=== PATIENT | female | born 1940 | race Caucasian/White ===

== ENCOUNTER 2016-09-29 12:10 | Inpatient (IN) | payer BC ==
[2016-09-29] MEDS ORDERED: SODIUM CHLORIDE 1,000 ML IV STA (12:38)
--- NOTE | 2016-09-29 13:11 | PDOC ---
History of Present Illness - General Chief Complaint: Weakness Stated Complaint: SENT BY PCP Time Seen by Provider: 09/29/16 12:20 History Source: Patient Exam Limitations: No Limitations - History of Present Illness Initial Comments: 09/29/16 13:02 76 y/o female sent in from Dr. Patel for evaluation of lightheadness, weakness, and paplitations since last night. Pt with hx of PAF and on aspirin only. Pt denies chest pain, shortness of breath, or lower extremity edema. Pt denies fever, chills, loss of appetite, weight change, recent change in medications, or recent illness. Timing/Duration: 24 hours Associated Symptoms: reports: malaise, weakness Past History - Past Medical History Allergies/Adverse Reactions: Allergies Allergy/AdvReac Type Severity Reaction Status Date / Time codeine Allergy Verified 09/29/16 12:22 Home Medications: Ambulatory Orders Ca/D3/Mag Ox/Zinc/Tractor Operator/Dio/Bor [Caltrate 600+D Plus Tab Chew] 1 each PO DAILY Metoprolol Succinate [Toprol XL -] 50 mg PO HS 02/08/14 Pravastatin Sodium 20 mg PO MOFR 02/08/14 Ubidecarenone [Co Q-10] 200 mg PO DAILY 02/08/14 Aspirin [Aspir 81] 81 mg PO DAILY 09/01/14 B12/Levomefolate Calcium/B-6 [Foltx Tablet] 1 each PO DAILY tablet 09/01/14 Meclizine HCl 12.5 mg PO ASDIR PRN tablet 09/01/14 Magnesium 400 mg PO DAILY 09/29/16 Cancer: Yes (BREAST) Cardiac Disorders: Yes HTN: Yes Hypercholesterolemia: Yes Other medical history: VERTIGO - Surgical History Cardiac Surgery: Yes (MITRAL VALVE) - Psycho/Social/Smoking Cessation Hx Anxiety: No Suicidal Ideation: No Smoking History: Never smoked Number of Cigarettes Smoked Daily: 0 Information on smoking cessation initiated: No Hx Alcohol Use: No Patient Lives Alone: Yes Lives with/in: lives alone Review of Systems - Review of Systems Able to Perform ROS?: Yes Constitutional: Yes: Weakness HEENTM: No: Symptoms Reported Respiratory: No: Symptoms reported Cardiac (ROS): Yes: Lightheadedness, Palpitations ABD/GI: No: Symptoms Reported Musculoskeletal: No: Symptoms Reported Integumentary: No: Symptoms Reported Neurological: Yes: Weakness, Dizziness Endocrine: No: Symptoms Reported Hematologic/Lymphatic: No: Symptoms Reported *Physical Exam - Vital Signs Last Vital Signs Temp Pulse Resp BP Pulse Ox 98.2 F 102 H 18 138/90 98 09/29/16 12:17 09/29/16 12:17 09/29/16 12:17 09/29/16 12:17 09/29/16 12:17 - Physical Exam General Appearance: Yes: Nourished, Appropriately Dressed. No: Apparent Distress HEENT: negative: Pale Conjunctivae Neck: positive: Supple Respiratory/Chest: positive: Lungs Clear, Normal Breath Sounds. negative: Respiratory Distress, Accessory Muscle Use Cardiovascular: positive: Regular Rhythm, Regular Rate. negative: Murmur Gastrointestinal/Abdominal: positive: Soft. negative: Tenderness Extremity: positive: Normal Capillary Refill. negative: Pedal Edema Integumentary: positive: Normal Color, Warm, Moist Neurologic: positive: Motor Strength 5/5 (ambulatory) Heart Score/ECG Review - ECG Impressions Tachycardia: Atrial Flutter (110) ED Treatment Course - LABORATORY CBC & Chemistry Diagram: 09/29/16 12:48 09/29/16 13:53 - RADIOLOGY Radiology Studies Ordered: Category Date Time Status CHEST X-RAY PORTABLE* [RAD] Stat Radiology 09/29/16 12:38 Ordered Medical Decision Making - Medical Decision Making 09/29/16 13:[address] Patel for evaluation of lightheadness and palpitations since yesterday. Pt on ekg with afib with variable rate. Pt's surgical specialist is Dr. Ribeiro and will begin cardiac workup. 09/29/16 15:03 Laboratory Tests 09/29/16 09/29/16 09/29/16 12:48 12:48 12:48 WBC 9.8 Hgb 13.1 D Hct 39.4 D Plt Count 135 Neutrophils % 81.9 INR 1.09 Sodium Potassium Chloride Carbon Dioxide Anion Gap BUN Creatinine Random Glucose Calcium Total Bilirubin AST ALT Alkaline Phosphatase Creatine Kinase CK-MB (CK-2) Troponin I Total Protein Albumin Urine Protein 1+ H Ur Leukocyte Esterase Negative Urine RBC 1 Urine WBC 1 Blood Type 09/29/16 09/29/16 12:48 13:53 WBC Hgb Hct Plt Count Neutrophils % INR Sodium 136 Potassium 4.7 Chloride 101 Carbon Dioxide 26 Anion Gap 9 BUN 24 H Creatinine 0.8 Random Glucose 88 Calcium 9.1 Total Bilirubin 0.5 D AST 41 H D ALT 30 Alkaline Phosphatase 66 D Creatine Kinase 206 H CK-MB (CK-2) Pending Troponin I < 0.02 Total Protein 8.4 H D Albumin 4.0 D Urine Protein Ur Leukocyte Esterase Urine RBC Urine WBC Blood Type A POSITIVE Chest x-ray negative. Consult placed for Dr. Ribeiro patient's surgical specialist and will admit the hospitalist since Dr. monge ([place] hospitalist) is currently away. 09/29/16 15:25 Case discussed with surgical specialist Dr. Ball and is aware patient will be admitted to telemetry. 09/29/16 15:44 Discussed with hospitalist Sadiq GIBBONS and accepted to service. Patient will be admitted to telemetry observation status. *DC/Admit/Observation/Transfer Diagnosis at time of Disposition: PAF (paroxysmal atrial fibrillation), Weak, Dizziness - Discharge Dispostion Admit: Yes - Referrals Referrals: Doug Patel MD [Primary Care Provider] -
[2016-09-29 13:17] LABS: BASOPHIL 0.3 % (0-2.0); EOSINOPHIL 0.3 % (0-4.5); MCH 31.3 pg (25.7-33.7); MCHC 33.3 g/dl (32.0-36.0); MEAN CELL VOLUME 94.2 fl (80-96); MEAN PLT VOLUME 8.4 fl (7.5-11.1); NEUTROPHILS 81.9 % (42.8-82.8); PLATELET COUNT 135 K/MM3 (134-434); RDW 13.2 % (11.6-15.6); WHITE BLOOD COUNT 9.8 K/mm3 (4.0-10.0)
[2016-09-29 13:41] LABS: INR 1.09 (0.82-1.09)
[2016-09-29 13:53] LABS: URINE APPEARANCE CLEAR; URINE BILIRUBIN NEGATIVE (NEGATIVE); URINE BLOOD NEGATIVE (NEGATIVE); URINE COLOR STRAW; URINE GLUCOSE (UA) NEGATIVE (NEGATIVE); URINE KETONE NEGATIVE (NEGATIVE); URINE LEUK ESTERASE NEGATIVE (NEGATIVE); URINE NITRITE NEGATIVE (NEGATIVE); URINE UROBILINOGEN NEGATIVE E.U./dl (0.2-1.0)
[2016-09-29 13:55] LABS: URINE PROTEIN 1+ (NEGATIVE)
[2016-09-29 13:57] LABS: URINE MUCUS RARE; URINE RBC 1 /hpf (0-3); URINE WBC 1 /hpf (3-5)
[2016-09-29 14:41] LABS: ANION GAP 9 (8-16); CALCIUM 9.1 mg/dL (8.5-10.1); CO2 26 mmol/L (21-32); GLUCOSE,RANDOM 88 mg/dL (74-106)
[2016-09-29 14:45] LABS: ALK PHOS 66 U/L (45-117); BILIRUBIN,TOTAL 0.5 mg/dL (0.2-1.0); CREATININE 0.8 mg/dL (0.55-1.02); SGPT/ALT 30 U/L (12-78); TOT PROT 8.4 g/dl (6.4-8.2)
[2016-09-29 14:46] LABS: TROPONIN I < 0.02 ng/ml (0.00-0.05)
[2016-09-29 14:48] LABS: SGOT/AST 41 U/L (15-37)
--- NOTE | 2016-09-29 15:31 | CON.CARD ---
Consult Consult Specialty:: Cardiology Referred by:: Burak Patel MD Reason for Consultation:: Afib - History of Present Illness Chief Complaint: Weakness History of Present Illness: Patient is a 76 year old female with a past significant medical history of coronary artery disease, angina pectoris, s/p MVR (bioprosthesis), PAF now in sinus on ASA only post traumatic hemorrhagic cortical contusion 2013 and left breast cancer, who presented to the ED with lightheadness, weakness, and palpitations since last night without associated chest pain, dyspnea, true syncope, orthopnea, PND or LE edema. Found to be in recurrent rate-controlled afib. 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 (H/O previous SAH and SDH 2007) Cardio/Vascular: Yes: AFIB (Noted post-op 12/20 procedure Resolved), HTN, Hyperlipdemia, Mitral Stenosis, Murmur, Other (MVP with MR post initial MVR 1999 Reoperative porcine MVR and TV Ring anuloplasty) Pulmonary: Yes: COPD (mild) Gastrointestinal: Yes: Gastritis Hepatobiliary: Yes: Other (Fatty liver) Renal/: Yes: UTI (Resolved) Infectious Disease: Yes: Herpes Zoster Rheumatology: Yes: Rheumatoid Arthritis (Mildly positive 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) Dermatology: Yes: Basal Cell (Post MOHS Right druze) - Past Surgical History Past Surgical History: Yes: Mastectomy (Radical lumpectomy) - Alcohol/Substance Use Hx Alcohol Use: No History of Substance Use: reports: None - Smoking History Smoking history: Never smoked Aproximately how many cigarettes per day: 0 - Social History ADL: Independent History of Recent Travel: No Home Medications - Allergies Allergies/Adverse Reactions: Allergies Allergy/AdvReac Type Severity Reaction Status Date / Time codeine Allergy Verified 09/29/16 12:22 - Home Medications Home Medications: Ambulatory Orders Ca/D3/Mag Ox/Zinc/Command And Control Officer/Dio/Bor [Caltrate 600+D Plus Tab Chew] 1 each PO DAILY Metoprolol Succinate [Toprol XL -] 50 mg PO HS 02/08/14 Pravastatin Sodium 20 mg PO MOFR 02/08/14 Ubidecarenone [Co Q-10] 200 mg PO DAILY 02/08/14 Aspirin [Aspir 81] 81 mg PO DAILY 09/01/14 B12/Levomefolate Calcium/B-6 [Foltx Tablet] 1 each PO DAILY tablet 09/01/14 Meclizine HCl 12.5 mg PO ASDIR PRN tablet 09/01/14 Magnesium 400 mg PO DAILY 09/29/16 Review of Systems - Review of Systems Cardiovascular: reports: Palpitations Neurological: reports: Dizziness, Weakness Vital Signs: Vital Signs Temperature 98.2 F 09/29/16 12:17 Pulse Rate 102 H 09/29/16 12:17 Respiratory Rate 18 09/29/16 12:17 Blood Pressure 138/90 09/29/16 12:17 O2 Sat by Pulse Oximetry (%) 98 09/29/16 12:17 Constitutional: Yes: No Distress, Calm Neck: Yes: Supple Respiratory: Yes: Regular, CTA Bilaterally Gastrointestinal: Yes: Normal Bowel Sounds, Soft Cardiovascular: Yes: Pulse Irregular JVD: No Carotid Bruit: No Heart Sounds: Yes: S1, S2 Murmur: Yes: Systolic Murmur, Grade 1 Edema: No - Other Data Labs, Other Data: CBC, BMP 09/29/16 12:48 09/29/16 13:53 INR, PTT INR 1.09 (0.82-1.09) 09/29/16 12:48 Troponin, BNP 09/29/16 09/29/16 12:48 13:53 Troponin I Cancelled < 0.02 Troponin, BNP 09/29/16 09/29/16 12:48 13:53 Troponin I Cancelled < 0.02 Afib @ [address]-T changes Prior Cardiac Procedures: Valve Surgery Ejection Fraction %: LVEF > or = 40 % Imaging - Results Chest X-ray: Report Reviewed (NAD) Problem List - Problems (1) Dizziness Code(s): R42 - DIZZINESS AND GIDDINESS (2) PAF (paroxysmal atrial fibrillation) Code(s): I48.0 - PAROXYSMAL ATRIAL FIBRILLATION (3) H/O mitral valve replacement Code(s): Z95.2 - PRESENCE OF PROSTHETIC HEART VALVE (4) Hyperlipidemia Code(s): E78.5 - HYPERLIPIDEMIA, UNSPECIFIED Qualifiers: Qualified Code(s): E78.00 - Pure hypercholesterolemia, unspecified; E78.0 - Pure hypercholesterolemia (5) Hypertension Code(s): I10 - ESSENTIAL (PRIMARY) HYPERTENSION Qualifiers: Qualified Code(s): I10 - Essential (primary) hypertension (6) ASHD (arteriosclerotic heart disease) Code(s): I25.10 - ATHSCL HEART DISEASE OF [place] CORONARY ARTERY W/O ANG PCTRS Assessment/Plan 1. Symptomatic paroxysmal atrial fibrillation with RVR 2. H/o mechanical fall resulting in hemorrhagic cortical contusion 2013 3. S/P re-op MVR with bioprosthesis 4. ASHD 5. HTN 6. Hypercholesterolemia 7. History of breast CA PLAN: 1. Increase metoprolol to 50 bid, continue pravachol 20 qd, add losartan 25 qd 2. Change ASA to coumadin per INR given elevated risk score, patient prefers coumadin over NOAC 3. Consider cardioversion after 6-8 weeks of anticoagulation with therapeutic INR 4. F/u echo to assess LV and valve fxn, LA size, check TSH 5. Thank you for consultative opportunity
[2016-09-29] MEDS ORDERED: MECLIZINE HCL 12.5 MG TABLET PO PRN (16:42)
--- NOTE | 2016-09-29 16:42 | HP ---
PCP: Doug Patel CHIEF COMPLAINT: Dizziness HISTORY OF PRESENT ILLNESS: This is a 76-year-old woman who was sent in to the ER today by Dr. Patel complaining of dizziness since last night. She went to his office today and was found to be in atrial flutter. She denies chest pain, shortness of breath. She does have occasional palpitations but none currently. She has a history of PAF. She had been on Coumadin in the past after valve surgery and has not been on it for several years since she had an intracranial hemorrhage after a fall. PAST MEDICAL HISTORY Hypertension Hyperlipidemia Non-obstructive CAD Paroxysmal atrial fibrillation Breast cancer - treated with lumpectomy, chemotherapy, radiation therapy Intracranial hemorrhage secondary to fall while on Coumadin PAST SURGICAL HISTORY Bioprosthetic mitral valve replacement x 2 Left breast lumpectomy Tricuspid valvuloplasty Allergies codeine Allergy (Verified 09/29/16 12:22) HOME MEDICATIONS 3 Medication Instructions Recorded Ca/D3/Mag Ox/Zinc/Faculty Head/Dio/Bor 1 each PO DAILY 02/08/14 [Caltrate 600+D Plus Tab Chew] Metoprolol Succinate [Toprol XL -] 50 mg PO HS 02/08/14 Pravastatin Sodium 20 mg PO MOFR 02/08/14 Ubidecarenone [Co Q-10] 200 mg PO DAILY 02/08/14 Aspirin [Aspir 81] 81 mg PO DAILY 09/01/14 B12/Levomefolate Calcium/B-6 1 each PO DAILY tablet 09/01/14 [Foltx Tablet] Meclizine HCl 12.5 mg PO ASDIR PRN tablet 09/01/14 Magnesium 400 mg PO DAILY 09/29/16 Social History: Smoking: Quit more than 40 years ago Alcohol: Denies Drugs: Denies Recent Travel: No Family History: Non-contributory REVIEW OF SYSTEMS CONSTITUTIONAL: Absent: fever, chills, diaphoresis, generalized weakness, malaise, loss of appetite, weight change HEENT: Absent: rhinorrhea, nasal congestion, throat pain, throat swelling, difficulty swallowing, mouth swelling, ear pain, eye pain, visual changes CARDIOVASCULAR: Present: palpitations, lightheadedness. Absent: chest pain, syncope, peripheral edema RESPIRATORY: Absent: cough, shortness of breath, dyspnea with exertion, orthopnea, wheezing, stridor, hemoptysis GASTROINTESTINAL: Absent: abdominal pain, abdominal distension, nausea, vomiting , diarrhea, constipation, melena, hematochezia GENITOURINARY: Absent: dysuria, frequency, urgency, hesitancy, hematuria, flank pain MUSCULOSKELETAL: Absent: myalgia, arthralgia, joint swelling, back pain, neck pain SKIN: Absent: rash, itching, pallor HEMATOLOGIC/IMMUNOLOGIC: Absent: easy bleeding, easy bruising, lymphadenopathy, frequent infections ENDOCRINE: Absent: unexplained weight gain, unexplained weight loss, heat intolerance, cold intolerance NEUROLOGIC: Present: dizziness. Absent: headache, focal weakness, paresthesias , unsteady gait, seizure, mental status changes, bladder or bowel incontinence PSYCHIATRIC: Absent: anxiety, depression, suicidal or homicidal ideation, hallucinations. PHYSICAL EXAMINATION Vital Signs - 24 hr 09/29/16 09/29/16 12:17 16:34 Temperature 98.2 F 98.6 F Pulse Rate 102 H Pulse Rate [ 122 H Right] Respiratory 18 20 Rate Blood Pressure 138/90 Blood Pressure 155/77 [Left Arm] O2 Sat by Pulse 98 99 Oximetry (%) GENERAL: Awake, alert, and fully oriented, in no acute distress. HEAD: Normal with no signs of trauma. EYES: Pupils equal, round and reactive to light, extraocular movements intact, sclerae anicteric, conjunctivae clear. EARS, NOSE, THROAT: Ears normal, nares patent, oropharynx clear without exudates. Moist mucous membranes. NECK: Normal range of motion, supple without lymphadenopathy, JVD, or masses. LUNGS: Breath sounds equal, clear to auscultation bilaterally. No wheezes, and no crackles. No accessory muscle use. HEART: Irregularly irregular, tachycardic, (+) 2/6 systolic murmur ABDOMEN: Soft, nontender, not distended, normoactive bowel sounds, no guarding, no rebound, no masses. No hepatomegaly or splenomegaly. MUSCULOSKELETAL: Normal range of motion at all joints. No bony deformities or tenderness. No CVA tenderness. UPPER EXTREMITIES: 2+ pulses, warm, well-perfused. No cyanosis. No clubbing. No peripheral edema. LOWER EXTREMITIES: 2+ pulses, warm, well-perfused. No calf tenderness. No peripheral edema. NEUROLOGICAL: Cranial nerves II-XII intact. Normal speech. Normal gait. PSYCHIATRIC: Cooperative. Good eye contact. Appropriate mood and affect. SKIN: Warm, dry, normal turgor, no rashes or lesions noted, normal capillary refill. Laboratory Results - last 24 hr 09/29/16 09/29/16 09/29/16 12:48 12:48 12:48 WBC 9.8 RBC 4.18 D Hgb 13.1 D Hct 39.4 D MCV 94.2 MCHC 33.3 RDW 13.2 Plt Count 135 MPV 8.4 Neutrophils % 81.9 Lymphocytes % 11.9 D Monocytes % 5.6 Eosinophils % 0.3 Basophils % 0.3 INR 1.09 Sodium Potassium Chloride Carbon Dioxide Anion Gap BUN Creatinine Creat Clearance w eGFR Random Glucose Calcium Total Bilirubin AST ALT Alkaline Phosphatase Creatine Kinase CK-MB (CK-2) Troponin I Total Protein Albumin Urine Color Straw Urine Appearance Clear Urine pH 6.0 Ur Specific [place] 1.005 Urine Protein 1+ H Urine Glucose (UA) Negative Urine Ketones Negative Urine Blood Negative Urine Nitrite Negative Urine Bilirubin Negative Urine Urobilinogen Negative Ur Leukocyte Esterase Negative Urine RBC 1 Urine WBC 1 Ur Epithelial Cells Rare Urine Mucus Rare Blood Type Antibody Screen 09/29/16 09/29/16 09/29/16 12:48 12:48 13:53 WBC RBC Hgb Hct MCV MCHC RDW Plt Count MPV Neutrophils % Lymphocytes % Monocytes % Eosinophils % Basophils % INR Sodium Cancelled 136 Potassium Cancelled 4.7 Chloride Cancelled 101 Carbon Dioxide Cancelled 26 Anion Gap Cancelled 9 BUN Cancelled 24 H Creatinine Cancelled 0.8 Creat Clearance w eGFR Cancelled > 60 Random Glucose Cancelled 88 Calcium Cancelled 9.1 Total Bilirubin Cancelled 0.5 D AST Cancelled 41 H D ALT Cancelled 30 Alkaline Phosphatase Cancelled 66 D Creatine Kinase Cancelled 206 H CK-MB (CK-2) 4.967 H Troponin I Cancelled < 0.02 Total Protein Cancelled 8.4 H D Albumin Cancelled 4.0 D Urine Color Urine Appearance Urine pH Ur Specific [place] Urine Protein Urine Glucose (UA) Urine Ketones Urine Blood Urine Nitrite Urine Bilirubin Urine Urobilinogen Ur Leukocyte Esterase Urine RBC Urine WBC Ur Epithelial Cells Urine Mucus Blood Type A POSITIVE Antibody Screen Negative ASSESSMENT/PLAN: This is a 76-year-old woman with a history of PAF, CAD, HTN, hyperlipidemia, MVR , breast cancer, traumatic intracranial hemorrhage who was sent in to the ER because of dizziness. She was found to be in atrial fibrillation. She is being admitted now for treatment of an emergent condition 1. Paroxysmal atrial fibrillation with RVR, symptomatic - Monitor on telemetry - Increase Toprol XL - Serial cardiac enzymes - Check TSH - Cardiology consult appreciated - Anticoagulation options discussed and patient prefers Coumadin 2. CAD, non-obstructive - Continue Toprol XL, Pravachol - Cozaar added 3. Hypertension - Continue Toprol XL - Cozaar added 4. Hyperlipidemia - Continue Pravachol 5. Bioprosthetic mitral valve replacement 6. Breast cancer, history of left breast lumpectomy, chemotherapy, radiation therapy 7. History of intracranial hemorrhage secondary to fall while on Coumadin Problem List - Problem (1) PAF (paroxysmal atrial fibrillation) Code(s): I48.0 - PAROXYSMAL ATRIAL FIBRILLATION (2) Weak Code(s): R53.1 - WEAKNESS (3) ASHD (arteriosclerotic heart disease) Code(s): I25.10 - ATHSCL HEART DISEASE OF [place] CORONARY ARTERY W/O ANG PCTRS (4) Breast cancer Code(s): C50.919 - MALIGNANT NEOPLASM OF UNSP SITE OF UNSPECIFIED FEMALE BREAST (5) H/O mitral valve replacement Code(s): Z95.2 - PRESENCE OF PROSTHETIC HEART VALVE (6) Hyperlipidemia Code(s): E78.5 - HYPERLIPIDEMIA, UNSPECIFIED Qualifiers: Hyperlipidemia type: pure hypercholesterolemia Qualified Code(s): E78.00 - Pure hypercholesterolemia, unspecified; E78.0 - Pure hypercholesterolemia (7) Hypertension Code(s): I10 - ESSENTIAL (PRIMARY) HYPERTENSION Qualifiers: Hypertension type: essential hypertension Qualified Code(s): I10 - Essential (primary) hypertension (8) History of intracranial hemorrhage Code(s): Z86.79 - PERSONAL HISTORY OF OTHER DISEASES OF THE CIRCULATORY SYSTEM (9) Dizziness Code(s): R42 - DIZZINESS AND GIDDINESS Visit type - Emergency Visit Emergency Visit: Yes ED Registration Date: 09/29/16 Care time: The patient presented to the Emergency Department on the above date and was hospitalized for further evaluation of their emergent condition. - New Patient This patient is new to me today: Yes Date on this admission: 09/29/16 - Critical Care Critical Care patient: No
[2016-09-29] MEDS ORDERED: ONDANSETRON 4 MG/2 ML VIAL IVPB PRN (16:44)
[2016-09-29] MEDS ORDERED: ACETAMINOPHEN 325 MG TABLET (FP) PO PRN (16:44)
--- NOTE | 2016-09-29 17:03 | EKG ---
Test Reason : Blood Pressure : / mmHG Vent. Rate : 110 BPM Atrial Rate : 300 BPM P-R Int : 000 ms QRS Dur : 094 ms QT Int : 344 ms P-R-T Axes : 000 010 066 degrees QTc Int : 465 ms ATRIAL FIBRILLATION WITH RAPID VENTRICULAR RESPONSE NONSPECIFIC ST AND T WAVE ABNORMALITY ABNORMAL ECG WHEN COMPARED WITH ECG OF 08-FEB-2014 13:03, ATRIAL FIBRILLATION HAS REPLACED SINUS RHYTHM Confirmed by GILDARDO BARKER MD ([id number]) on 09/29/2016 5:03:23 PM Referred By: Confirmed By:GILDARDO BARKER MD
[2016-09-29 17:54] VITALS: BMI 24.3
[2016-09-29] MEDS ORDERED: METOPROLOL SUCCINATE 50 MG TAB.SR.24H (FP) ONE (17:58)
[2016-09-29] MEDS ORDERED: WARFARIN NA 3 MG TABLET PO SCH (18:00)
[2016-09-29] MEDS: LOSARTAN POTASSIUM 25 MG TABLET PO SCH (18:18)
[2016-09-29] MEDS: METOPROLOL SUCCINATE 50 MG TAB.SR.24H (FP) PO SCH (18:18)
[2016-09-29 22:47] LABS: THYROID STIMULATING HORMONE 1.93 uIU/ml (0.358-3.74); TROPONIN I < 0.02 ng/ml (0.00-0.05)
[2016-09-30] MEDS: METOPROLOL SUCCINATE 50 MG TAB.SR.24H (FP) PO SCH ×2 (00:05→09:56)
--- NOTE | 2016-09-30 07:34 | PN ---
[id number] [id number] OBJECTIVE: HR well-controlled on new regimen. INR 1.12. Vital Signs Period Temp Pulse Resp BP Sys/Miranda Pulse Ox Last 24 Hr 97.3 F-97.8 F 70-115 18-20 112-145/43-72 95-95 GENERAL: The patient is awake, alert, and fully oriented, in no acute distress. HEAD: Normal with no signs of trauma. EYES: PERRL, extraocular movements intact, sclera anicteric, conjunctiva clear. No ptosis. ENT: Ears normal, nares patent, oropharynx clear without exudates, moist mucous membranes. NECK: Trachea midline, full range of motion, supple. LUNGS: Breath sounds equal, clear to auscultation bilaterally, no wheezes, no crackles, no accessory muscle use. HEART: Irregular rhythm, soft systolic murmur. ABDOMEN: Soft, nontender, nondistended, normoactive bowel sounds, no guarding, no rebound, no hepatosplenomegaly, no masses. EXTREMITIES: 2+ pulses, warm, well-perfused, trace LE edema. NEUROLOGICAL: Cranial nerves II through XII grossly intact. Normal speech, gait not observed. PSYCH: Normal mood, normal affect. SKIN: Warm, dry, normal turgor, no rashes or lesions noted Laboratory Results - last 24 hr 09/29/16 21:20 Creatine Kinase 104 Troponin I < 0.02 TSH 1.93 Active Medications Generic Name Dose Route Start Last Admin Trade Name Freq PRN Reason Stop Dose Admin Acetaminophen 650 mg 09/29/16 16:44 09/29/16 18:18 Tylenol - PO 650 mg Q4H PRN Administration FEVER OR PAIN Losartan Potassium 25 mg 09/29/16 17:00 09/29/16 18:18 Cozaar - PO 25 mg DAILY DEIDRE Administration Magnesium Oxide 400 mg 09/30/16 10:00 Mag-Ox - PO DAILY DEIDRE Meclizine HCl 12.5 mg 09/29/16 16:42 Antivert - PO Q6H PRN dizziness Metoprolol Succinate 50 mg 09/29/16 22:00 09/30/16 00:05 Toprol Xl - PO 50 mg BID DEIDRE Administration Non-Formulary Medication 1 each 09/30/16 10:00 B12/Levomefolate Calcium/B-6 [Foltx Tablet] PO DAILY DEIDRE Non-Formulary Medication 1 each 09/30/16 10:00 Ca/D3/Mag Ox/Zinc/Tenant Relations Coordinator/Dio/Bor [Caltrate 600+D Plus Tab Chew] PO DAILY [facility] Non-Formulary Medication 20 mg 09/30/16 16:42 Pravastatin Sodium [Pravastatin Sodium] PO MOFR [facility] Non-Formulary Medication 200 mg 09/30/16 10:00 Ubidecarenone [Co Q-10] PO DAILY [facility] Ondansetron HCl 4 mg 09/29/16 16:44 Zofran Injection IVPB Q4H PRN NAUSEA Warfarin Sodium 3 mg 09/29/16 18:00 09/29/16 18:18 Coumadin - PO 3 mg DAILY@1800 [facility] Administration ASSESSMENT/PLAN: 76-year-old woman with a history of PAF, CAD, HTN, hyperlipidemia, MVR, breast cancer, traumatic intracranial hemorrhage who was sent in to the ER because of dizziness. She was found to be in atrial fibrillation. 1. Paroxysmal atrial fibrillation with RVR, symptomatic - Continue Toprol XL; now with good rate control - Ruled out for DE - TSH WNL at 1.93 - Started on warfarin per patient preference; follow INR -Baseline Head CT obtained and unremarkable 2. CAD, non-obstructive - Continue Toprol XL, Pravachol - Cozaar added 3. Hypertension - Continue Toprol XL - Cozaar added; BP now at goal 4. Hyperlipidemia - Continue Pravachol 5. Bioprosthetic mitral valve replacement 6. Breast cancer, history of left breast lumpectomy, chemotherapy, radiation therapy 7. History of intracranial hemorrhage secondary to fall while on Coumadin DISPO: Dc home with prompt followup for INR check. Discussed with patient and she is amenable to the plan. Visit type - Emergency Visit Emergency Visit: Yes ED Registration Date: 09/29/16 Care time: The patient presented to the Emergency Department on the above date and was hospitalized for further evaluation of their emergent condition. - New Patient This patient is new to me today: Yes Date on this admission: 10/09/16 - Critical Care Critical Care patient: No - Discharge Referral Referred to [facility] Med P.C.: No
[2016-09-30 08:54] LABS: INR 1.12 (0.82-1.09); PROTHROMBIN TIME (PATIENT) 12.3 SEC (9.98-11.88)
[2016-09-30] MEDS ORDERED: PT OWN MED DRAWER 7, Y5N ONE (09:09)
[2016-09-30] MEDS ORDERED: UBIDECARENONE 200 MG PO SCH (10:00)
[2016-09-30] MEDS ORDERED: PATIENT'S OWN MEDICATION (NON-FORMULARY) (B12/Levomefolate Calcium/B-6 [Foltx Tablet] 1 EA PO SCH (10:00)
[2016-09-30] MEDS ORDERED: [UNRECOGNIZED DRUG - OTHER] PO SCH (10:00)
[2016-09-30] MEDS ORDERED: MAGNESIUM OXIDE 400 MG TABLET (FP) PO SCH (10:00)
[2016-09-30] MEDS: LOSARTAN POTASSIUM 25 MG TABLET PO SCH ×2 (10:00→14:34)
--- NOTE | 2016-09-30 10:16 | PN ---
Progress Note (short form) - Note Progress Note: S: 76 year old white female with history of mitral valvular disease s/p bioprosthetic mitral valve replacement (reop 2012), tricuspid valve physio ring. History of paroxysmal atrial fibrillation, coronary artery disease, angina pectoris. History of traumatic intracerebellar hemorrhage. S/P left breast lumpectomy / chemotherapy / radiation. Hypertension and history of hypercholesterolemia. Patient was admitted with history of lightheadedness and was found to be in slow atrial flutter / atrial fibrillation with varying AV response. No history of chest pain or discomfort either at rest or exertion, no exertional dyspnea, PND or orthopnea. Occasional history of palpitations. Patient currently is being coumadinized. Active Medications Generic Name Dose Route Start Last Admin Trade Name Freq PRN Reason Stop Dose Admin Acetaminophen 650 mg 09/29/16 16:44 09/29/16 18:18 Tylenol - PO 650 mg Q4H PRN Administration FEVER OR PAIN Losartan Potassium 25 mg 09/29/16 17:00 09/29/16 18:18 Cozaar - PO 25 mg DAILY DEIDRE Administration Magnesium Oxide 400 mg 09/30/16 10:00 09/30/16 09:56 Mag-Ox - PO 400 mg DAILY DEIDRE Administration Meclizine HCl 12.5 mg 09/29/16 16:42 Antivert - PO Q6H PRN dizziness Metoprolol Succinate 50 mg 09/29/16 22:00 09/30/16 09:56 Toprol Xl - PO 50 mg BID DEIDRE Administration Non-Formulary Medication 1 each 09/30/16 10:00 B12/Levomefolate Calcium/B-6 [Foltx Tablet] PO DAILY [facility] Non-Formulary Medication 1 each 09/30/16 10:00 Ca/D3/Mag Ox/Zinc/Drum Handler/Dio/Bor [Caltrate 600+D Plus Tab Chew] PO DAILY [facility] Non-Formulary Medication 20 mg 09/30/16 16:42 Pravastatin Sodium [Pravastatin Sodium] PO MOFR [facility] Non-Formulary Medication 200 mg 09/30/16 10:00 Ubidecarenone [Co Q-10] PO DAILY [facility] Ondansetron HCl 4 mg 09/29/16 16:44 Zofran Injection IVPB Q4H PRN NAUSEA Warfarin Sodium 3 mg 09/30/16 09:42 Coumadin - PO DAILY@1800 DEIDRE O: 76 year old female was in no acute distress, no pallor, cyanosis, clubbing, or jaundice. Last Vital Signs Temp Pulse Resp BP Pulse Ox 98.2 F 78 Irregularly irregular 18 108/58 95 09/30/16 09:57 09/30/16 09:57 09/30/16 09:57 09/30/16 09:57 09/29/16 20:45 Neck: Supple, no JVD, negative HJR, carotids were equal and upstrokes were normal, no thyromegaly appreciated. Heart: PMI was in the 5th intercostal space, no heaves or thrills, S1 is variable and S2 is normal. Grade I/ apical systolic murmur. No gallops were appreciated. Lungs: Clear on auscultation bilaterally. Abdomen: Soft, nontender, no hepatosplenomegaly appreciated, and no palpable masses were felt. Extremities: No calf tenderness or dependent edema. Pulses are normal. CBC, BMP 09/29/16 12:48 09/29/16 13:53 Laboratory Results - last 24 hr 09/29/16 09/29/16 09/29/16 12:48 12:48 12:48 WBC 9.8 RBC 4.18 D Hgb 13.1 D Hct 39.4 D MCV 94.2 MCHC 33.3 RDW 13.2 Plt Count 135 MPV 8.4 Neutrophils % 81.9 Lymphocytes % 11.9 D Monocytes % 5.6 Eosinophils % 0.3 Basophils % 0.3 INR 1.09 Sodium Potassium Chloride Carbon Dioxide Anion Gap BUN Creatinine Creat Clearance w eGFR Random Glucose Calcium Total Bilirubin AST ALT Alkaline Phosphatase Creatine Kinase CK-MB (CK-2) Troponin I Total Protein Albumin TSH Urine Color Straw Urine Appearance Clear Urine pH 6.0 Ur Specific [place] 1.005 Urine Protein 1+ H Urine Glucose (UA) Negative Urine Ketones Negative Urine Blood Negative Urine Nitrite Negative Urine Bilirubin Negative Urine Urobilinogen Negative Ur Leukocyte Esterase Negative Urine RBC 1 Urine WBC 1 Ur Epithelial Cells Rare Urine Mucus Rare Blood Type Antibody Screen 09/29/16 09/29/16 09/29/16 12:48 12:48 13:53 WBC RBC Hgb Hct MCV MCHC RDW Plt Count MPV Neutrophils % Lymphocytes % Monocytes % Eosinophils % Basophils % INR Sodium Cancelled 136 Potassium Cancelled 4.7 Chloride Cancelled 101 Carbon Dioxide Cancelled 26 Anion Gap Cancelled 9 BUN Cancelled 24 H Creatinine Cancelled 0.8 Creat Clearance w eGFR Cancelled > 60 Random Glucose Cancelled 88 Calcium Cancelled 9.1 Total Bilirubin Cancelled 0.5 D AST Cancelled 41 H D ALT Cancelled 30 Alkaline Phosphatase Cancelled 66 D Creatine Kinase Cancelled 206 H CK-MB (CK-2) 4.967 H Troponin I Cancelled < 0.02 Total Protein Cancelled 8.4 H D Albumin Cancelled 4.0 D TSH Urine Color Urine Appearance Urine pH Ur Specific [place] Urine Protein Urine Glucose (UA) Urine Ketones Urine Blood Urine Nitrite Urine Bilirubin Urine Urobilinogen Ur Leukocyte Esterase Urine RBC Urine WBC Ur Epithelial Cells Urine Mucus Blood Type A POSITIVE Antibody Screen Negative 09/29/16 09/30/16 21:20 08:20 WBC RBC Hgb Hct MCV MCHC RDW Plt Count MPV Neutrophils % Lymphocytes % Monocytes % Eosinophils % Basophils % INR 1.12 Sodium Potassium Chloride Carbon Dioxide Anion Gap BUN Creatinine Creat Clearance w eGFR Random Glucose Calcium Total Bilirubin AST ALT Alkaline Phosphatase Creatine Kinase 104 CK-MB (CK-2) Troponin I < 0.02 Total Protein Albumin TSH 1.93 Urine Color Urine Appearance Urine pH Ur Specific Call[place] Urine Protein Urine Glucose (UA) Urine Ketones Urine Blood Urine Nitrite Urine Bilirubin Urine Urobilinogen Ur Leukocyte Esterase Urine RBC Urine WBC Ur Epithelial Cells Urine Mucus Blood Type Antibody Screen Impression: (1) Dizziness Code(s): R42 - DIZZINESS AND GIDDINESS (2) Paroxysmal atrial fibrillation / Flutter with controlled ventricular response Code(s): I48.0 - PAROXYSMAL ATRIAL FIBRILLATION (3) Mitral valvular disease s/p bioprosthetic valve replacement (x2) Code(s): Z95.2 - PRESENCE OF PROSTHETIC HEART VALVE (4) Tricuspid valve annuloplasty (physio ring) Code(s): Z98.890 - OTHER SPECIFIED POSTPROCEDURAL STATES (5) Hyperlipidemia Code(s): E78.5 - HYPERLIPIDEMIA, UNSPECIFIED Qualifiers: Qualified Code(s): E78.00 - Pure hypercholesterolemia, unspecified; E78.0 - Pure hypercholesterolemia (6) Hypertension Code(s): I10 - ESSENTIAL (PRIMARY) HYPERTENSION Qualifiers: Qualified Code(s): I10 - Essential (primary) hypertension (7) Arteriosclerotic heart disease, angina pectoris currently stable Code(s): I25.10 - ATHSCL HEART DISEASE OF [place] CORONARY ARTERY W/O ANG PCTRS (8) S/P traumatic intracerebral hemorrhage. Code(s): S06.369A - TRAUM HEMOR CEREB, W LOC OF UNSP DURATION, INIT Recommendations: 1. Concur with current line of therapy. 2. Baseline CT scan of the head. 3. Last operative report to be checked if patient had left atrial appendage closure. 4. Close follow up of INR. 5. Patient will need anticougulation for atleast 4-6 weeks prior to considering cardioversion. Attestation: Documentation prepared by Mio Vega, acting as medical library assistant for Ross Ribeiro MD.
[2016-09-30] MEDS ORDERED: PATIENT'S OWN MEDICATION (NON-FORMULARY) (Pravastatin Sodium [Pravastatin Sodium] 20 MG) PO SCH (16:42)
[2016-09-30 17:28] VITALS: BP 126/79; PULSE 82; TEMP 97.9
[2016-09-30] MEDS ORDERED: WARFARIN NA 3 MG TABLET PO SCH (18:00)
--- NOTE | 2016-09-30 18:10 | DS ---
Physical Exam: SUBJECTIVE: Patient seen and examined OBJECTIVE: Vital Signs Period Temp Pulse Resp BP Sys/Miranda Pulse Ox Last 24 Hr 97.6 F-98.2 F 70-96 18-20 108-126/43-79 95-95 PHYSICAL EXAM GENERAL: The patient is awake, alert, and fully oriented, in no acute distress. HEAD: Normal with no signs of trauma. EYES: PERRL, extraocular movements intact, sclera anicteric, conjunctiva clear. ENT: Ears normal, nares patent, oropharynx clear without exudates, moist mucous membranes. NECK: Trachea midline, full range of motion, supple. LUNGS: Breath sounds equal, clear to auscultation bilaterally, no wheezes, no crackles, no accessory muscle use. HEART: Irregular rhythm, soft systolic murmur, no rub or gallop. ABDOMEN: Soft, nontender, nondistended, normoactive bowel sounds, no guarding, no rebound, no hepatosplenomegaly, no masses. EXTREMITIES: 2+ pulses, warm, well-perfused, trace LE edema bilaterally. NEUROLOGICAL: Cranial nerves II through XII grossly intact. Normal speech, gait not observed. PSYCH: Normal mood, normal affect. SKIN: Warm, dry, normal turgor, no rashes or lesions noted. LABS Laboratory Results - last 24 hr 09/29/16 09/30/16 21:20 08:20 INR 1.12 Creatine Kinase 104 Troponin I < 0.02 TSH 1.93 HOSPITAL COURSE: This is a 76-year-old woman with a history of PAF, CAD, HTN, hyperlipidemia, MVR , breast cancer, traumatic intracranial hemorrhage who was sent in to the ER on 09/29 with dizziness and palpitations. She was found to be in atrial fibrillation with rapid ventricular rate (up to 122). TSH was normal. Serial troponins were <0.02. She was started on warfarin after a baseline head CT was obtained. Her Toprol was increased to 50mg bid with good rate control. Losartan was added for BP control. -EKG: Afib with ventricular rate 110 -CXR: Slightly increased interstitial markings; no infiltrate or consolidation, no vascular congestion -Echocardiogram: LV systolic function grossly normal. Prosthetic mitral valve noted. Medication changes were reviewed with the patient. She will follow up with her PCP on Monday for INR check. Date of Admission:09/29/16 Date of Discharge: 09/30/16 Minutes to complete discharge: 35 Discharge Summary Reason For Visit: PAROXYSMAL ATRIAL FIBRILLATION; WEAKNESS;DIZZINESS Current Active Problems Dizziness (Acute) H/O tricuspid valve annuloplasty (Acute) PAF (paroxysmal atrial fibrillation) (Acute) Traumatic intracerebral hemorrhage (Acute) Weak (Acute) ASHD (arteriosclerotic heart disease) (Chronic) Breast cancer (Chronic) H/O mitral valve replacement (Chronic) History of intracranial hemorrhage (Chronic) Hyperlipidemia (Chronic) Hypertension (Chronic) Condition: Improved - Instructions Diet, Activity, Other Instructions: You were admitted for dizziness, weakness, and lightheadedness caused by atrial fibrillation (abnormal heart rhythm) with a rapid rate. Please continue all of your prescribed medications, with the following changes: -Take Coumadin 3mg (one 2mg tablet + one 1mg tablet) every evening at 6pm - see attached dietary restrictions -Start taking Toprol twice daily instead of once daily - additional supply sent to your pharmacy -Start taking Cozaar -Stop taking Aspirin Follow up with Dr. Patel on Monday for repeat INR (Coumadin level) check Follow up with Dr. Ribeiro within one week Return to the ER for palpitations, chest pain, shortness of breath, fainting/ near fainting, or any other concerning symptoms Referrals: Doug Patel MD [Primary Care Provider] - 10/03/16 Ross Ribeiro MD [Staff Physician] - 1 Week Disposition: HOME - Home Medications Comprehensive Discharge Medication List: Ambulatory Orders Ca/D3/Mag Ox/Zinc/Hop Picker/Dio/Bor [Caltrate 600+D Plus Tab Chew] 1 each PO DAILY Metoprolol Succinate [Toprol XL -] 50 mg PO HS 02/08/14 Pravastatin Sodium 20 mg PO MOFR 02/08/14 Ubidecarenone [Co Q-10] 200 mg PO DAILY 02/08/14 Aspirin [Aspir 81] 81 mg PO DAILY 09/01/14 B12/Levomefolate Calcium/B-6 [Foltx Tablet] 1 each PO DAILY tablet 09/01/14 Meclizine HCl 12.5 mg PO ASDIR PRN tablet 09/01/14 Magnesium 400 mg PO DAILY 09/29/16 This patient is new to me today: Yes Date on this admission: 09/30/16 Emergency Visit: Yes ED Registration Date: 09/29/16 Care time: The patient presented to the Emergency Department on the above date and was hospitalized for further evaluation of their emergent condition. Critical Care patient: No - Discharge Referral Referred to [facility] No
== END 2016-09-30 21:23 | disposition home or self-care (01) | DRG 310 ==
LOC: JER 12:10 → JERBED 15:52 → OBSVTOIN 16:44 → J4W 17:36
PROVIDERS: ADMIT Internal Medicine; ATTEND Registered Nurse Emergency
DX: I48.0 Paroxysmal atrial fibrillation (principal); E78.00 Pure hypercholesterolemia, unspecified; R42 Dizziness and giddiness; I25.119 Atherosclerotic heart disease of native coronary artery with unspecified angina pectoris; Z95.2 Presence of prosthetic heart valve; J44.9 Chronic obstructive pulmonary disease, unspecified; K76.0 Fatty (change of) liver, not elsewhere classified; Z85.3 Personal history of malignant neoplasm of breast; Z86.79 Personal history of other diseases of the circulatory system
CPT/HCPCS: 36415; 70450-TC; 71010-TC; 80053; 81003; 81015; 82550; 82553; 84443; 84484; 85025; 85610; 86850; 86900; 86901; 87086; 93005; 93010; 93306-TC; 99285-25; G0378

== ENCOUNTER 2017-10-11 23:12 | Inpatient (IN) | payer BC, OTHER ==
[2017-10-11] MEDS ORDERED: FAMOTIDINE 20 MG/50 ML IVPB 20 MG/50 ML MG IVPB ONE ×2 (23:28→23:47)
[2017-10-11] MEDS ORDERED: ONDANSETRON 4 MG/2 ML VIAL IVPUSH ONE (23:28)
--- NOTE | 2017-10-11 23:30 | PDOC ---
Attending Attestation - HPI HPI: 10/11/17 23:37 The patient is a 77 year old female with a significant PMH of AFib (on Coumadin) , breast CA (s/p lumpectomy), CHF, HTN, and hyperlipidemia who presents to the emergency department with abdominal pain beginning approximately this morning. She describes her abdominal pain as a dull pressure localized in the epigastric region with intermittent radiation to her chest and upper abdomen. She denies any aggravating or remitting factors. The patient notes taking an extra diuretic after eating today. She denies any history of blood clots. She denies any swelling. Allergies: Codeine PCP: Dr. Patel <Marcin Ovalle - Last Filed: 10/11/17 23:37> - Resident Resident Name: Manjit Chavez - ED Attending Attestation I have performed the following: I have examined & evaluated the patient, The case was reviewed & discussed with the resident, I agree w/resident's findings & plan, Exceptions are as noted - Physicial Exam PE: 10/12/17 02:31 Physical Exam General Appearance: Yes: Appropriately Dressed. Mild distress No: Intoxicated HEENT: positive: EOMI, WOO, Normal ENT Inspection, Normal Voice, TMs Normal, Pharynx Normal. negative: Pale Conjunctivae, Photophobia, Scleral Icterus (R), Scleral Icterus (L) Neck: positive: Trachea midline, Normal Thyroid, Supple. negative: Tender, Rigid, Carotid bruit, Stridor, Lymphadenopathy (R), Lymphadenopathy (L), Thyromegaly Respiratory/Chest: positive: Lungs Clear, Normal Breath Sounds. negative: Chest Tender, Respiratory Distress, Accessory Muscle Use, Labored Respiration, RES, Crackles, Rales, Rhonchi, Stridor, Wheezing, Dullness Cardiovascular: positive: Regular Rhythm, Regular Rate, S1, S2. negative: Edema , JVD, Murmur, Bradycardia, Tachycardia Vascular Pulses: Dorsalis-Pedis (R): 2+, Doralis-Pedis (L): 2+ Gastrointestinal/Abdominal: positive: Normal Bowel Sounds, Flat, Soft. Mild diffuse tenderness greatest in the epigastriumnegative: Organomegaly, Pulsatile Mass, Increased Bowel Sounds, Decreased BS, Distended, Guarding, Rebound, Hernia, Hepatomegaly, Spleenomegaly Lymphatic: negative: Adenopathy, Tenderness Musculoskeletal: positive: Normal Inspection. negative: CVA Tenderness, Decreased Range of Motion Extremity: positive: Normal Capillary Refill, Normal Inspection, Normal Range of Motion, Pelvis Stable. negative: Tender, Pedal Edema, Swelling, Erythema Integumentary: positive: Normal Color, Dry, Warm. negative: Cyanotic, Erythema , Jaundice, Rash Neurologic: positive: hardware designer II-XII NML intact, Fully Oriented, Alert, Normal Mood/ Affect, Motor Strength 5/5. negative: EOM Palsy, Facial Droop, Sensory Deficit - Medical Decision Making 10/12/17 19:31 Pt admitted to hospital for further evaluation and care <Mio Bennett - Last Filed: 10/12/17 19:31>
[2017-10-11] MEDS ORDERED: ONDANSETRON 4 MG/2 ML VIAL ONE (23:47)
--- NOTE | 2017-10-12 00:22 | PDOC ---
History of Present Illness - General Chief Complaint: Pain Stated Complaint: ABDOMINAL PAIN Time Seen by Provider: 10/11/17 23:15 History Source: Patient Exam Limitations: No Limitations - History of Present Illness Initial Comments: 10/12/17 00:16 Patient is a 77F with history of afib on coumadin, breast cancer, CHF, mitral valve repair x2 here today complaining of epigastric abdominal pain that started at 9am this morning. She describes it as a pressure that radiates from her epigastrium to her chest and inferiorly towards her umbilicus. Patient denies shortness of breath, nausea, vomiting, fevers, chills. Last bowel movement today. Denies pain with urination. Denies leg swelling, history of blood clots. Patient states that she was given aspirin 325 by EMS. Patient also tried club soda without relief. Past History - Past Medical History Allergies/Adverse Reactions: Allergies Allergy/AdvReac Type Severity Reaction Status Date / Time codeine Allergy Verified 10/11/17 23:25 Home Medications: Ambulatory Orders Ca/D3/Mag Ox/Zinc/Hop Separator/Dio/Bor [Caltrate 600+D Plus Tab Chew] 1 each PO DAILY Pravastatin Sodium 20 mg PO MOFR 02/08/14 B12/Levomefolate Calcium/B-6 [Foltx Tablet] 1 each PO DAILY tablet 09/01/14 Meclizine HCl 12.5 mg PO ASDIR PRN tablet 09/01/14 Magnesium 400 mg PO DAILY 09/29/16 Losartan Potassium [Cozaar -] 25 mg PO DAILY tablet 09/30/16 Metoprolol Succinate [Toprol XL -] 50 mg PO BID #60 tablet 09/30/16 Warfarin Na [Coumadin -] 2 mg PO DAILY 10/12/17 Warfarin Na [Coumadin -] 4 mg PO DAILY@1800 10/12/17 Cancer: Yes (BREAST) Cardiac Disorders: Yes HTN: Yes Hypercholesterolemia: Yes - Surgical History Cardiac Surgery: Yes (MITRAL VALVE) - Suicide/Smoking/Psychosocial Hx Smoking History: Never smoked Have you smoked in the past 12 months: No Number of Cigarettes Smoked Daily: 0 Information on smoking cessation initiated: No Hx Alcohol Use: No Drug/Substance Use Hx: No Substance Use Type: None Review of Systems - Review of Systems Comments:: 10/12/17 00:19 GENERAL/CONSTITUTIONAL: No fever or chills. No weakness. HEAD, EYES, EARS, NOSE AND THROAT: No change in vision. No sore throat. CARDIOVASCULAR: No chest pain or shortness of breath RESPIRATORY: No cough, wheezing, or hemoptysis. GASTROINTESTINAL: No nausea, vomiting, diarrhea or constipation. GENITOURINARY: No dysuria, frequency, or change in urination. MUSCULOSKELETAL: No joint or muscle swelling or pain. No neck or back pain. SKIN: No rash NEUROLOGIC: No headache, vertigo, loss of consciousness, or change in strength/ sensation. HEMATOLOGIC/LYMPHATIC: No anemia, easy bleeding, or history of blood clots. ALLERGIC/IMMUNOLOGIC: No hives or skin allergy. *Physical Exam - Vital Signs Last Vital Signs Temp Pulse Resp BP Pulse Ox 98.7 F 79 14 136/45 100 10/11/17 23:26 10/11/17 23:26 10/11/17 23:26 10/11/17 23:26 10/11/17 23:26 - Physical Exam Comments: 10/12/17 00:19 GENERAL: Awake, alert, and fully oriented, in no acute distress HEAD: No signs of trauma, normocephalic, atraumatic EYES: PERRLA, EOMI, sclera anicteric, conjunctiva clear ENT: Auricles normal inspection, hearing grossly normal, nares patent, oropharynx clear without exudates. Moist mucosa NECK: Normal ROM, supple, no lymphadenopathy, JVD, or masses LUNGS: No distress, speaks full sentences, clear to auscultation bilaterally HEART: Regular rate and rhythm, normal S1 and S2, no murmurs, rubs or gallops, peripheral pulses normal and equal bilaterally. ABDOMEN: Soft, tender in epigastrium. No guarding, no rebound. No masses EXTREMITIES: Normal inspection, Normal range of motion, no edema. No clubbing or cyanosis. NEUROLOGICAL: Cranial nerves II through XII grossly intact. Normal speech, no focal sensorimotor deficits SKIN: Warm, Dry, normal turgor, no rashes or lesions noted. ED Treatment Course - LABORATORY CBC & Chemistry Diagram: 10/12/17 00:44 10/12/17 00:44 - RADIOLOGY Radiology Studies Ordered: Category Date Time Status CXRPORT [CHEST X-RAY PORTABLE*] [RAD] Stat Radiology 10/11/17 23:29 Taken Medical Decision Making - Medical Decision Making 10/12/17 00:20 77F with history of afib, chf, breast cancer here today complaining of epigastric abdominal pain. Vital signs stable and normal. Believe patient most likely has gastritis, but also considering: ACS, pancreatitis, arrhythmia. Will treat with pepcid and zofran. Will evaluate with cbc, cmp, lipase, ua, trop, ekg , cxr. If labs normal and pain improved after medication will discharge home. 10/12/17 01:38 Patient reassessed. Patient vomiting over 300cc of non-bilious non-bloody vomit. No CVA tenderness. CXR shows no acute cardiopulmonary process. 10/12/17 01:40 Laboratory Tests 10/12/17 10/12/17 10/12/17 00:01 00:44 00:44 WBC 10.6 H Hgb 10.9 D Hct 31.1 L D Plt Count 137 BUN 38 H Creatinine 1.0 AST 155 H ALT 103 H Troponin I Ur Leukocyte Esterase 2+ H Urine WBC (Auto) 17 10/12/17 00:44 WBC Hgb Hct Plt Count BUN Creatinine AST ALT Troponin I 0.03 Ur Leukocyte Esterase Urine WBC (Auto) CBC shows small leukocytosis. CMP shows evidence of dehydration, liver enzymes mildly elevated. UA shows UTI. Will now do CT abd/pelvis given patient's refractory vomiting, pain and age. 10/12/17 02:33 Laboratory Tests 10/12/17 00:44 Lipase [id number] H Lipase markedly elevated. Started on lactated ringers 100cc/hr, given 2mg morphine. Will admit to hospitalist. 10/12/17 03:08 EKG shows normal sinus rhythm with rate of 78. No st elevations/depressions. No significant t wave abnormalities. Normal axis. Normal QRS/QTc/CA intervals. 10/12/17 04:05 Patient given levaquin instead of rocephin due to interaction with LR and rocephin. *DC/Admit/Observation/Transfer Diagnosis at time of Disposition: Pancreatitis - Discharge Dispostion Condition at time of disposition: Stable Admit: Yes - Referrals - Patient Instructions - Post Discharge Activity
[2017-10-12 00:24] LABS: URINE APPEARANCE CLEAR; URINE BILIRUBIN NEGATIVE (<2.0 mg/dL); URINE BLOOD NEGATIVE (NEGATIVE); URINE COLOR STRAW; URINE GLUCOSE (UA) NEGATIVE (NEGATIVE); URINE KETONE NEGATIVE (NEGATIVE); URINE NITRITE NEGATIVE (NEGATIVE); URINE PROTEIN NEGATIVE (NEGATIVE); URINE UROBILINOGEN NEGATIVE mg/dL (0.2-1.0)
[2017-10-12 00:29] LABS: URINE LEUK ESTERASE 2+ (NEGATIVE)
[2017-10-12 00:31] LABS: EPI CELLS FEW /HPF (FEW); URINE BACTERIA RARE /hpf (NONE SEEN); URINE HYALINE CAST 1 /lpf; URINE MUCUS RARE
[2017-10-12 00:50] LABS: BASO % 0.2 % (0-2.0); EOS % 0.2 % (0-4.5); HEMATOCRIT 31.1 % (32.4-45.2); HEMOGLOBIN 10.9 GM/dL (10.7-15.3); LYMPH % 8.3 % (8-40); MCH 32.6 pg (25.7-33.7); MEAN PLT VOLUME 8.6 fl (7.5-11.1); MONO % 6.3 % (3.8-10.2); PLATELET COUNT 137 K/MM3 (134-434); RBC 3.35 M/mm3 (3.60-5.2); RDW 13.2 % (11.6-15.6); WHITE BLOOD COUNT 10.6 K/mm3 (4.0-10.0)
[2017-10-12 01:14] LABS: ALBUMIN 3.4 g/dl (3.4-5.0); ALK PHOS 75 U/L (45-117); ANION GAP 7 (8-16); BILIRUBIN,TOTAL 0.4 mg/dL (0.2-1.0); BLOOD UREA NITROGEN 38 mg/dL (7-18); CALCIUM 8.3 mg/dL (8.5-10.1); CHLORIDE 104 mmol/L (98-107); CO2 28 mmol/L (21-32); GLUCOSE,RANDOM 124 mg/dL (74-106); POTASSIUM 3.8 mmol/L (3.5-5.1); SGOT/AST 155 U/L (15-37); SGPT/ALT 103 U/L (12-78); SODIUM 139 mmol/L (136-145); TOT PROT 7.2 g/dl (6.4-8.2)
[2017-10-12] MEDS ORDERED: METOCLOPRAMIDE HCL INJECTION 10 MG/2 ML VIAL IVPUSH ONE (01:24)
[2017-10-12] MEDS ORDERED: SODIUM CHLORIDE 500 ML IV STA (01:24)
[2017-10-12] MEDS ORDERED: METOCLOPRAMIDE HCL INJECTION 10 MG/2 ML VIAL ONE (01:36)
[2017-10-12 01:38] LABS: LIPASE 116695 U/L (73-393)
[2017-10-12] MEDS ORDERED: morphine CARPU-JECT 2 MG/1 ML DISP.SYRIN IVPUSH ONE (02:29)
[2017-10-12] MEDS ORDERED: morphine SULFATE 4 MG/ML VIAL ONE (02:48)
[2017-10-12] MEDS: LACTATED RINGERS SOLUTION 1,000 ML/1,000 ML INFUS.BAG IV SCH ×2 (03:00→20:08)
--- NOTE | 2017-10-12 04:00 | HP ---
CHIEF COMPLAINT: Epigastric Pain, Chest Pain PCP: Dr. Patel HISTORY OF PRESENT ILLNESS: 77 y/o woman PMH of L- Breast Ca, Afib (on coumadin), CAD, MVR x2 (bioprosthesis ), Angina, Fatty Liver, Herpes Zoster, Basal Cell Ca. Who presents to the ED with epigastric pain radiating to the chest x last 9pm. Patient reports eating a Ham sandwich for lunch and Eggplant Parmesan for dinner at 07:30. She reports having nausea at home and had 2 episodes of non-bilious emesis- undigested food. Patient denies fever, chills, cough, [place], dizziness, diarrhea, constipation , dysuria. ER course was notable for: (1) Lipase 452705 (2) CTAP- Gallstones (3) WBC 10.6 Recent Travel: None PAST MEDICAL HISTORY: See HPI PAST SURGICAL HISTORY: MVRx2 Mastectomy POST MOHS Social History: Smoking: Never Alcohol: None Drugs: None Family History: Allergies codeine Allergy (Verified 10/11/17 23:25) HOME MEDICATIONS: Home Medications Medication Instructions Recorded Ca/D3/Mag Ox/Zinc/Radiologic Technologist/Dio/Bor 1 each PO DAILY 02/08/14 [Caltrate 600+D Plus Tab Chew] Pravastatin Sodium 20 mg PO MOFR 02/08/14 B12/Levomefolate Calcium/B-6 1 each PO DAILY tablet 09/01/14 [Foltx Tablet] Meclizine HCl 12.5 mg PO ASDIR PRN tablet 09/01/14 Magnesium 400 mg PO DAILY 09/29/16 Losartan Potassium [Cozaar -] 25 mg PO DAILY tablet 09/30/16 Metoprolol Succinate [Toprol XL -] 50 mg PO BID #60 tablet 09/30/16 Warfarin Na [Coumadin -] 2 mg PO DAILY 10/12/17 Warfarin Na [Coumadin -] 4 mg PO DAILY@1800 10/12/17 REVIEW OF SYSTEMS CONSTITUTIONAL: Absent: fever, chills, diaphoresis, generalized weakness, malaise, loss of appetite, weight change HEENT: Absent: rhinorrhea, nasal congestion, throat pain, throat swelling, difficulty swallowing, mouth swelling, ear pain, eye pain, visual changes CARDIOVASCULAR: chest pain Absent: syncope, palpitations, irregular heart rate, lightheadedness, peripheral edema RESPIRATORY: Absent: cough, shortness of breath, dyspnea with exertion, orthopnea, wheezing, stridor, hemoptysis GASTROINTESTINAL: abdominal pain, nausea, vomiting Absent: abdominal distension, diarrhea, constipation, melena, hematochezia GENITOURINARY: Absent: dysuria, frequency, urgency, hesitancy, hematuria, flank pain, genital pain MUSCULOSKELETAL: Absent: myalgia, arthralgia, joint swelling, back pain, neck pain SKIN: Absent: rash, itching, pallor HEMATOLOGIC/IMMUNOLOGIC: Absent: easy bleeding, easy bruising, lymphadenopathy, frequent infections ENDOCRINE: Absent: unexplained weight gain, unexplained weight loss, heat intolerance, cold intolerance NEUROLOGIC: Absent: headache, focal weakness or paresthesias, dizziness, unsteady gait, seizure, mental status changes, bladder or bowel incontinence PSYCHIATRIC: Absent: anxiety, depression, suicidal or homicidal ideation, hallucinations. PHYSICAL EXAMINATION Vital Signs - 24 hr 10/11/17 23:26 Temperature 98.7 F Pulse Rate 79 Respiratory 14 Rate Blood Pressure 136/45 O2 Sat by Pulse 100 Oximetry (%) GENERAL: Awake, alert, and fully oriented, in no acute distress. HEAD: Normal with no signs of trauma. EYES: Pupils equal, round and reactive to light, extraocular movements intact, sclera anicteric, conjunctiva clear. No lid lag. EARS, NOSE, THROAT: Ears normal, nares patent, oropharynx clear without exudates. Moist mucous membranes. NECK: Normal range of motion, supple without lymphadenopathy, JVD, or masses. LUNGS: Breath sounds equal, clear to auscultation bilaterally. No wheezes, and no crackles. No accessory muscle use. HEART: Irregular rate and rhythm, normal S1 and S2 systolic murmur. No rub or gallop. CP not reproducible ABDOMEN: Generalized tenderness, hyperactive bowel sounds, Soft, not distended, no guarding, no rebound, no masses. No hepatomegaly or splenomegaly. MUSCULOSKELETAL: Normal range of motion at all joints. No bony deformities or tenderness. No CVA tenderness. UPPER EXTREMITIES: 2+ pulses, warm, well-perfused. No cyanosis. No clubbing. No peripheral edema. LOWER EXTREMITIES: 2+ pulses, warm, well-perfused. No calf tenderness. No peripheral edema. NEUROLOGICAL: Cranial nerves II-XII intact. Normal speech. Gait not observed. PSYCHIATRIC: Cooperative. Good eye contact. Appropriate mood and affect. SKIN: Warm, dry, normal turgor, no rashes or lesions noted, normal capillary refill. Laboratory Results - last 24 hr 10/12/17 10/12/17 10/12/17 00:01 00:44 00:44 WBC 10.6 H RBC 3.35 L Hgb 10.9 D Hct 31.1 L D MCV 93.0 MCH 32.6 MCHC 35.0 RDW 13.2 Plt Count 137 MPV 8.6 Neutrophils % 85.0 H Lymphocytes % 8.3 D Monocytes % 6.3 Eosinophils % 0.2 Basophils % 0.2 Sodium 139 Potassium 3.8 Chloride 104 Carbon Dioxide 28 Anion Gap 7 L BUN 38 H Creatinine 1.0 Creat Clearance w eGFR 53.76 Random Glucose 124 H Calcium 8.3 L Total Bilirubin 0.4 AST 155 H ALT 103 H Alkaline Phosphatase 75 Creatine Kinase Troponin I Total Protein 7.2 Albumin 3.4 Lipase [id number] H Urine Color Straw Urine Appearance Clear Urine pH 7.0 Ur Specific [place] 1.011 Urine Protein Negative Urine Glucose (UA) Negative Urine Ketones Negative Urine Blood Negative Urine Nitrite Negative Urine Bilirubin Negative Urine Urobilinogen Negative Ur Leukocyte Esterase 2+ H Urine WBC (Auto) 17 Urine RBC (Auto) 1 Ur Epithelial Cells Few Urine Bacteria Rare Hyaline Casts 1 Urine Mucus Rare 10/12/17 00:44 WBC RBC Hgb Hct MCV MCH MCHC RDW Plt Count MPV Neutrophils % Lymphocytes % Monocytes % Eosinophils % Basophils % Sodium Potassium Chloride Carbon Dioxide Anion Gap BUN Creatinine Creat Clearance w eGFR Random Glucose Calcium Total Bilirubin AST ALT Alkaline Phosphatase Creatine Kinase 131 Troponin I 0.03 Total Protein Albumin Lipase Urine Color Urine Appearance Urine pH Ur Specific [place] Urine Protein Urine Glucose (UA) Urine Ketones Urine Blood Urine Nitrite Urine Bilirubin Urine Urobilinogen Ur Leukocyte Esterase Urine WBC (Auto) Urine RBC (Auto) Ur Epithelial Cells Urine Bacteria Hyaline Casts Urine Mucus ASSESSMENT/PLAN: This is a 77 y/o woman PMH of: L Breast Ca, Afib (on Coumadin), CAD, CHF, MVR x2 , Angina, Fatty Liver, RA. Admitted for Pancreatitis, Chest Pain. Plan: 1. Problem List - Problem (1) Pancreatitis Code(s): K85.90 - ACUTE PANCREATITIS WITHOUT NECROSIS OR INFECTION, UNSP (2) Chest pain Code(s): R07.9 - CHEST PAIN, UNSPECIFIED (3) Hyperlipidemia Code(s): E78.5 - HYPERLIPIDEMIA, UNSPECIFIED Qualifiers: Hyperlipidemia type: pure hypercholesterolemia Qualified Code(s): E78.00 - Pure hypercholesterolemia, unspecified (4) Hypertension Code(s): I10 - ESSENTIAL (PRIMARY) HYPERTENSION Qualifiers: Hypertension type: essential hypertension Qualified Code(s): I10 - Essential (primary) hypertension (5) PAF (paroxysmal atrial fibrillation) Code(s): I48.0 - PAROXYSMAL ATRIAL FIBRILLATION (6) ASHD (arteriosclerotic heart disease) Code(s): I25.10 - ATHSCL HEART DISEASE OF [place] CORONARY ARTERY W/O ANG PCTRS (7) Breast cancer Code(s): C50.919 - MALIGNANT NEOPLASM OF UNSP SITE OF UNSPECIFIED FEMALE BREAST (8) H/O mitral valve replacement Code(s): Z95.2 - PRESENCE OF PROSTHETIC HEART VALVE (9) H/O tricuspid valve annuloplasty Code(s): Z98.890 - OTHER SPECIFIED POSTPROCEDURAL STATES (10) History of intracranial hemorrhage Code(s): Z86.79 - PERSONAL HISTORY OF OTHER DISEASES OF THE CIRCULATORY SYSTEM (11) DVT prophylaxis Code(s): DMO8908 - Visit type - Emergency Visit Emergency Visit: Yes ED Registration Date: 10/12/17 Care time: The patient presented to the Emergency Department on the above date and was hospitalized for further evaluation of their emergent condition. - New Patient This patient is new to me today: Yes Date on this admission: 10/12/17 - Critical Care Critical Care patient: No Hospitalist Screening - Colonoscopy Questionnaire Colonoscopy Questionnaire: Colonoscopy Questionnaire - Patient: 50 - 75 years old and never had a screening colonoscopy: Unknown History of colon or rectal polyps, or CA: Unknown History of IBD, Crohn's disease or UC: Unknown History of abdominal radiation therapy as a child: Unknown - Relative: 1 with colon or rectal CA, or polyps at age 60 or younger: Unknown Colon or rectal CA diagnosed at age 45 or younger: Unknown Multiple relatives with colon or rectal CA: Unknown - Outcome: Screening Result: Negative Screen
[2017-10-12] MEDS ORDERED: ONDANSETRON 4 MG/2 ML VIAL IVPUSH PRN (04:14)
[2017-10-12 06:20] VITALS: BMI 25.9
[2017-10-12 08:11] LABS: INR 2.36 (0.82-1.09); PROTHROMBIN TIME (PATIENT) 26.7 SEC (9.98-11.88)
[2017-10-12] MEDS ORDERED: morphine SULFATE 4 MG/ML VIAL IVPUSH PRN (08:28)
--- NOTE | 2017-10-12 08:36 | CON.GI ---
Consult Consult Specialty:: GI: Dr. Stanley for Dr. Spears Referred by:: Dr. Buster Garibay Reason for Consultation:: Pancreatitis - History of Present Illness Chief Complaint: I had pain in my upper abdomen History of Present Illness: 77F admitted through [facility] ER last night for evaluation of abdominal pain. She states that she was in her USOH up until 9pm last night when she developed upper abdominal chest pressure and pain. the pain radiated to her chest prompting her ER evaluation. In the ER she states vomiting x 3 and the pain localized more to the upper abdomen. She had eaten eggplant parmiagana at 7pm last night and denied similar episodes in the past. In the ER triage vitals revealed T: 98.7 P: 79 BP: 136/45. She has blood work revealing a WBC 10.6 AST :155 ALT: 103, normal ALP/Bili and lipase of 116,695. She underwent IV contrast CT scan of the abdomen and pelvis that was not read as of yet. She states that the upper abdominal pain persists and however better than upon admission. She is being treated for pancereatitis and started on lactated ringers at 100cc/hr in the ER. 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 She had an upper endoscopy with Dr. Mahnaz Gardner in 2010 that revealed a modest hiatal hernia. She does not recall ever having had a colonoscopy. There is no family history of colorectal cancer or other GI malignancy. She tells me that Lasix is a new medication started 1-2 months ago for LE edema, otherwise she denies any new medications. 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 (H/O previous SAH and SDH 2007) Cardio/Vascular: Yes: AFIB (Noted post-op 12/20 procedure Resolved), HTN, Hyperlipdemia, Mitral Stenosis, Murmur, Other (MVP with MR post initial MVR 1999 Reoperative porcine MVR and TV Ring anuloplasty) Pulmonary: Yes: COPD (mild) Gastrointestinal: Yes: Gastritis Hepatobiliary: Yes: Other (Fatty liver) Renal/: Yes: UTI (Resolved), Other (Bladder prolapse) ...: No Infectious Disease: Yes: Herpes Zoster Rheumatology: Yes: Rheumatoid Arthritis (Mildly positive 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) Dermatology: Yes: Basal Cell (Post MOHS Right latter-day) - Past Surgical History Past Surgical History: Yes: Valve Replacement (mitral valve: porcine) Additional Surgical History: Left radical lumpectomy - Alcohol/Substance Use Hx Alcohol Use: No History of Substance Use: reports: None - Smoking History Smoking history: Former smoker Have you smoked in the past 12 months: No Aproximately how many cigarettes per day: 0 If you are a former smoker, when did you quit?: 40 YEARS AGO - Social History ADL: Independent Occupation: Worked for [employer] Place of : [facility] History of Recent Travel: No Home Medications - Allergies Allergies/Adverse Reactions: Allergies Allergy/AdvReac Type Severity Reaction Status Date / Time codeine Allergy Verified 10/11/17 23:25 - Home Medications Home Medications: Ambulatory Orders Ca/D3/Mag Ox/Zinc/Babbitt Spinner/Dio/Bor [Caltrate 600+D Plus Tab Chew] 1 each PO DAILY Pravastatin Sodium 20 mg PO MOFR 02/08/14 B12/Levomefolate Calcium/B-6 [Foltx Tablet] 1 each PO DAILY tablet 09/01/14 Meclizine HCl 12.5 mg PO ASDIR PRN tablet 09/01/14 Magnesium 400 mg PO DAILY 09/29/16 Losartan Potassium [Cozaar -] 25 mg PO DAILY tablet 09/30/16 Metoprolol Succinate [Toprol XL -] 50 mg PO BID #60 tablet 09/30/16 Furosemide [Lasix] 20 mg PO 10/12/17 Warfarin Na [Coumadin -] 2 mg PO DAILY 10/12/17 Warfarin Na [Coumadin -] 4 mg PO DAILY@1800 10/12/17 Family Disease History - Family Disease History Family Disease History: Other: Father (: 49: NH), Mother (: 75: Leukemia ), Brother (: Interstitial lung disease), Sister (None), Son (None), Daughter (None) Other Family History: No family history of colorectal cancer or other GI malignancy Review of Systems - Review of Systems Constitutional: denies: Fever, Unintentional Wgt. Loss Cardiovascular: reports: Chest Pain (as described in HPI, now resolved), Edema. denies: Shortness of Breath Gastrointestinal: reports: Abdominal Pain, Vomiting. denies: Constipation, Diarrhea, Vomiting Blood Physical Exam-GI Vital Signs: Vital Signs Temperature 97.8 F 10/12/17 06:00 Pulse Rate 88 10/12/17 06:00 Respiratory Rate 18 10/12/17 06:00 Blood Pressure 138/55 10/12/17 06:00 O2 Sat by Pulse Oximetry (%) 98 10/12/17 06:00 Constitutional: Yes: Calm Eyes: No: Sclera Icterus Cardiovascular: Yes: Regular Rate and Rhythm Respiratory: Yes: CTA Bilaterally Gastrointestinal Inspection: No: Distention ...Auscultate: Yes: Normoactive Bowel Sounds ...Palpate: Yes: Soft, Tenderness, Epigastium. No: Guarding, Hepatomegaly, Splenomegaly, Tenderness, Rebound ...Percussion: No: Tympanitic Edema: Yes Edema: LLE: 1+, RLE: 1+ Neurological: Yes: Alert, Oriented Labs: CBC, BMP 10/12/17 00:44 10/12/17 00:44 INR, PTT INR 2.36 (0.82-1.09) H D 10/12/17 06:30 Hepatic Panel Total Bilirubin 0.4 mg/dL (0.2-1.0) 10/12/17 00:44 AST 155 U/L (15-37) H 10/12/17 00:44 ALT 103 U/L (12-78) H 10/12/17 00:44 Alkaline Phosphatase 75 U/L (45-117) 10/12/17 00:44 Albumin 3.4 g/dl (3.4-5.0) 10/12/17 00:44 10/12/17 00:44 Lipase 331460 H Imaging - Results Cat Scan: Image Reviewed (I reviewed images: Peripancreatic fluid at tail. ? pancreatic cysts. No official read as of yet. prelim describes peripancreatic fluid and cholelithiasis) Problem List - Problems (1) Pancreatitis Assessment/Plan: Work-up in progress as to etiology. Given gallstones noted on CT scan, gallstone pancreatitis would be highrer in differential Clinically stable however volume repletion on balance given ? degree of cardiac dysfunction. Plan: Discussed w/ / . Will Increase IV fluids to LR at 200cc/hr for 2 liters followed by 150cc/hr with close monitoring of cardiopulmonary status Ordered AM labs for today including triglycerides MRCP ordered if porcine mitral valve replacement allows Abdominal US ordered Coumadin will need to be held for possible interventions such as ERCP Code(s): K85.90 - ACUTE PANCREATITIS WITHOUT NECROSIS OR INFECTION, UNSP Qualifiers: Chronicity: acute Pancreatitis type: unspecified pancreatitis type Acute pancreatitis complication: no infection or necrosis Qualified Code(s): K85.90 - Acute pancreatitis without necrosis or infection, unspecified
[2017-10-12 08:55] LABS: BASO % 0.2 % (0-2.0); HEMOGLOBIN 10.4 GM/dL (10.7-15.3); LYMPH % 8.9 % (8-40); MCH 32.4 pg (25.7-33.7); MCHC 34.6 g/dl (32.0-36.0); MEAN CELL VOLUME 93.6 fl (80-96); MONO % 5.4 % (3.8-10.2); NEUT % 85.5 % (42.8-82.8); PLATELET COUNT 120 K/MM3 (134-434); RDW 13.3 % (11.6-15.6); WHITE BLOOD COUNT 9.3 K/mm3 (4.0-10.0)
[2017-10-12 09:21] LABS: ANION GAP 12 (8-16); BILIRUBIN,DIRECT < 0.2 mg/dL (0.0-0.2); BILIRUBIN,TOTAL 0.3 mg/dL (0.2-1.0); BLOOD UREA NITROGEN 30 mg/dL (7-18); CALCIUM 7.7 mg/dL (8.5-10.1); CHLORIDE 104 mmol/L (98-107); CO2 24 mmol/L (21-32); CREATININE 0.9 mg/dL (0.55-1.02); GLUCOSE,RANDOM 103 mg/dL (74-106); SGOT/AST 125 U/L (15-37); SGPT/ALT 120 U/L (12-78); SODIUM 140 mmol/L (136-145); TOT PROT 6.4 g/dl (6.4-8.2); TRIGLYCERIDES 51 mg/dL (35-160)
[2017-10-12 09:23] LABS: ALK PHOS 67 U/L (45-117)
--- NOTE | 2017-10-12 11:02 | CONS ---
CARDIOLOGY CONSULTATION DATE OF CONSULTATION: 10/12/2017 REQUESTING PHYSICIAN: Doug Patel MD LOCATION: [address] CHIEF COMPLAINTS: 1. Abdominal pain. 2. Nausea and vomiting. HISTORY OF PRESENT ILLNESS: The patient is a 77-year-old white female with longstanding history of mitral valvular disease, mitral valve prolapse, severe mitral regurgitation, status post bioprosthetic mitral valve replacement (x2), status post tricuspid valvuloplasty, history of paroxysmal atrial fibrillation, history of congestive heart failure, aortic valvular disease, aortic regurgitation, history of hypercholesterolemia. Patient states that around 9 p.m. she started to experience epigastric discomfort which progressed to pain and then spread to the rest of the abdomen. The pain progressively got worse, and she decided to come to the emergency room. While she was there, she developed nausea and recurring vomiting. On questioning, patient states that she had food that was rich in cheese, and earlier in the day, had food which contained ham. Patient was diagnosed to have acute pancreatitis. She has history of asymptomatic cholelithiasis that was found on a routine CT scan of the chest. Patient continues to have abdominal discomfort, although the intensity has lessened. There is no history of chest pain or discomfort either at rest or with exertion. No history of exertional dyspnea, paroxysmal nocturnal dyspnea, or orthopnea. No history of palpitations, lightheadedness, dizziness, presyncope, or syncope. No history of pedal edema. PAST HISTORY: As mentioned in the history of present illness. History of carcinoma of the left breast. History of benign postural vertigo. History of ocular migraines, currently in remission. History of vitamin B12 deficiency. History of low back syndrome, history of intermittent right lower extremity sciatica. History of traumatic intraparenchymal cerebral hemorrhage. History of uterine prolapse. SURGICAL HISTORY: Status post bioprosthetic mitral valve replacement (x2). Status post tricuspid valvuloplasty. Status post tonsillectomy. Status post radical left breast lumpectomy, followed by radiation and chemotherapy. SOCIAL HISTORY: She is single, is retired. Smoked from the age of 16 to 30 and used to smoke up to 3 packs of cigarettes per day. She hardly has had alcoholic drink and drinks decaffeinated coffee. FAMILY HISTORY: Father at the age of 49 related to congestive heart failure and also had peptic ulcer disease. Mother at age 75 related to leukemia. She had peptic ulcer disease and had undergone a partial gastrectomy. Had one younger brother who at age 73 of interstitial lung disease. ALLERGIES: patient experiences nausea with CODEINE. MEDICATIONS PRIOR TO ADMISSION: Were as follows: 1. Metoprolol succinate 50 mg p.o. b.i.d. 2. Losartan 25 mg p.o. daily. 3. Warfarin 4 mg p.o. daily at 6 p.m. 4. Pravastatin 20 mg on Mondays and Fridays. 5. Meclizine 12.5 mg p.o. p.r.n. for vertigo. 6. Vitamin B12, dose is uncertain, 1 p.o. daily. 7. CoQ10 at 200 mg p.o. daily. 8. Magnesium 250 mg p.o. daily. 9. Collagen tablet 1 p.o. daily. 10. Multivitamin 1 p.o. daily. 11. Caltrate with vitamin D, dose is uncertain, 1 p.o. daily. REVIEW OF SYSTEMS: Constitutional: No history of chills, fever, or night sweats. No history of unintentional weight loss. HEENT: No history of recent headaches, diplopia, or blurred vision. No history of epistaxis, hoarseness, tinnitus, or deafness. History of vertigo. Cardiovascular: See history of present illness. Respiratory: No history of cough, expectoration, or hemoptysis. No history of tuberculosis. Gastrointestinal: See history of present illness. There is no history of change in bowel habits, melena, or hematemesis. Central Nervous System: No history of lightheadedness, dizziness, seizures, or syncope. No history of focal weakness. Genitourinary: History of uterine prolapse and patient states that she was told that she has a urinary tract infection. Denies any dysuria, frequency, hematuria, or urgency. Musculoskeletal: History of arthralgias involving the fingers. No history of myalgias. Hematological: Was told to be mildly anemic. No history of ecchymosis or overt bleeding. CURRENT MEDICATIONS IN THE HOSPITAL: 1. Zofran 4 mg IV push q.6 hours p.r.n. 2. Lactated Ringer's. 3. Morphine 2 mg IV push q.6 hours p.r.n. PHYSICAL EXAMINATION: General: A 77-year-old alert female complaining of mild abdominal discomfort. No pallor, cyanosis, clubbing, or jaundice. Vital Signs: Weight on admission 146 pounds. Blood pressure 138/55 mmHg, pulse 88 beats per minute and regular. Temperature 97.8 degrees Fahrenheit. Oxygen saturation on room air was 98%. Neck: Supple. No jugular venous distention. Carotids were 2+. Upstrokes were normal. There was a left supraclavicular and carotid bruit. No thyromegaly was appreciated. Heart: PMI was in the fifth intercostal space. No heaves or thrills. S1 and S2 were normal. Grade 1/6 decrescendo systolic murmur was heard at the lower left sternal border. No diastolic murmur or gallops were appreciated. Lungs: Clear on auscultation. Chest: Normal AP diameter. Expansion was symmetrical. There were well-healed sternotomy scars. Abdomen: Protuberant. Generalized duaz-wh-hfpyefvd tenderness, more pronounced in the epigastric area. No hepatosplenomegaly or palpable masses were felt. Bowel sounds were decreased. No bruits were heard. Extremities: No calf tenderness or dependent edema. Varicosities were noted bilaterally. Pulses were equal. LABORATORY DATA: CBC October 12, 2017: WBC count 9300. Hemoglobin was 10.4 g/dL. Platelet count was 120,000. There was a left shift. Chemistry October 12, 2017: Sodium 139, potassium 3.8, chloride 104, CO2 of 28 mmol/L. BUN was 38, creatinine was 1.0 mg/dL. Random glucose was 124. AST was elevated at 155. ALT was 103. Alkaline phosphatase was 75. CK was 131. Troponin-I was 0.03. Lipase on admission was 116,695. Amylase is pending. X-ray chest dated October 11, 2017: Bilateral apical pleural thickening. Final impression: No evidence of acute pulmonary disease. ECG is not available. IMPRESSION: 1. Acute pancreatitis. 2. Cholelithiasis. 3. Mitral valvular disease, mitral valve prolapse, severe mitral regurgitation, status post bioprosthetic mitral valve replacement (x2). 4. Tricuspid valvuloplasty. 5. History of congestive heart failure, currently compensated. 6. Paroxysmal atrial fibrillation, currently in sinus rhythm. 7. Hypertension, hypertensive cardiovascular disease. 8. Hypercholesterolemia. 9. History of benign postural vertigo. 10. History of ocular migraines. 11. History of vitamin B12 deficiency. 12. Hypercholesterolemia. 13. History of nonobstructive coronary artery disease. 14. History of ventricular premature beats, currently in remission. 15. Left supraclavicular and carotid bruit. 16. Status post traumatic intraparenchymal cerebral hemorrhage. 17. History of uterine prolapse. 18. Urinary tract infection needs to be excluded. RECOMMENDATIONS: 1. Resume cardiac therapy as soon as possible. 2. ECG. 3. Carotid ultrasound. 4. Close monitoring of intake and output. 5. If endoscopic intervention is necessary, patient could be taken off Coumadin provided she is in sinus rhythm or could be bridged with Lovenox and/or heparin prior to considering the procedure. 6. Followup CBC. 7. T3, T4, TSH. PROGNOSIS: Critical. Thank you for your referral. Yours sincerely, CHRISTOPHER CHERY M.D. [id number]
--- NOTE | 2017-10-12 11:06 | EKG ---
Test Reason : Blood Pressure : / mmHG Vent. Rate : 078 BPM Atrial Rate : 078 BPM P-R Int : 194 ms QRS Dur : 100 ms QT Int : 404 ms P-R-T Axes : 047 017 060 degrees QTc Int : 460 ms NORMAL SINUS RHYTHM NONSPECIFIC ST AND T WAVE ABNORMALITY ABNORMAL ECG WHEN COMPARED WITH ECG OF 29-SEP-2016 12:39, SINUS RHYTHM HAS REPLACED ATRIAL FIBRILLATION NON-SPECIFIC CHANGE IN ST SEGMENT IN INFERIOR LEADS NONSPECIFIC T WAVE ABNORMALITY NOW EVIDENT IN ANTERIOR LEADS Confirmed by GILDARDO BARKER MD ([id number]) on 10/12/2017 11:05:58 AM Referred By: Confirmed By:GILDARDO BARKER MD
--- NOTE | 2017-10-12 12:04 | PN ---
Progress Note, Physician Chief Complaint: Pt sitting in bed in no acute distress. Reports pain/nausea has improved and well controlled. Denies any current nausea/vomiting, chest discomfort, or weakness. - Current Medication List Current Medications: Active Medications Lactated Ringer's (Lactated Ringers Solution) 1,000 ml in 1,000 mls @ 100 mls/ hr IV ASDIR DEIDRE Last Admin: 10/12/17 03:00 Dose: 100 mls/hr Lactated Ringer's (Lactated Ringers Solution) 1,000 ml in 1,000 mls @ 200 mls/ hr IV ASDIR DEIDRE Stop: 10/13/17 13:59 Lactated Ringer's (Lactated Ringers Solution) 1,000 ml in 1,000 mls @ 150 mls/ hr IV ASDIR DEIDRE Morphine Sulfate (Morphine Sulfate) 2 mg IVPUSH Q6H PRN PRN Reason: PAIN LEVEL 6-10 Ondansetron HCl (Zofran Injection) 4 mg IVPUSH Q6H PRN PRN Reason: NAUSEA AND/OR VOMITING - Objective Vital Signs: Vital Signs Temperature 97.9 F 10/12/17 10:00 Pulse Rate 90 10/12/17 10:00 Respiratory Rate 20 10/12/17 10:00 Blood Pressure 145/56 10/12/17 10:00 O2 Sat by Pulse Oximetry (%) 98 10/12/17 09:00 Constitutional: Yes: Well Nourished, No Distress Cardiovascular: Yes: Regular Rate and Rhythm, Murmur Respiratory: Yes: WNL, Regular, CTA Bilaterally. No: Rhonchi, SOB, Tachypnea, Wheezes Gastrointestinal: Yes: Normal Bowel Sounds, Soft, Tenderness, Epigastrium. No: Distention Genitourinary: Yes: WNL Edema: No Neurological: Yes: WNL, Alert, Oriented Psychiatric: Yes: WNL, Alert, Oriented Labs: CBC, BMP 10/12/17 07:31 10/12/17 06:30 INR, PTT INR 2.36 (0.82-1.09) H D 10/12/17 06:30 - ....Imaging Chest X-ray: Report Reviewed Cat Scan: Report Reviewed (preipancreatic fluid accumulation of body/tail, parenchymal swelling consistent w/ acute pancreatitis. Cholelithiasis) Ultrasound: Report Reviewed MRI: Pending Problem List - Problems (1) Pancreatitis Assessment/Plan: Acute, secondary to gallstones pt reports improvement of nausea/vomiting, pain adequately controlled, mild epigastric tenderness abd CT/US findings suggestive of acute pancreatitis, cholelithiasis elevated lipase/amylase, transaminitis wbs/triglycerides, calcium wnl vital signs stable MRCP pending NPO morphine/zofran prn IVF BGM tele strict I&O's Surgery consulted GI following Code(s): K85.90 - ACUTE PANCREATITIS WITHOUT NECROSIS OR INFECTION, UNSP Qualifiers: Chronicity: acute Pancreatitis type: unspecified pancreatitis type Acute pancreatitis complication: no infection or necrosis Qualified Code(s): K85.90 - Acute pancreatitis without necrosis or infection, unspecified (2) Hyperlipidemia Assessment/Plan: chronic, stable hold statin in the setting of transaminitis Code(s): E78.5 - HYPERLIPIDEMIA, UNSPECIFIED Qualifiers: Hyperlipidemia type: pure hypercholesterolemia Qualified Code(s): E78.00 - Pure hypercholesterolemia, unspecified (3) ASHD (arteriosclerotic heart disease) Assessment/Plan: chronic Code(s): I25.10 - ATHSCL HEART DISEASE OF [place] CORONARY ARTERY W/O ANG PCTRS (4) Hypertension Assessment/Plan: controlled continue metoprolol and losartan Code(s): I10 - ESSENTIAL (PRIMARY) HYPERTENSION Qualifiers: Hypertension type: essential hypertension Qualified Code(s): I10 - Essential (primary) hypertension (5) PAF (paroxysmal atrial fibrillation) Assessment/Plan: Controlled, in SR now continue metoprolol hold coumadin incase of procedure Code(s): I48.0 - PAROXYSMAL ATRIAL FIBRILLATION (6) CHF (congestive heart failure) Assessment/Plan: chronic, stable hold lasix currently Code(s): I50.9 - HEART FAILURE, UNSPECIFIED Qualifiers: Heart failure type: diastolic Heart failure chronicity: chronic Qualified Code(s): I50.32 - Chronic diastolic (congestive) heart failure (7) H/O mitral valve replacement Assessment/Plan: MVP with MR post initial MVR 1999 Reoperative porcine MVR Code(s): Z95.2 - PRESENCE OF PROSTHETIC HEART VALVE (8) H/O tricuspid valve annuloplasty Assessment/Plan: s/p TV Ring anuloplasty Code(s): Z98.890 - OTHER SPECIFIED POSTPROCEDURAL STATES (9) History of breast cancer Assessment/Plan: [id number] Left axillary node dissection lumpectomy, chemo cytoxan, MTX 5-FU XRT Code(s): Z85.3 - PERSONAL HISTORY OF MALIGNANT NEOPLASM OF BREAST
[2017-10-12 16:54] LABS: AMYLASE 3854 U/L (25-115); LIPASE 51830 U/L (73-393)
--- NOTE | 2017-10-12 17:19 | CONSULT ---
Consult Consult Specialty:: general surgery Referred by:: Sarah Chavez Reason for Consultation:: gallstone pancreatitis - History of Present Illness Chief Complaint: abdominal pain History of Present Illness: 77 yo female PMH of Left Breast Ca, Afib (on coumadin), CAD, MVR x2 (porcine bioprosthesis), Angina, Fatty Liver, Herpes Zoster, Basal Cell Ca. Who presents to the ED with epigastric pain radiating to the chest since that evening. Patient reports eating a Ham sandwich for lunch and Eggplant Parmesan for dinner at 07:30. She reports having nausea at home and had 2 episodes of non- bilious emesis- undigested food. Patient denies fever, chills, cough, [place], dizziness, diarrhea, constipation, dysuria. She was not aware of having gallstones. Had not had a similar episode in the past. CTscan and ultrasond show cholelitiasis without clear stigmata of choledocholithiasis. MRCP no CBD obstruction? We were asked to assess and treat. 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 (H/O previous SAH and SDH 2007) Cardio/Vascular: Yes: AFIB (Noted post-op 12/20 procedure Resolved), HTN, Hyperlipdemia, Mitral Stenosis, Murmur, Other (MVP with MR post initial MVR 1999 Reoperative porcine MVR and TV Ring anuloplasty) Pulmonary: Yes: COPD (mild) Gastrointestinal: Yes: Gastritis Hepatobiliary: Yes: Other (Fatty liver) Renal/: Yes: UTI (Resolved), Other (Bladder prolapse) ...: No Infectious Disease: Yes: Herpes Zoster Rheumatology: Yes: Rheumatoid Arthritis (Mildly positive 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) Dermatology: Yes: Basal Cell (Post MOHS Right jain) - Past Surgical History Past Surgical History: Yes: Valve Replacement (mitral valve: porcine) Additional Surgical History: Left radical lumpectomy (+ax dissection) - Alcohol/Substance Use Hx Alcohol Use: No History of Substance Use: reports: None - Smoking History Smoking history: Former smoker Have you smoked in the past 12 months: No Aproximately how many cigarettes per day: 0 If you are a former smoker, when did you quit?: 40 YEARS AGO - Social History ADL: Independent Occupation: Worked for [employer] of : [facility] [facility] History of Recent Travel: No Home Medications - Allergies Allergies/Adverse Reactions: Allergies Allergy/AdvReac Type Severity Reaction Status Date / Time codeine Allergy Verified 10/11/17 23:25 - Home Medications Home Medications: Ambulatory Orders Ca/D3/Mag Ox/Zinc/Digester Operator/Dio/Bor [Caltrate 600+D Plus Tab Chew] 1 each PO DAILY Pravastatin Sodium 20 mg PO MOFR 02/08/14 B12/Levomefolate Calcium/B-6 [Foltx Tablet] 1 each PO DAILY tablet 09/01/14 Meclizine HCl 12.5 mg PO ASDIR PRN tablet 09/01/14 Magnesium 400 mg PO DAILY 09/29/16 Losartan Potassium [Cozaar -] 25 mg PO DAILY tablet 09/30/16 Metoprolol Succinate [Toprol XL -] 50 mg PO BID #60 tablet 09/30/16 Furosemide [Lasix] 20 mg PO 10/12/17 Warfarin Na [Coumadin -] 2 mg PO DAILY 10/12/17 Warfarin Na [Coumadin -] 4 mg PO DAILY@1800 10/12/17 Family Disease History - Family Disease History Family Disease History: Other: Father (: 49: [place]), Mother (: 75: Leukemia ), Brother (: Interstitial lung disease), Sister (None), Son (None), Daughter (None) Other Family History: No family history of colorectal cancer or other GI malignancy Review of Systems - Review of Systems Constitutional: denies: Chills, Fever, Unintentional Wgt. Loss Eyes: denies: Blind Spots, Recent Change in Vision HENT: denies: Difficult Swallowing, Throat Pain Neck: denies: Lumps, Tenderness Cardiovascular: denies: Chest Pain, Palpitations Respiratory: denies: Cough, SOB Gastrointestinal: reports: Abdominal Pain, Indigestion, Vomiting Genitourinary: denies: Burning, Discharge, Dysuria Breasts: reports: No Symptoms Reported, See HPI. denies: Pain Musculoskeletal: denies: Muscle Pain, Muscle Weakness Integumentary: denies: Lesions, Rash Neurological: denies: Confusion, Dizziness Endocrine: denies: Unexplained Weight Gain, Unexplained Weight Loss Hematology/Lymphatic: reports: Easily Bruised, Excessive Bleeding Psychiatric: denies: Anxiety, Depression Physical Exam Vital Signs: Vital Signs Temperature 98.6 F 10/12/17 17:04 Pulse Rate 90 10/12/17 17:04 Respiratory Rate 20 10/12/17 17:04 Blood Pressure 154/49 10/12/17 17:04 O2 Sat by Pulse Oximetry (%) 98 10/12/17 09:00 Vital Signs Period Temp Pulse Resp BP Sys/Miranda Pulse Ox Last 24 Hr 97.8 F-98.7 F 79-94 14-22 136-154/45-60 98-100 Constitutional: Yes: Well Nourished, No Distress, Calm Eyes: Yes: Conjunctiva Clear, EOM Intact HENT: Yes: Atraumatic, Normocephalic Neck: Yes: Supple, Trachea Midline Cardiovascular: Yes: Regular Rate and Rhythm, Murmur, S1, S2 Respiratory: Yes: Regular, CTA Bilaterally Gastrointestinal: Yes: Normal Bowel Sounds, Soft, Tenderness (murphys), Tenderness, Epigastrium, Tenderness, Rebound. No: Distention ...Rectal Exam: Yes: Deferred Renal/: No: CVA Tenderness - Left, CVA Tenderness - Right Breast(s): Yes: Left (healed scars breast and axilla) Extremities: No: Cool, Cyanosis Edema: No Peripheral Pulses WNL: Yes Integumentary: No: Jaundice, Rash Neurological: Yes: Alert, Oriented Psychiatric: Yes: Alert, Oriented Labs: CBC, BMP 10/12/17 07:31 10/12/17 06:30 Imaging - Results Chest X-ray: Report Reviewed (no acute findings), Image Reviewed Cat Scan: Report Reviewed (cholelithiasis small stones), Image Reviewed Ultrasound: Report Reviewed, Image Reviewed MRI: Report Reviewed (no CBD dilation or obstruction 65mm), Image Reviewed Problem List - Problems (1) Pancreatitis Assessment/Plan: 77 yo female MMP including a valve replacement on warfarin, likely gallstone pancreatitis versus gangrenous cholecystitis she was offered cholecystetomy NPO and IVF hydration Trend labs Lipase and CMP (also INR and then PTT) Heparin drip bridging in anticipation of surgery Cardiology risk stratification for GA abdominal procedure Discussed with patient risks, benefits and alternatives of laparoscopic possible open cholecystectomy, including but not limited to bleeding, infection , injury to adjacent structures, leak or injury, intraabdominal abscess, need for further procedures, ; alternatives include antibiotics, delayed or no surgery - risks of this include failure of nonoperative therapy, perforation, sepsis, recurrence, . Patient desires to proceed with operation - will take to OR for above. Informed consent signed for same. we will follow Thank you for the opportunity to participate in the care of this patient. Code(s): K85.90 - ACUTE PANCREATITIS WITHOUT NECROSIS OR INFECTION, UNSP Qualifiers: Chronicity: acute Pancreatitis type: unspecified pancreatitis type Acute pancreatitis complication: no infection or necrosis Qualified Code(s): K85.90 - Acute pancreatitis without necrosis or infection, unspecified (2) CHF (congestive heart failure) Code(s): I50.9 - HEART FAILURE, UNSPECIFIED Qualifiers: Heart failure type: diastolic Heart failure chronicity: chronic Qualified Code(s): I50.32 - Chronic diastolic (congestive) heart failure (3) History of breast cancer Code(s): Z85.3 - PERSONAL HISTORY OF MALIGNANT NEOPLASM OF BREAST (4) PAF (paroxysmal atrial fibrillation) Code(s): I48.0 - PAROXYSMAL ATRIAL FIBRILLATION (5) ASHD (arteriosclerotic heart disease) Code(s): I25.10 - ATHSCL HEART DISEASE OF [place] CORONARY ARTERY W/O ANG PCTRS (6) H/O mitral valve replacement Code(s): Z95.2 - PRESENCE OF PROSTHETIC HEART VALVE (7) History of intracranial hemorrhage Code(s): Z86.79 - PERSONAL HISTORY OF OTHER DISEASES OF THE CIRCULATORY SYSTEM (8) Hyperlipidemia Code(s): E78.5 - HYPERLIPIDEMIA, UNSPECIFIED Qualifiers: Hyperlipidemia type: pure hypercholesterolemia Qualified Code(s): E78.00 - Pure hypercholesterolemia, unspecified (9) Hypertension Code(s): I10 - ESSENTIAL (PRIMARY) HYPERTENSION Qualifiers: Hypertension type: essential hypertension Qualified Code(s): I10 - Essential (primary) hypertension
[2017-10-13] MEDS: LACTATED RINGERS SOLUTION 1,000 ML/1,000 ML INFUS.BAG IV SCH ×7 (01:09→21:17)
[2017-10-13 08:40] LABS: BASO % 0.3 % (0-2.0); EOS % 0.8 % (0-4.5); HEMATOCRIT 31.8 % (32.4-45.2); HEMOGLOBIN 10.9 GM/dL (10.7-15.3); LYMPH % 15.1 % (8-40); MCH 32.2 pg (25.7-33.7); MCHC 34.4 g/dl (32.0-36.0); MEAN CELL VOLUME 93.7 fl (80-96); MEAN PLT VOLUME 8.6 fl (7.5-11.1); NEUT % 76.8 % (42.8-82.8); PLATELET COUNT 131 K/MM3 (134-434); RBC 3.39 M/mm3 (3.60-5.2); RDW 13.5 % (11.6-15.6); WHITE BLOOD COUNT 8.7 K/mm3 (4.0-10.0)
[2017-10-13 08:47] LABS: INR 2.29 (0.82-1.09); PROTHROMBIN TIME (PATIENT) 25.9 SEC (9.98-11.88)
[2017-10-13 08:53] LABS: ALBUMIN 3.3 g/dl (3.4-5.0); BILIRUBIN,DIRECT 0.2 mg/dL (0.0-0.2); BILIRUBIN,TOTAL 0.8 mg/dL (0.2-1.0); TOT PROT 6.9 g/dl (6.4-8.2)
[2017-10-13 08:54] LABS: CHLORIDE 107 mmol/L (98-107); POTASSIUM 3.6 mmol/L (3.5-5.1); SODIUM 139 mmol/L (136-145)
[2017-10-13 09:04] LABS: ANION GAP 9 (8-16); BLOOD UREA NITROGEN 15 mg/dL (7-18); CALCIUM 7.9 mg/dL (8.5-10.1); CO2 23 mmol/L (21-32); CREATININE 0.7 mg/dL (0.55-1.02); GLUCOSE,RANDOM 82 mg/dL (74-106)
[2017-10-13] MEDS: LOSARTAN POTASSIUM 25 MG TABLET PO SCH (10:04)
--- NOTE | 2017-10-13 11:31 | PN ---
Progress Note (short form) - Note Progress Note: 77 ear old female, aditted with acuteabdominal pain, nausea and vomiting, diagnosed with acute pancreatitis related to cholelithiasis. Known case of paroxysmal atrial fib. s/p bioprosthetic mitral valve replacement. (x2). S/p tricuspid valvuloplasty ,s/p CHF, hypertension. Minimal abdominal discomfort. No SOB, chest pain or discomfort. Active Medications Generic Name Dose Route Start Last Admin Trade Name Freq PRN Reason Stop Dose Admin Lactated Ringer's 1,000 ml in 1,000 mls @ 100 mls/hr 10/12/17 02:30 10/13/17 05:58 Lactated Ringers Solution IV Not Given ASDIR DEIDRE Lactated Ringer's 1,000 ml in 1,000 mls @ 200 mls/hr 10/12/17 09:00 10/13/17 01:09 Lactated Ringers Solution IV 10/13/17 13:59 200 mls/hr ASDIR DEIDRE Administration Lactated Ringer's 1,000 ml in 1,000 mls @ 150 mls/hr 10/12/17 19:00 10/13/17 05:58 Lactated Ringers Solution IV 150 mls/hr ASDIR DEIDRE Administration Losartan Potassium 25 mg 10/13/17 10:00 10/13/17 10:04 Cozaar - PO 25 mg DAILY DEIDRE Administration Metoprolol Succinate 50 mg 10/12/17 12:15 10/13/17 10:04 Toprol Xl - PO 50 mg BID DEIDRE Administration Morphine Sulfate 2 mg 10/12/17 08:28 Morphine Sulfate IVPUSH Q6H PRN PAIN LEVEL 6-10 Ondansetron HCl 4 mg 10/12/17 04:14 Zofran Injection IVPUSH Q6H PRN NAUSEA AND/OR VOMITING 77 year old feamle in no acute distress, no pallor, cyanosis, clubbing or jaundice. Last Vital Signs Temp Pulse Resp BP Pulse Ox 98.2 F 81 18 138/56 97 10/13/17 09:00 10/13/17 09:00 10/13/17 09:00 10/13/17 09:00 10/12/17 21:00 NECK; Supple, no Jvd, carotids are 2+, left supraclavicular and carotid bruit. HEART: Regular, no heaves or thrills, grade II? systolic murmur LSB and apex, no diastolic murmur or gallops heard. LUNGS: Clear on auscultation. ABDOMEN: Soft and mild diffuse tenderness, No hepatosplenomegaly or palpable masses felt.Bowel sounds were not heard. EXTREMITIES: No calf tenderness or dependent edema. CBCD WBC 8.7 K/mm3 (4.0-10.0) 10/13/17 07:00 RBC 3.39 M/mm3 (3.60-5.2) L 10/13/17 07:00 Hgb 10.9 GM/dL (10.7-15.3) 10/13/17 07:00 Hct 31.8 % (32.4-45.2) L 10/13/17 07:00 MCV 93.7 fl (80-96) 10/13/17 07:00 MCHC 34.4 g/dl (32.0-36.0) 10/13/17 07:00 RDW 13.5 % (11.6-15.6) 10/13/17 07:00 Plt Count 131 K/MM3 (134-434) L 10/13/17 07:00 MPV 8.6 fl (7.5-11.1) 10/13/17 07:00 CMP Sodium 139 mmol/L (136-145) 10/13/17 07:00 Potassium 3.6 mmol/L (3.5-5.1) 10/13/17 07:00 Chloride 107 mmol/L (98-107) 10/13/17 07:00 Carbon Dioxide 23 mmol/L (21-32) 10/13/17 07:00 Anion Gap 9 (8-16) 10/13/17 07:00 BUN 15 mg/dL (7-18) 10/13/17 07:00 Creatinine 0.7 mg/dL (0.55-1.02) 10/13/17 07:00 Creat Clearance w eGFR 53.76 (>60) 10/12/17 00:44 Calcium 7.9 mg/dL (8.5-10.1) L 10/13/17 07:00 Total Bilirubin 0.8 mg/dL (0.2-1.0) D 10/13/17 07:00 AST 65 U/L (15-37) H 10/13/17 07:00 ALT 82 U/L (12-78) H 10/13/17 07:00 Alkaline Phosphatase 75 U/L (45-117) 10/13/17 07:00 Total Protein 6.9 g/dl (6.4-8.2) 10/13/17 07:00 Albumin 3.3 g/dl (3.4-5.0) L 10/13/17 07:00 IMPRESSION: 1. Acute pancreatitis. 2. S/p Mitral valve prolapse with severe MR, s/p bioprosthetic MVR. 3. Cholelithiasis and cholelicysitis. 4. S/p tricuspid valvuloplasty. 5. Hypertension. 6. Paroxysymal atruil fib. 7.S/p traumatic cerebral hemorrhage RECCOMENDATIONS: 1. Resume therapy tej. 2. Surgery is being contemplated.
--- NOTE | 2017-10-13 12:00 | PN ---
Progress Note, Physician Chief Complaint: Pt sitting in bed in no acute distress. Reports resolution of pain/nausea. Denies any current nausea/vomiting, chest discomfort, or weakness. - Current Medication List Current Medications: Active Medications Lactated Ringer's (Lactated Ringers Solution) 1,000 ml in 1,000 mls @ 100 mls/ hr IV ASDIR [facility] Last Admin: 10/13/17 05:58 Dose: Not Given Lactated Ringer's (Lactated Ringers Solution) 1,000 ml in 1,000 mls @ 200 mls/ hr IV ASDIR [facility] Stop: 10/13/17 13:59 Last Admin: 10/13/17 01:09 Dose: 200 mls/hr Lactated Ringer's (Lactated Ringers Solution) 1,000 ml in 1,000 mls @ 150 mls/ hr IV ASDIR [facility] Last Admin: 10/13/17 05:58 Dose: 150 mls/hr Losartan Potassium (Cozaar -) 25 mg PO DAILY [facility] Last Admin: 10/13/17 10:04 Dose: 25 mg Metoprolol Succinate (Toprol Xl -) 50 mg PO BID [facility] Last Admin: 10/13/17 10:04 Dose: 50 mg Morphine Sulfate (Morphine Sulfate) 2 mg IVPUSH Q6H PRN PRN Reason: PAIN LEVEL 6-10 Ondansetron HCl (Zofran Injection) 4 mg IVPUSH Q6H PRN PRN Reason: NAUSEA AND/OR VOMITING - Objective Vital Signs: Vital Signs Temperature 98.2 F 10/13/17 09:00 Pulse Rate 81 10/13/17 09:00 Respiratory Rate 18 10/13/17 09:00 Blood Pressure 138/56 10/13/17 09:00 O2 Sat by Pulse Oximetry (%) 97 10/13/17 08:30 Constitutional: Yes: Well Nourished, No Distress Cardiovascular: Yes: WNL, Regular Rate and Rhythm, Murmur. No: Bruit, JVD, Gallop Respiratory: Yes: WNL, Regular, CTA Bilaterally. No: Accessory Muscle Use, SOB , Tachypnea, Wheezes Gastrointestinal: Yes: Normal Bowel Sounds, Soft, Tenderness, Epigastrium (mild) . No: Distention Genitourinary: Yes: WNL Edema: Yes Edema: LLE: Trace, RLE: Trace Neurological: Yes: WNL, Alert, Oriented Psychiatric: Yes: WNL, Alert, Oriented Labs: CBC, BMP 10/13/17 07:00 10/13/17 07:00 INR, PTT INR 2.29 (0.82-1.09) H 10/13/17 07:00 Problem List - Problems (1) Pancreatitis Code(s): K85.90 - ACUTE PANCREATITIS WITHOUT NECROSIS OR INFECTION, UNSP Qualifiers: Chronicity: acute Pancreatitis type: unspecified pancreatitis type Acute pancreatitis complication: no infection or necrosis Qualified Code(s): K85.90 - Acute pancreatitis without necrosis or infection, unspecified (2) Hyperlipidemia Code(s): E78.5 - HYPERLIPIDEMIA, UNSPECIFIED Qualifiers: Hyperlipidemia type: pure hypercholesterolemia Qualified Code(s): E78.00 - Pure hypercholesterolemia, unspecified (3) ASHD (arteriosclerotic heart disease) Code(s): I25.10 - ATHSCL HEART DISEASE OF [place] CORONARY ARTERY W/O ANG PCTRS (4) Hypertension Code(s): I10 - ESSENTIAL (PRIMARY) HYPERTENSION Qualifiers: Hypertension type: essential hypertension Qualified Code(s): I10 - Essential (primary) hypertension (5) PAF (paroxysmal atrial fibrillation) Code(s): I48.0 - PAROXYSMAL ATRIAL FIBRILLATION (6) CHF (congestive heart failure) Code(s): I50.9 - HEART FAILURE, UNSPECIFIED Qualifiers: Heart failure type: diastolic Heart failure chronicity: chronic Qualified Code(s): I50.32 - Chronic diastolic (congestive) heart failure (7) H/O mitral valve replacement Code(s): Z95.2 - PRESENCE OF PROSTHETIC HEART VALVE (8) H/O tricuspid valve annuloplasty Code(s): Z98.890 - OTHER SPECIFIED POSTPROCEDURAL STATES (9) History of breast cancer Code(s): Z85.3 - PERSONAL HISTORY OF MALIGNANT NEOPLASM OF BREAST Assessment/Plan (1) Pancreatitis Assessment/Plan: Acute, secondary to gallstones improvement of n/v, abd pain abd CT/US findings suggestive of acute pancreatitis, cholelithiasis MRCP- gallstones/sludge in gallbladder neck lipase/amylase, transaminitis improved wbs/triglycerides, calcium wnl vital signs stable NPO morphine/zofran prn IVF BGM strict I&O's Surgery consulted GI following Code(s): K85.90 - ACUTE PANCREATITIS WITHOUT NECROSIS OR INFECTION, UNSP Qualifiers: Chronicity: acute Pancreatitis type: unspecified pancreatitis type Acute pancreatitis complication: no infection or necrosis Qualified Code(s): K85.90 - Acute pancreatitis without necrosis or infection, unspecified (2) Hyperlipidemia Assessment/Plan: chronic, stable hold statin in the setting of transaminitis Code(s): E78.5 - HYPERLIPIDEMIA, UNSPECIFIED Qualifiers: Hyperlipidemia type: pure hypercholesterolemia Qualified Code(s): E78.00 - Pure hypercholesterolemia, unspecified (3) ASHD (arteriosclerotic heart disease) Assessment/Plan: chronic Code(s): I25.10 - ATHSCL HEART DISEASE OF [place] CORONARY ARTERY W/O ANG PCTRS (4) Hypertension Assessment/Plan: controlled continue metoprolol and losartan Code(s): I10 - ESSENTIAL (PRIMARY) HYPERTENSION Qualifiers: Hypertension type: essential hypertension Qualified Code(s): I10 - Essential (primary) hypertension (5) PAF (paroxysmal atrial fibrillation) Assessment/Plan: Controlled, in SR now continue metoprolol hold coumadin, pending surgery Code(s): I48.0 - PAROXYSMAL ATRIAL FIBRILLATION (6) CHF (congestive heart failure) Assessment/Plan: chronic, stable hold lasix currently Code(s): I50.9 - HEART FAILURE, UNSPECIFIED Qualifiers: Heart failure type: diastolic Heart failure chronicity: chronic Qualified Code(s): I50.32 - Chronic diastolic (congestive) heart failure (7) H/O mitral valve replacement Assessment/Plan: MVP with MR post initial MVR 1999 Reoperative porcine MVR Code(s): Z95.2 - PRESENCE OF PROSTHETIC HEART VALVE (8) H/O tricuspid valve annuloplasty Assessment/Plan: s/p TV Ring anuloplasty Code(s): Z98.890 - OTHER SPECIFIED POSTPROCEDURAL STATES (9) History of breast cancer Assessment/Plan: [id number] Left axillary node dissection lumpectomy, chemo cytoxan, MTX 5-FU XRT Code(s): Z85.3 - PERSONAL HISTORY OF MALIGNANT NEOPLASM OF BREAST
[2017-10-13] MEDS ORDERED: POTASSIUM CHLORIDE 10 MEQ in SODIUM CHLORIDE 100 ML IVPB SCH (12:15)
--- NOTE | 2017-10-13 13:30 | PN ---
Progress Note, Physician Chief Complaint: gallstone pancreatitis History of Present Illness: 77 yo female PMH of Left Breast Ca, Afib (on coumadin), CAD, MVR x2 (porcine bioprosthesis), Angina, Fatty Liver, Herpes Zoster, Basal Cell Ca. Who presents to the ED with epigastric pain radiating to the chest since that evening. Patient reports eating a Ham sandwich for lunch and Eggplant Parmesan for dinner at 07:30. She reports having nausea at home and had 2 episodes of non- bilious emesis- undigested food. Patient denies fever, chills, cough, THEODORE, dizziness, diarrhea, constipation, dysuria. She was not aware of having gallstones. Had not had a similar episode in the past. CTscan and ultrasond show cholelitiasis without clear stigmata of choledocholithiasis. - Current Medication List Current Medications: Active Medications Lactated Ringer's (Lactated Ringers Solution) 1,000 ml in 1,000 mls @ 100 mls/ hr IV ASDIR [facility] Last Admin: 10/13/17 05:58 Dose: Not Given Lactated Ringer's (Lactated Ringers Solution) 1,000 ml in 1,000 mls @ 200 mls/ hr IV ASDIR DEIDRE Stop: 10/13/17 13:59 Last Admin: 10/13/17 01:09 Dose: 200 mls/hr Lactated Ringer's (Lactated Ringers Solution) 1,000 ml in 1,000 mls @ 150 mls/ hr IV ASDIR [facility] Last Admin: 10/13/17 05:58 Dose: 150 mls/hr Losartan Potassium (Cozaar -) 25 mg PO DAILY [facility] Last Admin: 10/13/17 10:04 Dose: 25 mg Metoprolol Succinate (Toprol Xl -) 50 mg PO BID [facility] Last Admin: 10/13/17 10:04 Dose: 50 mg Morphine Sulfate (Morphine Sulfate) 2 mg IVPUSH Q6H PRN PRN Reason: PAIN LEVEL 6-10 Ondansetron HCl (Zofran Injection) 4 mg IVPUSH Q6H PRN PRN Reason: NAUSEA AND/OR VOMITING - Objective Vital Signs: Vital Signs Temperature 98.2 F 10/13/17 09:00 Pulse Rate 81 10/13/17 09:00 Respiratory Rate 18 10/13/17 09:00 Blood Pressure 138/56 10/13/17 09:00 O2 Sat by Pulse Oximetry (%) 97 10/13/17 08:30 Constitutional: Yes: Well Nourished, No Distress, Calm Eyes: Yes: Conjunctiva Clear, EOM Intact HENT: Yes: Atraumatic, Normocephalic Neck: Yes: Supple, Trachea Midline Cardiovascular: Yes: Regular Rate and Rhythm, S1, S2 Respiratory: Yes: Regular, CTA Bilaterally Gastrointestinal: Yes: Normal Bowel Sounds, Soft, Distention, Tenderness, Tenderness, Epigastrium ...Rectal Exam: Yes: Deferred Genitourinary: No: CVA Tenderness - Left, CVA Tenderness - Right Extremities: No: Cool, Cyanosis Neurological: Yes: Alert, Oriented Psychiatric: Yes: Alert, Oriented Labs: CBC,CMP WBC 8.7 K/mm3 (4.0-10.0) 10/13/17 07:00 RBC 3.39 M/mm3 (3.60-5.2) L 10/13/17 07:00 Hgb 10.9 GM/dL (10.7-15.3) 10/13/17 07:00 Hct 31.8 % (32.4-45.2) L 10/13/17 07:00 MCV 93.7 fl (80-96) 10/13/17 07:00 MCH 32.2 pg (25.7-33.7) 10/13/17 07:00 MCHC 34.4 g/dl (32.0-36.0) 10/13/17 07:00 RDW 13.5 % (11.6-15.6) 10/13/17 07:00 Plt Count 131 K/MM3 (134-434) L 10/13/17 07:00 MPV 8.6 fl (7.5-11.1) 10/13/17 07:00 Neutrophils % 76.8 % (42.8-82.8) 10/13/17 07:00 Lymphocytes % 15.1 % (8-40) D 10/13/17 07:00 Monocytes % 7.0 % (3.8-10.2) 10/13/17 07:00 Eosinophils % 0.8 % (0-4.5) D 10/13/17 07:00 Basophils % 0.3 % (0-2.0) 10/13/17 07:00 Sodium 139 mmol/L (136-145) 10/13/17 07:00 Potassium 3.6 mmol/L (3.5-5.1) 10/13/17 07:00 Chloride 107 mmol/L (98-107) 10/13/17 07:00 Carbon Dioxide 23 mmol/L (21-32) 10/13/17 07:00 Anion Gap 9 (8-16) 10/13/17 07:00 BUN 15 mg/dL (7-18) 10/13/17 07:00 Creatinine 0.7 mg/dL (0.55-1.02) 10/13/17 07:00 Creat Clearance w eGFR 53.76 (>60) 10/12/17 00:44 POC Glucometer 69 UNITS (80-120) 10/13/17 11:53 Random Glucose 82 mg/dL (74-106) 10/13/17 07:00 Calcium 7.9 mg/dL (8.5-10.1) L 10/13/17 07:00 Total Bilirubin 0.8 mg/dL (0.2-1.0) D 10/13/17 07:00 Direct Bilirubin 0.2 mg/dL (0.0-0.2) 10/13/17 07:00 AST 65 U/L (15-37) H 10/13/17 07:00 ALT 82 U/L (12-78) H 10/13/17 07:00 Alkaline Phosphatase 75 U/L (45-117) 10/13/17 07:00 Creatine Kinase 131 IU/L (26-192) 10/12/17 00:44 Troponin I 0.03 ng/ml (0.00-0.05) 10/12/17 12:37 C-Reactive Protein 0.6 MG/DL (0.00-0.3) H 10/12/17 06:30 Total Protein 6.9 g/dl (6.4-8.2) 10/13/17 07:00 Albumin 3.3 g/dl (3.4-5.0) L 10/13/17 07:00 Triglycerides 51 mg/dL (35-160) 10/12/17 06:30 Total Amylase 1068 U/L (25-115) H 10/13/17 07:00 Lipase 4910 U/L (73-393) H 10/13/17 07:00 Problem List - Problems (1) Pancreatitis Assessment/Plan: 77 yo famale with MMP on coumadin for valve, presented with epigastric abdominal pain NPO and IVF hydration Trend labs CMP and Lipase (including PT/INR) Heparin bridging once subtheraputic in anticipation of surgery Discussed with patient risks, benefits and alternatives of laparoscopic possible open cholecystectomy, including but not limited to bleeding, infection , injury to adjacent structures, leak or injury, intraabdominal abscess, need for further procedures, ; alternatives include antibiotics, delayed or no surgery - risks of this include failure of nonoperative therapy, perforation, sepsis, recurrence, . Patient desires to proceed with operation - will take to OR for above. Informed consent signed for same. Code(s): K85.90 - ACUTE PANCREATITIS WITHOUT NECROSIS OR INFECTION, UNSP Qualifiers: Chronicity: acute Pancreatitis type: unspecified pancreatitis type Acute pancreatitis complication: no infection or necrosis Qualified Code(s): K85.90 - Acute pancreatitis without necrosis or infection, unspecified (2) CHF (congestive heart failure) Code(s): I50.9 - HEART FAILURE, UNSPECIFIED Qualifiers: Heart failure type: diastolic Heart failure chronicity: chronic Qualified Code(s): I50.32 - Chronic diastolic (congestive) heart failure (3) History of breast cancer Code(s): Z85.3 - PERSONAL HISTORY OF MALIGNANT NEOPLASM OF BREAST (4) PAF (paroxysmal atrial fibrillation) Code(s): I48.0 - PAROXYSMAL ATRIAL FIBRILLATION (5) ASHD (arteriosclerotic heart disease) Code(s): I25.10 - ATHSCL HEART DISEASE OF [place] CORONARY ARTERY W/O ANG PCTRS (6) H/O mitral valve replacement Code(s): Z95.2 - PRESENCE OF PROSTHETIC HEART VALVE (7) History of intracranial hemorrhage Code(s): Z86.79 - PERSONAL HISTORY OF OTHER DISEASES OF THE CIRCULATORY SYSTEM (8) Hyperlipidemia Code(s): E78.5 - HYPERLIPIDEMIA, UNSPECIFIED Qualifiers: Hyperlipidemia type: pure hypercholesterolemia Qualified Code(s): E78.00 - Pure hypercholesterolemia, unspecified (9) Hypertension Code(s): I10 - ESSENTIAL (PRIMARY) HYPERTENSION Qualifiers: Hypertension type: essential hypertension Qualified Code(s): I10 - Essential (primary) hypertension
--- NOTE | 2017-10-13 16:00 | PN ---
GI Progress Note Subjective: For Dr. Spears No acute events Abdominal pain much improved. Describes it as "an ache" now - Objective Vital Signs: Vital Signs Temperature 100.3 F H 10/13/17 13:30 Pulse Rate 79 10/13/17 13:30 Respiratory Rate 18 10/13/17 13:30 Blood Pressure 132/51 10/13/17 13:30 O2 Sat by Pulse Oximetry (%) 97 10/13/17 08:30 Constitutional: Calm Cardiovascular: Yes: Regular Rate and Rhythm. No: Murmur Respiratory: Yes: CTA Bilaterally Gastrointestinal Inspection: No: Distention ...Auscultate: Yes: Normoactive Bowel Sounds ...Palpate: Yes: Tenderness (minimal if any TTP epigastrium / mid abdomen. Negative centeno's) Edema: Yes Edema: LLE: Trace, RLE: Trace Neurological: Yes: Alert, Oriented Labs: CBC, BMP 10/13/17 07:00 10/13/17 07:00 INR, PTT INR 2.29 (0.82-1.09) H 10/13/17 07:00 Hepatic Panel Total Bilirubin 0.8 mg/dL (0.2-1.0) D 10/13/17 07:00 Direct Bilirubin 0.2 mg/dL (0.0-0.2) 10/13/17 07:00 AST 65 U/L (15-37) H 10/13/17 07:00 ALT 82 U/L (12-78) H 10/13/17 07:00 Alkaline Phosphatase 75 U/L (45-117) 10/13/17 07:00 Albumin 3.3 g/dl (3.4-5.0) L 10/13/17 07:00 Laboratory Tests 10/12/17 06:30 Triglycerides 51 - ....Imaging Ultrasound: Report Reviewed MRI: Report Reviewed (? cholecystitis, no stones in CBD. CBD not dilated) Problem List - Problems (1) Pancreatitis Assessment/Plan: Suspected passed gallstones. Clincially much improved. ? if the inflammatory changes noted around the gallbladder are secondary to the pancreatitis. She has no RUQ pain and WBC has improved with treatment of the pancreatitis For now: Trial of clears Continue IV hydration Surgery is following Cardiology following AM labs Code(s): K85.90 - ACUTE PANCREATITIS WITHOUT NECROSIS OR INFECTION, UNSP Qualifiers: Chronicity: acute Pancreatitis type: unspecified pancreatitis type Acute pancreatitis complication: no infection or necrosis Qualified Code(s): K85.90 - Acute pancreatitis without necrosis or infection, unspecified
[2017-10-14] MEDS: LACTATED RINGERS SOLUTION 1,000 ML/1,000 ML INFUS.BAG IV SCH ×2 (02:14→08:00)
[2017-10-14 07:47] LABS: BASO % 0.5 % (0-2.0); EOS % 1.7 % (0-4.5); HEMATOCRIT 26.5 % (32.4-45.2); HEMOGLOBIN 9.1 GM/dL (10.7-15.3); LYMPH % 16.4 % (8-40); MCH 32.2 pg (25.7-33.7); MCHC 34.3 g/dl (32.0-36.0); MEAN CELL VOLUME 93.9 fl (80-96); MEAN PLT VOLUME 8.8 fl (7.5-11.1); MONO % 9.2 % (3.8-10.2); NEUT % 72.2 % (42.8-82.8); PLATELET COUNT 101 K/MM3 (134-434); RBC 2.82 M/mm3 (3.60-5.2); RDW 13.3 % (11.6-15.6); WHITE BLOOD COUNT 7.1 K/mm3 (4.0-10.0)
[2017-10-14 08:11] LABS: CHLORIDE 109 mmol/L (98-107); POTASSIUM 3.7 mmol/L (3.5-5.1); SODIUM 140 mmol/L (136-145)
[2017-10-14 08:23] LABS: INR 2.16 (0.82-1.09); PROTHROMBIN TIME (PATIENT) 24.4 SEC (9.98-11.88)
[2017-10-14 08:25] LABS: ALBUMIN 2.9 g/dl (3.4-5.0); ALK PHOS 61 U/L (45-117); ANION GAP 6 (8-16); BILIRUBIN,TOTAL 0.8 mg/dL (0.2-1.0); BLOOD UREA NITROGEN 15 mg/dL (7-18); CALCIUM 7.6 mg/dL (8.5-10.1); CO2 25 mmol/L (21-32); CREATININE 0.7 mg/dL (0.55-1.02); GLUCOSE,RANDOM 76 mg/dL (74-106); SGOT/AST 46 U/L (15-37); SGPT/ALT 59 U/L (12-78); TOT PROT 5.9 g/dl (6.4-8.2)
--- NOTE | 2017-10-14 09:03 | PN ---
Physical Exam: SUBJECTIVE: Patient seen and examined. She has been tolerating CLD, but with more bloating. abdominal pain no longer present. no N/V. Did feel SOB overnight with palpitations OBJECTIVE: Vital Signs Period Temp Pulse Resp BP Sys/Miranda Pulse Ox Last 24 Hr 98.0 F-100.3 F 73-92 16-18 132-160/51-64 97-97 GENERAL: The patient is awake, alert, and fully oriented, in no acute distress. HEAD: Normal with no signs of trauma. ENT: Ears normal, nares patent, oropharynx clear without exudates, moist mucous membranes. NECK: Trachea midline, full range of motion, supple. LUNGS: Breath sounds equal, clear to auscultation bilaterally, no wheezes, no crackles, no accessory muscle use. HEART: Regular rate and rhythm, S1, S2 without murmur, rub or gallop. ABDOMEN: Soft, nontender, nondistended, normoactive bowel sounds, no guarding, no rebound, no hepatosplenomegaly, no masses. EXTREMITIES: 2+ pulses, warm, well-perfused, no edema. NEUROLOGICAL: Cranial nerves II through XII grossly intact. Normal speech, gait not observed. PSYCH: Normal mood, normal affect. SKIN: Warm, dry, normal turgor, no rashes or lesions noted Laboratory Results - last 24 hr 10/13/17 10/13/17 10/13/17 07:00 07:00 11:53 WBC RBC Hgb Hct MCV MCH MCHC RDW Plt Count MPV Neutrophils % Lymphocytes % Monocytes % Eosinophils % Basophils % PT with INR INR Sodium 139 Potassium 3.6 Chloride 107 Carbon Dioxide 23 Anion Gap 9 BUN 15 Creatinine 0.7 Creat Clearance w eGFR POC Glucometer 69 Random Glucose 82 Calcium 7.9 L Total Bilirubin 0.8 D Direct Bilirubin 0.2 AST 65 H ALT 82 H Alkaline Phosphatase 75 Total Protein 6.9 Albumin 3.3 L Total Amylase 1068 H Lipase 4910 H 10/13/17 10/14/17 10/14/17 16:41 06:00 06:00 WBC 7.1 RBC 2.82 L Hgb 9.1 L D Hct 26.5 L D MCV 93.9 MCH 32.2 MCHC 34.3 RDW 13.3 Plt Count 101 L D MPV 8.8 Neutrophils % 72.2 Lymphocytes % 16.4 Monocytes % 9.2 Eosinophils % 1.7 D Basophils % 0.5 PT with INR 24.40 H INR 2.16 H Sodium Potassium Chloride Carbon Dioxide Anion Gap BUN Creatinine Creat Clearance w eGFR POC Glucometer 79 Random Glucose Calcium Total Bilirubin Direct Bilirubin AST ALT Alkaline Phosphatase Total Protein Albumin Total Amylase Lipase 10/14/17 10/14/17 06:00 06:14 WBC RBC Hgb Hct MCV MCH MCHC RDW Plt Count MPV Neutrophils % Lymphocytes % Monocytes % Eosinophils % Basophils % PT with INR INR Sodium 140 Potassium 3.7 Chloride 109 H Carbon Dioxide 25 Anion Gap 6 L BUN 15 Creatinine 0.7 Creat Clearance w eGFR > 60 POC Glucometer 88 Random Glucose 76 Calcium 7.6 L Total Bilirubin 0.8 Direct Bilirubin AST 46 H ALT 59 Alkaline Phosphatase 61 Total Protein 5.9 L Albumin 2.9 L Total Amylase Lipase Active Medications Generic Name Dose Route Start Last Admin Trade Name Freq PRN Reason Stop Dose Admin Lactated Ringer's 1,000 ml in 1,000 mls @ 75 mls/hr 10/14/17 08:52 Lactated Ringers Solution IV ASDIR DEIDRE Losartan Potassium 25 mg 10/13/17 10:00 10/13/17 10:04 Cozaar - PO 25 mg DAILY DEIDRE Administration Metoprolol Succinate 50 mg 10/12/17 12:15 10/13/17 21:17 Toprol Xl - PO 50 mg BID DEIDRE Administration Morphine Sulfate 2 mg 10/12/17 08:28 Morphine Sulfate IVPUSH Q6H PRN PAIN LEVEL 6-10 Ondansetron HCl 4 mg 10/12/17 04:14 Zofran Injection IVPUSH Q6H PRN NAUSEA AND/OR VOMITING Tele reviewed: 1 episode Afib for about 2 minutes around 2:30AM ASSESSMENT/PLAN: GS Pancreatitis improving tolerating CLD reduce IVF to 75/hr plan for surgery Monday morphine, zofran prn paroxysmal Afib once INR <2 start heparin gtt to bridge, Toprol XL chronic Anemia - drop in hgb today likely dilutional, she denies any bleeding , recheck in afternoon Visit type - Emergency Visit Emergency Visit: Yes ED Registration Date: 10/12/17 Care time: The patient presented to the Emergency Department on the above date and was hospitalized for further evaluation of their emergent condition. - New Patient This patient is new to me today: Yes Date on this admission: 10/14/17 - Critical Care Critical Care patient: No
[2017-10-14] MEDS: LOSARTAN POTASSIUM 25 MG TABLET PO SCH (09:07)
--- NOTE | 2017-10-14 11:29 | PN ---
GI Progress Note Subjective: Sitting up in chair, no distress No acute events No abdominal pain Tolerating clears - Objective Vital Signs: Vital Signs Temperature 98.7 F 10/14/17 08:50 Pulse Rate 83 10/14/17 08:50 Respiratory Rate 18 10/14/17 08:50 Blood Pressure 145/60 10/14/17 08:50 O2 Sat by Pulse Oximetry (%) 97 10/14/17 08:34 Constitutional: Calm Eyes: No: Sclera Icterus Cardiovascular: Yes: Regular Rate and Rhythm Respiratory: Yes: CTA Bilaterally Gastrointestinal Inspection: No: Distention ...Auscultate: Yes: Normoactive Bowel Sounds ...Palpate: No: Hepatomegaly, Splenomegaly, Tenderness ...Percussion: No: Tympanitic Neurological: Yes: Alert Labs: CBC, BMP 10/14/17 06:00 10/14/17 06:00 INR, PTT INR 2.16 (0.82-1.09) H 10/14/17 06:00 Hepatic Panel Total Bilirubin 0.8 mg/dL (0.2-1.0) 10/14/17 06:00 Direct Bilirubin 0.2 mg/dL (0.0-0.2) 10/13/17 07:00 AST 46 U/L (15-37) H 10/14/17 06:00 ALT 59 U/L (12-78) 10/14/17 06:00 Alkaline Phosphatase 61 U/L (45-117) 10/14/17 06:00 Albumin 2.9 g/dl (3.4-5.0) L 10/14/17 06:00 Problem List - Problems (1) Pancreatitis Assessment/Plan: Clinically much improved and tolerating clears No ERCP at this time Timing of cholecystectomy per surgery Code(s): K85.90 - ACUTE PANCREATITIS WITHOUT NECROSIS OR INFECTION, UNSP Qualifiers: Chronicity: acute Pancreatitis type: unspecified pancreatitis type Acute pancreatitis complication: no infection or necrosis Qualified Code(s): K85.90 - Acute pancreatitis without necrosis or infection, unspecified
[2017-10-14 13:58] LABS: HEMATOCRIT 30.9 % (32.4-45.2); HEMOGLOBIN 10.3 GM/dL (10.7-15.3); MCH 31.8 pg (25.7-33.7); MCHC 33.4 g/dl (32.0-36.0); MEAN CELL VOLUME 95.2 fl (80-96); MEAN PLT VOLUME 8.4 fl (7.5-11.1); RBC 3.25 M/mm3 (3.60-5.2); RDW 13.5 % (11.6-15.6); WHITE BLOOD COUNT 7.3 K/mm3 (4.0-10.0)
--- NOTE | 2017-10-14 14:35 | PN ---
Progress Note, Physician Chief Complaint: gallstone pancreatitis History of Present Illness: 77 yo female PMH of Left Breast Ca, Afib (on coumadin), CAD, MVR x2 (porcine bioprosthesis), Angina, Fatty Liver, Herpes Zoster, Basal Cell Ca. Who presents to the ED with epigastric pain radiating to the chest since that evening. stable and recovering - Current Medication List Current Medications: Active Medications Lactated Ringer's (Lactated Ringers Solution) 1,000 ml in 1,000 mls @ 75 mls/ hr IV ASDIR [facility] Last Admin: 10/14/17 08:00 Dose: 75 mls/hr Losartan Potassium (Cozaar -) 25 mg PO DAILY [facility] Last Admin: 10/14/17 09:07 Dose: 25 mg Metoprolol Succinate (Toprol Xl -) 50 mg PO BID [facility] Last Admin: 10/14/17 09:07 Dose: 50 mg Morphine Sulfate (Morphine Sulfate) 2 mg IVPUSH Q6H PRN PRN Reason: PAIN LEVEL 6-10 Ondansetron HCl (Zofran Injection) 4 mg IVPUSH Q6H PRN PRN Reason: NAUSEA AND/OR VOMITING - Objective Vital Signs: Vital Signs Temperature 98.7 F 10/14/17 08:50 Pulse Rate 83 10/14/17 08:50 Respiratory Rate 18 10/14/17 08:50 Blood Pressure 145/60 10/14/17 08:50 O2 Sat by Pulse Oximetry (%) 97 10/14/17 08:34 Constitutional: Yes: Well Nourished, No Distress, Calm Eyes: Yes: Conjunctiva Clear, EOM Intact HENT: Yes: Atraumatic, Normocephalic Neck: Yes: Supple, Trachea Midline Cardiovascular: Yes: Regular Rate and Rhythm, S1, S2 Respiratory: Yes: Regular, CTA Bilaterally Gastrointestinal: Yes: Normal Bowel Sounds, Soft, Tenderness, Epigastrium. No: Tenderness, Tenderness, Rebound Genitourinary: No: CVA Tenderness - Left, CVA Tenderness - Right Extremities: No: Cool, Cyanosis Integumentary: No: Jaundice, Rash Neurological: No: Alert, Oriented Psychiatric: No: Alert, Oriented Labs: CBC, BMP 10/14/17 13:40 10/14/17 06:00 INR, PTT INR 2.16 (0.82-1.09) H 10/14/17 06:00 Problem List - Problems (1) Pancreatitis Assessment/Plan: 77 yo radha with MMP on coumadin for valve, presented with epigastric abdominal pain NPO and IVF hydration Trend labs CMP and Lipase (including PT/INR) Heparin bridging once subtheraputic in anticipation of surgery Discussed with patient risks, benefits and alternatives of laparoscopic possible open cholecystectomy, including but not limited to bleeding, infection , injury to adjacent structures, leak or injury, intraabdominal abscess, need for further procedures, ; alternatives include antibiotics, delayed or no surgery - risks of this include failure of nonoperative therapy, perforation, sepsis, recurrence, . Patient desires to proceed with operation - will take to OR for above. Informed consent signed for same. Code(s): K85.90 - ACUTE PANCREATITIS WITHOUT NECROSIS OR INFECTION, UNSP Qualifiers: Chronicity: acute Pancreatitis type: unspecified pancreatitis type Acute pancreatitis complication: no infection or necrosis Qualified Code(s): K85.90 - Acute pancreatitis without necrosis or infection, unspecified (2) CHF (congestive heart failure) Code(s): I50.9 - HEART FAILURE, UNSPECIFIED Qualifiers: Heart failure type: diastolic Heart failure chronicity: chronic Qualified Code(s): I50.32 - Chronic diastolic (congestive) heart failure (3) History of breast cancer Code(s): Z85.3 - PERSONAL HISTORY OF MALIGNANT NEOPLASM OF BREAST (4) PAF (paroxysmal atrial fibrillation) Code(s): I48.0 - PAROXYSMAL ATRIAL FIBRILLATION (5) ASHD (arteriosclerotic heart disease) Code(s): I25.10 - ATHSCL HEART DISEASE OF [place] CORONARY ARTERY W/O ANG PCTRS (6) H/O mitral valve replacement Code(s): Z95.2 - PRESENCE OF PROSTHETIC HEART VALVE (7) History of intracranial hemorrhage Code(s): Z86.79 - PERSONAL HISTORY OF OTHER DISEASES OF THE CIRCULATORY SYSTEM (8) Hyperlipidemia Code(s): E78.5 - HYPERLIPIDEMIA, UNSPECIFIED Qualifiers: Hyperlipidemia type: pure hypercholesterolemia Qualified Code(s): E78.00 - Pure hypercholesterolemia, unspecified (9) Hypertension Code(s): I10 - ESSENTIAL (PRIMARY) HYPERTENSION Qualifiers: Hypertension type: essential hypertension Qualified Code(s): I10 - Essential (primary) hypertension
[2017-10-14 14:46] LABS: PLATELET COUNT 105 K/MM3 (134-434); PLATELET ESTIMATE DECREASED
[2017-10-15 07:55] LABS: ANION GAP 8 (8-16); BLOOD UREA NITROGEN 11 mg/dL (7-18); CALCIUM 7.9 mg/dL (8.5-10.1); CHLORIDE 109 mmol/L (98-107); CO2 24 mmol/L (21-32); CREATININE 0.7 mg/dL (0.55-1.02); GLUCOSE,RANDOM 78 mg/dL (74-106); SODIUM 141 mmol/L (136-145)
[2017-10-15 07:59] LABS: LIPASE 471 U/L (73-393)
[2017-10-15 08:37] LABS: INR 1.62 (0.82-1.09); PROTHROMBIN TIME (PATIENT) 18.3 SEC (9.98-11.88)
[2017-10-15 08:47] LABS: BASO % 0.2 % (0-2.0); EOS % 2.3 % (0-4.5); HEMATOCRIT 25.3 % (32.4-45.2); HEMOGLOBIN 8.7 GM/dL (10.7-15.3); LYMPH % 17.6 % (8-40); MCH 32.2 pg (25.7-33.7); MCHC 34.2 g/dl (32.0-36.0); MEAN CELL VOLUME 93.9 fl (80-96); MEAN PLT VOLUME 8.7 fl (7.5-11.1); MONO % 11.5 % (3.8-10.2); NEUT % 68.4 % (42.8-82.8); PLATELET COUNT 90 K/MM3 (134-434); RBC 2.69 M/mm3 (3.60-5.2); RDW 13.2 % (11.6-15.6); WHITE BLOOD COUNT 5.6 K/mm3 (4.0-10.0)
[2017-10-15] MEDS ORDERED: HEPARIN NA (PORCINE) 5,000 UNITS/ML 1ML VIAL IVPUSH PRN ×2 (10:09)
[2017-10-15] MEDS: LACTATED RINGERS SOLUTION 1,000 ML/1,000 ML INFUS.BAG IV SCH (10:54)
[2017-10-15] MEDS: LOSARTAN POTASSIUM 25 MG TABLET PO SCH (10:54)
[2017-10-15] MEDS: HEPARIN INFUSION - 25,000 UNITS/500 ML INFUS.BAG IVPB SCH (11:54)
--- NOTE | 2017-10-15 12:40 | PN ---
Physical Exam: SUBJECTIVE: Patient seen and examined OBJECTIVE: INR 1.62, started heparin drip NSR on wind development director stop heparin drip on 10/16/2017, 90 minutes prior to scheduled surgery which is for 1pm with Dr. Saldivar. RN informed. Vital Signs Period Temp Pulse Resp BP Sys/Miranda Pulse Ox Last 24 Hr 98.0 F-98.9 F 73-93 18-20 130-152/53-72 98 GENERAL: The patient is awake, alert, and fully oriented, in no acute distress. HEAD: Normal with no signs of trauma. EYES: PERRL, extraocular movements intact, sclera anicteric, conjunctiva clear. No ptosis. ENT: Ears normal, nares patent, oropharynx clear without exudates, moist mucousn membranes. NECK: Trachea midline, full range of motion, supple. LUNGS: Breath sounds equal, clear to auscultation bilaterally, no wheezes, no crackles, no accessory muscle use. EXTREMITIES: 2+ pulses, warm, well-perfused, no edema. NEUROLOGICAL: Cranial nerves II through XII grossly intact. Normal speech, gait not observed. PSYCH: Normal mood, normal affect. SKIN: Warm, dry, normal turgor, no rashes or lesions noted Laboratory Results - last 24 hr 10/14/17 10/14/17 10/15/17 13:40 16:53 05:28 WBC 7.3 RBC 3.25 L Hgb 10.3 L D Hct 30.9 L D MCV 95.2 MCH 31.8 MCHC 33.4 RDW 13.5 Plt Count 105 L MPV 8.4 Total Counted 100 Neutrophils % No Result Required. Neutrophils % (Manual) 81.0 Lymphocytes % No Result Required. Lymphocytes % (Manual) 12.0 Monocytes % Monocytes % (Manual) 5 Eosinophils % Eosinophils % (Manual) 1.0 Basophils % Basophils % (Manual) 1.0 Platelet Estimate Decreased Platelet Comment No clumping noted PT with INR INR Sodium Potassium Chloride Carbon Dioxide Anion Gap BUN Creatinine POC Glucometer 90 98 Random Glucose Calcium Lipase 10/15/17 10/15/17 10/15/17 07:00 07:00 07:00 WBC 5.6 RBC 2.69 L Hgb 8.7 L D Hct 25.3 L D MCV 93.9 MCH 32.2 MCHC 34.2 RDW 13.2 Plt Count 90 L MPV 8.7 Total Counted Neutrophils % 68.4 Neutrophils % (Manual) Lymphocytes % 17.6 Lymphocytes % (Manual) Monocytes % 11.5 H Monocytes % (Manual) Eosinophils % 2.3 Eosinophils % (Manual) Basophils % 0.2 Basophils % (Manual) Platelet Estimate Platelet Comment PT with INR 18.30 H INR 1.62 H Sodium 141 Potassium 4.0 Chloride 109 H Carbon Dioxide 24 Anion Gap 8 BUN 11 Creatinine 0.7 POC Glucometer Random Glucose 78 Calcium 7.9 L Lipase 471 H Active Medications Generic Name Dose Route Start Last Admin Trade Name Freq PRN Reason Stop Dose Admin Heparin Sodium (Porcine) 1,000 unit 10/15/17 10:09 Heparin - IVPUSH PRN PRN Heparin Heparin Sodium (Porcine) 5,000 unit 10/15/17 10:09 Heparin - IVPUSH PRN PRN Heparin Lactated Ringer's 1,000 ml in 1,000 mls @ 75 mls/hr 10/14/17 08:52 10/15/17 10:54 Lactated Ringers Solution IV 75 mls/hr ASDIR DEIDRE Administration Heparin Sodium/Dextrose 25,000 units in 500 mls @ 20 mls/hr 10/15/17 10:15 11:54 Heparin Infusion - IVPB 1,000 units/hr TITR DEIDRE 20 mls/hr Protocol Administration 1,000 UNITS/HR Losartan Potassium 25 mg 10/13/17 10:00 10/15/17 10:54 Cozaar - PO 25 mg DAILY DEIDRE Administration Metoprolol Succinate 50 mg 10/12/17 12:15 10/15/17 10:54 Toprol Xl - PO 50 mg BID DEIDRE Administration Morphine Sulfate 2 mg 10/12/17 08:28 Morphine Sulfate IVPUSH Q6H PRN PAIN LEVEL 6-10 Ondansetron HCl 4 mg 10/12/17 04:14 10/14/17 21:13 Zofran Injection IVPUSH 4 mg Q6H PRN Administration NAUSEA AND/OR VOMITING ASSESSMENT/PLAN: Patient is a 77 year old female with a significant past medical history of left breast cancer, Afib (on coumadin), CAD, MVR x 2 (bioprosthesis), Angina, fatty Liver, and basal Cell cancer. Who presents to the ED with epigastric abdominal pain GI: Epigastric abdominal pain Gall stone pancreatitis NPO and IVF hydration Trend labs CMP and Lipase (including PT/INR) Started on heparin since INR subtherapeutic for surgery on Monday 10/16 On LR @ 75cc/hr On morphine, zofran Card: Paroxysmal Afib INR <2 today, started on heparin drip for anticipated surgery Hold Heparin drip 90 minutes prior to sugery as per Dr. Saldivar Prophylactic antibiotics per surgery Coumadin on hold Heme: Chronic Anemia Monitor a.m. CBC hmg/hct low, stable Disposition: full code NPO at midnight Visit type - Emergency Visit Emergency Visit: Yes ED Registration Date: 10/12/17 Care time: The patient presented to the Emergency Department on the above date and was hospitalized for further evaluation of their emergent condition. - New Patient This patient is new to me today: Yes Date on this admission: 10/15/17 - Critical Care Critical Care patient: No - Discharge Referral Referred to [facility] No
[2017-10-15] MEDS: PANTOPRAZOLE SODIUM 40 MG VIAL IVPUSH SCH (15:33)
[2017-10-15] MEDS: D5-1/2NS+20 MEQ KCL - 20 MEQ/1,000 ML INFUS.BAG IV SCH (15:33)
[2017-10-16] MEDS: D5-1/2NS+20 MEQ KCL - 20 MEQ/1,000 ML INFUS.BAG IV SCH ×2 (05:23→20:00)
[2017-10-16] MEDS: PANTOPRAZOLE SODIUM 40 MG VIAL IVPUSH SCH (09:11)
[2017-10-16] MEDS: LOSARTAN POTASSIUM 25 MG TABLET PO SCH (09:11)
[2017-10-16] MEDS: HEPARIN INFUSION - 25,000 UNITS/500 ML INFUS.BAG IVPB SCH ×2 (10:53→19:00)
--- NOTE | 2017-10-16 11:37 | PN ---
Progress Note, Physician Chief Complaint: Pt sitting in chair in no acute distress. Denies any chest discomfort, sob, n/v/ d, or weakness. awaiting cholecystectomy today - Current Medication List Current Medications: Active Medications Heparin Sodium (Porcine) (Heparin -) 1,000 unit IVPUSH PRN PRN PRN Reason: Heparin Heparin Sodium (Porcine) (Heparin -) 5,000 unit IVPUSH PRN PRN PRN Reason: Heparin Heparin Sodium/Dextrose (Heparin Infusion -) 25,000 units in 500 mls @ 20 mls/ hr IVPB TITR DEIDRE; 1,000 UNITS/HR PRN Reason: Protocol Last Titration: 10/16/17 10:53 Dose: 950 units/hr, 19 mls/hr Potassium Chloride/Dextrose/Sod Cl (D5-1/2ns+20 Meq Kcl -) 20 meq in 1,000 mls @ 83 mls/hr IV ASDIR [facility] Last Admin: 10/16/17 05:23 Dose: 83 mls/hr Losartan Potassium (Cozaar -) 25 mg PO DAILY [facility] Last Admin: 10/16/17 09:11 Dose: 25 mg Metoprolol Succinate (Toprol Xl -) 50 mg PO BID [facility] Last Admin: 10/16/17 09:11 Dose: 50 mg Morphine Sulfate (Morphine Sulfate) 2 mg IVPUSH Q6H PRN PRN Reason: PAIN LEVEL 6-10 Ondansetron HCl (Zofran Injection) 4 mg IVPUSH Q6H PRN PRN Reason: NAUSEA AND/OR VOMITING Last Admin: 10/14/17 21:13 Dose: 4 mg Pantoprazole Sodium (Protonix Iv) 40 mg IVPUSH DAILY [facility] Last Admin: 10/16/17 09:11 Dose: 40 mg - Objective Vital Signs: Vital Signs Temperature 98.5 F 10/16/17 06:00 Pulse Rate 86 10/16/17 06:00 Respiratory Rate 18 10/16/17 06:00 Blood Pressure 114/66 10/16/17 06:00 O2 Sat by Pulse Oximetry (%) 99 10/16/17 07:47 Constitutional: Yes: Well Nourished, No Distress Cardiovascular: Yes: WNL, Regular Rate and Rhythm, Murmur. No: Bruit, JVD, Gallop Respiratory: Yes: WNL, Regular, CTA Bilaterally. No: SOB, Tachypnea, Wheezes Gastrointestinal: Yes: WNL, Normal Bowel Sounds, Soft, Abdomen, Obese. No: Distention, Tenderness Genitourinary: Yes: WNL Edema: Yes Edema: LLE: Trace, RLE: Trace Neurological: Yes: WNL, Alert, Oriented Psychiatric: Yes: WNL, Alert, Oriented Labs: CBC, BMP 10/15/17 07:00 10/15/17 07:00 INR, PTT INR 1.62 (0.82-1.09) H 10/15/17 07:00 Problem List - Problems (1) Pancreatitis Code(s): K85.90 - ACUTE PANCREATITIS WITHOUT NECROSIS OR INFECTION, UNSP Qualifiers: Chronicity: acute Pancreatitis type: unspecified pancreatitis type Acute pancreatitis complication: no infection or necrosis Qualified Code(s): K85.90 - Acute pancreatitis without necrosis or infection, unspecified (2) Hyperlipidemia Code(s): E78.5 - HYPERLIPIDEMIA, UNSPECIFIED Qualifiers: Hyperlipidemia type: pure hypercholesterolemia Qualified Code(s): E78.00 - Pure hypercholesterolemia, unspecified (3) ASHD (arteriosclerotic heart disease) Code(s): I25.10 - ATHSCL HEART DISEASE OF [place] CORONARY ARTERY W/O ANG PCTRS (4) Hypertension Code(s): I10 - ESSENTIAL (PRIMARY) HYPERTENSION Qualifiers: Hypertension type: essential hypertension Qualified Code(s): I10 - Essential (primary) hypertension (5) PAF (paroxysmal atrial fibrillation) Code(s): I48.0 - PAROXYSMAL ATRIAL FIBRILLATION (6) CHF (congestive heart failure) Code(s): I50.9 - HEART FAILURE, UNSPECIFIED Qualifiers: Heart failure type: diastolic Heart failure chronicity: chronic Qualified Code(s): I50.32 - Chronic diastolic (congestive) heart failure (7) H/O mitral valve replacement Code(s): Z95.2 - PRESENCE OF PROSTHETIC HEART VALVE (8) H/O tricuspid valve annuloplasty Code(s): Z98.890 - OTHER SPECIFIED POSTPROCEDURAL STATES (9) History of breast cancer Code(s): Z85.3 - PERSONAL HISTORY OF MALIGNANT NEOPLASM OF BREAST (10) Cholecystectomy planned Code(s): SDS0189 - Assessment/Plan (1) Pancreatitis Assessment/Plan: Acute, gallstones induced abd CT/US findings suggestive of acute pancreatitis, cholelithiasis MRCP- gallstones/sludge in gallbladder neck lipase/amylase, transaminitis improved wbs/triglycerides, calcium wnl vital signs stable NPO for cholecystectomy today morphine/zofran prn IVF BGM strict I&O's Surgery following GI following Code(s): K85.90 - ACUTE PANCREATITIS WITHOUT NECROSIS OR INFECTION, UNSP Qualifiers: Chronicity: acute Pancreatitis type: unspecified pancreatitis type Acute pancreatitis complication: no infection or necrosis Qualified Code(s): K85.90 - Acute pancreatitis without necrosis or infection, unspecified (2) Hyperlipidemia Assessment/Plan: chronic, stable hold statin in the setting of transaminitis Code(s): E78.5 - HYPERLIPIDEMIA, UNSPECIFIED Qualifiers: Hyperlipidemia type: pure hypercholesterolemia Qualified Code(s): E78.00 - Pure hypercholesterolemia, unspecified (3) ASHD (arteriosclerotic heart disease) Assessment/Plan: chronic Code(s): I25.10 - ATHSCL HEART DISEASE OF [place] CORONARY ARTERY W/O ANG PCTRS (4) Hypertension Assessment/Plan: controlled continue metoprolol and losartan Code(s): I10 - ESSENTIAL (PRIMARY) HYPERTENSION Qualifiers: Hypertension type: essential hypertension Qualified Code(s): I10 - Essential (primary) hypertension (5) PAF (paroxysmal atrial fibrillation) Assessment/Plan: Controlled, currently SR continue metoprolol hold heparin drip, pending surgery restart coumadin post surgery per surgery Code(s): I48.0 - PAROXYSMAL ATRIAL FIBRILLATION (6) CHF (congestive heart failure) Assessment/Plan: chronic, stable hold lasix currently Code(s): I50.9 - HEART FAILURE, UNSPECIFIED Qualifiers: Heart failure type: diastolic Heart failure chronicity: chronic Qualified Code(s): I50.32 - Chronic diastolic (congestive) heart failure (7) H/O mitral valve replacement Assessment/Plan: MVP with MR post initial MVR 1999 Reoperative porcine MVR Code(s): Z95.2 - PRESENCE OF PROSTHETIC HEART VALVE (8) H/O tricuspid valve annuloplasty Assessment/Plan: s/p TV Ring anuloplasty Code(s): Z98.890 - OTHER SPECIFIED POSTPROCEDURAL STATES (9) History of breast cancer Assessment/Plan: [id number] Left axillary node dissection lumpectomy, chemo cytoxan, MTX 5-FU XRT Code(s): Z85.3 - PERSONAL HISTORY OF MALIGNANT NEOPLASM OF BREAST Dispo: Home once cleared by surgery
[2017-10-16] MEDS ORDERED: PROPOFOL 20 ML ONE (16:58)
[2017-10-16] MEDS ORDERED: ROCURONIUM BROMIDE 50 MG/5 ML VIAL ONE (16:58)
[2017-10-16] MEDS ORDERED: fentaNYL CITRATE 250 MCG/5 ML VIAL ONE (16:58)
[2017-10-16] MEDS ORDERED: ePHEDrine SULFATE 50 MG/1 ML AMPULE ONE (17:14)
[2017-10-16] MEDS ORDERED: ceFAZolin SODIUM 1 GM VIAL ONE (17:14)
[2017-10-16] MEDS ORDERED: ceFAZolin SODIUM 1 GM VIAL IVPB ONE (17:16)
[2017-10-16] MEDS ORDERED: DEXAMETHASONE SOD PHOSPHATE 4 MG/1 ML VIAL ONE (17:33)
[2017-10-16] MEDS ORDERED: BUPIVACAINE HCL/PF 0.5% (5MG/ML) 10 ML VIAL ONE (17:42)
[2017-10-16] MEDS ORDERED: NEOSTIGMINE METHYLSULFATE 0.5 MG/ML - 10 ML MDV ONE (18:03)
[2017-10-16] MEDS ORDERED: BENZOIN/ALOE VERA/STORAX/TOLU 58 ML BOTTLE ONE (18:04)
[2017-10-16] MEDS ORDERED: BUPIVACAINE HCL/PF 0.5% (5MG/ML) 10 ML VIAL IJ ONE (18:06)
--- NOTE | 2017-10-16 18:30 | OP ---
Operative Note - Note: Operative Date: 10/16/17 Pre-Operative Diagnosis: gallstone pancreatitis Operation: laparoscopic cholecystectomy Findings: distended and edematous gallbladder with small stone, critical view identified Post-Operative Diagnosis: Same as Pre-op Surgeon: Gurvinder Saldivar Bobbin Winder Tender: Jocelyn Gonzalez Anesthesiologist/ONCOLOGY RESEARCH RN: Kareem Tariq Anesthesia: General, Local (0.5% marcaine) Specimens Removed: gallbladder and stones Estimated Blood Loss (mls): 15 Fluid Volume Replaced (mls): 1,000 Operative Report Dictated: Yes
[2017-10-16] MEDS ORDERED: morphine SULFATE 4 MG/ML VIAL IVPUSH PRN (18:43)
[2017-10-16] MEDS ORDERED: HEPARIN NA (PORCINE) 5,000 UNITS/ML 1ML VIAL IVPUSH PRN ×4 (18:43)
[2017-10-16] MEDS ORDERED: ONDANSETRON 4 MG/2 ML VIAL IVPUSH PRN (18:43)
[2017-10-16] MEDS ORDERED: HEPARIN INFUSION - 25,000 UNITS/500 ML INFUS.BAG IVPB ONE (18:56)
[2017-10-16] MEDS ORDERED: ONDANSETRON 4 MG/2 ML VIAL ONE (19:23)
[2017-10-16] MEDS ORDERED: ONDANSETRON 4 MG/2 ML VIAL IVPUSH ONE (19:26)
--- NOTE | 2017-10-16 21:52 | OP ---
DATE OF OPERATION: 10/16/2017 PREOPERATIVE DIAGNOSIS: Gallstone pancreatitis. POSTOPERATIVE DIAGNOSIS: Gallstone pancreatitis. PROCEDURE: Laparoscopic cholecystectomy. ATTENDING SURGEON: Gurvinder Saldivar MD LAB ANALYST: Jocelyn Gonzalez. ANESTHESIOLOGIST: Kareem Tariq DO ANESTHESIA TYPE: General with local. Local consisted of 0.5% Marcaine. A total of 10 mL was given in an area block fashion at the port sites. ESTIMATED BLOOD LOSS: 15 mL INTRAVENOUS FLUID: 1000 mL SPECIMEN: Gallbladder with stones. BRIEF FINDINGS: A distended, edematous gallbladder with small stones. Critical view was identified. All counts correct at the conclusion of surgery. INDICATION: Patient is a 77-year-old female with a history of gallstone pancreatitis. She presented and was worked up to have small stones and a distended gallbladder. She resolved her pancreatitis over the days. She also has a history of open heart surgery with valve replacement, porcine valve. She is on a heparin drip, bridging from Coumadin therapy. She was counseled regarding risks, benefits, and alternatives to laparoscopic cholecystectomy, signed informed consent, and was taken for the procedure. DESCRIPTION OF PROCEDURE: Patient was brought to the operating room, placed in supine position on the operating table with the right arm tucked and the left arm extended at 90 degrees perpendicular to the body's axis. The patient had lower extremity SCDs placed. She also had intravenous antibiotics, was induced with general anesthesia, endotracheally intubated without incident. At which point, we proceeded with prep and drape of the anterior abdominal wall. A formal timeout was completed, identifying the operative site and the procedure. At which point, with all parties in agreement, we proceeded with a Veress needle entry at the supraumbilical area. A small teresa incision was made with a 15-blade scalpel just above the umbilicus. With the abdominal wall elevated with towel clamps, a Veress needle was inserted into the abdomen. After a drop test, we proceeded then with establishing a pneumoperitoneum. Pneumoperitoneum, once established to 15 mmHg , we then exchanged the Veress needle for a Visiport 5-mm trocar at the umbilicus. Upon entry into the abdomen, it was clear that there was no unintended damage to intraabdominal viscera. We then identified the gallbladder. A 12-mm operative port was installed into the subxiphoid area, two 5-mm into the right abdomen. We proceeded first with retracting the gallbladder cranially and towards the left shoulder. The infundibulum was grasped, and we began with taking down the fatty attachments overlying the cystic structures. Developed a plane, identified the cystic duct and cystic artery as well as what appeared to be a dense lymphatic radicle in the critical view. All structures were controlled with 5-mm Endoclips. There were two applied to the patient and one towards the specimen side. They were then transected with EndoShears. The gallbladder itself at the hepatic plate was then elevated with an L hook. It was clear that there was significant amount of edema in the wall of the gallbladder, aiding us in the development of the plane between the hepatic plate and the gallbladder itself. It was completely transected from the gallbladder. At which point, we proceeded then with retrieval from the subxiphoid port after re-siting the camera. An Endo Catch bag was used to retrieve the gallbladder. The hepatic plate was inspected. Hemostasis was obtained with Bovie cautery. Small bloody effluent was suctioned from the abdomen. Specimen was passed off for pathologic diagnosis. The remaining ports were removed under direct visualization. At which point, we proceeded then with closure of the subxiphoid port with the remainder of the pneumoperitoneum using an Endo Catch suture device. The port was tied. The skin was cleaned, port sites irrigated and anesthetized and then closed with 4-0 Monocryl in running subcuticular fashion. The skin was cleaned. Sterile dressings were placed. The patient was awoken from general anesthesia, having tolerated the procedure well. Counts were correct. She returned to recovery room in stable condition, having been extubated in the operating room. MD ROMAN Thomas/[id number] MTDD
[2017-10-17] MEDS ORDERED: ACETAMINOPHEN 325 MG TABLET (FP) PO PRN ×2 (08:15→12:06)
[2017-10-17 08:24] LABS: HEMATOCRIT 23.6 % (32.4-45.2); HEMOGLOBIN 8.3 GM/dL (10.7-15.3); MCH 32.6 pg (25.7-33.7); MCHC 35.2 g/dl (32.0-36.0); MEAN CELL VOLUME 92.4 fl (80-96); MEAN PLT VOLUME 8.6 fl (7.5-11.1); PLATELET COUNT 96 K/MM3 (134-434); RBC 2.55 M/mm3 (3.60-5.2); RDW 12.9 % (11.6-15.6); WHITE BLOOD COUNT 6.5 K/mm3 (4.0-10.0)
[2017-10-17 08:54] LABS: INR 1.31 (0.82-1.09); PROTHROMBIN TIME (PATIENT) 14.8 SEC (9.98-11.88)
[2017-10-17 09:12] LABS: AMYLASE 43 U/L (25-115); LIPASE 158 U/L (73-393)
[2017-10-17] MEDS: LOSARTAN POTASSIUM 25 MG TABLET PO SCH (09:12)
[2017-10-17] MEDS ORDERED: PANTOPRAZOLE SODIUM 40 MG VIAL IVPUSH SCH (10:00)
[2017-10-17 10:08] LABS: ANION GAP 10 (8-16); BLOOD UREA NITROGEN 9 mg/dL (7-18); CALCIUM 7.8 mg/dL (8.5-10.1); CHLORIDE 107 mmol/L (98-107); CO2 24 mmol/L (21-32); CREATININE 0.7 mg/dL (0.55-1.02); GLUCOSE,RANDOM 146 mg/dL (74-106); POTASSIUM 4.5 mmol/L (3.5-5.1); SODIUM 141 mmol/L (136-145)
[2017-10-17 10:09] LABS: ALBUMIN 2.5 g/dl (3.4-5.0); BILIRUBIN,TOTAL 0.4 mg/dL (0.2-1.0); TOT PROT 5.8 g/dl (6.4-8.2)
[2017-10-17 10:10] LABS: ALK PHOS 56 U/L (45-117); SGOT/AST 39 U/L (15-37); SGPT/ALT 48 U/L (12-78)
[2017-10-17] MEDS: D5-1/2NS+20 MEQ KCL - 20 MEQ/1,000 ML INFUS.BAG IV SCH (10:39)
--- NOTE | 2017-10-17 10:51 | PN ---
Progress Note (short form) - Note Progress Note: 77 ear old female, aditted with acuteabdominal pain, nausea and vomiting, diagnosed with acute pancreatitis related to cholelithiasis. Known case of paroxysmal atrial fib. s/p bioprosthetic mitral valve replacement. (x2). S/p tricuspid valvuloplasty ,s/p CHF, hypertension. Minimal abdominal discomfort. Had Lap. cholecystectomy. Active Medications Generic Name Dose Route Start Last Admin Trade Name Freq PRN Reason Stop Dose Admin Acetaminophen 650 mg 10/17/17 08:15 10/17/17 08:38 Tylenol - PO 650 mg Q6H PRN Administration PAIN LEVEL 1 - 3 Fentanyl 50 mcg 10/16/17 20:40 Sublimaze Injection - IVPUSH [id number] PRN PAIN-PACU ORDER X 4 DOSES ONLY Heparin Sodium (Porcine) 1,000 unit 10/16/17 18:43 Heparin - IVPUSH PRN PRN Heparin Heparin Sodium (Porcine) 5,000 unit 10/16/17 18:43 Heparin - IVPUSH PRN PRN Heparin Potassium Chloride/Dextrose/Sod Cl 20 meq in 1,000 mls @ 83 mls/hr 10/16/17 18 :43 10/17/17 10:39 D5-1/2ns+20 Meq Kcl - IV 83 mls/hr ASDIR DEIDRE Administration Heparin Sodium/Dextrose 25,000 units in 500 mls @ 20 mls/hr 10/16/17 18:43 10:05 Heparin Infusion - IVPB 950 units/hr TITR DEIDRE 19 mls/hr Protocol Titration 1,000 UNITS/HR Losartan Potassium 25 mg 10/17/17 10:00 10/17/17 09:12 Cozaar - PO 25 mg DAILY DEIDRE Administration Metoprolol Succinate 50 mg 10/16/17 22:00 10/17/17 09:12 Toprol Xl - PO 50 mg BID DEIDRE Administration Morphine Sulfate 2 mg 10/16/17 18:43 10/17/17 00:55 Morphine Sulfate IVPUSH 2 mg Q6H PRN Administration PAIN LEVEL 6-10 Ondansetron HCl 4 mg 10/16/17 18:43 Zofran Injection IVPUSH Q6H PRN NAUSEA AND/OR VOMITING Pantoprazole Sodium 40 mg 10/17/17 10:00 10/17/17 09:12 Protonix Iv IVPUSH 40 mg DAILY DEIDRE Administration 77 year old feamle in no acute distress, no pallor, cyanosis, clubbing or jaundice. Last Vital Signs Temp Pulse Resp BP Pulse Ox 97.6 F 83 16 128/64 100 10/17/17 01:39 10/17/17 01:39 10/17/17 01:39 10/17/17 01:39 10/16/17 21:00 NECK; Supple, no Jvd, carotids are 2+, left supraclavicular and carotid bruit. HEART: Regular, no heaves or thrills, grade II/ systolic murmur LSB and apex, no diastolic murmur or gallops heard. LUNGS: Clear on auscultation. ABDOMEN: Soft and mild diffuse tenderness, No hepatosplenomegaly or palpable masses felt.Bowel sounds were not heard. EXTREMITIES: No calf tenderness or dependent edema. IMPRESSION: 1. Acute pancreatitis, recent cholecystectomy. 2. S/p Mitral valve prolapse with severe MR, s/p bioprosthetic MVR. 3. Cholelithiasis and cholelicysitis. 4. S/p tricuspid valvuloplasty. 5. Hypertension. 6. Paroxysymal atruil fib. 7.S/p traumatic cerebral hemorrhage RECCOMENDATIONS: 1. Continue current therapy. 2. Increase ambulation.
[2017-10-17] MEDS ORDERED: ONDANSETRON *ODT* 4 MG TABLET SL PRN (11:53)
[2017-10-17] MEDS ORDERED: ACETAMINOPHEN 500 MG TABLET (FP) PO PRN (11:55)
[2017-10-17] MEDS ORDERED: oxyCODONE HCL 5 MG TABLET PO PRN ×2 (12:06→17:21)
[2017-10-17] MEDS ORDERED: traMADol HCL 50 MG TABLET PO PRN (12:06)
[2017-10-17] MEDS ORDERED: DEXTROSE 5%-0.45% SALINE 1,000 ML IV SCH (12:15)
--- NOTE | 2017-10-17 13:24 | PN ---
Progress Note, Physician Chief Complaint: Pt sitting in chair in no acute distress. Reports pain is adequately controlled. Denies any chest discomfort, sob, n/v/d, or weakness. - Current Medication List Current Medications: Active Medications Acetaminophen (Tylenol -) 500 mg PO Q6H PRN PRN Reason: PAIN LEVEL 1-5 Acetaminophen (Tylenol -) 325 mg PO Q6H PRN PRN Reason: PAIN LEVEL 4-6 WITH OXYCODONE Heparin Sodium (Porcine) (Heparin -) 1,000 unit IVPUSH PRN PRN PRN Reason: Heparin Heparin Sodium (Porcine) (Heparin -) 5,000 unit IVPUSH PRN PRN PRN Reason: Heparin Heparin Sodium/Dextrose (Heparin Infusion -) 25,000 units in 500 mls @ 20 mls/ hr IVPB TITR DEIDRE; 1,000 UNITS/HR PRN Reason: Protocol Last Titration: 10/17/17 10:05 Dose: 950 units/hr, 19 mls/hr Losartan Potassium (Cozaar -) 25 mg PO DAILY [facility] Last Admin: 10/17/17 09:12 Dose: 25 mg Metoprolol Succinate (Toprol Xl -) 50 mg PO BID [facility] Last Admin: 10/17/17 09:12 Dose: 50 mg Ondansetron HCl (Zofran Odt -) 4 mg SL Q6H PRN PRN Reason: NAUSEA AND/OR VOMITING Oxycodone HCl (Roxicodone -) 5 mg PO Q6H PRN PRN Reason: PAIN LEVEL 4-6 Pantoprazole Sodium (Protonix -) 40 mg PO DAILY [facility] Tramadol HCl (Ultram -) 50 mg PO Q8H PRN PRN Reason: PAIN LEVEL 7 - 10 - Objective Vital Signs: Vital Signs Temperature 97.7 F 10/17/17 10:00 Pulse Rate 85 10/17/17 10:00 Respiratory Rate 18 10/17/17 10:00 Blood Pressure 150/70 10/17/17 10:00 O2 Sat by Pulse Oximetry (%) 100 10/17/17 09:00 Constitutional: Yes: Well Nourished, No Distress Cardiovascular: Yes: Regular Rate and Rhythm, Murmur. No: Bruit, JVD, Varicosities Respiratory: Yes: WNL, Regular, CTA Bilaterally. No: Rhonchi, SOB, Tachypnea, Wheezes Gastrointestinal: Yes: WNL, Normal Bowel Sounds, Soft. No: Distention, Tenderness Genitourinary: Yes: WNL Edema: Yes Edema: LLE: Trace, RLE: Trace Wound/Incision: Yes: Clean/Dry Neurological: Yes: WNL, Alert, Oriented Psychiatric: Yes: WNL, Alert, Oriented Labs: CBC, BMP 10/17/17 07:37 10/17/17 07:37 INR, PTT INR 1.31 (0.82-1.09) H 10/17/17 07:37 Problem List - Problems (1) Pancreatitis Code(s): K85.90 - ACUTE PANCREATITIS WITHOUT NECROSIS OR INFECTION, UNSP Qualifiers: Chronicity: acute Pancreatitis type: unspecified pancreatitis type Acute pancreatitis complication: no infection or necrosis Qualified Code(s): K85.90 - Acute pancreatitis without necrosis or infection, unspecified (2) Hyperlipidemia Code(s): E78.5 - HYPERLIPIDEMIA, UNSPECIFIED Qualifiers: Hyperlipidemia type: pure hypercholesterolemia Qualified Code(s): E78.00 - Pure hypercholesterolemia, unspecified (3) ASHD (arteriosclerotic heart disease) Code(s): I25.10 - ATHSCL HEART DISEASE OF [place] CORONARY ARTERY W/O ANG PCTRS (4) Hypertension Code(s): I10 - ESSENTIAL (PRIMARY) HYPERTENSION Qualifiers: Hypertension type: essential hypertension Qualified Code(s): I10 - Essential (primary) hypertension (5) PAF (paroxysmal atrial fibrillation) Code(s): I48.0 - PAROXYSMAL ATRIAL FIBRILLATION (6) CHF (congestive heart failure) Code(s): I50.9 - HEART FAILURE, UNSPECIFIED Qualifiers: Heart failure type: diastolic Heart failure chronicity: chronic Qualified Code(s): I50.32 - Chronic diastolic (congestive) heart failure (7) H/O mitral valve replacement Code(s): Z95.2 - PRESENCE OF PROSTHETIC HEART VALVE (8) H/O tricuspid valve annuloplasty Code(s): Z98.890 - OTHER SPECIFIED POSTPROCEDURAL STATES (9) History of breast cancer Code(s): Z85.3 - PERSONAL HISTORY OF MALIGNANT NEOPLASM OF BREAST (10) Cholecystectomy planned Code(s): [id number] - (11) S/P cholecystectomy Code(s): Z90.49 - ACQUIRED ABSENCE OF OTHER SPECIFIED PARTS OF DIGESTIVE TRACT Assessment/Plan (1) Pancreatitis Assessment/Plan: Acute, gallstones induced, s/p cholecystectomy abd CT/US findings suggestive of acute pancreatitis, cholelithiasis MRCP- gallstones/sludge in gallbladder neck lipase/amylase, lfts wnl tylenol prn strict I&O's Surgery following GI following Code(s): K85.90 - ACUTE PANCREATITIS WITHOUT NECROSIS OR INFECTION, UNSP Qualifiers: Chronicity: acute Pancreatitis type: unspecified pancreatitis type Acute pancreatitis complication: no infection or necrosis Qualified Code(s): K85.90 - Acute pancreatitis without necrosis or infection, unspecified (2) S/P cholecystectomy Assessment/Plan: POD1 pt doing well pain adequately controlled +flatus full liquids IS PT surgery following Code(s): Z90.49 - ACQUIRED ABSENCE OF OTHER SPECIFIED PARTS OF DIGESTIVE TRACT (3) Hyperlipidemia Assessment/Plan: chronic, stable continue statin Code(s): E78.5 - HYPERLIPIDEMIA, UNSPECIFIED Qualifiers: Hyperlipidemia type: pure hypercholesterolemia Qualified Code(s): E78.00 - Pure hypercholesterolemia, unspecified (4) ASHD (arteriosclerotic heart disease) Assessment/Plan: chronic continue statin Code(s): I25.10 - ATHSCL HEART DISEASE OF [place] CORONARY ARTERY W/O ANG PCTRS (5) Hypertension Assessment/Plan: controlled continue metoprolol and losartan Code(s): I10 - ESSENTIAL (PRIMARY) HYPERTENSION Qualifiers: Hypertension type: essential hypertension Qualified Code(s): I10 - Essential (primary) hypertension (6) PAF (paroxysmal atrial fibrillation) Assessment/Plan: Controlled, currently SR continue metoprolol heparin drip restart coumadin when ok with surgery Code(s): I48.0 - PAROXYSMAL ATRIAL FIBRILLATION (7) CHF (congestive heart failure) Assessment/Plan: chronic, stable hold lasix currently Code(s): I50.9 - HEART FAILURE, UNSPECIFIED Qualifiers: Heart failure type: diastolic Heart failure chronicity: chronic Qualified Code(s): I50.32 - Chronic diastolic (congestive) heart failure (8) H/O mitral valve replacement Assessment/Plan: MVP with MR post initial MVR 1999 Reoperative porcine MVR Code(s): Z95.2 - PRESENCE OF PROSTHETIC HEART VALVE (9) H/O tricuspid valve annuloplasty Assessment/Plan: s/p TV Ring anuloplasty Code(s): Z98.890 - OTHER SPECIFIED POSTPROCEDURAL STATES (10) History of breast cancer Assessment/Plan: t2n1m0 Left axillary node dissection lumpectomy, chemo cytoxan, MTX 5-FU XRT Code(s): Z85.3 - PERSONAL HISTORY OF MALIGNANT NEOPLASM OF BREAST Dispo: Home once cleared by surgery
--- NOTE | 2017-10-17 15:53 | PN ---
Progress Note (short form) - Note Progress Note: Post op day#1.S/p Laproscopic cholecystectomy under [place] uneventful.Patient stable.No any anesthesia related problem.Patient DC from the anesthesia care.
[2017-10-17] MEDS: HEPARIN INFUSION - 25,000 UNITS/500 ML INFUS.BAG IVPB SCH ×2 (16:54→19:24)
--- NOTE | 2017-10-17 18:06 | PN ---
Progress Note, Physician Chief Complaint: gallstone pancreatitis History of Present Illness: 77 yo female PMH of Left Breast Ca, Afib (on coumadin), CAD, MVR x2 (porcine bioprosthesis), Angina, Fatty Liver, Herpes Zoster, Basal Cell Ca. Who presents to the ED with epigastric pain radiating to the chest since that evening. stable and recovering - Current Medication List Current Medications: Active Medications Acetaminophen (Tylenol -) 500 mg PO Q6H PRN PRN Reason: PAIN LEVEL 1-5 Acetaminophen (Tylenol -) 325 mg PO Q6H PRN PRN Reason: PAIN LEVEL 4-6 WITH OXYCODONE Heparin Sodium (Porcine) (Heparin -) 1,000 unit IVPUSH PRN PRN PRN Reason: Heparin Heparin Sodium (Porcine) (Heparin -) 5,000 unit IVPUSH PRN PRN PRN Reason: Heparin Heparin Sodium/Dextrose (Heparin Infusion -) 25,000 units in 500 mls @ 20 mls/ hr IVPB TITR DEIDRE; 1,000 UNITS/HR PRN Reason: Protocol Last Admin: 10/17/17 16:54 Dose: 950 units/hr, 19 mls/hr Losartan Potassium (Cozaar -) 25 mg PO DAILY [facility] Last Admin: 10/17/17 09:12 Dose: 25 mg Metoprolol Succinate (Toprol Xl -) 50 mg PO BID [facility] Last Admin: 10/17/17 09:12 Dose: 50 mg Ondansetron HCl (Zofran Odt -) 4 mg SL Q6H PRN PRN Reason: NAUSEA AND/OR VOMITING Oxycodone HCl (Roxicodone -) 2.5 mg PO Q6H PRN PRN Reason: PAIN LEVEL 4-6 Pantoprazole Sodium (Protonix -) 40 mg PO DAILY [facility] Tramadol HCl (Ultram -) 50 mg PO Q8H PRN PRN Reason: PAIN LEVEL 7 - 10 - Objective Vital Signs: Vital Signs Temperature 98.2 F 10/17/17 15:07 Pulse Rate 88 10/17/17 15:07 Respiratory Rate 22 10/17/17 15:07 Blood Pressure 130/54 10/17/17 15:07 O2 Sat by Pulse Oximetry (%) 100 10/17/17 09:00 Vital Signs Period Temp Pulse Resp BP Sys/Miranda Pulse Ox Last 24 Hr 98 F-98.2 F 64-88 18-22 123-160/47-60 100 Constitutional: Yes: Well Nourished, No Distress, Calm Eyes: Yes: Conjunctiva Clear, EOM Intact HENT: Yes: Atraumatic, Normocephalic Neck: Yes: Supple, Trachea Midline Cardiovascular: Yes: Regular Rate and Rhythm, S1, S2. No: Murmur Respiratory: Yes: Regular, CTA Bilaterally Gastrointestinal: Yes: Normal Bowel Sounds, Soft, Abdomen, Obese, Tenderness ...Rectal Exam: Yes: Deferred Genitourinary: No: CVA Tenderness - Left, CVA Tenderness - Right Musculoskeletal: No: Muscle Pain, Muscle Weakness Extremities: No: Cool, Cyanosis Edema: No Peripheral Pulses WNL: Yes Peripheral Pulses: Left Doralis Pedis: 1+, Right Dorsalis Pedis: 1+ Wound/Incision: Yes: Clean/Dry, Well Approximated, Steri Strips, Dressing Dry and Intact Neurological: Yes: Alert, Oriented Psychiatric: Yes: Alert, Oriented Labs: CBC, BMP 10/17/17 07:37 10/17/17 07:37 INR, PTT INR 1.31 (0.82-1.09) H 10/17/17 07:37 Problem List - Problems (1) Pancreatitis Assessment/Plan: 77 yo famale with MMP on coumadin for valve, presented with epigastric abdominal pain POD#1 s/p Laparoscopic Cholecystectomy, tolerating diet, OOB and ambulating and heparin started. advance diet as tolerated OOB IS hepain to Coumadin --> ordered 5mg discharge at the discretion of primary team Code(s): K85.90 - ACUTE PANCREATITIS WITHOUT NECROSIS OR INFECTION, UNSP Qualifiers: Chronicity: acute Pancreatitis type: unspecified pancreatitis type Acute pancreatitis complication: no infection or necrosis Qualified Code(s): K85.90 - Acute pancreatitis without necrosis or infection, unspecified (2) CHF (congestive heart failure) Code(s): I50.9 - HEART FAILURE, UNSPECIFIED Qualifiers: Heart failure type: diastolic Heart failure chronicity: chronic Qualified Code(s): I50.32 - Chronic diastolic (congestive) heart failure (3) History of breast cancer Code(s): Z85.3 - PERSONAL HISTORY OF MALIGNANT NEOPLASM OF BREAST (4) PAF (paroxysmal atrial fibrillation) Code(s): I48.0 - PAROXYSMAL ATRIAL FIBRILLATION (5) ASHD (arteriosclerotic heart disease) Code(s): I25.10 - ATHSCL HEART DISEASE OF [place] CORONARY ARTERY W/O ANG PCTRS (6) H/O mitral valve replacement Code(s): Z95.2 - PRESENCE OF PROSTHETIC HEART VALVE (7) History of intracranial hemorrhage Code(s): Z86.79 - PERSONAL HISTORY OF OTHER DISEASES OF THE CIRCULATORY SYSTEM (8) Hyperlipidemia Code(s): E78.5 - HYPERLIPIDEMIA, UNSPECIFIED Qualifiers: Hyperlipidemia type: pure hypercholesterolemia Qualified Code(s): E78.00 - Pure hypercholesterolemia, unspecified (9) Hypertension Code(s): I10 - ESSENTIAL (PRIMARY) HYPERTENSION Qualifiers: Hypertension type: essential hypertension Qualified Code(s): I10 - Essential (primary) hypertension
[2017-10-18 07:50] LABS: BASO % 0.5 % (0-2.0); EOS % 2.2 % (0-4.5); HEMATOCRIT 25.6 % (32.4-45.2); MCH 32.7 pg (25.7-33.7); MCHC 35.1 g/dl (32.0-36.0); MEAN CELL VOLUME 93.1 fl (80-96); MEAN PLT VOLUME 8.3 fl (7.5-11.1); MONO % 8.6 % (3.8-10.2); NEUT % 70.7 % (42.8-82.8); PLATELET COUNT 127 K/MM3 (134-434); RBC 2.75 M/mm3 (3.60-5.2); RDW 13.4 % (11.6-15.6); WHITE BLOOD COUNT 7.2 K/mm3 (4.0-10.0)
[2017-10-18 08:09] LABS: INR 1.2 (0.82-1.09); PROTHROMBIN TIME (PATIENT) 13.6 SEC (9.98-11.88)
[2017-10-18] MEDS: LOSARTAN POTASSIUM 25 MG TABLET PO SCH (09:36)
[2017-10-18] MEDS ORDERED: FUROSEMIDE 20 MG TABLET (FP) PO SCH (10:00)
[2017-10-18] MEDS ORDERED: WARFARIN NA 5 MG TABLET (UD) PO ONE (10:00)
[2017-10-18] MEDS ORDERED: PANTOPRAZOLE 40 MG TABLET (FP) PO SCH (10:00)
--- NOTE | 2017-10-18 10:09 | PN ---
Progress Note, Physician - Current Medication List Current Medications: Active Medications Acetaminophen (Tylenol -) 500 mg PO Q6H PRN PRN Reason: PAIN LEVEL 1 - 3 Acetaminophen (Tylenol -) 325 mg PO Q6H PRN PRN Reason: PAIN LEVEL 4-6 WITH OXYCODONE Last Admin: 10/18/17 00:02 Dose: 325 mg Furosemide (Lasix -) 20 mg PO DAILY ON LICENSE OF [facility] Last Admin: 10/18/17 09:36 Dose: 20 mg Heparin Sodium (Porcine) (Heparin -) 1,000 unit IVPUSH PRN PRN PRN Reason: Heparin Heparin Sodium (Porcine) (Heparin -) 5,000 unit IVPUSH PRN PRN PRN Reason: Heparin Heparin Sodium/Dextrose (Heparin Infusion -) 25,000 units in 500 mls @ 20 mls/ hr IVPB TITR DEIDRE; 1,000 UNITS/HR PRN Reason: Protocol Last Titration: 10/18/17 09:49 Dose: 900 units/hr, 18 mls/hr Losartan Potassium (Cozaar -) 25 mg PO DAILY ON LICENSE OF [facility] Last Admin: 10/18/17 09:36 Dose: 25 mg Metoprolol Succinate (Toprol Xl -) 50 mg PO BID ON LICENSE OF [facility] Last Admin: 10/18/17 09:36 Dose: 50 mg Ondansetron HCl (Zofran Odt -) 4 mg SL Q6H PRN PRN Reason: NAUSEA AND/OR VOMITING Oxycodone HCl (Roxicodone -) 2.5 mg PO Q6H PRN PRN Reason: PAIN LEVEL 4-6 Pantoprazole Sodium (Protonix -) 40 mg PO DAILY ON LICENSE OF [facility] Last Admin: 10/18/17 09:36 Dose: 40 mg Tramadol HCl (Ultram -) 50 mg PO Q8H PRN PRN Reason: PAIN LEVEL 7 - 10 Warfarin Sodium (Coumadin -) 5 mg PO DAILY@1800 ON LICENSE OF [facility] - Objective Vital Signs: Vital Signs Temperature 98 F 10/18/17 06:08 Pulse Rate 68 10/18/17 06:08 Respiratory Rate 18 10/18/17 06:08 Blood Pressure 160/60 10/18/17 06:08 O2 Sat by Pulse Oximetry (%) 100 10/17/17 21:00 Edema: Yes Edema: LLE: 1+, RLE: 1+ Labs: CBC, BMP 10/18/17 07:20 INR, PTT INR 1.20 (0.82-1.09) H 10/18/17 07:20 Problem List - Problems (1) Pancreatitis Code(s): K85.90 - ACUTE PANCREATITIS WITHOUT NECROSIS OR INFECTION, UNSP Qualifiers: Chronicity: acute Pancreatitis type: unspecified pancreatitis type Acute pancreatitis complication: no infection or necrosis Qualified Code(s): K85.90 - Acute pancreatitis without necrosis or infection, unspecified (2) Hyperlipidemia Code(s): E78.5 - HYPERLIPIDEMIA, UNSPECIFIED Qualifiers: Hyperlipidemia type: pure hypercholesterolemia Qualified Code(s): E78.00 - Pure hypercholesterolemia, unspecified (3) ASHD (arteriosclerotic heart disease) Code(s): I25.10 - ATHSCL HEART DISEASE OF [place] CORONARY ARTERY W/O ANG PCTRS (4) Hypertension Code(s): I10 - ESSENTIAL (PRIMARY) HYPERTENSION Qualifiers: Hypertension type: essential hypertension Qualified Code(s): I10 - Essential (primary) hypertension (5) PAF (paroxysmal atrial fibrillation) Code(s): I48.0 - PAROXYSMAL ATRIAL FIBRILLATION (6) CHF (congestive heart failure) Code(s): I50.9 - HEART FAILURE, UNSPECIFIED Qualifiers: Heart failure type: diastolic Heart failure chronicity: chronic Qualified Code(s): I50.32 - Chronic diastolic (congestive) heart failure (7) H/O mitral valve replacement Code(s): Z95.2 - PRESENCE OF PROSTHETIC HEART VALVE (8) H/O tricuspid valve annuloplasty Code(s): Z98.890 - OTHER SPECIFIED POSTPROCEDURAL STATES (9) History of breast cancer Code(s): Z85.3 - PERSONAL HISTORY OF MALIGNANT NEOPLASM OF BREAST (10) Cholecystectomy planned Code(s): [id number] - (11) S/P cholecystectomy Code(s): Z90.49 - ACQUIRED ABSENCE OF OTHER SPECIFIED PARTS OF DIGESTIVE TRACT
[2017-10-18 11:41] VITALS: BP 156/72; PULSE 96; TEMP 97.7
[2017-10-18] MEDS ORDERED: ENOXAPARIN NA (PORCINE) 60 MG/0.6 ML DISP.SYRIN SQ ONE (12:15)
[2017-10-18 12:19] LABS: URINE APPEARANCE CLEAR; URINE BILIRUBIN NEGATIVE (<2.0 mg/dL); URINE BLOOD NEGATIVE (NEGATIVE); URINE COLOR COLORLESS; URINE GLUCOSE (UA) NEGATIVE (NEGATIVE); URINE KETONE NEGATIVE (NEGATIVE); URINE LEUK ESTERASE NEGATIVE (NEGATIVE); URINE NITRITE NEGATIVE (NEGATIVE); URINE PROTEIN NEGATIVE (NEGATIVE); URINE UROBILINOGEN NEGATIVE mg/dL (0.2-1.0)
--- NOTE | 2017-10-18 12:35 | DS ---
Physical Examination Vital Signs: Vital Signs Temperature 97.7 F 10/18/17 10:00 Pulse Rate 96 H 10/18/17 10:00 Respiratory Rate 18 10/18/17 10:00 Blood Pressure 156/72 10/18/17 10:00 O2 Sat by Pulse Oximetry (%) 100 10/18/17 09:00 Constitutional: Yes: Well Nourished, No Distress Cardiovascular: Yes: WNL, Regular Rate and Rhythm. No: Bruit, JVD, Gallop Respiratory: Yes: WNL, Regular, CTA Bilaterally. No: SOB, Tachypnea, Wheezes Gastrointestinal: Yes: WNL, Normal Bowel Sounds, Soft. No: Distention, Tenderness Renal/: Yes: WNL Edema: Yes Edema: LLE: 1+, RLE: 1+ Neurological: Yes: WNL, Alert, Oriented Psychiatric: Yes: WNL, Alert, Oriented Labs: CBC, BMP 10/18/17 07:20 Discharge Summary Reason For Visit: PANCREATITIS Current Active Problems CHF (congestive heart failure) (Acute) Chest pain (Acute) Cholecystectomy planned (Acute) DVT prophylaxis (Acute) History of breast cancer (Acute) Pancreatitis (Acute) S/P cholecystectomy (Acute) Hospital Course: is a pleasant 77 year old female who was admitted with acute pancreatitis- biliary induced. She is POD2 s/p lap cholecystectomy. She has been doing well, tolerating diet, pain adequately controlled. Pt reported urinary frequency this am, UA repeated and normal. Pt has been on heparin drip for PAF. Heparin drip stopped today and plan for lovenox- coumadin bridge. Pt received coumadin 5mg this am and lovenox. She can continue coumadin at home with lovenox bridge. Pt advised to follow up with PCP on monday to check INR and also f/u as directed. Pt is medically cleared for discharge. Plan discussed with PCP as well. 31 minutes spent reviewing chart, formulating care, and discharge plan Condition: Good - Instructions Diet, Activity, Other Instructions: Postoperative instructions: You had a laparoscopic ectomy on DATE by Dr. Gurvinder Saldivar of [facility]. Activity: Resume your usual activities gradually, but no heavy exertion or lifting more than 10-15 pounds for 1 month. Remove dressings 48 hours after surgery; sticky tapes underneath will fall off by themselves. You may shower daily starting then, just pat the incision areas dry. Eat lightly at first, but advance to your usual diet as tolerated. Pain: For pain, you may use and alternate Tylenol (acetaminophen) and/or ibuprofen every 6 hours each as needed; this means that you can take one OR the other at 3-hour intervals. If you are prescribed a Tylenol/narcotic combination for severe pain, use it instead of plain Tylenol as needed and switch back when your pain starts decreasing. Do not take more than 4000mg of acetaminophen in a day. Take medications as prescribed or indicated on the labeling. Follow-up: Call Dr. Saldivar' office at [phone] to make your postop appointment (Monday ~2 weeks after surgery). Clinic is held in the [facility] on the first floor of [facility]. Call the office if you have: * increasing pain not responsive to pain medication * fever of 101F or higher * vomiting * unusual or increasing bleeding or drainage from wounds * increasing redness or swelling at wound sites * inability to urinate Also, see your primary medical doctor within 1-2 weeks. TAKE 4MG COUMADIN TOMORROW MORNING AND MONDAY, F/U MONDAY AT OFFICE TO CHECK INR LOVENOX TWICE A DAY, START TOMORROW F/U DIRECTED Referrals: Gurvinder Saldivar MD [Staff Physician] - 2 Weeks Doug Patel MD [Primary Care Provider] - 10/20/17 (F/U MONDAY TO CHECK INR ) Disposition: HOME - Home Medications Comprehensive Discharge Medication List: Ambulatory Orders Ca/D3/Mag Ox/Zinc/See Supervisor/Dio/Bor [Caltrate 600+D Plus Tab Chew] 1 each PO DAILY Pravastatin Sodium 20 mg PO MOFR 02/08/14 B12/Levomefolate Calcium/B-6 [Foltx Tablet] 1 each PO DAILY tablet 09/01/14 Meclizine HCl 12.5 mg PO ASDIR PRN tablet 09/01/14 Magnesium 400 mg PO DAILY 09/29/16 Losartan Potassium [Cozaar -] 25 mg PO DAILY tablet 09/30/16 Metoprolol Succinate [Toprol XL -] 50 mg PO BID #60 tablet 09/30/16 Furosemide [Lasix] 20 mg PO 10/12/17 Acetaminophen [Tylenol .Extra-Strength -] 500 mg PO Q6H PRN tablet 10/18/17 Enoxaparin Sodium [Lovenox] 60 mg SQ BID 5 Days #10 syringe 10/18/17 Warfarin Sodium [Coumadin] 4 mg PO DAILY #14 tablet 10/18/17 oxyCODONE HCL [Roxicodone -] 2.5 mg PO Q6H PRN #5 tablet MDD 15 10/18/17
[2017-10-18] MEDS ORDERED: ENOXAPARIN NA (PORCINE) 100 MG/1 ML DISP.SYRIN SQ ONE (13:15)
[2017-10-18 14:10] LABS: ANION GAP 8 (8-16); BLOOD UREA NITROGEN 11 mg/dL (7-18); CHLORIDE 117 mmol/L (98-107); CO2 24 mmol/L (21-32); GLUCOSE,RANDOM 91 mg/dL (74-106); POTASSIUM 4.4 mmol/L (3.5-5.1); SODIUM 149 mmol/L (136-145)
[2017-10-18 14:11] LABS: ALBUMIN 2.9 g/dl (3.4-5.0); ALK PHOS 66 U/L (45-117); BILIRUBIN,TOTAL 0.3 mg/dL (0.2-1.0); CALCIUM 8.5 mg/dL (8.5-10.1); SGOT/AST 34 U/L (15-37); SGPT/ALT 52 U/L (12-78); TOT PROT 6.3 g/dl (6.4-8.2)
--- NOTE | 2017-10-18 15:31 | PN ---
Progress Note (short form) - Note Progress Note: 77 ear old female, aditted with acuteabdominal pain, nausea and vomiting, diagnosed with acute pancreatitis related to cholelithiasis. Known case of paroxysmal atrial fib. s/p bioprosthetic mitral valve replacement. (x2). S/p tricuspid valvuloplasty ,s/p CHF, hypertension. OOB in a chair. S/p Lap. cholecystectomy. No complaints except for minimal surgical discomfort. Active Medications Generic Name Dose Route Start Last Admin Trade Name Freq PRN Reason Stop Dose Admin Acetaminophen 500 mg 10/17/17 11:55 Tylenol - PO Q6H PRN PAIN LEVEL 1 - 3 Acetaminophen 325 mg 10/17/17 12:06 10/18/17 00:02 Tylenol - PO 325 mg Q6H PRN Administration PAIN LEVEL 4-6 WITH OXYCODONE Furosemide 20 mg 10/18/17 10:00 10/18/17 09:36 Lasix - PO 20 mg DAILY DEIDRE Administration Losartan Potassium 25 mg 10/17/17 10:00 10/18/17 09:36 Cozaar - PO 25 mg DAILY DEIDRE Administration Metoprolol Succinate 50 mg 10/16/17 22:00 10/18/17 09:36 Toprol Xl - PO 50 mg BID [facility] Administration Ondansetron HCl 4 mg 10/17/17 11:53 Zofran Odt - SL Q6H PRN NAUSEA AND/OR VOMITING Oxycodone HCl 2.5 mg 10/17/17 17:21 Roxicodone - PO Q6H PRN PAIN LEVEL 4-6 Pantoprazole Sodium 40 mg 10/18/17 10:00 10/18/17 09:36 Protonix - PO 40 mg DAILY [facility] Administration Warfarin Sodium 5 mg 10/18/17 18:00 Coumadin - PO DAILY@1800 [facility] 77 year old feamle in no acute distress, no pallor, cyanosis, clubbing or jaundice. Last Vital Signs Temp Pulse Resp BP Pulse Ox 97.7 F 96 H 18 156/72 100 10/18/17 10:00 10/18/17 10:00 10/18/17 10:00 10/18/17 10:00 10/18/17 09:00 NECK; Supple, no Jvd, carotids are 2+, left supraclavicular and carotid bruit. HEART: Regular, no heaves or thrills, grade II/ systolic murmur LSB and apex, no diastolic murmur or gallops heard. LUNGS: Clear on auscultation. ABDOMEN: Soft and mild diffuse tenderness, No hepatosplenomegaly or palpable masses felt.Bowel sounds were not heard. EXTREMITIES: No calf tenderness or dependent edema. IMPRESSION: 1. Acute pancreatitis, recent cholecystectomy. 2. S/p Mitral valve prolapse with severe MR, s/p bioprosthetic MVR. 3. Cholelithiasis and cholelicysitis. 4. S/p tricuspid valvuloplasty. 5. Hypertension. 6. Paroxysymal atruil fib. 7.S/p traumatic cerebral hemorrhage RECCOMENDATIONS: 1. Continue current therapy. 2. Increase ambulation. 3. Discharge when surgically stable.
[2017-10-18] MEDS ORDERED: WARFARIN NA 5 MG TABLET (UD) PO SCH (18:00)
--- NOTE | 2017-10-19 14:44 | PATH ---
Surgical Pathology Report Patient Name: KATE DURÁN [facility]. Rec. #: [id number] /Age/Gender: 1940 (Age: 77) / F Account: [id number] Location: [facility]ED[facility]/ADOL Taken: 10/16/2017 Received: 10/17/2017 Reported: 10/19/2017 Physicians: Gurvinder Saldivar M.D. Specimen(s) Received GALLBLADDER AND STONES Clinical History Gallstones, pancreatitis Final Diagnosis GALLBLADDER, CHOLECYSTECTOMY: CHRONIC CHOLECYSTITIS AND CHOLELITHIASIS. Electronically Signed Nathaniel Llanos M.D. Gross Description Received in formalin, labeled "gallbladder," is a 7.3 x 3.0 x 3.0 cm. gallbladder with a 0.2 cm. in length portion of cystic duct attached. The outer surface is huitron green and varies from smooth to shaggy. The lumen contains green, tenacious bile. There is a 0.2 cm greatest dimension black, irregular cholelith identified. The mucosa is dark green and velvety. The wall of the gallbladder averages 0.1 cm. in thickness. Manager Program Management sections are submitted in one cassette. /10/17/2017 saudi10/17/2017
== END 2017-10-18 15:38 | disposition home or self-care (01) | DRG 417 ==
LOC: JER 23:12 → JERBED 10-12 03:05 → UNDOADMIN 10-12 03:14 → JERBED 10-12 03:14 → J8W 10-12 05:15 → J4S 10-13 13:20
PROVIDERS: ADMIT Internal Medicine; ATTEND Internal Medicine
PROC: 0FT44ZZ Resection of Gallbladder, Percutaneous Endoscopic Approach (ICD-10-PCS; principal; 2017-10-16 18:00)
DX: K80.20 Calculus of gallbladder without cholecystitis without obstruction (principal); K85.10 Biliary acute pancreatitis without necrosis or infection; I25.110 Atherosclerotic heart disease of native coronary artery with unstable angina pectoris; I50.32 Chronic diastolic (congestive) heart failure; E78.5 Hyperlipidemia, unspecified; I48.0 Paroxysmal atrial fibrillation; J44.9 Chronic obstructive pulmonary disease, unspecified; K76.0 Fatty (change of) liver, not elsewhere classified; D64.9 Anemia, unspecified; K29.70 Gastritis, unspecified, without bleeding; M06.9 Rheumatoid arthritis, unspecified; I10 Essential (primary) hypertension; I11.0 Hypertensive heart disease with heart failure; Z79.01 Long term (current) use of anticoagulants; Z87.891 Personal history of nicotine dependence; Z95.2 Presence of prosthetic heart valve; Z85.3 Personal history of malignant neoplasm of breast; Z86.79 Personal history of other diseases of the circulatory system
CPT/HCPCS: 36415; 71045-TC-FY; 74177-TC; 74181-TC; 76705-TC; 80048; 80053; 80076; 81003; 81015; 82150; 82550; 82962; 83690; 84478; 84484; 85025; 85027; 85610; 85730; 86140; 86850; 86900; 86901; 87086; 88304-TC; 93005; 93010; 94010; 94760; 97116-GP; 97161-GP; 99283-25; J1644

== ENCOUNTER 2018-02-05 11:11 | Emergency (ER) | payer BC ==
--- NOTE | 2018-02-05 11:12 | PDOC ---
History of Present Illness - General Chief Complaint: Injury Stated Complaint: LEFT FOOT INJURY Time Seen by Provider: 02/05/18 11:12 History Source: Patient Exam Limitations: No Limitations - History of Present Illness Initial Comments: 02/05/18 11:19 77 year old female with PMH Afib on Warfarin, HTN, CAD,traumatic cerebral hemorrhage, mitral valve prolapse, pancreatitis, left breast cancer, fatty liver presents to ED today complaining of left foot pain and swelling. She states x3 days ago she was trying to force her left foot into a shoe and developed pain and swelling after that. She states she is able to bear weight and walk, but that it aggravates her pain. She denies any other complaints. PCP- Dr. Patel Allergies - Codeine Past History - Past Medical History Allergies/Adverse Reactions: Allergies Allergy/AdvReac Type Severity Reaction Status Date / Time codeine Allergy Verified 02/05/18 11:31 Home Medications: Ambulatory Orders Ca/D3/Mag Ox/Zinc/Water Pump Installer/Dio/Bor [Caltrate 600+D Plus Tab Chew] 1 each PO DAILY Pravastatin Sodium 20 mg PO MOFR 02/08/14 Meclizine HCl 12.5 mg PO ASDIR PRN tablet 09/01/14 Metoprolol Succinate [Toprol XL -] 50 mg PO BID #60 tablet 09/30/16 Furosemide [Lasix] 20 mg PO DAILY 10/12/17 Acetaminophen [Tylenol .Extra-Strength -] 500 mg PO Q6H PRN tablet 10/18/17 Amiodarone HCl [Cordarone -] 200 mg PO HS 02/05/18 Cephalexin [Keflex] 500 mg PO QID 5 Days #20 capsule 02/05/18 Cyanocobalamin (Vitamin B-12) [Vitamin B-12] 1,000 mcg PO DAILY 02/05/18 Losartan Potassium [Cozaar -] 25 mg PO HS 02/05/18 Ubidecarenone [Co Q10] 200 mg PO HS 02/05/18 Warfarin Na [Coumadin] 2 mg PO MOWEFR 02/05/18 Warfarin Sodium [Coumadin] 4 mg PO SUTUTHSA 02/05/18 Cancer: Yes (BREAST) Cardiac Disorders: Yes (MITRAL VALVE, A FIB, ANGINA) COPD: Yes CHF: Yes HTN: Yes Hypercholesterolemia: Yes Liver Disease: Yes (FATTY LIVER) - Surgical History Cardiac Surgery: Yes (MITRAL VALVE) - Suicide/Smoking/Psychosocial Hx Smoking History: Former smoker Have you smoked in the past 12 months: No Number of Cigarettes Smoked Daily: 0 If you are a former smoker, when did you quit?: 40 YEARS AGO Hx Alcohol Use: No Drug/Substance Use Hx: No Substance Use Type: None Review of Systems - Review of Systems Able to Perform ROS?: Yes Comments:: 02/05/18 11:21 General: denies fever, chills, night sweats, generalized weakness. HEENT: denies sore throat, rhinorrhea, ear pain. Heart: denies chest pain, palpitations, syncope, lower extremity swelling. Respiratory: denies shortness of breath, cough, sputum production, hematemesis. Abdomen: denies abdominal pain, nausea, vomiting, diarrhea, constipation, blood in stool. : denies dysuria, urinary frequency, hematuria, urinary incontinence. Back: denies back pain, flank pain. Musculoskeletal: admits to left foot pain and swelling. Neurological: denies headache, dizziness, numbness, tingling, weakness. Skin: denies rash, laceration, abrasion. *Physical Exam - Physical Exam Comments: 02/05/18 11:21 Appearance: comfortable. HEENT: head is normocephalic, atraumatic. EOMI. PERRLA. Neck: supple. Full ROM. Heart: regular rhythm. murmur noted. Lungs: clear to auscultation bilaterally. no crackles, rhonchi or wheezing. no stridor. Abdomen: soft, nontender. normal bowel sounds. no rebound, guarding, masses. Back: no CVA tenderness. Extremities: Peripheral pulses intact. No cyanosis. Musculoskeletal: left foot non-pitting edema. left foot erythema. no edema to right lower extremity. tenderness over left third MTP joint, left fourth MTP joint, and left fifth MTP joint, worse at the third MTP. able to bear weight. walks unassisted. capillary refill <2 seconds all toes. Neurological: Alert. Oriented x3. CN 2-12 grossly intact. Moves all four extremities. Medical Decision Making - Medical Decision Making 02/05/18 11:35 77 year old female with extensive PMH presents to ED complaining of left foot pain and swelling x3 days after attempting to put her foot into a shoe. Good pulses, no cyanosis, capillary refill <2 seconds all toes. Non-pitting edema to left foot. Tenderness over left third, fourth and fifth MTP joint, worse at the third MTP joint. Initial Vital Signs Temp Pulse Resp BP Pulse Ox 98.0 F 58 L 16 155/50 98 02/05/18 11:12 02/05/18 11:12 02/05/18 11:12 02/05/18 11:12 02/05/18 11:12 Afebrile. Bradycardia at 58. No hypoxia. No hypotension. Pending left foot XR and duplex venous ultrasound. 02/05/18 12:28 XR left foot negative for fracture. US negative for DVT. First dose of Cephalexin given. Pt will be discharged with prescription for Cephalexin, instructions to follow up with her primary care doctor, and strict return precautions. *DC/Admit/Observation/Transfer Diagnosis at time of Disposition: Left foot pain - Discharge Dispostion Disposition: HOME Condition at time of disposition: Good Decision to Admit order: No - Prescriptions Prescriptions: Cephalexin [Keflex] 500 mg PO QID 5 Days #20 capsule - Referrals Referrals: Doug Patel MD [Primary Care Provider] - - Patient Instructions Printed Discharge Instructions: DI for Foot Pain Additional Instructions: You were seen today for left foot pain and swelling. Your X-ray of your left foot revealed no fracture. I have included a copy of the report in your discharge paperwork. Your ultrasound of your left lower extremity revealed no bloot clot in your leg. I have included a copy of the report in your discharge paperwork. You were given the first dose of an antibiotic called Cephalexin in the Emergency Department. I have written a prescription for the antibiotic and sent it to your pharmacy. Please take 1 pill every 6 hours. Do not skip any doses of your antibiotic. Take Tylenol and/or Ibuprofen for your pain. Do not take Ibuprofen and Naproxen (Aleve) at the same time. Rest your foot as much as possible, until symptoms subside. No vigorous exercise for 1-2 weeks. Alternate ice and heat to the area, 20 mins on and 20 minutes off. Please follow up with your primary care doctor, and bring the paperwork given to you today with you. Please return to the Emergency Department for weakness, numbness, discoloration of your foot, inability to bear weight, fever, chills, nausea, vomiting, abdominal pain, chest pain, shortness of breath or any other new, worsening or concerning symptoms. - Post Discharge Activity
[2018-02-05 11:40] VITALS: BP 155/50; PULSE 58; TEMP 98; BMI 24.7
--- NOTE | 2018-02-05 11:42 | PDOC ---
Attending Attestation - Resident Resident Name: Florencia Jaimes - ED Attending Attestation I have performed the following: I have examined & evaluated the patient, The case was reviewed & discussed with the resident, I agree w/resident's findings & plan, Exceptions are as noted - HPI HPI: 02/05/18 11:38 77 year old female with hx of afib on Warfarin, HTN, CAD,traumatic cerebral hemorrhage, mitral valve prolapse, pancreatitis, left breast cancer, fatty liver p/w left foot pain x 3 days. The patient was struggling to put in her shoe. Afterwards noted that the top of her left foot was bothering her. Denies other trauma. Able to ambulate. Took tylenol yesterday. - Physicial Exam PE: 02/05/18 11:39 GENERAL: Awake, alert, and fully oriented, in no acute distress HEAD: No signs of trauma EYES: EOMI, sclera anicteric, conjunctiva clear ENT: Auricles normal inspection, hearing grossly normal, nares patent,Moist mucosa NECK: Normal ROM, supple EXTREMITIES: Normal range of motion, no edema. No clubbing or cyanosis. No cords, erythema, or tenderness. LLE: 2+ DP pulse. Anabel sign negative. 1+ nonpitting pedal edema. Mild erythema overlying the dorsum of foot. Sensation intact throughout. No crepitus. < 2 sec cap refill. No stepoffs appreciated. TTP over the dorsum 3rd metatarsal. NEUROLOGICAL: Cranial nerves II through XII grossly intact. Normal speech, normal gait SKIN: Warm, Dry, normal turgor. - Medical Decision Making 02/05/18 11:41 Vital Signs Temp Pulse Resp BP Pulse Ox 98.0 F 58 L 16 155/50 98 02/05/18 11:12 02/05/18 11:12 02/05/18 11:12 02/05/18 11:12 02/05/18 11:12 I suspect that the patient is developing mild cellulitis of the left foot. Cephalexin 500 mg PO BID x 7 days. Will however r/o left foot fracture with xray. And also r/o DVT. If workup is negative, pt can be d/c home with antibiotics with strict return precautions. 02/05/18 12:32 Xray negative for acute fractures. 02/05/18 13:08 Duplex negative for DVT
[2018-02-05] MEDS ORDERED: CEPHALEXIN 250 MG/5 ML ORAL SUSPENSION PO ONE (12:38)
[2018-02-05] MEDS ORDERED: CEPHALEXIN MONOHYDRATE 500 MG CAPSULE (UD) ONE (12:58)
== END 2018-02-05 13:11 | disposition home or self-care (01) ==
LOC: FER 11:11
DX: M79.672 Pain in left foot (principal); I48.91 Unspecified atrial fibrillation; I25.10 Atherosclerotic heart disease of native coronary artery without angina pectoris; I10 Essential (primary) hypertension; Z79.01 Long term (current) use of anticoagulants; Z85.3 Personal history of malignant neoplasm of breast
CPT/HCPCS: 73630-TC-LT; 93971-TC; 99282-25

== ENCOUNTER 2018-08-18 11:28 | Emergency (ER) | payer BC, OTHER ==
[2018-08-18 11:34] VITALS: BP 175/46; PULSE 62; TEMP 97.9; BMI 24.0
[2018-08-18] MEDS ORDERED: ACETAMINOPHEN 325 MG TABLET (FP) PO ONE (12:36)
--- NOTE | 2018-08-18 12:44 | PDOC ---
History of Present Illness - General Chief Complaint: Injury Stated Complaint: FALL / HIT HEAD Time Seen by Provider: 08/18/18 11:56 History Source: Patient Exam Limitations: No Limitations - History of Present Illness Initial Comments: Patient is a 78 y/o F w/ PMHx Afib on warfarin, MVP s/p valve replacement, CHF, CAD, trauamtic cerebral hemorrhage, pancreatitis, L breast Ca s/p lumpectomy and RT, fatty liver, HTN, p/w mechanical fall 4 days ago (missed chair she was trying to sit in) resulting in trauma to the posterior head, RUE, and back. Incident was without sequela at the time but she began experiencing posterior head pain and nausea w/o vomiting yesterday. Denies CP, SOB, any other pain, f/ c or other infectious symptoms. No other acute complaints, ROS otherwise negative. On presentation BP 175/46, otherwise vitals wnl and afebrile. 08/18/18 12:39 Past History - Travel Traveled outside of the country in the last 30 days: No Close contact w/someone who was outside of country & ill: No - Past Medical History Allergies/Adverse Reactions: Allergies Allergy/AdvReac Type Severity Reaction Status Date / Time codeine Allergy Verified 08/18/18 11:34 Home Medications: Ambulatory Orders Ca/D3/Mag Ox/Zinc/Student Support Advisor/Dio/Bor [Caltrate 600+D Plus Tab Chew] 1 each PO DAILY Pravastatin Sodium 20 mg PO MOFR 02/08/14 Meclizine HCl 12.5 mg PO ASDIR PRN tablet 09/01/14 Metoprolol Succinate [Toprol XL -] 50 mg PO BID #60 tablet 09/30/16 Furosemide [Lasix] 20 mg PO DAILY 10/12/17 Acetaminophen [Tylenol .Extra-Strength -] 500 mg PO Q6H PRN tablet 10/18/17 Amiodarone HCl [Cordarone -] 200 mg PO DAILY 02/05/18 Cyanocobalamin (Vitamin B-12) [Vitamin B-12] 1,000 mcg PO DAILY 02/05/18 Losartan Potassium [Cozaar -] 25 mg PO DAILY 02/05/18 Ubidecarenone [Co Q10] 200 mg PO DAILY 02/05/18 Warfarin Sodium [Coumadin] 4 mg PO DAILY 02/05/18 Phosphatidylserine-Epa/[place]-3 [Vayarin Plus 225 mg Capsule] 100 mg PO BID 04/26 Anemia: Yes Asthma: No Cancer: Yes (BREAST-left) Cardiac Disorders: Yes (a fib, valve replacement) CVA: No COPD: No CHF: Yes Dementia: No Diabetes: No GI Disorders: Yes (pancreatitis) Disorders: No HTN: Yes Hypercholesterolemia: Yes Liver Disease: Yes (FATTY LIVER) Seizures: No Thyroid Disease: No - Surgical History Abdominal Surgery: Yes Appendectomy: No Cardiac Surgery: Yes (valve replacement) Cholecystectomy: Yes Lung Surgery: No Neurologic Surgery: No Orthopedic Surgery: No - Suicide/Smoking/Psychosocial Hx Smoking History: Never smoked Have you smoked in the past 12 months: No Number of Cigarettes Smoked Daily: 0 If you are a former smoker, when did you quit?: 40 YEARS AGO Hx Alcohol Use: No Drug/Substance Use Hx: No Substance Use Type: None Review of Systems - Review of Systems Comments:: As per HPI 08/18/18 12:45 *Physical Exam - Vital Signs Last Vital Signs Temp Pulse Resp BP Pulse Ox 97.9 F 62 18 175/46 H 98 08/18/18 11:29 08/18/18 11:29 08/18/18 11:29 08/18/18 11:29 08/18/18 11:29 - Physical Exam Comments: Gen: A&Ox3, NAD HEENT: NC/AT, no reproducible tenderness PERRLA, EOMI, MMM Neck: supple, no reproducible tenderness, no LAD, no JVD CV: RRR Resp: CTA b/l Abd: +bs, soft, NT, ND Ext: 2+ pulses, wwp, no edema, no calf tenderness MSK: no focal spinal tenderness Neuro: 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, motor, sensory, cerebellar systems w/o focal deficit, negative Romberg, gait at baseline Psych: normal mood, normal affect Skin: warm, dry, normal turgor 08/18/18 12:45 Moderate Sedation - Procedure Monitoring Vital Signs: Procedure Monitoring Vital Signs Temperature 97.9 F 08/18/18 11:29 Pulse Rate 62 08/18/18 11:29 Respiratory Rate 18 08/18/18 11:29 Blood Pressure 175/46 H 08/18/18 11:29 O2 Sat by Pulse Oximetry (%) 98 08/18/18 11:29 ED Treatment Course - RADIOLOGY Radiology Studies Ordered: Category Date Time Status CERVICAL SPINE CT W/O CONTR [CT] Stat CT Scan 08/18/18 12:[address] WITHOUT CONTRAST [CT] Stat CT Scan 08/18/18 12:35 Ordered Medical Decision Making - Medical Decision Making Pt reports INR 1.9 on . Will proceed w/ non-contrast CT of head and c- spine. 08/18/18 12:47 CT head, CT c-spine negative for acute pathology.l 08/18/18 14:06 Pt informed, will d/c home. 08/18/18 14:08 *DC/Admit/Observation/Transfer Diagnosis at time of Disposition: Fall Qualifiers: Encounter type: initial encounter Qualified Code(s): W19.XXXA - Unspecified fall, initial encounter - Discharge Dispostion Disposition: HOME Condition at time of disposition: Stable - Referrals Referrals: Doug Patel MD [Primary Care Provider] - - Patient Instructions Printed Discharge Instructions: How to Prevent Falls Additional Instructions: You were evaluated for a fall. CT scans of your head and cervical spine showed no acute pathology. Please take tylenol as needed for pain and follow up with your primary medical doctor. If you experience any new focal weakness or change in sensation, worsening headache, nausea, vomiting, neck stiffness, fever, chills, chest pain, shortness of breath, or any other new or concerning symptoms , please return to the Emergency Department. - Post Discharge Activity
--- NOTE | 2018-08-18 13:49 | PDOC ---
Attending Attestation - HPI HPI: 08/18/18 13:50 The patient is a 78 year old female, with a significant past medical history of Afib on Warfarin, HTN, CAD, traumatic cerebral hemorrhage, mitral valve prolapse , pancreatitis, left breast cancer, and fatty liver who presents to the emergency department with a fall 4 days ago resulting in trauma to the head, back and right elbow. The patient states she missed her chair, slipped and fell on Monday, but experienced no pain. The patient notes that yesterday she got a headache associated with nausea. Patient notes she took 2 tablets of Extra Strength Tylenol this morning. The patient denies chest pain, shortness of breath, or any other symptoms. Allergies: Codeine Past surgical history: Mitral Valve Social history: Former smoker (quit 40 years ago) PCP:Dr. Patel - Physicial Exam PE: 08/18/18 13:50 GENERAL: Awake, alert, and fully oriented, in no acute distress HEAD: No signs of trauma EYES: PERRLA, EOMI, sclera anicteric, conjunctiva clear ENT: Auricles normal inspection, hearing grossly normal, nares patent, oropharynx clear without exudates. Moist mucosa NECK: Normal ROM, supple, no lymphadenopathy, JVD, or masses LUNGS: Breath sounds equal, clear to auscultation bilaterally. No wheezes, and no crackles HEART: Regular rate and rhythm, normal S1 and S2, no murmurs, rubs or gallops ABDOMEN: Soft, nontender, normoactive bowel sounds. No guarding, no rebound. No masses EXTREMITIES: No tenderness at joints. Normal range of motion, no edema. No clubbing or cyanosis. No cords, erythema, or tenderness NEUROLOGICAL: No C spine tenderness. No thoracic tenderness. Cranial nerves II through XII grossly intact. Normal speech. SKIN: Warm, Dry, normal turgor, no rashes or lesions noted. <Yovanny Sorto - Last Filed: 08/18/18 13:49> - Resident Resident Name: Brent Warren - ED Attending Attestation I have performed the following: I have examined & evaluated the patient, The case was reviewed & discussed with the resident, I agree w/resident's findings & plan, Exceptions are as noted - Medical Decision Making 08/18/18 13:46 A portion of this note was documented by scribe services under my direction. I have reviewed the details of the note, within reason, and agree with the documentation with the following case summary and management plan written by me. Patient treated in the ED. Nursing notes are reviewed and incorporated into the medical decision-making. Vital signs reviewed. Peripheral IV access obtained by the nurse, laboratory studies are drawn and sent, reviewed and interpreted by myself. Vital Signs Temp Pulse Resp BP Pulse Ox 97.9 F 62 18 175/46 H 98 08/18/18 11:29 08/18/18 11:29 08/18/18 11:29 08/18/18 11:29 08/18/18 11:29 78-year-old female history of atrial fibrillation on warfarin, mitral valve prolapse status post bovine valve replaced, congestive heart failure, coronary disease, symmetrical hemorrhage, pancreatitis, left breast cancer status post lumpectomy, fatty liver, hypertension presents mechanical fall 4 days ago. The patient initially had no complaints but yesterday started to note some upper neck and posterior head pain. Last had INR check 2 days ago which was 1.9. Has no other complaints. R/o ICH. If head CT and CT c-spine is negative, pt can be d/c home with tylenol and follow up with PMD. 08/18/18 14:07 CT head and c-spine reviewed. No acute findings. Pt reassurred and will go home. <Marcin Miles - Last Filed: 08/18/18 14:08> Attestations - Attestations 08/18/18 13:51 Documentation prepared by Yovanny Sorto, acting as medical officer psychiatry for Marcin Miles MD, MD <Yovanny Sorto - Last Filed: 08/18/18 13:49>
== END 2018-08-18 14:24 | disposition home or self-care (01) ==
LOC: JER 11:28
DX: S09.8XXA Other specified injuries of head, initial encounter (principal); R51 Headache; R11.0 Nausea; W17.89XA Other fall from one level to another, initial encounter; Y93.89 Activity, other specified; Y92.018 Other place in single-family (private) house as the place of occurrence of the external cause; Y99.8 Other external cause status; I25.10 Atherosclerotic heart disease of native coronary artery without angina pectoris; I11.0 Hypertensive heart disease with heart failure; I48.91 Unspecified atrial fibrillation; Z79.01 Long term (current) use of anticoagulants; Z95.4 Presence of other heart-valve replacement; Z85.3 Personal history of malignant neoplasm of breast; K86.9 Disease of pancreas, unspecified; Z86.73 Personal history of transient ischemic attack (TIA), and cerebral infarction without residual deficits
CPT/HCPCS: 70450-TC; 72125-TC; 99282-25

== ENCOUNTER 2018-10-25 18:22 | Emergency (ER) | payer BC ==
[2018-10-25 18:33] VITALS: BP 145/52; PULSE 58; TEMP 97.6; BMI 23.1
--- NOTE | 2018-10-25 20:15 | PDOC ---
History of Present Illness - General Chief Complaint: Injury Stated Complaint: FALL Time Seen by Provider: 10/25/18 19:41 History Source: Patient, Old Records Exam Limitations: No Limitations - History of Present Illness Initial Comments: 10/25/18 20:15 HISTORY OF PRESENT ILLNESS: This is a 78-year-old woman with past medical history of Afib on Warfarin, HTN, CAD, traumatic cerebral hemorrhage, mitral valve prolapse, pancreatitis, left breast cancer, and fatty liver who presents emergency department for evaluation of head trauma status post trip and fall on 10/22. Patient states she went for a walk she got home was experiencing some minor fatigue. Walking up the steps she actually tripped falling forward striking the right side of her face on the metal railing on her porch st[place]. Patient denies any loss of consciousness and has full recollection of events immediately prior to, during and after the fall. Patient reports having a brief episode of blurry vision in her right eyes which is contained to the right lower field. She states the visual disturbance spontaneously resolved after approximately 30 minutes. Patient has been ambulatory since the fall, she contact her primary doctor today who referred to the emergency department for evaluation. No recent travel or sick contacts. PAST MEDICAL HISTORY: see HPI SURGICAL HISTORY: Denies ALLERGIES: codeine REVIEW OF SYSTEMS General/Constitutional: Denies fever or chills. Denies weakness, weight change. HEENT: Denies change in vision. Denies ear pain or discharge. Denies sore throat. Cardiovascular: Denies chest pain or shortness of breath. Respiratory: Denies cough, wheezing, or hemoptysis. Gastrointestinal: Denies nausea, vomiting, diarrhea or constipation. Denies rectal bleeding. Genitourinary: Denies dysuria, frequency, or change in urination. Musculoskeletal: Denies joint or muscle swelling or pain. Denies neck or back pain. Skin and breasts: Denies rash or easy bruising. Neurologic: Denies headache, vertigo, loss of consciousness, or loss of sensation. Psychiatric: Denies depression or anxiety. Endocrine: Denies increased thirst. Denies abnormal weight change. Hematologic/Lymphatic: Denies anemia, easy bleeding, or history of blood clots. Allergic/Immunologic: Denies hives or skin allergy. Denies latex allergy. PHYSICAL EXAM General Appearance: Well-appearing, appropriately dressed. No apparent distress , no intoxication. HEENT: EOMI, PERRLA, normal ENT inspection, normal voice, TMs normal, pharynx normal. No conjunctival pallor. No photophobia, scleral icterus. Resolving ecchymosis present to right orbit lateral to the eye. No hyphema present. No pupillary deformity noted. No subconjunctival hemorrhage present. Neck: Supple. Trachea midline. No tenderness, rigidity, carotid bruit, stridor , lymphadenopathy, or thyromegaly. Respiratory/Chest: Lungs CTAB. No shortness of breath, chest tenderness, respiratory distress, accessory muscle use. No crackles, rales, rhonchi, stridor , wheezing, dullness Cardiovascular: RRR. S1, S2. No JVD, murmur, bradycardia, tachycardia. Vascular Pulses: Dorsalis-Pedis (R): 2+, Dorsalis-Pedis (L): 2+ Integumentary: Appropriate color, dry, warm. No cyanosis, erythema, jaundice or rash Neurologic: public speaking coach II-XII intact. Fully oriented, alert. Appropriate mood/affect. Motor strength 5/5. No appreciable EOM palsy, facial droop or sensory deficit. 10/25/18 20:24 Past History - Past Medical History Allergies/Adverse Reactions: Allergies Allergy/AdvReac Type Severity Reaction Status Date / Time codeine Allergy Verified 10/25/18 20:18 Home Medications: Ambulatory Orders Ca/D3/Mag Ox/Zinc/Negative Turner/Dio/Bor [Caltrate 600+D Plus Tab Chew] 1 each PO DAILY Pravastatin Sodium 20 mg PO MOFR 02/08/14 Metoprolol Succinate [Toprol XL -] 50 mg PO BID #60 tablet 09/30/16 Furosemide [Lasix] 20 mg PO DAILY 10/12/17 Acetaminophen [Tylenol .Extra-Strength -] 500 mg PO Q6H PRN tablet 10/18/17 Amiodarone HCl [Cordarone -] 100 mg PO DAILY 02/05/18 Cyanocobalamin (Vitamin B-12) [Vitamin B-12] 3,000 mcg PO DAILY 02/05/18 Losartan Potassium [Cozaar -] 50 mg PO BID 02/05/18 Ubidecarenone [Co Q10] 200 mg PO DAILY 02/05/18 Warfarin Sodium [Coumadin] 2 mg PO DAILY 02/05/18 Phosphatidylserine-Epa/Gobles-3 [Vayarin Plus 225 mg Capsule] 100 mg PO BID 04/26 Amlodipine Besylate 5 mg PO DAILY 10/25/18 Potassium Chloride 10 meq PO DAILY 10/25/18 Anemia: Yes Asthma: No Cancer: Yes (BREAST-left) Cardiac Disorders: Yes (a fib, valve replacement) CVA: No COPD: No CHF: Yes Dementia: No Diabetes: No GI Disorders: Yes (pancreatitis) Disorders: No HTN: Yes Hypercholesterolemia: Yes Liver Disease: Yes (FATTY LIVER) Seizures: No Thyroid Disease: No - Surgical History Abdominal Surgery: Yes Appendectomy: No Cardiac Surgery: Yes (valve replacement) Cholecystectomy: Yes Lung Surgery: No Neurologic Surgery: No Orthopedic Surgery: No - Immunization History Immunization Up to Date: No - Suicide/Smoking/Psychosocial Hx Smoking History: Never smoked Have you smoked in the past 12 months: No Number of Cigarettes Smoked Daily: 0 If you are a former smoker, when did you quit?: 40 YEARS AGO Information on smoking cessation initiated: No Hx Alcohol Use: No Drug/Substance Use Hx: No Substance Use Type: None *Physical Exam - Vital Signs Last Vital Signs Temp Pulse Resp BP Pulse Ox 97.6 F 58 L 16 145/52 L 98 10/25/18 18:28 10/25/18 18:28 10/25/18 18:28 10/25/18 18:28 10/25/18 18:28 ED Treatment Course - LABORATORY CBC & Chemistry Diagram: 10/25/18 20:26 10/25/18 20:26 Medical Decision Making - Medical Decision Making 10/25/18 20:18 A/P: 78-year-old woman for evaluation of head trauma sustained 3 days ago This patient has a history of A. fib and is currently on Coumadin with a noncontrast head CT, CT of the C-spine, basic labs including cardiac profile and PT/INR. 10/25/18 21:33 CT of the head as read by Dr. Bruce: No CT evidence of acute intracranial pathology. There has been no definite interval change in comparison to a prior CT exam of . CT of the cervical spine as read by Dr. Bruce: No facture is identified. 10/25/18 22:40 Laboratory testing is notable for an ANITA creatinine-1.4, BUN-28. Patient's baseline is 1.0/21. Times to contact patient's primary doctor or referred to the hospitalist. I will discharge the patient home to follow-up with Dr. Patel and Dr. Ribeiro the patient's cottrell operator for continued evaluation of this EKG I. Patient's INR is 2.33. I discussed the physical exam findings, ancillary test results and final diagnoses with the patient. I answered all of the patient's questions. The patient was satisfied with the care received and felt comfortable with the discharge plan and treatment plan. The patient will call their primary care physician within 24 hours to arrange follow-up and will return to the Emergency Department with any new, persistent or worsening symptoms. *DC/Admit/Observation/Transfer Diagnosis at time of Disposition: Fall (on) (from) other stairs and steps, initial encounter, ANITA (acute kidney injury) Closed head injury Qualifiers: Encounter type: initial encounter Qualified Code(s): S09.90XA - Unspecified injury of head, initial encounter Concussion Qualifiers: Encounter type: initial encounter Loss of consciousness presence/duration: without LOC Qualified Code(s): S06.0X0A - Concussion without loss of consciousness, initial encounter - Discharge Dispostion Disposition: HOME Condition at time of disposition: Stable Decision to Admit order: No - Referrals Referrals: Doug Patel MD [Primary Care Provider] - - Patient Instructions Printed Discharge Instructions: How to Prevent Falls, DI for Closed Head Injury Additional Instructions: Avoid electronic devices including computers, tablets, phones and television. Avoid reading. Follow-up with your doctor within the next week for reevaluation. Your symptoms may last for 4-6 weeks. This is normal. If you sustain another head injury the time period would restart. Your INR is 2.33 which is a therapeutic value. Drink plenty of fluids. Laboratory testing showed a creatinine of 1.4. Please follow-up with your primary doctor and/or your cottrell operator for reevaluation. Return to the emergency department for any new or worsening symptoms. - Post Discharge Activity
[2018-10-25 20:48] LABS: BASO % 0.7 % (0-2.0); EOS % 1.8 % (0-4.5); HEMATOCRIT 33.1 % (32.4-45.2); HEMOGLOBIN 11.5 GM/dL (10.7-15.3); LYMPH % 23.8 % (8-40); MCHC 34.7 g/dl (32.0-36.0); MEAN PLT VOLUME 8.1 fl (7.5-11.1); MONO % 12.4 % (3.8-10.2); NEUT % 61.3 % (42.8-82.8); PLATELET COUNT 146 K/MM3 (134-434); RBC 3.48 M/mm3 (3.60-5.2); WHITE BLOOD COUNT 6.5 K/mm3 (4.0-10.0)
[2018-10-25 21:30] LABS: INR 2.33 (0.83-1.09); PROTHROMBIN TIME (PATIENT) 27.7 SEC (9.7-13.0)
[2018-10-25 21:40] LABS: ALBUMIN 3.7 g/dl (3.4-5.0); ALK PHOS 69 U/L (45-117); ANION GAP 9 MMOL/L (8-16); BILIRUBIN,TOTAL 0.4 mg/dL (0.2-1); BLOOD UREA NITROGEN 28 mg/dL (7-18); CALCIUM 9.1 mg/dL (8.5-10.1); CHLORIDE 98 mmol/L (98-107); CO2 27 mmol/L (21-32); CREATININE 1.4 mg/dL (0.55-1.3); GLUCOSE,RANDOM 89 mg/dL (74-106); POTASSIUM 4.4 mmol/L (3.5-5.1); SGOT/AST 51 U/L (15-37); SGPT/ALT 78 U/L (13-61); SODIUM 134 mmol/L (136-145); TOT PROT 7.4 g/dl (6.4-8.2)
--- NOTE | 2018-10-25 23:23 | PDOC ---
*Physical Exam - Vital Signs Last Vital Signs Temp Pulse Resp BP Pulse Ox 97.6 F 58 L 16 145/52 L 98 10/25/18 18:28 10/25/18 18:28 10/25/18 18:28 10/25/18 18:28 10/25/18 18:28 ED Treatment Course - LABORATORY CBC & Chemistry Diagram: 10/25/18 20:26 10/25/18 20:26 - ADDITIONAL ORDERS Additional order review: Laboratory Results 10/25/18 10/25/18 20:26 20:26 PT with INR 27.70 H INR 2.33 H Sodium 134 L Potassium 4.4 Chloride 98 Carbon Dioxide 27 Anion Gap 9 BUN 28 H Creatinine 1.4 H Creat Clearance w eGFR 36.37 Random Glucose 89 Calcium 9.1 Total Bilirubin 0.4 AST 51 H ALT 78 H Alkaline Phosphatase 69 Creatine Kinase 123 Troponin I < 0.02 Total Protein 7.4 Albumin 3.7 10/25/18 20:26 RBC 3.48 L MCV 95.0 MCHC 34.7 RDW 14.0 MPV 8.1 Neutrophils % 61.3 Lymphocytes % 23.8 D Monocytes % 12.4 H Eosinophils % 1.8 Basophils % 0.7 Medical Decision Making - Medical Decision Making 10/25/18 23:20 Case discussed with EMERGENCY SPECIALIST Samir Agree with assessment and plan *DC/Admit/Observation/Transfer Diagnosis at time of Disposition: Fall (on) (from) other stairs and steps, initial encounter, ANITA (acute kidney injury) Closed head injury Qualifiers: Encounter type: initial encounter Qualified Code(s): S09.90XA - Unspecified injury of head, initial encounter Concussion Qualifiers: Encounter type: initial encounter Loss of consciousness presence/duration: without LOC Qualified Code(s): S06.0X0A - Concussion without loss of consciousness, initial encounter - Discharge Dispostion Disposition: HOME Condition at time of disposition: Stable - Referrals Referrals: Dogu Patel MD [Primary Care Provider] - - Patient Instructions Printed Discharge Instructions: How to Prevent Falls, DI for Closed Head Injury Additional Instructions: Avoid electronic devices including computers, tablets, phones and television. Avoid reading. Follow-up with your doctor within the next week for reevaluation. Your symptoms may last for 4-6 weeks. This is normal. If you sustain another head injury the time period would restart. Your INR is 2.33 which is a therapeutic value. Drink plenty of fluids. Laboratory testing showed a creatinine of 1.4. Please follow-up with your primary doctor and/or your purchase analyst for reevaluation. Return to the emergency department for any new or worsening symptoms. - Post Discharge Activity
== END 2018-10-25 22:47 | disposition home or self-care (01) ==
LOC: JER 18:22
DX: S06.0X0A Concussion without loss of consciousness, initial encounter (principal); W10.8XXA Fall (on) (from) other stairs and steps, initial encounter; Y93.89 Activity, other specified; Y92.018 Other place in single-family (private) house as the place of occurrence of the external cause; Y99.8 Other external cause status; I25.10 Atherosclerotic heart disease of native coronary artery without angina pectoris; I11.0 Hypertensive heart disease with heart failure; I50.9 Heart failure, unspecified; I48.91 Unspecified atrial fibrillation; Z79.01 Long term (current) use of anticoagulants; Z95.4 Presence of other heart-valve replacement; E78.00 Pure hypercholesterolemia, unspecified; Z87.19 Personal history of other diseases of the digestive system
CPT/HCPCS: 36415; 70450-TC; 72125-TC; 80053; 82550; 84484; 85025; 85610; 99282-25

== ENCOUNTER 2019-01-08 13:49 | Inpatient (IN) | payer BC, OTHER ==
--- NOTE | 2019-01-08 14:13 | PDOC ---
History of Present Illness - General Chief Complaint: Blood Pressure Problem Stated Complaint: HTN - History of Present Illness Initial Comments: The pt is a 78F w/ a history of HTN, HLD, a-fib (amio), CHF who presents for evaluation of elevated SBP today at home to 190s. She reports associated occipital head warmth/'odd sensation' possibly pressure that is constant but improving, non-radiating, and not associated with any change in sensation. She also reports questionable lightheadedness, w/o LOC, change in vision or fall. Denies recent fever/chills, chest pain, SOB, abdominal pain, N/V/C/D, dysuria, hematuria, or blood in her stool. Denies worsening swelling or weight gain 01/08/19 14:28 01/08/19 14:45 Past History - Past Medical History Allergies/Adverse Reactions: Allergies Allergy/AdvReac Type Severity Reaction Status Date / Time codeine Allergy Verified 01/08/19 13:50 Home Medications: Ambulatory Orders Ca/D3/Mag Ox/Zinc/Mat Cleaning Machine Operator/Dio/Bor [Caltrate 600+D Plus Tab Chew] 1 each PO DAILY Pravastatin Sodium 20 mg PO MOFR 02/08/14 Furosemide [Lasix] 20 mg PO DAILY 10/12/17 Acetaminophen [Tylenol .Extra-Strength -] 500 mg PO Q6H PRN tablet 10/18/17 Amiodarone HCl [Cordarone -] 100 mg PO DAILY 02/05/18 Cyanocobalamin (Vitamin B-12) [Vitamin B-12] 3,000 mcg PO DAILY 02/05/18 Losartan Potassium [Cozaar -] 50 mg PO BID 02/05/18 Ubidecarenone [Co Q10] 200 mg PO DAILY 02/05/18 Warfarin Sodium [Coumadin] 2 mg PO DAILY 02/05/18 Phosphatidylserine-Epa/[place]-3 [Vayarin Plus 225 mg Capsule] 100 mg PO BID 04/26 Potassium Chloride 10 meq PO DAILY 10/25/18 Metoprolol Succinate [Toprol XL -] 50 mg PO DAILY 01/08/19 Anemia: Yes Asthma: No Cancer: Yes (BREAST-left) Cardiac Disorders: Yes (a fib, valve replacement) CVA: No COPD: No CHF: Yes Dementia: No Diabetes: No GI Disorders: Yes (pancreatitis) Disorders: No HTN: Yes Hypercholesterolemia: Yes Liver Disease: Yes (FATTY LIVER) Seizures: No Thyroid Disease: No - Surgical History Abdominal Surgery: Yes Appendectomy: No Cardiac Surgery: Yes (valve replacement) Cholecystectomy: Yes Lung Surgery: No Neurologic Surgery: No Orthopedic Surgery: No - Immunization History Immunization Up to Date: No - Suicide/Smoking/Psychosocial Hx Smoking History: Never smoked Have you smoked in the past 12 months: No Number of Cigarettes Smoked Daily: 0 If you are a former smoker, when did you quit?: 40 YEARS AGO Hx Alcohol Use: No Drug/Substance Use Hx: No Substance Use Type: None Review of Systems - Review of Systems Able to Perform ROS?: Yes Comments:: GENERAL/CONSTITUTIONAL: No fever or chills. No weakness HEAD, EYES, EARS, NOSE AND THROAT: No change in vision. No ear pain or discharge. No sore throat CARDIOVASCULAR: No chest pain or shortness of breath RESPIRATORY: Denies cough, hemoptysis GASTROINTESTINAL: No nausea, vomiting, diarrhea or constipation GENITOURINARY: No dysuria, frequency, or change in urination MUSCULOSKELETAL: No joint or muscle swelling or pain. No neck or back pain SKIN: No rash NEUROLOGIC: No vertigo, loss of consciousness, or change in strength/sensation ENDOCRINE: No increased thirst. No abnormal weight change HEMATOLOGIC/LYMPHATIC: No anemia, easy bleeding, or history of blood clots ALLERGIC/IMMUNOLOGIC: No hives or skin allergy 01/08/19 14:55 Is the patient limited [place] Citizen proficient: No *Physical Exam - Vital Signs Vital Signs Temp Pulse Resp BP Pulse Ox 97.8 F 53 L 20 169/52 L 97 01/08/19 13:50 01/08/19 13:50 01/08/19 13:50 01/08/19 13:50 01/08/19 13:50 01/08/19 14:55 - Physical Exam Comments: GENERAL: Awake, alert, and oriented to person/place/time, in no acute distress HEAD: No signs of trauma, normocephalic, atraumatic EYES: PERRLA, EOMI, sclera anicteric, conjunctiva clear ENT: Hearing grossly normal, nares patent, oropharynx clear without exudates. No uvular deviation. Moist mucosa LUNGS: No distress, speaks in full sentences, clear to auscultation bilaterally HEART: Regular rate and rhythm, normal S1 and S2, no murmurs appreciated, peripheral pulses normal and equal bilaterally ABDOMEN: Soft, nontender, normoactive bowel sounds. No guarding, no rebound EXTREMITIES: Normal inspection, Normal range of motion, 1+ BLE edema reported as baseline. NEUROLOGICAL: Cranial nerves II through XII grossly intact. Normal speech, normal gait, no focal sensorimotor deficits SKIN: Warm, Dry 01/08/19 14:55 ED Treatment Course - LABORATORY CBC & Chemistry Diagram: 01/08/19 14:53 01/08/19 14:53 Medical Decision Making - Medical Decision Making The pt is a 78F w/ a history of HTN, HLD, a-fib, CHF who presents for evaluation of hypertension and head warmth with questionable lightheadedness Ddx includes ACS, HTN, HTN urgency, [facility] ED Course Labs sent ECG CXR 01/08/19 14:56 No anemia No leukocytosis 01/08/19 15:26 Trop I neg Hyponatremia and Hypochloridemia -NS 500cc IV once -NaCl tablet x1 Plan for admission for hyponatremia to Tele Pt signed out to [facility] Admitting 01/08/19 16:48 *DC/Admit/Observation/Transfer Diagnosis at time of Disposition: Hypertension Qualifiers: Hypertension type: unspecified Qualified Code(s): I10 - Essential (primary) hypertension CHF (congestive heart failure) Qualifiers: Heart failure type: unspecified Heart failure chronicity: unspecified Qualified Code(s): I50.9 - Heart failure, unspecified Hyperlipidemia Qualifiers: Hyperlipidemia type: unspecified Qualified Code(s): E78.5 - Hyperlipidemia, unspecified - Discharge Dispostion Condition at time of disposition: Good Decision to Admit order: Yes - Referrals - Patient Instructions - Post Discharge Activity
[2019-01-08 15:17] LABS: BASO % 0.5 % (0-2.0); EOS % 0.2 % (0-4.5); HEMOGLOBIN 12.2 GM/dl (10.7-15.3); LYMPH % 13.7 % (8-40); MCH 32.2 pg (25.7-33.7); MCHC 33.1 g/dl (32.0-36.0); MEAN CELL VOLUME 97.3 fl (80-96); MEAN PLT VOLUME 8.7 fl (7.5-11.1); MONO % 5.6 % (3.8-10.2); PLATELET COUNT 146 K/MM3 (134-434); RDW 13.2 % (11.6-15.6); WHITE BLOOD COUNT 6.3 K/mm3 (4.0-10.8)
[2019-01-08 15:26] LABS: BILIRUBIN,TOTAL 1.1 mg/dl (0.2-1); CALCIUM 8.4 mg/dl (8.5-10); POTASSIUM 4.6 mmol/L (3.5-5.1); TOT PROT 7.6 g/dl (6.4-8.2)
[2019-01-08] MEDS ORDERED: SODIUM CHLORIDE 0.9% 500 ML INFUS.BAG IV ONE (15:30)
--- NOTE | 2019-01-08 15:52 | PDOC ---
Attending Attestation - Resident Resident Name: Sumeet Stuart - ED Attending Attestation I have performed the following: I have examined & evaluated the patient, The case was reviewed & discussed with the resident, I agree w/resident's findings & plan - HPI HPI: 01/08/19 15:37 78y/o F h/o HTN, recent ongoing workup for resting tremor and imbalance, presents for evaluation of episode of light headedness around 11am. Pt in [facility] , was in the kitchen when she felt light-headed. She has had similar episodes in the past in the setting of elevated BP, so she check her BP and it was 180 systolic. Rested and sxs improved but presents for evaluation. no headache/vision change/speech change/neck pain/chest pain/sob/n/v/focal weaknes. no med changes, no increased salt intake. no edema feels well now. - Physicial Exam PE: 01/08/19 15:52 bp 169/52, well appearing conversant with clear speech s1s2 rrr, no audible murmur or ectopy lungs ctab abd benign neuro exam nonfocal other than resting tremor and baseline subtle gait disturbance - Medical Decision Making 01/08/19 15:53 78y/o F with episode of light headedness in setting of elevated BP. Blood pressure spontaneously improving, sxs resolving with no evidence of end organ injury or red flags on history/PE. cbc, lytes, trop cxr, ekg, ct head reassess 01/08/19 15:59 lytes note new hyponatremia, EKG changesbut negative trop. will admit for Na repletion, ekg monitoring. Heart Score/ECG Review #1 ECG reviewed & interpreted by me at: 15:31 General ECG Interpretation: Sinus Rhythm, Normal Rate (53), Normal Intervals ( qtc 478), No acute ischemic changes (TWI I/AVL, V5V6) Compared to previous ECG there are: Changes noted (TWI new compared to 10/11/17)
[2019-01-08] MEDS ORDERED: ACETAMINOPHEN 500 MG TABLET (FP) PO PRN (16:48)
[2019-01-08] MEDS ORDERED: SODIUM CHLORIDE 1 GM TABLET PO ONE (16:50)
--- NOTE | 2019-01-08 17:26 | HP ---
Admitting History and Physical - Primary Care Physician PCP: Doug Patel - Admission Chief Complaint: dizziness History of Present Illness: 78 year old F with h/o L- Breast Ca s/p lumpectomy, chemotherapy, radiation therapy, Afib (on coumadin), CAD, MVR x2, Intracranial hemorrhage secondary to fall while on Coumadin, Fatty Liver disease, Herpes Zoster, and Basal Cell Ca presents to the ED with c/o headache and near syncope in the setting of elevated blood pressure. Pt reports while working in the kitchen this morning (), when she began to experience light headedness and "pressure" at the top of her head. She took her BP and noted systolic blood pressure in the 180s. Pt decided to call her [employer] patient assistance line for advice. She was informed to rest for a period of time and repeat BP, which was noted to be 190s a few minutes later. She recalled help line and was encouraged to seek assistance at her local ED. Pt denies CP, SOB, abd pain/V/N/D. She reports a fall 3 weeks ago due to chronic balance problems and hit the back of her head. She did not sustain any serious injuries and is now being followed by a balance specialist (Dr. Natarajan) . In ED Vitals were BP 169/52, RR 20, T 97.8, HR 53, O2 sat 97% Trop x 1 negative Na 122, pt given NAcl tab x [address] without evidence of acute intracranial pathology. pt admitted for continued management and observation overnight. Outside Sales Inspector: Dr. Ross Ribeiro PCP: Dr. 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 Reoperative porcine MVR and TV Ring anuloplasty) Pulmonary: Yes: COPD (mild) Gastrointestinal: Yes: Gastritis, Pancreatitis Hepatobiliary: Yes: Other (Fatty liver) Renal/: Yes: UTI (Resolved), Other (Bladder prolapse) Reproductive: Yes: Postmenopausal ...: No Heme/Onc: Yes: Anemia (H/O), Other (Breast CA [id number] Left axillary node dissection lumpectomy, chemo cytoxan, MTX 5-FU XRT) Infectious Disease: Yes: Herpes Zoster Rheumatology: Yes: Rheumatoid Arthritis (Mildly positive 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) Dermatology: Yes: Basal Cell (Post MOHS Right nondenominational) - Past Surgical History Past Surgical History: Yes: Valve Replacement (mitral valve: porcine) Additional Past Surgical History: Lumpectomy - Advance Directives Advance Directives: Yes: Health Care Proxy (Gema Wilhelm [phone]) - Smoking History Smoking history: Never smoked Have you smoked in the past 12 months: No Aproximately how many cigarettes per day: 0 If you are a former smoker, when did you quit?: 40 YEARS AGO - Alcohol/Substance Use Hx Alcohol Use: No History of Substance Use: reports: None - Social History Usual Living Arrangement: Yes: Alone ADL: Independent Occupation: Worked for [employer] department of a [employer] History of Recent Travel: No Home Medications - Allergies Allergies/Adverse Reactions: Allergies Allergy/AdvReac Type Severity Reaction Status Date / Time codeine Allergy Verified 01/08/19 13:50 - Home Medications Home Medications: Ambulatory Orders Ca/D3/Mag Ox/Zinc/Contract Modeler/Dio/Bor [Caltrate 600+D Plus Tab Chew] 1 each PO DAILY Pravastatin Sodium 20 mg PO MOFR 02/08/14 Furosemide [Lasix] 20 mg PO DAILY 10/12/17 Acetaminophen [Tylenol .Extra-Strength -] 500 mg PO Q6H PRN tablet 10/18/17 Amiodarone HCl [Cordarone -] 100 mg PO DAILY 02/05/18 Cyanocobalamin (Vitamin B-12) [Vitamin B-12] 3,000 mcg PO DAILY 02/05/18 Losartan Potassium [Cozaar -] 50 mg PO BID 02/05/18 Ubidecarenone [Co Q10] 200 mg PO DAILY 02/05/18 Warfarin Sodium [Coumadin] 2 mg PO DAILY 02/05/18 Phosphatidylserine-Epa/[place]-3 [Vayarin Plus 225 mg Capsule] 100 mg PO BID 04/26 Potassium Chloride 10 meq PO DAILY 10/25/18 Metoprolol Succinate [Toprol XL -] 50 mg PO DAILY 01/08/19 Family Disease History - Family Disease History Family Disease History: Other: Father (: 49: [place]), Mother (: 75: Leukemia ), Brother (: Interstitial lung disease), Sister (None), Son (None), Daughter (None) Review of Systems - Review of Systems Constitutional: reports: Weakness Eyes: reports: No Symptoms HENT: reports: No Symptoms Neck: reports: No Symptoms Cardiovascular: reports: No Symptoms Respiratory: reports: No Symptoms Gastrointestinal: reports: No Symptoms Genitourinary: reports: No Symptoms Breasts: reports: No Symptoms Reported Musculoskeletal: reports: No Symptoms Integumentary: reports: No Symptoms Neurological: reports: Headache, Unsteady Gait Endocrine: reports: No Symptoms Hematology/Lymphatic: reports: No Symptoms Psychiatric: reports: No Symptoms Physical Examination Vital Signs: Vital Signs Temperature 97.7 F 01/08/19 16:35 Pulse Rate 56 L 01/08/19 16:35 Respiratory Rate 20 01/08/19 16:35 Blood Pressure 161/56 L 01/08/19 16:35 O2 Sat by Pulse Oximetry (%) 98 01/08/19 16:35 Constitutional: Yes: Well Nourished, No Distress, Calm Eyes: Yes: Conjunctiva Clear, EOM Intact HENT: Yes: Atraumatic, Normocephalic Neck: Yes: Supple, Other (no JVD) Cardiovascular: Yes: Regular Rate and Rhythm Respiratory: Yes: Regular, CTA Bilaterally Gastrointestinal: Yes: Soft, Hyperactive Bowel Sounds ...Rectal Exam: Yes: Deferred Musculoskeletal: Yes: WNL Extremities: Yes: WNL Edema: No Peripheral Pulses WNL: Yes Peripheral Pulses: Left Radial: 2+, Right Radial: 2+, Left Doralis Pedis: 2+, Right Dorsalis Pedis: 2+ Integumentary: Yes: WNL Neurological: Yes: Alert, Oriented ...Motor Strength: WNL Psychiatric: Yes: Alert, Oriented Labs: CBC, BMP 01/08/19 14:53 01/08/19 14:53 Imaging - Results Chest X-ray: Report Reviewed (CXR 01/08/2019 Impression: Interval increase interstitial lung markings suggestive of mild pulmonary venous congestion. Cannot rule out superimposed infiltrates. Read by Merlene Rossi MD) Cat Scan: Report Reviewed (Head CT 01/08/2019 Impression: No CT evidence of acute intracranial pathology Read by Raman Olmos MD) Problem List - Problems (1) Prophylactic measure Assessment/Plan: OOB to chair Bowel regimen with senna/colace c/w coumadin 2mg daily - send INR prior to dosing Code(s): Z29.9 - ENCOUNTER FOR PROPHYLACTIC MEASURES, UNSPECIFIED (2) Near syncope Assessment/Plan: will monitor patient overnight pt reports ongoing evaluation for "balance issues" and is followed by neuro ( Dr. Florinda Natarajan - [phone]) pt will also need to f/u with splitter operator (Dr. Ribeiro) for BP medication optimization Code(s): R55 - SYNCOPE AND COLLAPSE (3) CHF (congestive heart failure) Assessment/Plan: c/w lasix 20mg daily, along with KCL 10meq daily trend electrolytes and serum Cr Code(s): I50.9 - HEART FAILURE, UNSPECIFIED Qualifiers: Heart failure type: systolic Heart failure chronicity: unspecified Qualified Code(s): I50.20 - Unspecified systolic (congestive) heart failure (4) Hyperlipidemia Assessment/Plan: lipitor 10mg qhs cardiac diet Code(s): E78.5 - HYPERLIPIDEMIA, UNSPECIFIED Qualifiers: Hyperlipidemia type: unspecified Qualified Code(s): E78.5 - Hyperlipidemia , unspecified (5) Hypertension Assessment/Plan: Losartan 50mg BID cardiac diet Code(s): I10 - ESSENTIAL (PRIMARY) HYPERTENSION Qualifiers: Hypertension type: unspecified Qualified Code(s): I10 - Essential (primary ) hypertension (6) PAF (paroxysmal atrial fibrillation) Assessment/Plan: amio 100mg daily toprol XL 50mg daily monitor on tele coumadin 2mg daily Code(s): I48.0 - PAROXYSMAL ATRIAL FIBRILLATION Assessment/Plan Code status: Full Visit type - Emergency Visit Emergency Visit: Yes ED Registration Date: 01/08/19 Care time: The patient presented to the Emergency Department on the above date and was hospitalized for further evaluation of their emergent condition. - New Patient This patient is new to me today: Yes Date on this admission: 01/08/19 - Critical Care Critical Care patient: No
[2019-01-08 21:17] LABS: ACTIVATED PTT 43.2 SECONDS (25.2-36.5)
[2019-01-08 21:21] LABS: INR 2.9 (0.82-1.09); PROTHROMBIN TIME (PATIENT) 31.8 SEC (10.2-13.0)
[2019-01-08] MEDS: WARFARIN NA 1 MG TABLET (FP) PO SCH (21:54)
[2019-01-08] MEDS: DOCUSATE SODIUM 100 MG CAPSULE (FP) PO SCH (21:54)
[2019-01-08] MEDS: LOSARTAN POTASSIUM 50 MG TABLET (FP) PO SCH (21:54)
[2019-01-08] MEDS: SENNOSIDES 8.6MG TABLET (FP) PO SCH (21:54)
[2019-01-08] MEDS ORDERED: [UNRECOGNIZED DRUG - MIXTURE] PO SCH (22:00)
[2019-01-09 07:42] LABS: HEMOGLOBIN 11.5 GM/dl (10.7-15.3); MCH 33.1 pg (25.7-33.7); MCHC 33.8 g/dl (32.0-36.0); MEAN CELL VOLUME 97.9 fl (80-96); MEAN PLT VOLUME 8.7 fl (7.5-11.1); PLATELET COUNT 128 K/MM3 (134-434); RBC 3.47 M/mm3 (3.60-5.2); RDW 13.2 % (11.6-15.6)
[2019-01-09 08:04] LABS: INR 2.74 (0.82-1.09); PROTHROMBIN TIME (PATIENT) 30.1 SEC (10.2-13.0)
[2019-01-09 08:24] LABS: ALBUMIN 3.2 g/dl (3.4-5.0); BILIRUBIN,TOTAL 0.9 mg/dl (0.2-1); CREATININE 0.8 mg/dl (0.55-1.3); MAGNESIUM 1.9 mg/dL (1.8-2.4); POTASSIUM 4.6 mmol/L (3.5-5.1); TOT PROT 6.3 g/dl (6.4-8.2)
[2019-01-09 09:44] LABS: N-TERMINAL BNP 23839.3 pg/ml (5-450)
[2019-01-09] MEDS ORDERED: [UNRECOGNIZED DRUG - OTHER] PO SCH (10:00)
[2019-01-09] MEDS ORDERED: FUROSEMIDE 20 MG TABLET (FP) PO SCH (10:00)
--- NOTE | 2019-01-09 10:19 | PN ---
Physical Exam: SUBJECTIVE: Patient seen and examined at bedside. Complaining of abdominal discomfort and nausea similar to previous episodes of gastritis. No further episodes of lightheadedness. OBJECTIVE: Vital Signs Period Temp Pulse Resp BP Sys/Miranda Pulse Ox Last 24 Hr 97.5 F-98.0 F 53-59 18-20 132-169/43-67 93-98 GENERAL: The patient is awake, alert, and fully oriented, in no acute distress. LUNGS: Breath sounds equal, clear to auscultation bilaterally, no wheezes, no crackles, no accessory muscle use. HEART: Regular rate and rhythm, S1, S2 ABDOMEN: Soft, nontender, nondistended, normoactive bowel sounds, no guarding, no rebound EXTREMITIES: 2+ pulses, warm, well-perfused, no edema. NEUROLOGICAL: Cranial nerves II through XII grossly intact. Normal speech Laboratory Results - last 24 hr 01/08/19 01/08/19 01/08/19 14:53 14:53 14:53 WBC 6.3 RBC 3.80 Hgb 12.2 Hct 37.0 MCV 97.3 H MCH 32.2 MCHC 33.1 RDW 13.2 Plt Count 146 MPV 8.7 Absolute Neuts (auto) 5.0 Neutrophils % 80.0 Lymphocytes % 13.7 Monocytes % 5.6 Eosinophils % 0.2 Basophils % 0.5 PT with INR INR PTT (Actin FS) Sodium 122 L Potassium 4.6 Chloride 92 L Carbon Dioxide 22 Anion Gap 8 BUN 30.0 H Creatinine 1.0 Est GFR (CKD-EPI)AfAm 62.49 Est GFR (CKD-EPI)NonAf 53.92 Random Glucose 104 Hemoglobin A1c % Calcium 8.4 L Magnesium Total Bilirubin 1.1 H AST 60 H ALT 59 Alkaline Phosphatase 66 Troponin I < 0.03 B-Natriuretic Peptide Total Protein 7.6 Albumin 4.0 Triglycerides Cholesterol Total LDL Cholesterol HDL Cholesterol TSH 01/08/19 01/09/19 01/09/19 20:45 00:00 07:38 WBC 7.0 RBC 3.47 L Hgb 11.5 Hct 34.0 MCV 97.9 H MCH 33.1 MCHC 33.8 RDW 13.2 Plt Count 128 L MPV 8.7 Absolute Neuts (auto) Neutrophils % Lymphocytes % Monocytes % Eosinophils % Basophils % PT with INR 31.8 H INR 2.90 H PTT (Actin FS) 43.2 H Sodium Potassium Chloride Carbon Dioxide Anion Gap BUN Creatinine Est GFR (CKD-EPI)AfAm Est GFR (CKD-EPI)NonAf Random Glucose Hemoglobin A1c % Calcium Magnesium Total Bilirubin AST ALT Alkaline Phosphatase Troponin I 0.24 H B-Natriuretic Peptide Total Protein Albumin Triglycerides Cholesterol Total LDL Cholesterol HDL Cholesterol TSH 01/09/19 01/09/19 01/09/19 07:38 07:38 07:38 WBC RBC Hgb Hct MCV MCH MCHC RDW Plt Count MPV Absolute Neuts (auto) Neutrophils % Lymphocytes % Monocytes % Eosinophils % Basophils % PT with INR 30.1 H INR 2.74 H PTT (Actin FS) Sodium 122 L Potassium 4.6 Chloride 93 L Carbon Dioxide 22 Anion Gap 7 L BUN 21.0 H Creatinine 0.8 Est GFR (CKD-EPI)AfAm 81.84 Est GFR (CKD-EPI)NonAf 70.61 Random Glucose 84 Hemoglobin A1c % 5.2 Calcium 8.0 L Magnesium 1.9 Total Bilirubin 0.9 AST 52 H ALT 57 Alkaline Phosphatase 59 Troponin I B-Natriuretic Peptide 14705.3 H Total Protein 6.3 L Albumin 3.2 L Triglycerides 61 Cholesterol 162 Total LDL Cholesterol 91 HDL Cholesterol 59 TSH 3.50 01/09/19 07:59 WBC RBC Hgb Hct MCV MCH MCHC RDW Plt Count MPV Absolute Neuts (auto) Neutrophils % Lymphocytes % Monocytes % Eosinophils % Basophils % PT with INR INR PTT (Actin FS) Sodium Potassium Chloride Carbon Dioxide Anion Gap BUN Creatinine Est GFR (CKD-EPI)AfAm Est GFR (CKD-EPI)NonAf Random Glucose Hemoglobin A1c % Calcium Magnesium Total Bilirubin AST ALT Alkaline Phosphatase Troponin I 0.19 H B-Natriuretic Peptide Total Protein Albumin Triglycerides Cholesterol Total LDL Cholesterol HDL Cholesterol TSH Active Medications Generic Name Dose Route Start Last Admin Trade Name Freq PRN Reason Stop Dose Admin Acetaminophen 500 mg 01/08/19 16:48 Tylenol - PO Q6H PRN PAIN LEVEL 1 - 3 Amiodarone HCl 100 mg 01/09/19 10:00 Cordarone - PO DAILY [facility] Atorvastatin Calcium 10 mg 01/11/19 22:00 Lipitor - PO MoFr@2200 [facility] Cyanocobalamin 3,000 mcg 01/09/19 10:00 Vitamin B12 - PO DAILY [facility] Docusate Sodium 100 mg 01/08/19 22:00 01/08/19 21:54 Colace - PO 100 mg BID DEIDRE Administration Furosemide 40 mg 01/09/19 10:17 Lasix Injection - IVPUSH 01/09/19 10:18 ONCE ONE Losartan Potassium 50 mg 01/08/19 22:00 01/08/19 21:54 Cozaar - PO 50 mg BID DEIDRE Administration Metoprolol Succinate 50 mg 01/09/19 10:00 Toprol Xl - PO DAILY DEIDRE Non-Formulary Medication 1 each 01/09/19 10:00 Ca/D3/Mag Ox/Zinc/Residential Remodeling Subcontractor/Dio/Bor [Caltrate 600+D Plus Tab Chew] PO DAILY DEIDRE Non-Formulary Medication 100 mg 01/08/19 22:00 Phosphatidylserine-Epa/[place]-3 [Vayarin Plus 225 Mg Capsule] PO BID [facility] Potassium Chloride 10 meq 01/09/19 10:00 K-Dur - PO DAILY DEIDRE Ranitidine HCl 150 mg 01/09/19 10:00 Zantac - PO DAILY DEIDRE Senna 2 tab 01/08/19 22:00 01/08/19 21:54 Senna - PO 2 tab HS DEIDRE Administration Warfarin Sodium 2 mg 01/08/19 22:00 01/08/19 21:54 Coumadin - PO 2 mg DAILY@1800 DEIDRE Administration ASSESSMENT/PLAN 78 year-old female with a PMH significant for HTN, HLD, paroxysmal afib on coumadin, mitral valve replacement x 2, TV ring annuloplasty, COPD, gastritis, rheumatoid arthritis, and breast cancer s/p lumpectomy s/p chemo s/p XRT. Admitted for hypertensive urgency. Hypertensive urgency --home BPs 190s with lightheadedness --BP now stable, no further episodes of lightheadedness; had MRI brain which was unremarkable for acute pathology --continue losartan, Toprol XL Elevated troponins ECG changes --0.03-->0.24-->0.19; pending 2:00pm --ECG: sinus xavi @53bpm with TW changes I, V2, V4, V5, V6, not seen on ECG dated 10/11/18 --ASA 162mg x 1 --repeat ECG --echo done pending dictation --cardiology consult with Dr. Ribeiro requested Heart failure, NOS s/p mitral valve replacements, TV ring annuloplasty --BNP >23,000 --01/08 CXR: pumonary congestion --start Lasix IV 40mg BID --previous echo 09/2016: LV normal; RV normal; LAE; bioprosthetic mitral valve; trace MR; trace to mild TR; mild AI; mild PI --repeat echo pending --daily weights --strict I&Os Paroxysmal atrial fibrillation --presently sinus xavi --continue amiodarone, Toprol XL --continue coumadin current dosing Gastritis --since arriving in hospital has burning sensation in stomach and slight nausea --continue Zantac --prolonged QTc, Zofran contraindicated; Tigan PRN Hypervolemic hyponatremia likely secondary to HF exacerbation --Na 122 --Lasix IV BID COPD --stable Hyperlipidemia --continue statin FEN Fluids: PO intake adequate Electrolytes: replete as indicated Nutrition: low sodium DVT prophylaxis: on coumadin, INR therapeutic Physical therapy Dispo: continues to require inpatient care. Full code. Visit type - Emergency Visit Emergency Visit: Yes ED Registration Date: 01/08/19 Care time: The patient presented to the Emergency Department on the above date and was hospitalized for further evaluation of their emergent condition. - New Patient This patient is new to me today: Yes Date on this admission: 01/09/19 - Critical Care Critical Care patient: No
[2019-01-09] MEDS ORDERED: FUROSEMIDE 40 MG/4 ML INJECTABLE VIAL IVPUSH ONE ×2 (10:30→15:00)
[2019-01-09] MEDS: DOCUSATE SODIUM 100 MG CAPSULE (FP) PO SCH ×3 (10:33→21:47)
[2019-01-09] MEDS: AMIODARONE HCL 200 MG TABLET (FP) PO SCH (10:34)
[2019-01-09] MEDS: LOSARTAN POTASSIUM 50 MG TABLET (FP) PO SCH ×2 (10:35→21:39)
[2019-01-09] MEDS: POTASSIUM CHLORIDE TABS 10 MEQ TABLET.ER (FP) PO SCH (10:35)
[2019-01-09] MEDS: RANITIDINE HCL 150 MG TABLET (FP) PO SCH (10:36)
[2019-01-09] MEDS: CYANOCOBALAMIN 1,000 MCG TABLET (FP) PO SCH (10:36)
--- NOTE | 2019-01-09 10:41 | EKG ---
Test Reason : Blood Pressure : / mmHG Vent. Rate : 053 BPM Atrial Rate : 053 BPM P-R Int : 236 ms QRS Dur : 116 ms QT Int : 510 ms P-R-T Axes : 066 001 100 degrees QTc Int : 478 ms SINUS BRADYCARDIA WITH SINUS ARRHYTHMIA WITH 1ST DEGREE A-V BLOCK INCOMPLETE LEFT BUNDLE BRANCH BLOCK PROLONGED QT ABNORMAL ECG WHEN COMPARED WITH ECG OF 11-OCT-2017 23:26, SC INTERVAL HAS INCREASED INCOMPLETE LEFT BUNDLE BRANCH BLOCK IS NOW PRESENT T WAVE INVERSION NOW EVIDENT IN LATERAL LEADS Confirmed by MARIYL KOVACS, GIULIANO ([id number]) on 01/09/2019 10:41:25 AM Referred By: DR NEELY Confirmed By:GIULIANO CALIXTO MD
--- NOTE | 2019-01-09 10:41 | EKG ---
Test Reason : Blood Pressure : / mmHG Vent. Rate : 052 BPM Atrial Rate : 052 BPM P-R Int : 216 ms QRS Dur : 114 ms QT Int : 492 ms P-R-T Axes : 086 017 138 degrees QTc Int : 457 ms SINUS BRADYCARDIA WITH 1ST DEGREE A-V BLOCK INCOMPLETE LEFT BUNDLE BRANCH BLOCK ABNORMAL ECG WHEN COMPARED WITH ECG OF 08-JAN-2019 15:31, T WAVE INVERSION MORE EVIDENT IN ANTERIOR LEADS Confirmed by MARILY KOVACS, GIULIANO ([id number]) on 01/09/2019 10:41:34 AM Referred By: DR NEELY Confirmed By:GIULIANO CALIXTO MD
[2019-01-09] MEDS ORDERED: TRIMETHOBENZAMIDE HCL 300 MG CAPSULE PO PRN (13:17)
[2019-01-09] MEDS ORDERED: PANTOPRAZOLE 40 MG TABLET (FP) PO SCH (13:30)
[2019-01-09] MEDS ORDERED: ASPIRIN 81 MG CHEWABLE TABLETS PO ONE (14:13)
--- NOTE | 2019-01-09 14:31 | ECHO ---
Name: KATE DURÁN Exam:Adult Echocardiogram Study Date: 01/09/2019 01:05 PM Age: 78 yrs Reason For Study: HTN,CHF Height: 63 in Weight: 130 lb BSA: 1.6 m2 MMode/2D Measurements & Calculations IVSd: 1.0 cm Ao root diam: 2.8 cm LVIDd: 4.6 cm LA dimension: 3.9 cm LVIDs: 3.1 cm LVPWd: 1.3 cm EDV(Teich): 99.3 ml LVOT diam: 2.0 cm ESV(Teich): 38.3 ml Doppler Measurements & Calculations MV E max fela: 138.8 cm/sec MV A max fela: 73.9 cm/sec MV dec slope: 1043 cm/sec2 MV E/A: 1.9 Ao V2 max: 97.1 cm/sec LV V1 max P.5 mmHg Ao max P.8 mmHg LV V1 max: 60.6 cm/sec PIA(V,D): 2.0 cm2 MR max fela: 152.0 cm/sec TR max fela: 268.2 cm/sec MR max P.2 mmHg TR max P.9 mmHg PA V2 max: 79.8 cm/sec PI end-d fela: 188.4 cm/sec PA max P.5 mmHg Procedure A two-dimensional transthoracic echocardiogram with color flow and Doppler was performed. Left Ventricle The left ventricle is grossly normal size. Left ventricular systolic function is moderate to severely reduced. There is moderate to severe global hypokinesis of the left ventricle. Septal motion is consistent wit h post- operative state. Mitral Valve There is a bioprosthetic mitral valve. The prosthetic mitral valve is well-seated. There is mild mitr al stenosis. There is trace mitral regurgitation. Tricuspid Valve An annuloplasty ring is noted in the tricuspid position. There is moderate tricuspid valve thickening . There is no tricuspid stenosis. There is mild tricuspid regurgitation. Right ventricular systolic pressure is elevated at 40-50mmHg. Aortic Valve The aortic valve is normal in structure and function. There is mild to moderate aortic valve thickeni ng. There is mild aortic sclerosis.;. No hemodynamically significant valvular aortic stenosis. Moderate to angely re aortic regurgitation. Pulmonic Valve The pulmonic valve is not well visualized. There is no pulmonic valvular stenosis. Mild pulmonic valv ular regurgitation. Interpretation Summary There is a bioprosthetic mitral valve. The prosthetic mitral valve is well-seated. An annuloplasty ring is noted in the tricuspid position. There is mild aortic sclerosis.; There is mild to moderate aortic valve thickening. The aortic valve is normal in structure and function. There is mild tricuspid regurgitation. Right ventricular systolic pressure is elevated at 40-50mmHg. The left ventricle is grossly normal size. Septal motion is consistent with post-operative state. There is moderate tricuspid valve thickening. There is mild mitral stenosis. Moderate to severe aortic regurgitation. There is trace mitral regurgitation. There is moderate to severe global hypokinesis of the left ventricle. Left ventricular systolic function is moderate to severely reduced. MD Emmanuel Jeffrey 01/09/2019 02:29 PM
[2019-01-09] MEDS: WARFARIN NA 1 MG TABLET (FP) PO SCH (17:32)
[2019-01-09] MEDS ORDERED: WARFARIN NA 1 MG TABLET (FP) PO SCH (18:00)
--- NOTE | 2019-01-09 18:22 | HOSP ---
Subjective - Review of Symptoms Events since last encounter: Patient transfered from [facility] for higher level of care Physical Examination Vital Signs: Vital Signs Temperature 97.8 F 01/09/19 18:00 Pulse Rate 59 L 01/09/19 18:00 Respiratory Rate 18 01/09/19 18:00 Blood Pressure 133/68 01/09/19 18:00 O2 Sat by Pulse Oximetry (%) 94 L 01/09/19 09:00 Constitutional: Yes: Well Nourished, No Distress, Calm Eyes: Yes: WNL, Conjunctiva Clear, EOM Intact HENT: Yes: Atraumatic, Normocephalic Neck: Yes: WNL, Supple, Trachea Midline Cardiovascular: Yes: WNL, Regular Rate and Rhythm Respiratory: Yes: WNL, Regular, Diminished (at bases) Gastrointestinal: Yes: WNL, Normal Bowel Sounds, Soft Renal/: Yes: Incontinence Musculoskeletal: Yes: WNL Extremities: Yes: WNL Edema: No Peripheral Pulses WNL: Yes Neurological: Yes: WNL, Alert, Oriented ...Motor Strength: WNL Psychiatric: Yes: WNL, Alert, Oriented Labs: CBC, BMP 01/09/19 07:38 01/09/19 07:38 Hospitalist Encounter Assessment: Received patient via EMS. No distress on arrival. Will continue to trend troponins. Placed on fluid restriction for hyponatermia. Urine electrolytes sent.
[2019-01-09] MEDS: SENNOSIDES 8.6MG TABLET (FP) PO SCH ×2 (21:39→21:46)
[2019-01-10] MEDS: FUROSEMIDE 40 MG/4 ML INJECTABLE VIAL IVPUSH SCH ×2 (06:13→13:29)
--- NOTE | 2019-01-10 08:31 | PN ---
Progress Note, Physician History of Present Illness: 78 year old F with h/o L- Breast Ca s/p lumpectomy, chemotherapy, radiation therapy, Afib (on coumadin), CAD, MVR x2, Intracranial hemorrhage secondary to fall while on Coumadin, Fatty Liver disease, Herpes Zoster, and Basal Cell Ca presents to the ED with c/o headache and near syncope in the setting of elevated blood pressure. Pt reports while working in the kitchen this morning (), when she began to experience light headedness and "pressure" at the top of her head. She took her BP and noted systolic blood pressure in the 180s. Pt decided to call her [employer] patient assistance line for advice. She was informed to rest for a period of time and repeat BP, which was noted to be 190s a few minutes later. She recalled help line and was encouraged to seek assistance at her local ED. - Current Medication List Current Medications: Active Medications Acetaminophen (Tylenol -) 500 mg PO Q6H PRN PRN Reason: PAIN LEVEL 1 - 3 Amiodarone HCl (Cordarone -) 100 mg PO DAILY [facility] Last Admin: 01/09/19 10:34 Dose: 100 mg Atorvastatin Calcium (Lipitor -) 10 mg PO MoFr@2200 [facility] Cyanocobalamin (Vitamin B12 -) 3,000 mcg PO DAILY [facility] Last Admin: 01/09/19 10:36 Dose: 3,000 mcg Docusate Sodium (Colace -) 100 mg PO BID [facility] Last Admin: 01/09/19 21:47 Dose: Not Given Furosemide (Lasix Injection -) 40 mg IVPUSH BID@0600,1400 [facility] Last Admin: 01/10/19 06:13 Dose: 40 mg Losartan Potassium (Cozaar -) 50 mg PO BID [facility] Last Admin: 01/09/19 21:39 Dose: 50 mg Metoprolol Succinate (Toprol Xl -) 50 mg PO DAILY [facility] Last Admin: 01/09/19 10:35 Dose: 50 mg Non-Formulary Medication (Ca/D3/Mag Ox/Zinc/Nutrition Therapist/Dio/Bor [Caltrate 600+D Plus Tab Chew]) 1 each PO DAILY [facility] Non-Formulary Medication (Phosphatidylserine-Epa/[place]-3 [Vayarin Plus 225 Mg Capsule]) 100 mg PO BID [facility] Potassium Chloride (K-Dur -) 10 meq PO DAILY [facility] Last Admin: 01/09/19 10:35 Dose: 10 meq Ranitidine HCl (Zantac -) 150 mg PO DAILY [facility] Last Admin: 01/09/19 10:36 Dose: 150 mg Senna (Senna -) 2 tab PO HS [facility] Last Admin: 01/09/19 21:46 Dose: Not Given Trimethobenzamide HCl (Tigan -) 300 mg PO TID PRN PRN Reason: NAUSEA AND/OR VOMITING Warfarin Sodium (Coumadin -) 2 mg PO DAILY@1800 [facility] Last Admin: 01/09/19 17:32 Dose: 2 mg - Objective Vital Signs: Vital Signs Temperature 97.6 F 01/10/19 06:00 Pulse Rate 62 01/10/19 06:00 Respiratory Rate 18 01/10/19 06:00 Blood Pressure 145/58 L 01/10/19 06:00 O2 Sat by Pulse Oximetry (%) 98 01/09/19 21:00 Constitutional: Yes: Well Nourished, No Distress, Calm Eyes: Yes: WNL, Conjunctiva Clear, EOM Intact HENT: Yes: WNL, Atraumatic, Normocephalic Neck: Yes: WNL, Supple, Trachea Midline Cardiovascular: Yes: WNL, Regular Rate and Rhythm Respiratory: Yes: WNL, Regular, CTA Bilaterally, Diminished (at bases) Gastrointestinal: Yes: WNL, Normal Bowel Sounds, Soft ...Rectal Exam: Yes: Deferred Genitourinary: Yes: WNL Extremities: Yes: WNL Edema: No Peripheral Pulses WNL: Yes Integumentary: Yes: WNL Neurological: Yes: WNL, Alert, Oriented ...Motor Strength: WNL Psychiatric: Yes: WNL, Alert, Oriented Labs: INR, PTT INR 2.74 (0.82-1.09) H 01/09/19 07:38 - ....Imaging Chest X-ray: Report Reviewed (terval increase interstitial lung markings suggestive of mild pulmonary venous congestion. Cannot rule out superimposed infiltrates.) Cat Scan: Report Reviewed (HCT no evidence of acute intracranial patholog) Problem List - Problems (1) Prophylactic measure Assessment/Plan: FEN cardiac diet monitor electrolytes no need for additional IVF DVT coumadin, follow INR Dipso Maintain as inpatient full code discharge planning Code(s): Z29.9 - ENCOUNTER FOR PROPHYLACTIC MEASURES, UNSPECIFIED (2) Near syncope Assessment/Plan: pt reports ongoing evaluation for "balance issues" and is followed by neuro ( Dr. Florinda Natarajan - [phone]) pt will also need to f/u with casting associate (Dr. Ribeiro) for BP medication optimization hyponatremia may have also been contributing to syncope Code(s): R55 - SYNCOPE AND COLLAPSE (3) CHF (congestive heart failure) Assessment/Plan: continue lasix 20mg daily along with KCL 10meq daily trend electrolytes and serum Cr Code(s): I50.9 - HEART FAILURE, UNSPECIFIED Qualifiers: Heart failure type: systolic Heart failure chronicity: unspecified Qualified Code(s): I50.20 - Unspecified systolic (congestive) heart failure (4) Hyperlipidemia Assessment/Plan: continue with lipitor q hs Code(s): E78.5 - HYPERLIPIDEMIA, UNSPECIFIED Qualifiers: Hyperlipidemia type: unspecified Qualified Code(s): E78.5 - Hyperlipidemia , unspecified (5) Hypertension Assessment/Plan: better BP control continue with losartan 50mg maintain on tele Code(s): I10 - ESSENTIAL (PRIMARY) HYPERTENSION Qualifiers: Hypertension type: unspecified Qualified Code(s): I10 - Essential (primary ) hypertension (6) H/O mitral valve replacement Code(s): Z95.2 - PRESENCE OF PROSTHETIC HEART VALVE (7) H/O tricuspid valve annuloplasty Code(s): Z98.890 - OTHER SPECIFIED POSTPROCEDURAL STATES (8) PAF (paroxysmal atrial fibrillation) Assessment/Plan: continue Toprol XL maintain on tele Code(s): I48.0 - PAROXYSMAL ATRIAL FIBRILLATION Visit type - Emergency Visit Emergency Visit: Yes ED Registration Date: 01/08/19 Care time: The patient presented to the Emergency Department on the above date and was hospitalized for further evaluation of their emergent condition. - New Patient This patient is new to me today: No - Critical Care Critical Care patient: No - Discharge Referral Referred to [facility] Med P.C.: No
[2019-01-10 08:36] LABS: BASO % 0.3 % (0-2.0); EOS % 0.4 % (0-4.5); HEMATOCRIT 35.1 % (32.4-45.2); HEMOGLOBIN 12.1 GM/dL (10.7-15.3); LYMPH % 10.7 % (8-40); MCH 32.9 pg (25.7-33.7); MCHC 34.6 g/dl (32.0-36.0); MEAN CELL VOLUME 95.2 fl (80-96); MEAN PLT VOLUME 8.6 fl (7.5-11.1); MONO % 7.8 % (3.8-10.2); NEUT % 80.8 % (42.8-82.8); RBC 3.69 M/mm3 (3.60-5.2); RDW 13.5 % (11.6-15.6); WHITE BLOOD COUNT 7.9 K/mm3 (4.0-10.0)
[2019-01-10 09:10] LABS: PLATELET COUNT 142 K/MM3 (134-434)
[2019-01-10 09:21] LABS: ALBUMIN 3.4 g/dl (3.4-5.0); BLOOD UREA NITROGEN 25.8 mg/dL (7-18); CREATININE 1.1 mg/dL (0.55-1.3); MAGNESIUM 1.3 mg/dL (1.8-2.4); POTASSIUM 3.6 mmol/L (3.5-5.1); TOT PROT 7.2 g/dl (6.4-8.2)
[2019-01-10] MEDS: POTASSIUM CHLORIDE TABS 10 MEQ TABLET.ER (FP) PO SCH (09:52)
[2019-01-10] MEDS: CYANOCOBALAMIN 1,000 MCG TABLET (FP) PO SCH (09:52)
[2019-01-10] MEDS: RANITIDINE HCL 150 MG TABLET (FP) PO SCH (09:52)
[2019-01-10] MEDS: LOSARTAN POTASSIUM 50 MG TABLET (FP) PO SCH ×2 (09:53→23:03)
[2019-01-10] MEDS: AMIODARONE HCL 200 MG TABLET (FP) PO SCH (09:53)
[2019-01-10] MEDS: DOCUSATE SODIUM 100 MG CAPSULE (FP) PO SCH ×2 (09:56→23:03)
--- NOTE | 2019-01-10 10:12 | EKG ---
Test Reason : Blood Pressure : / mmHG Vent. Rate : 057 BPM Atrial Rate : 057 BPM P-R Int : 238 ms QRS Dur : 118 ms QT Int : 552 ms P-R-T Axes : 018 -12 182 degrees QTc Int : 537 ms SINUS BRADYCARDIA WITH SINUS ARRHYTHMIA WITH 1ST DEGREE A-V BLOCK LEFT VENTRICULAR HYPERTROPHY WITH QRS WIDENING AND REPOLARIZATION ABNORMALITY PROLONGED QT ABNORMAL ECG WHEN COMPARED WITH ECG OF 08-JAN-2019 18:17, INVERTED T WAVES HAVE REPLACED NONSPECIFIC T WAVE ABNORMALITY IN INFERIOR LEADS T WAVE INVERSION MORE EVIDENT IN ANTERIOR LEADS QT HAS LENGTHENED Confirmed by JARRETT PACHECO MD ([id number]) on 01/10/2019 10:12:33 AM Referred By: Confirmed By:JARRETT PACHECO MD
[2019-01-10 10:58] LABS: INR 2.78 (0.83-1.09); PROTHROMBIN TIME (PATIENT) 33.2 SEC (9.7-13.0)
[2019-01-10] MEDS ORDERED: MAGNESIUM SULF 50% (8.12 MEQ/2 ML-1 GM VIAL) IVPB ONE (14:52)
--- NOTE | 2019-01-10 14:52 | PN ---
Progress Note (short form) - Note Progress Note: 78 year old female admitted with headaches, lightheadedness, and hypertension. H /o MVR X2, paroxysmal atrial fib, CHF, h/o unstead gait tremors and multiple falls, No SOB, no chest or discomfort.No palpitations or lightheadedness. BP is well controlled. Active Medications Acetaminophen (Tylenol -) 500 mg PO Q6H PRN PRN Reason: PAIN LEVEL 1 - 3 Amiodarone HCl (Cordarone -) 100 mg PO DAILY [facility] Last Admin: 01/10/19 09:53 Dose: 100 mg Atorvastatin Calcium (Lipitor -) 10 mg PO MoFr@2200 [facility] Cyanocobalamin (Vitamin B12 -) 3,000 mcg PO DAILY [facility] Last Admin: 01/10/19 09:52 Dose: 3,000 mcg Docusate Sodium (Colace -) 100 mg PO BID [facility] Last Admin: 01/10/19 09:56 Dose: Not Given Furosemide (Lasix Injection -) 40 mg IVPUSH BID@0600,1400 [facility] Last Admin: 01/10/19 13:29 Dose: 40 mg Losartan Potassium (Cozaar -) 50 mg PO BID [facility] Last Admin: 01/10/19 09:53 Dose: 50 mg Metoprolol Succinate (Toprol Xl -) 50 mg PO DAILY [facility] Last Admin: 01/10/19 09:53 Dose: 50 mg Non-Formulary Medication (Ca/D3/Mag Ox/Zinc/Combine Operator/Dio/Bor [Caltrate 600+D Plus Tab Chew]) 1 each PO DAILY [facility] Non-Formulary Medication (Phosphatidylserine-Epa/[place]-3 [Vayarin Plus 225 Mg Capsule]) 100 mg PO BID [facility] Potassium Chloride (K-Dur -) 10 meq PO DAILY [facility] Last Admin: 01/10/19 09:52 Dose: 10 meq Ranitidine HCl (Zantac -) 150 mg PO DAILY [facility] Last Admin: 01/10/19 09:52 Dose: 150 mg Senna (Senna -) 2 tab PO HS [facility] Last Admin: 01/09/19 21:46 Dose: Not Given Trimethobenzamide HCl (Tigan -) 300 mg PO TID PRN PRN Reason: NAUSEA AND/OR VOMITING Warfarin Sodium (Coumadin -) 2 mg PO DAILY@1800 [facility] Last Admin: 01/09/19 17:32 Dose: 2 mg Last Vital Signs Temp Pulse Resp BP Pulse Ox 98 F 50 L 18 120/50 L 98 01/10/19 13:00 01/10/19 13:00 01/10/19 13:00 01/10/19 13:00 01/10/19 09:00 NECK: Supple, no JVD, carotids are equal, no bruits. HEART: PMI is in the 5th ics, no heaves or thrills grade II/ systolic murmur at the apex and LSB, no gallops. LUNGS: Clear on auscultation. ABDOMEN: Soft, nontender, no organomegaly. EXTREMITIES: No calf tenderness or dependent edema. intentional tremors of both hands. Troponin, BNP 01/09/19 01/09/19 01/10/19 14:00 19:20 08:10 Troponin I 0.16 H 0.21 H 0.13 H CBC and BMP 01/10/19 08:10 01/10/19 08:10 IMPRESSION: 1. Accelerated hypertension, presently normotensive. 2. CHF, resolving. 3. Elevated Trops.related to CHF vs acute event. 4. S/p bioprosthetic mitral valve replacement(X2). 5. LV systolic dysfunction RECOMMENDATIONS: 1. Increase ambulation. 2. Lexiscan myocardial prfudsion study. 3. Neuro evaluation.
[2019-01-10] MEDS: WARFARIN NA 1 MG TABLET (FP) PO SCH (17:30)
[2019-01-10] MEDS: SENNOSIDES 8.6MG TABLET (FP) PO SCH (23:03)
[2019-01-11] MEDS: FUROSEMIDE 40 MG/4 ML INJECTABLE VIAL IVPUSH SCH ×2 (05:40→14:46)
--- NOTE | 2019-01-11 07:59 | PN ---
Progress Note, Physician Chief Complaint: feeling much better today History of Present Illness: 78 year old F with h/o L- Breast Ca s/p lumpectomy, chemotherapy, radiation therapy, Afib (on coumadin), CAD, MVR x2, Intracranial hemorrhage secondary to fall while on Coumadin, Fatty Liver disease, Herpes Zoster, and Basal Cell Ca presents to the ED with c/o headache and near syncope in the setting of elevated blood pressure. Pt reports while working in the kitchen this morning (), when she began to experience light headedness and "pressure" at the top of her head. She took her BP and noted systolic blood pressure in the 180s. Pt decided to call her [employer] patient assistance line for advice. She was informed to rest for a period of time and repeat BP, which was noted to be 190s a few minutes later. She recalled help line and was encouraged to seek assistance at her local ED. - Current Medication List Current Medications: Active Medications Acetaminophen (Tylenol -) 500 mg PO Q6H PRN PRN Reason: PAIN LEVEL 1 - 3 Amiodarone HCl (Cordarone -) 100 mg PO DAILY [facility] Last Admin: 01/10/19 09:53 Dose: 100 mg Atorvastatin Calcium (Lipitor -) 10 mg PO MoFr@2200 [facility] Cyanocobalamin (Vitamin B12 -) 3,000 mcg PO DAILY [facility] Last Admin: 01/10/19 09:52 Dose: 3,000 mcg Docusate Sodium (Colace -) 100 mg PO BID [facility] Last Admin: 01/10/19 23:03 Dose: 100 mg Furosemide (Lasix Injection -) 40 mg IVPUSH BID@0600,1400 [facility] Last Admin: 01/11/19 05:40 Dose: 40 mg Losartan Potassium (Cozaar -) 50 mg PO BID [facility] Last Admin: 01/10/19 23:03 Dose: 50 mg Metoprolol Succinate (Toprol Xl -) 50 mg PO DAILY [facility] Last Admin: 01/10/19 09:53 Dose: 50 mg Non-Formulary Medication (Ca/D3/Mag Ox/Zinc/Kindergarten Teacher Assistant/Dio/Bor [Caltrate 600+D Plus Tab Chew]) 1 each PO DAILY [facility] Non-Formulary Medication (Phosphatidylserine-Epa/[place]-3 [Vayarin Plus 225 Mg Capsule]) 100 mg PO BID [facility] Potassium Chloride (K-Dur -) 10 meq PO DAILY [facility] Last Admin: 01/10/19 09:52 Dose: 10 meq Ranitidine HCl (Zantac -) 150 mg PO DAILY [facility] Last Admin: 01/10/19 09:52 Dose: 150 mg Senna (Senna -) 2 tab PO HS [facility] Last Admin: 01/10/19 23:03 Dose: 2 tab Trimethobenzamide HCl (Tigan -) 300 mg PO TID PRN PRN Reason: NAUSEA AND/OR VOMITING Warfarin Sodium (Coumadin -) 2 mg PO DAILY@1800 [facility] Last Admin: 01/10/19 17:30 Dose: 2 mg - Objective Vital Signs: Vital Signs Temperature 97.5 F L 01/11/19 06:00 Pulse Rate 55 L 01/11/19 06:00 Respiratory Rate 16 01/11/19 06:00 Blood Pressure 133/51 L 01/11/19 06:00 O2 Sat by Pulse Oximetry (%) 98 01/10/19 23:28 Constitutional: Yes: Well Nourished, No Distress, Calm Eyes: Yes: WNL, Conjunctiva Clear, EOM Intact HENT: Yes: WNL, Atraumatic, Normocephalic Neck: Yes: WNL, Supple, Trachea Midline Cardiovascular: Yes: WNL, Regular Rate and Rhythm Respiratory: Yes: WNL, Regular, Diminished (at bases) Gastrointestinal: Yes: WNL, Normal Bowel Sounds, Soft Genitourinary: Yes: WNL Breast(s): Yes: WNL Musculoskeletal: Yes: WNL Extremities: Yes: WNL Edema: No Peripheral Pulses WNL: Yes Integumentary: Yes: WNL Neurological: Yes: WNL, Alert, Oriented ...Motor Strength: WNL Psychiatric: Yes: WNL, Alert, Oriented Labs: CBC, BMP 01/10/19 08:10 01/10/19 08:10 INR, PTT INR 2.78 (0.83-1.09) H 01/10/19 09:24 - ....Imaging Chest X-ray: Report Reviewed (CXR increase interstitial lung markings suggestive of mild pulmonary venous congestion. Cannot rule out superimposed infiltrates.), Image Reviewed Cat Scan: Report Reviewed (HCT no evidence of acute intracranial patholog) Problem List - Problems (1) Prophylactic measure Assessment/Plan: FEN cardiac diet monitor electrolytes no need for additional IVF DVT coumadin, follow INR Dipso Maintain as inpatient full code discharge planning Code(s): Z29.9 - ENCOUNTER FOR PROPHYLACTIC MEASURES, UNSPECIFIED (2) Near syncope Assessment/Plan: pt reports ongoing evaluation for "balance issues" and is followed by neuro ( Dr. Florinda Natarajan - [phone]) pt will also need to f/u with head setter (Dr. Ribeiro) for BP medication optimization hyponatremia may have also been contributing to syncope Code(s): R55 - SYNCOPE AND COLLAPSE (3) CHF (congestive heart failure) Assessment/Plan: continue lasix 20mg daily along with KCL 10meq daily trend electrolytes and serum Cr Code(s): I50.9 - HEART FAILURE, UNSPECIFIED Qualifiers: Heart failure type: systolic Heart failure chronicity: unspecified Qualified Code(s): I50.20 - Unspecified systolic (congestive) heart failure (4) Hyperlipidemia Assessment/Plan: continue with lipitor q hs Code(s): E78.5 - HYPERLIPIDEMIA, UNSPECIFIED Qualifiers: Hyperlipidemia type: unspecified Qualified Code(s): E78.5 - Hyperlipidemia , unspecified (5) Hypertension Assessment/Plan: better BP control continue with losartan 50mg maintain on tele Code(s): I10 - ESSENTIAL (PRIMARY) HYPERTENSION Qualifiers: Hypertension type: unspecified Qualified Code(s): I10 - Essential (primary ) hypertension (6) ANITA (acute kidney injury) Code(s): N17.9 - ACUTE KIDNEY FAILURE, UNSPECIFIED (7) H/O mitral valve replacement Code(s): Z95.2 - PRESENCE OF PROSTHETIC HEART VALVE (8) H/O tricuspid valve annuloplasty Code(s): Z98.890 - OTHER SPECIFIED POSTPROCEDURAL STATES (9) Elevated brain natriuretic peptide (BNP) level Assessment/Plan: BNP 23K on admission, now 12.5K. Clinically improved continue to trend continue diuresing until euovlemia monitor electrolytes Code(s): R79.89 - OTHER SPECIFIED ABNORMAL FINDINGS OF BLOOD CHEMISTRY (10) Elevated troponin I level Assessment/Plan: no active ischemia elevated Troponins most likely to demand ischemia trending down to .13 Code(s): R74.8 - ABNORMAL LEVELS OF OTHER SERUM ENZYMES (11) Hyponatremia Assessment/Plan: Na 122 on admission urine electrolytes sent FeUrea 44% Free water restriction to 1000L Salt tablets 1g TID until sodium >130 Code(s): E87.1 - HYPO-OSMOLALITY AND HYPONATREMIA Visit type - Emergency Visit Emergency Visit: Yes ED Registration Date: 01/08/19 Care time: The patient presented to the Emergency Department on the above date and was hospitalized for further evaluation of their emergent condition. - New Patient This patient is new to me today: No - Critical Care Critical Care patient: No - Discharge Referral Referred to [facility] Med P.C.: No
[2019-01-11 08:19] LABS: BASO % 0.5 % (0-2.0); EOS % 1.4 % (0-4.5); HEMATOCRIT 34.8 % (32.4-45.2); HEMOGLOBIN 11.9 GM/dL (10.7-15.3); LYMPH % 20.5 % (8-40); MCH 32.7 pg (25.7-33.7); MCHC 34.3 g/dl (32.0-36.0); MEAN CELL VOLUME 95.4 fl (80-96); MEAN PLT VOLUME 8.6 fl (7.5-11.1); MONO % 12.8 % (3.8-10.2); NEUT % 64.8 % (42.8-82.8); PLATELET COUNT 147 K/MM3 (134-434); RBC 3.65 M/mm3 (3.60-5.2); RDW 13.6 % (11.6-15.6); WHITE BLOOD COUNT 6.6 K/mm3 (4.0-10.0)
--- NOTE | 2019-01-11 08:44 | CON.NEURO ---
Consult Consult Specialty:: Benjamin Referred by:: Cardiology Dr Ribeiro - History of Present Illness History of Present Illness: [id number] right-handed female patient with present medical history significant for Breast cancer status post lumpectomy on chemotherapy Bronchial asthma Depression An anxiety Presented to the hospital with a chief complain of near-syncope Patient was found with a high blood pressure No report of any loss of consciousness no seizure-like activity no chest pain mild palpitation. 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: Other (H/O previous SAH and SDH 2007) Cardio/Vascular: Yes: AFIB (Noted post-op 12/20 procedure Resolved), HTN, Hyperlipdemia, Mitral Stenosis, Murmur, Other (MVP with MR post initial MVR 1999 Reoperative porcine MVR and TV Ring anuloplasty) Pulmonary: Yes: COPD (mild) Gastrointestinal: Yes: Gastritis Hepatobiliary: Yes: Other (Fatty liver) Renal/: Yes: UTI (Resolved), Other (Bladder prolapse) ...: No Infectious Disease: Yes: Herpes Zoster Rheumatology: Yes: Rheumatoid Arthritis (Mildly positive 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) Dermatology: Yes: Basal Cell (Post MOHS Right amish) - Past Surgical History Past Surgical History: Yes: Valve Replacement (mitral valve: porcine) - Alcohol/Substance Use Hx Alcohol Use: No History of Substance Use: reports: None - Smoking History Smoking history: Never smoked Have you smoked in the past 12 months: No Aproximately how many cigarettes per day: 0 If you are a former smoker, when did you quit?: 40 YEARS AGO - Social History ADL: Independent 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 [employer] History of Recent Travel: No Home Medications - Allergies Allergies/Adverse Reactions: Allergies Allergy/AdvReac Type Severity Reaction Status Date / Time codeine Allergy Verified 01/08/19 13:50 - Home Medications Home Medications: Ambulatory Orders Ca/D3/Mag Ox/Zinc/Supervisor Soakers/Dio/Bor [Caltrate 600+D Plus Tab Chew] 1 each PO DAILY Pravastatin Sodium 20 mg PO MOFR 02/08/14 Furosemide [Lasix] 20 mg PO DAILY 10/12/17 Acetaminophen [Tylenol .Extra-Strength -] 500 mg PO Q6H PRN tablet 10/18/17 Amiodarone HCl [Cordarone -] 100 mg PO DAILY 02/05/18 Cyanocobalamin (Vitamin B-12) [Vitamin B-12] 3,000 mcg PO DAILY 02/05/18 Losartan Potassium [Cozaar -] 50 mg PO BID 02/05/18 Ubidecarenone [Co Q10] 200 mg PO DAILY 02/05/18 Warfarin Sodium [Coumadin] 2 mg PO DAILY 02/05/18 Phosphatidylserine-Epa/[place]-3 [Vayarin Plus 225 mg Capsule] 100 mg PO BID 04/26 Potassium Chloride 10 meq PO DAILY 10/25/18 Metoprolol Succinate [Toprol XL -] 50 mg PO DAILY 01/08/19 Family Disease History - Family Disease History Family History: Unable to Obtain (CVA) Family Disease History: Other: Father (: 49: OR), Mother (: 75: Leukemia ), Brother (: Interstitial lung disease), Sister (None), Son (None), Daughter (None) Review of Systems Unable to obtain ROS, reason: CVA - Review of Systems Neurological: reports: Headache, Incoordination, Numbness, Parasthesia Physical Exam-Neuro Vital Signs: Vital Signs Temperature 97.5 F L 01/11/19 06:00 Pulse Rate 55 L 01/11/19 06:00 Respiratory Rate 16 01/11/19 06:00 Blood Pressure 133/51 L 01/11/19 06:00 O2 Sat by Pulse Oximetry (%) 98 01/10/19 23:28 Labs: INR, PTT INR 2.78 (0.83-1.09) H 01/10/19 09:24 - Neuro Exam Level Of Consciousness: Yes: Oriented to Person, Oriented to Place, Oriented to Time Eyes: Yes: PERRLA Speech: WNL Dominant Hand: Right Cranial Nerves II-XII Intact: Yes Gag: Present Response to light touch: Abnormal Response to pain prick: Abnormal Motor Strength: 3/5: Left Arm, Right Arm, Left Leg, Right Leg Gait: Deferred Imaging - Results Cat Scan: Image Reviewed Ultrasound: Image Reviewed Problem List - Problems (1) Near syncope Assessment/Plan: nno evidence of acute PLASTICS WORKER pathology Near-syncope associated with hypertension urgency Near-syncope associated with cardiac arrhythmia to be ruled out 1. Tight INR control. 2. Fall precautions. 3. Check orthostatics every shift. 4. MRI of the brain with no contrast Thank you very much for allowing me to be part of this patient neurological care Code(s): R55 - SYNCOPE AND COLLAPSE
[2019-01-11 08:56] LABS: ALBUMIN 3.3 g/dl (3.4-5.0); BILIRUBIN,TOTAL 0.6 mg/dL (0.2-1); BLOOD UREA NITROGEN 34.6 mg/dL (7-18); CALCIUM 8.3 mg/dL (8.5-10.1); CREATININE 1.2 mg/dL (0.55-1.3); MAGNESIUM 2.6 mg/dL (1.8-2.4); N-TERMINAL BNP 12568.2 pg/ml (5-450); TOT PROT 7.1 g/dl (6.4-8.2)
[2019-01-11] MEDS: DOCUSATE SODIUM 100 MG CAPSULE (FP) PO SCH ×2 (10:41→21:03)
[2019-01-11] MEDS: AMIODARONE HCL 200 MG TABLET (FP) PO SCH (10:41)
[2019-01-11] MEDS: LOSARTAN POTASSIUM 50 MG TABLET (FP) PO SCH ×2 (10:43→21:02)
[2019-01-11] MEDS: POTASSIUM CHLORIDE TABS 10 MEQ TABLET.ER (FP) PO SCH (10:43)
[2019-01-11] MEDS: CYANOCOBALAMIN 1,000 MCG TABLET (FP) PO SCH (10:44)
[2019-01-11] MEDS: RANITIDINE HCL 150 MG TABLET (FP) PO SCH (10:44)
[2019-01-11] MEDS: WARFARIN NA 1 MG TABLET (FP) PO SCH (17:15)
[2019-01-11] MEDS: ATORVASTATIN CA 10 MG TABLET (FP) PO SCH (21:02)
[2019-01-11] MEDS: SENNOSIDES 8.6MG TABLET (FP) PO SCH (21:03)
--- NOTE | 2019-01-11 21:46 | PN ---
Progress Note (short form) - Note Progress Note: 78 year old female admitted with headaches, lightheadedness, and hypertension. H /o MVR X2, paroxysmal atrial fib, CHF, h/o unstead gait tremors and multiple falls, No SOB, no chest or discomfort. No palpitations or lightheadedness. Still c/o tremors. Active Medications Acetaminophen (Tylenol -) 500 mg PO Q6H PRN PRN Reason: PAIN LEVEL 1 - 3 Amiodarone HCl (Cordarone -) 100 mg PO DAILY [facility] Last Admin: 01/10/19 09:53 Dose: 100 mg Atorvastatin Calcium (Lipitor -) 10 mg PO MoFr@2200 [facility] Cyanocobalamin (Vitamin B12 -) 3,000 mcg PO DAILY [facility] Last Admin: 01/10/19 09:52 Dose: 3,000 mcg Docusate Sodium (Colace -) 100 mg PO BID [facility] Last Admin: 01/10/19 09:56 Dose: Not Given Furosemide (Lasix Injection -) 40 mg IVPUSH BID@0600,1400 [facility] Last Admin: 01/10/19 13:29 Dose: 40 mg Losartan Potassium (Cozaar -) 50 mg PO BID [facility] Last Admin: 01/10/19 09:53 Dose: 50 mg Metoprolol Succinate (Toprol Xl -) 50 mg PO DAILY [facility] Last Admin: 01/10/19 09:53 Dose: 50 mg Non-Formulary Medication (Ca/D3/Mag Ox/Zinc/Electrical Sign Wirer/Dio/Bor [Caltrate 600+D Plus Tab Chew]) 1 each PO DAILY [facility] Non-Formulary Medication (Phosphatidylserine-Epa/[place]-3 [Vayarin Plus 225 Mg Capsule]) 100 mg PO BID [facility] Potassium Chloride (K-Dur -) 10 meq PO DAILY [facility] Last Admin: 01/10/19 09:52 Dose: 10 meq Ranitidine HCl (Zantac -) 150 mg PO DAILY [facility] Last Admin: 01/10/19 09:52 Dose: 150 mg Senna (Senna -) 2 tab PO HS [facility] Last Admin: 01/09/19 21:46 Dose: Not Given Trimethobenzamide HCl (Tigan -) 300 mg PO TID PRN PRN Reason: NAUSEA AND/OR VOMITING Warfarin Sodium (Coumadin -) 2 mg PO DAILY@1800 [facility] Last Admin: 01/09/19 17:32 Dose: 2 mg Last Vital Signs Temp Pulse Resp BP Pulse Ox 98 F 50 L 18 120/50 L 98 01/10/19 13:00 01/10/19 13:00 01/10/19 13:00 01/10/19 13:00 01/10/19 09:00 NECK: Supple, no JVD, carotids are equal, no bruits. HEART: PMI is in the 5th ics, no heaves or thrills grade II/ systolic murmur at the apex and LSB, no gallops. LUNGS: Clear on auscultation. ABDOMEN: Soft, nontender, no organomegaly. EXTREMITIES: No calf tenderness or dependent edema. intentional tremors of both hands. Troponin, BNP 01/09/19 01/09/19 01/10/19 14:00 19:20 08:10 Troponin I 0.16 H 0.21 H 0.13 H CBC and BMP 01/10/19 08:10 01/10/19 08:10 IMPRESSION: 1. Accelerated hypertension, presently normotensive. 2. Tremors, gait disturbance and lightheadedness, etiology to be determined: a). Parkisonism needs exclusion. b). 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 3. Elevated Trops.related to CHF vs acute event. 4. S/p bioprosthetic mitral valve replacement(X2). 5. LV systolic dysfunction. RECOMMENDATIONS: 1. Increase ambulation. 2. Lexiscan myocardial prfudsion study. 3. D/c amiodarone. 4. DIscharge when medically stable. 5. F/u Xray chest PA and Lateral.
[2019-01-12] MEDS: FUROSEMIDE 40 MG/4 ML INJECTABLE VIAL IVPUSH SCH ×2 (06:08→14:21)
[2019-01-12 07:31] LABS: BASO % 0.4 % (0-2.0); EOS % 0.9 % (0-4.5); HEMOGLOBIN 11.2 GM/dL (10.7-15.3); LYMPH % 18.4 % (8-40); MCH 32.5 pg (25.7-33.7); MEAN CELL VOLUME 95.4 fl (80-96); MEAN PLT VOLUME 8.8 fl (7.5-11.1); MONO % 14.2 % (3.8-10.2); NEUT % 66.1 % (42.8-82.8); RBC 3.46 M/mm3 (3.60-5.2); RDW 14.1 % (11.6-15.6); WHITE BLOOD COUNT 6.3 K/mm3 (4.0-10.0)
[2019-01-12 07:51] LABS: INR 3.22 (0.83-1.09); PROTHROMBIN TIME (PATIENT) 38.5 SEC (9.7-13.0)
[2019-01-12 08:05] LABS: ALBUMIN 3.2 g/dl (3.4-5.0); BILIRUBIN,TOTAL 0.6 mg/dL (0.2-1); BLOOD UREA NITROGEN 34.5 mg/dL (7-18); CALCIUM 8.3 mg/dL (8.5-10.1); CREATININE 1.1 mg/dL (0.55-1.3); MAGNESIUM 2.5 mg/dL (1.8-2.4); POTASSIUM 4.3 mmol/L (3.5-5.1); TOT PROT 6.7 g/dl (6.4-8.2)
[2019-01-12 08:23] LABS: PLATELET COUNT 160 K/MM3 (134-434)
[2019-01-12] MEDS: RANITIDINE HCL 150 MG TABLET (FP) PO SCH (09:04)
[2019-01-12] MEDS: DOCUSATE SODIUM 100 MG CAPSULE (FP) PO SCH ×2 (09:04→21:53)
[2019-01-12] MEDS: CYANOCOBALAMIN 1,000 MCG TABLET (FP) PO SCH (09:04)
[2019-01-12] MEDS: LOSARTAN POTASSIUM 50 MG TABLET (FP) PO SCH ×2 (09:04→21:53)
[2019-01-12] MEDS: POTASSIUM CHLORIDE TABS 10 MEQ TABLET.ER (FP) PO SCH (09:14)
--- NOTE | 2019-01-12 09:21 | PN ---
Progress Note, Physician History of Present Illness: events noted and chart reviewed Seen in telemetry alert awake oriented 3 Normal attention span follow commands normally No episodes of near syncope or altered sensorium MRI from December 21 was reviewed - Current Medication List Current Medications: Active Medications Acetaminophen (Tylenol -) 500 mg PO Q6H PRN PRN Reason: PAIN LEVEL 1 - 3 Amiodarone HCl (Cordarone -) 100 mg PO DAILY [facility] Last Admin: 01/11/19 10:41 Dose: 100 mg Atorvastatin Calcium (Lipitor -) 10 mg PO MoFr@2200 [facility] Last Admin: 01/11/19 21:02 Dose: 10 mg Cyanocobalamin (Vitamin B12 -) 3,000 mcg PO DAILY [facility] Last Admin: 01/12/19 09:04 Dose: 3,000 mcg Docusate Sodium (Colace -) 100 mg PO BID [facility] Last Admin: 01/12/19 09:04 Dose: 100 mg Furosemide (Lasix Injection -) 40 mg IVPUSH BID@0600,1400 [facility] Last Admin: 01/12/19 06:08 Dose: 40 mg Losartan Potassium (Cozaar -) 50 mg PO BID [facility] Last Admin: 01/12/19 09:04 Dose: 50 mg Metoprolol Succinate (Toprol Xl -) 50 mg PO DAILY [facility] Last Admin: 01/12/19 09:04 Dose: 50 mg Potassium Chloride (K-Dur -) 10 meq PO DAILY [facility] Last Admin: 01/12/19 09:14 Dose: 10 meq Ranitidine HCl (Zantac -) 150 mg PO DAILY [facility] Last Admin: 01/12/19 09:04 Dose: 150 mg Senna (Senna -) 2 tab PO HS [facility] Last Admin: 01/11/19 21:03 Dose: Not Given Trimethobenzamide HCl (Tigan -) 300 mg PO TID PRN PRN Reason: NAUSEA AND/OR VOMITING Warfarin Sodium (Coumadin -) 2 mg PO DAILY@1800 [facility] Last Admin: 01/11/19 17:15 Dose: 2 mg - Objective Vital Signs: Vital Signs Temperature 98.9 F 01/12/19 09:16 Pulse Rate 59 L 01/12/19 09:16 Respiratory Rate 18 01/12/19 09:16 Blood Pressure 122/46 L 01/12/19 09:16 O2 Sat by Pulse Oximetry (%) 99 01/12/19 09:00 Constitutional: Yes: Well Nourished Eyes: Yes: WNL Neurological: Yes: Alert, Oriented, Babinski negative ...Motor Strength: WNL Labs: CBC, BMP 01/12/19 05:46 01/12/19 05:46 INR, PTT INR 3.22 (0.83-1.09) H 01/12/19 05:46 Problem List - Problems (1) Near syncope Assessment/Plan: 1. Follow-up with the Holter monitor 2. Follow-up with cardiology Neurologically patient can be discharged if medically cleared Code(s): R55 - SYNCOPE AND COLLAPSE
--- NOTE | 2019-01-12 09:39 | PN ---
Progress Note, Physician History of Present Illness: 78 year old F with h/o L- Breast Ca s/p lumpectomy, chemotherapy, radiation therapy, Afib (on coumadin), CAD, MVR x2, Intracranial hemorrhage secondary to fall while on Coumadin, Fatty Liver disease, Herpes Zoster, and Basal Cell Ca presents to the ED with c/o headache and near syncope in the setting of elevated blood pressure. Pt reports while working in the kitchen this morning (), when she began to experience light headedness and "pressure" at the top of her head. She took her BP and noted systolic blood pressure in the 180s. Pt decided to call her [employer] patient assistance line for advice. She was informed to rest for a period of time and repeat BP, which was noted to be 190s a few minutes later. She recalled help line and was encouraged to seek assistance at her local ED. - Current Medication List Current Medications: Active Medications Acetaminophen (Tylenol -) 500 mg PO Q6H PRN PRN Reason: PAIN LEVEL 1 - 3 Amiodarone HCl (Cordarone -) 100 mg PO DAILY [facility] Last Admin: 01/11/19 10:41 Dose: 100 mg Atorvastatin Calcium (Lipitor -) 10 mg PO MoFr@2200 [facility] Last Admin: 01/11/19 21:02 Dose: 10 mg Cyanocobalamin (Vitamin B12 -) 3,000 mcg PO DAILY [facility] Last Admin: 01/12/19 09:04 Dose: 3,000 mcg Docusate Sodium (Colace -) 100 mg PO BID [facility] Last Admin: 01/12/19 09:04 Dose: 100 mg Furosemide (Lasix Injection -) 40 mg IVPUSH BID@0600,1400 [facility] Last Admin: 01/12/19 06:08 Dose: 40 mg Losartan Potassium (Cozaar -) 50 mg PO BID [facility] Last Admin: 01/12/19 09:04 Dose: 50 mg Metoprolol Succinate (Toprol Xl -) 50 mg PO DAILY [facility] Last Admin: 01/12/19 09:04 Dose: 50 mg Potassium Chloride (K-Dur -) 10 meq PO DAILY [facility] Last Admin: 01/12/19 09:14 Dose: 10 meq Ranitidine HCl (Zantac -) 150 mg PO DAILY [facility] Last Admin: 01/12/19 09:04 Dose: 150 mg Senna (Senna -) 2 tab PO HS [facility] Last Admin: 01/11/19 21:03 Dose: Not Given Trimethobenzamide HCl (Tigan -) 300 mg PO TID PRN PRN Reason: NAUSEA AND/OR VOMITING Warfarin Sodium (Coumadin -) 2 mg PO DAILY@1800 [facility] Last Admin: 01/11/19 17:15 Dose: 2 mg - Objective Vital Signs: Vital Signs Temperature 98.9 F 01/12/19 09:16 Pulse Rate 59 L 01/12/19 09:16 Respiratory Rate 18 01/12/19 09:16 Blood Pressure 122/46 L 01/12/19 09:16 O2 Sat by Pulse Oximetry (%) 99 01/12/19 09:00 Constitutional: Yes: Well Nourished, No Distress, Calm Eyes: Yes: WNL, Conjunctiva Clear, EOM Intact HENT: Yes: WNL, Atraumatic, Normocephalic Neck: Yes: Supple, Trachea Midline Cardiovascular: Yes: WNL, Regular Rate and Rhythm Respiratory: Yes: WNL, Regular, CTA Bilaterally Gastrointestinal: Yes: WNL, Normal Bowel Sounds, Soft ...Rectal Exam: Yes: Deferred Genitourinary: Yes: WNL Musculoskeletal: Yes: WNL Extremities: Yes: WNL Edema: No Neurological: Yes: WNL, Alert, Oriented ...Motor Strength: WNL Psychiatric: Yes: WNL, Alert, Oriented Labs: CBC, BMP 01/12/19 05:46 01/12/19 05:46 INR, PTT INR 3.22 (0.83-1.09) H 01/12/19 05:46 Impression/Plan Impression/Plan: Problems (1) Prophylactic measure Assessment/Plan: FEN cardiac diet monitor electrolytes no need for additional IVF DVT coumadin, follow INR Dipso Maintain as inpatient full code discharge planning Code(s): Z29.9 - ENCOUNTER FOR PROPHYLACTIC MEASURES, UNSPECIFIED (2) Near syncope Assessment/Plan: pt reports ongoing evaluation for "balance issues" and is followed by neuro ( Dr. Florinda Natarajan - [phone]) pt will also need to f/u with home performance laborer (Dr. Ribeiro) for BP medication optimization hyponatremia may have also been contributing to syncope Code(s): R55 - SYNCOPE AND COLLAPSE (3) CHF (congestive heart failure) Assessment/Plan: continue lasix 20mg daily along with KCL 10meq daily trend electrolytes and serum Cr Code(s): I50.9 - HEART FAILURE, UNSPECIFIED Qualifiers: Heart failure type: systolic Heart failure chronicity: unspecified Qualified Code(s): I50.20 - Unspecified systolic (congestive) heart failure (4) Hyperlipidemia Assessment/Plan: continue with lipitor q hs Code(s): E78.5 - HYPERLIPIDEMIA, UNSPECIFIED Qualifiers: Hyperlipidemia type: unspecified Qualified Code(s): E78.5 - Hyperlipidemia , unspecified (5) Hypertension Assessment/Plan: better BP control continue with losartan 50mg maintain on tele Code(s): I10 - ESSENTIAL (PRIMARY) HYPERTENSION Qualifiers: Hypertension type: unspecified Qualified Code(s): I10 - Essential (primary ) hypertension (6) ANITA (acute kidney injury) Code(s): N17.9 - ACUTE KIDNEY FAILURE, UNSPECIFIED (7) H/O mitral valve replacement Code(s): Z95.2 - PRESENCE OF PROSTHETIC HEART VALVE (8) H/O tricuspid valve annuloplasty Code(s): Z98.890 - OTHER SPECIFIED POSTPROCEDURAL STATES (9) Elevated brain natriuretic peptide (BNP) level Assessment/Plan: BNP 23K on admission, now 12.5K. Clinically improved continue to trend continue diuresing until euovlemia monitor electrolytes Code(s): R79.89 - OTHER SPECIFIED ABNORMAL FINDINGS OF BLOOD CHEMISTRY (10) Elevated troponin I level Assessment/Plan: no active ischemia elevated Troponins most likely to demand ischemia trending down to .13 Code(s): R74.8 - ABNORMAL LEVELS OF OTHER SERUM ENZYMES (11) Hyponatremia Assessment/Plan: Na 122 on admission urine electrolytes sent FeUrea 44% Free water restriction to 1000L Salt tablets 1g TID until sodium >130 Code(s): E87.1 - HYPO-OSMOLALITY AND HYPONATREMIA Visit type - Emergency Visit Emergency Visit: Yes ED Registration Date: 01/08/19 Care time: The patient presented to the Emergency Department on the above date and was hospitalized for further evaluation of their emergent condition. - New Patient This patient is new to me today: Yes Date on this admission: 01/13/19 - Critical Care Critical Care patient: No
[2019-01-12] MEDS: AMIODARONE HCL 200 MG TABLET (FP) PO SCH (10:16)
[2019-01-12] MEDS: WARFARIN NA 1 MG TABLET (FP) PO SCH (17:15)
[2019-01-12] MEDS: SENNOSIDES 8.6MG TABLET (FP) PO SCH (21:53)
[2019-01-13] MEDS: FUROSEMIDE 40 MG/4 ML INJECTABLE VIAL IVPUSH SCH ×2 (06:07→13:11)
[2019-01-13 07:37] LABS: BASO % 0.5 % (0-2.0); EOS % 1.5 % (0-4.5); HEMATOCRIT 37.5 % (32.4-45.2); HEMOGLOBIN 12.6 GM/dL (10.7-15.3); LYMPH % 20.7 % (8-40); MCH 32.6 pg (25.7-33.7); MCHC 33.6 g/dl (32.0-36.0); MEAN PLT VOLUME 8.5 fl (7.5-11.1); MONO % 14.5 % (3.8-10.2); NEUT % 62.8 % (42.8-82.8); PLATELET COUNT 166 K/MM3 (134-434); RBC 3.87 M/mm3 (3.60-5.2); RDW 14.2 % (11.6-15.6); WHITE BLOOD COUNT 5.7 K/mm3 (4.0-10.0)
[2019-01-13 07:44] LABS: ALBUMIN 3.4 g/dl (3.4-5.0); BILIRUBIN,TOTAL 0.4 mg/dL (0.2-1); BLOOD UREA NITROGEN 46.5 mg/dL (7-18); CALCIUM 8.7 mg/dL (8.5-10.1); CREATININE 1.4 mg/dL (0.55-1.3); MAGNESIUM 2.6 mg/dL (1.8-2.4); POTASSIUM 4.6 mmol/L (3.5-5.1); TOT PROT 7.2 g/dl (6.4-8.2)
[2019-01-13 08:08] LABS: INR 2.33 (0.83-1.09); PROTHROMBIN TIME (PATIENT) 27.7 SEC (9.7-13.0)
[2019-01-13] MEDS: CYANOCOBALAMIN 1,000 MCG TABLET (FP) PO SCH (09:35)
[2019-01-13] MEDS: DOCUSATE SODIUM 100 MG CAPSULE (FP) PO SCH ×2 (09:36→21:39)
[2019-01-13] MEDS: POTASSIUM CHLORIDE TABS 10 MEQ TABLET.ER (FP) PO SCH (09:36)
[2019-01-13] MEDS: RANITIDINE HCL 150 MG TABLET (FP) PO SCH (09:36)
[2019-01-13] MEDS: LOSARTAN POTASSIUM 50 MG TABLET (FP) PO SCH ×2 (09:36→21:39)
--- NOTE | 2019-01-13 12:38 | PN ---
Progress Note (short form) - Note Progress Note: 78 year old female admitted with headaches, lightheadedness, and hypertension. H /o MVR X2, paroxysmal atrial fib, CHF, h/o unstead gait tremors and multiple falls, No SOB, no chest or discomfort. Lightheadedness recurred and patien has postural drop in BP Active Medications Generic Name Dose Route Start Last Admin Trade Name Freq PRN Reason Stop Dose Admin Acetaminophen 500 mg 01/08/19 16:48 01/12/19 12:07 Tylenol - PO 500 mg Q6H PRN Administration PAIN LEVEL 1 - 3 Atorvastatin Calcium 10 mg 01/11/19 22:00 01/11/19 21:02 Lipitor - PO 10 mg MoFr@2200 [facility] Administration Cyanocobalamin 3,000 mcg 01/09/19 10:00 01/13/19 09:35 Vitamin B12 - PO 3,000 mcg DAILY [facility] Administration Docusate Sodium 100 mg 01/08/19 22:00 01/13/19 09:36 Colace - PO 100 mg BID [facility] Administration Furosemide 40 mg 01/10/19 06:00 01/13/19 06:07 Lasix Injection - IVPUSH 40 mg BID@0600,1400 [facility] Administration Losartan Potassium 50 mg 01/08/19 22:00 01/13/19 09:36 Cozaar - PO 50 mg BID [facility] Administration Metoprolol Succinate 50 mg 01/09/19 10:00 01/13/19 09:36 Toprol Xl - PO 50 mg DAILY [facility] Administration Potassium Chloride 10 meq 01/09/19 10:00 01/13/19 09:36 K-Dur - PO 10 meq DAILY [facility] Administration Ranitidine HCl 150 mg 01/09/19 10:00 01/13/19 09:36 Zantac - PO 150 mg DAILY [facility] Administration Senna 2 tab 01/08/19 22:00 01/12/19 21:53 Senna - PO 2 tab HS [facility] Administration Trimethobenzamide HCl 300 mg 01/09/19 13:17 Tigan - PO TID PRN NAUSEA AND/OR VOMITING Warfarin Sodium 2 mg 01/08/19 22:00 01/12/19 17:15 Coumadin - PO Not Given DAILY@1800 [facility] Last Vital Signs Temp Pulse Resp BP Pulse Ox 97.9 F 60 18 101/30 standing. 126/36 supine. 98 01/13/19 09:00 01/13/19 09:00 01/13/19 09:00 01/13/19 09:00 01/13/19 07:47 NECK: Supple, no JVD, carotids are equal, no bruits. HEART: PMI is in the 5th ics, no heaves or thrills grade II/ systolic murmur at the apex and LSB, no gallops. LUNGS: Clear on auscultation. ABDOMEN: Soft, nontender, no organomegaly. EXTREMITIES: No calf tenderness or dependent edema. intentional tremors of both hands. Troponin, BNP 01/09/19 01/09/19 01/10/19 14:00 19:20 08:10 Troponin I 0.16 H 0.21 H 0.13 H CBC and BMP 01/10/19 08:10 01/10/19 08:10 IMPRESSION: 1. Accelerated hypertension, presently normotensive. 2. Tremors, gait disturbance and lightheadedness, etiology to be determined: a). Parkisonism needs exclusion. b). 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 3. Elevated Trops.related to CHF vs acute event. 4. S/p bioprosthetic mitral valve replacement(X2). 5. LV systolic dysfunction. 6. Postural drop in BP. 7. Hyponateremia related to diureticvs SIADH. RECOMMENDATIONS: 1. Check BP supine and standing. 2. Lexiscan myocardial perfusion study. 3. Switch to oral lasix and decrease dose to 20mg 4. Nephrology evaluation.
--- NOTE | 2019-01-13 14:34 | PN ---
Physical Exam: History of Present Illness: 78 year old F with h/o L- Breast Ca s/p lumpectomy, chemotherapy, radiation therapy, Afib (on coumadin), CAD, MVR x2, Intracranial hemorrhage secondary to fall while on Coumadin, Fatty Liver disease, Herpes Zoster, and Basal Cell Ca presents to the ED with c/o headache and near syncope in the setting of elevated blood pressure. Pt reports while working in the kitchen this morning (), when she began to experience light headedness and "pressure" at the top of her head. She took her BP and noted systolic blood pressure in the 180s. Pt decided to call her [employer] patient assistance line for advice. She was informed to rest for a period of time and repeat BP, which was noted to be 190s a few minutes later. She recalled help line and was encouraged to seek assistance at her local ED. SUBJECTIVE: Patient seen and examined. Pt laying bed with no signs and symptoms of distress. No SOB, no chest or discomfort. Lightheadedness recurred and patient. Pt states she has been walking around holding on to the wall. She gets lightheaded but states she has to be careful. Pt pointed out they gave her a walker but she cannot use it unitil PT comes and evaluates. States she wants her stress test as early as possible because when she doesnt eat she is not "really able to function" OBJECTIVE: Vital Signs Period Temp Pulse Resp BP Sys/Miranda Pulse Ox Last 24 Hr 97.3 F-97.9 F 46-60 18-20 109-142/40-53 98-98 GENERAL: The patient is awake, alert, and fully oriented, in no acute distress. HEAD: Normal with no signs of trauma. EYES: PERRL, extraocular movements intact, sclera anicteric, conjunctiva clear. No ptosis. ENT: Ears normal, nares patent, oropharynx clear without exudates, moist mucous membranes. NECK: Trachea midline, full range of motion, supple. LUNGS: Breath sounds equal, clear to auscultation bilaterally, no wheezes, no crackles, no accessory muscle use. HEART: Regular rate and rhythm, S1, S2 ABDOMEN: Soft, nontender, nondistended, normoactive bowel sounds, no guarding, no rebound, no hepatosplenomegaly, no masses. EXTREMITIES: 2+ pulses, warm, well-perfused, no edema. NEUROLOGICAL: Alert and Oriented x 3, Normal speech, gait not observed. PSYCH: Normal mood, normal affect. SKIN: Warm, dry, normal turgor, no rashes or lesions noted Laboratory Results - last 24 hr 01/13/19 01/13/19 01/13/19 05:50 05:50 05:50 WBC 5.7 RBC 3.87 Hgb 12.6 Hct 37.5 MCV 97.0 H MCH 32.6 MCHC 33.6 RDW 14.2 Plt Count 166 MPV 8.5 Absolute Neuts (auto) 3.6 Neutrophils % 62.8 Lymphocytes % 20.7 Monocytes % 14.5 H Eosinophils % 1.5 Basophils % 0.5 Nucleated RBC % 0 PT with INR 27.70 H INR 2.33 H Sodium 133 L Potassium 4.6 Chloride 97 L Carbon Dioxide 32 Anion Gap 5 L BUN 46.5 H Creatinine 1.4 H Est GFR (CKD-EPI)AfAm 41.61 Est GFR (CKD-EPI)NonAf 35.90 Random Glucose 77 Calcium 8.7 Magnesium 2.6 H Total Bilirubin 0.4 AST 28 ALT 55 Alkaline Phosphatase 71 Total Protein 7.2 Albumin 3.4 Active Medications Generic Name Dose Route Start Last Admin Trade Name Freq PRN Reason Stop Dose Admin Acetaminophen 500 mg 01/08/19 16:48 01/12/19 12:07 Tylenol - PO 500 mg Q6H PRN Administration PAIN LEVEL 1 - 3 Atorvastatin Calcium 10 mg 01/11/19 22:00 01/11/19 21:02 Lipitor - PO 10 mg MoFr@2200 DEIDRE Administration Cyanocobalamin 3,000 mcg 01/09/19 10:00 01/13/19 09:35 Vitamin B12 - PO 3,000 mcg DAILY DEIDRE Administration Docusate Sodium 100 mg 01/08/19 22:00 01/13/19 09:36 Colace - PO 100 mg BID DEIDRE Administration Furosemide 40 mg 01/10/19 06:00 01/13/19 13:11 Lasix Injection - IVPUSH 40 mg BID@0600,1400 DEIDRE Administration Losartan Potassium 50 mg 01/08/19 22:00 01/13/19 09:36 Cozaar - PO 50 mg BID DEIDRE Administration Metoprolol Succinate 50 mg 01/09/19 10:00 01/13/19 09:36 Toprol Xl - PO 50 mg DAILY DEIDRE Administration Potassium Chloride 10 meq 01/09/19 10:00 01/13/19 09:36 K-Dur - PO 10 meq DAILY DEIDRE Administration Ranitidine HCl 150 mg 01/09/19 10:00 01/13/19 09:36 Zantac - PO 150 mg DAILY DEIDRE Administration Senna 2 tab 01/08/19 22:00 01/12/19 21:53 Senna - PO 2 tab HS DEIDRE Administration Trimethobenzamide HCl 300 mg 01/09/19 13:17 Tigan - PO TID PRN NAUSEA AND/OR VOMITING Warfarin Sodium 2 mg 01/08/19 22:00 01/12/19 17:15 Coumadin - PO Not Given DAILY@1800 DEIDRE ASSESSMENT/PLAN: (1) Prophylactic measure FEN cardiac diet monitor electrolytes no need for additional IVF DVT Coumadin, Follow INR Dipso Maintain as inpatient full code discharge planning Code(s): Z29.9 - ENCOUNTER FOR PROPHYLACTIC MEASURES, UNSPECIFIED (2) Near syncope -pt reports ongoing evaluation for "balance issues" and is followed by neuro ( Dr. Florinda Natarajan - [phone]) -Followed by Parts Counterperson (Dr. Ribeiro) for BP medication optimization -hyponatremia may have also been contributing to syncope Code(s): R55 - SYNCOPE AND COLLAPSE (3) CHF (congestive heart failure) -Switch to PO Lasix and decrease to 20mg daily Per Cardiology (will admin IV due to PT being NPO for tomorrow) -along with KCL 10meq daily -trend electrolytes and serum Cr Code(s): I50.9 - HEART FAILURE, UNSPECIFIED Qualifiers: Heart failure type: systolic Heart failure chronicity: unspecified Qualified Code(s): I50.20 - Unspecified systolic (congestive) heart failure (4) Hyperlipidemia continue with lipitor q hs Code(s): E78.5 - HYPERLIPIDEMIA, UNSPECIFIED Qualifiers: Hyperlipidemia type: unspecified Qualified Code(s): E78.5 - Hyperlipidemia , unspecified (5) Hypertension better BP control continue with losartan 50mg maintain on tele Holter monitor ordered Code(s): I10 - ESSENTIAL (PRIMARY) HYPERTENSION Qualifiers: Hypertension type: unspecified Qualified Code(s): I10 - Essential (primary) hypertension (6) ANITA (acute kidney injury) Code(s): N17.9 - ACUTE KIDNEY FAILURE, UNSPECIFIED (7) H/O mitral valve replacement Code(s): Z95.2 - PRESENCE OF PROSTHETIC HEART VALVE (8) H/O tricuspid valve annuloplasty Code(s): Z98.890 - OTHER SPECIFIED POSTPROCEDURAL STATES (9) Elevated brain natriuretic peptide (BNP) level continue to trend continue diuresing until euovlemia monitor electrolytes Code(s): R79.89 - OTHER SPECIFIED ABNORMAL FINDINGS OF BLOOD CHEMISTRY (10) Elevated troponin I level no active ischemia elevated Troponins most likely to demand ischemia trending down to .13 Code(s): R74.8 - ABNORMAL LEVELS OF OTHER SERUM ENZYMES (11) Hyponatremia Na 122 on admission urine electrolytes sent FeUrea 44% Free water restriction to 1000L Salt tablets 1g TID until sodium >130 Code(s): E87.1 - HYPO-OSMOLALITY AND HYPONATREMIA Visit type - Emergency Visit Emergency Visit: Yes ED Registration Date: 01/08/19 Care time: The patient presented to the Emergency Department on the above date and was hospitalized for further evaluation of their emergent condition. - New Patient This patient is new to me today: Yes Date on this admission: 01/13/19 - Critical Care Critical Care patient: No
[2019-01-13] MEDS: WARFARIN NA 1 MG TABLET (FP) PO SCH (17:34)
[2019-01-13] MEDS: SENNOSIDES 8.6MG TABLET (FP) PO SCH (21:39)
[2019-01-14] MEDS: FUROSEMIDE 40 MG/4 ML INJECTABLE VIAL IVPUSH SCH (06:09)
--- NOTE | 2019-01-14 07:48 | PN ---
Progress Note, Physician Chief Complaint: feeling much better today History of Present Illness: 78 year old F with h/o L- Breast Ca s/p lumpectomy, chemotherapy, radiation therapy, Afib (on coumadin), CAD, MVR x2, Intracranial hemorrhage secondary to fall while on Coumadin, Fatty Liver disease, Herpes Zoster, and Basal Cell Ca presents to the ED with c/o headache and near syncope in the setting of elevated blood pressure. Pt reports while working in the kitchen this morning (), when she began to experience light headedness and "pressure" at the top of her head. She took her BP and noted systolic blood pressure in the 180s. Pt decided to call her [employer] patient assistance line for advice. She was informed to rest for a period of time and repeat BP, which was noted to be 190s a few minutes later. She recalled help line and was encouraged to seek assistance at her local ED. - Current Medication List Current Medications: Active Medications Acetaminophen (Tylenol -) 500 mg PO Q6H PRN PRN Reason: PAIN LEVEL 1 - 3 Last Admin: 01/12/19 12:07 Dose: 500 mg Atorvastatin Calcium (Lipitor -) 10 mg PO MoFr@2200 [facility] Last Admin: 01/11/19 21:02 Dose: 10 mg Cyanocobalamin (Vitamin B12 -) 3,000 mcg PO DAILY [facility] Last Admin: 01/13/19 09:35 Dose: 3,000 mcg Docusate Sodium (Colace -) 100 mg PO BID [facility] Last Admin: 01/13/19 21:39 Dose: 100 mg Furosemide (Lasix Injection -) 40 mg IVPUSH BID@0600,1400 [facility] Last Admin: 01/14/19 06:09 Dose: 40 mg Losartan Potassium (Cozaar -) 50 mg PO BID [facility] Last Admin: 01/13/19 21:39 Dose: 50 mg Metoprolol Succinate (Toprol Xl -) 50 mg PO DAILY [facility] Last Admin: 01/13/19 09:36 Dose: 50 mg Potassium Chloride (K-Dur -) 10 meq PO DAILY [facility] Last Admin: 01/13/19 09:36 Dose: 10 meq Ranitidine HCl (Zantac -) 150 mg PO DAILY [facility] Last Admin: 01/13/19 09:36 Dose: 150 mg Senna (Senna -) 2 tab PO HS [facility] Last Admin: 01/13/19 21:39 Dose: 2 tab Trimethobenzamide HCl (Tigan -) 300 mg PO TID PRN PRN Reason: NAUSEA AND/OR VOMITING Warfarin Sodium (Coumadin -) 2 mg PO DAILY@1800 [facility] Last Admin: 01/13/19 17:34 Dose: 2 mg - Objective Vital Signs: Vital Signs Temperature 97.9 F 01/14/19 05:23 Pulse Rate 48 L 01/14/19 05:23 Respiratory Rate 18 01/14/19 05:23 Blood Pressure 117/38 L 01/14/19 05:23 O2 Sat by Pulse Oximetry (%) 98 01/13/19 22:00 Constitutional: Yes: Well Nourished, No Distress, Calm Eyes: Yes: WNL, Conjunctiva Clear, EOM Intact HENT: Yes: WNL, Atraumatic, Normocephalic Neck: Yes: WNL, Supple, Trachea Midline Cardiovascular: Yes: WNL, Regular Rate and Rhythm Respiratory: Yes: WNL, Regular, CTA Bilaterally Gastrointestinal: Yes: WNL, Normal Bowel Sounds, Soft Genitourinary: Yes: WNL Musculoskeletal: Yes: WNL Extremities: Yes: WNL Edema: No Peripheral Pulses WNL: Yes Integumentary: Yes: WNL Neurological: Yes: WNL, Alert, Oriented ...Motor Strength: WNL Psychiatric: Yes: WNL, Alert, Oriented Labs: CBC, BMP 01/13/19 05:50 01/13/19 05:50 INR, PTT INR 2.33 (0.83-1.09) H 01/13/19 05:50 - ....Imaging Other: Pending (Stress test) Problem List - Problems (1) Prophylactic measure Assessment/Plan: FEN cardiac diet monitor electrolytes no need for additional IVF DVT coumadin, follow INR Dipso Maintain as inpatient full code discharge planning Code(s): Z29.9 - ENCOUNTER FOR PROPHYLACTIC MEASURES, UNSPECIFIED (2) Near syncope Assessment/Plan: pt reports ongoing evaluation for "balance issues" and is followed by neuro ( Dr. Florinda Natarajan - [phone]) pt will also need to f/u with conveyancer (Dr. Ribeiro) for BP medication optimization upon discharge hyponatremia may have also been contributing to syncope and has resolved with fluid restriction orthostatics to be done Code(s): R55 - SYNCOPE AND COLLAPSE (3) CHF (congestive heart failure) Assessment/Plan: continue lasix 20mg daily along with KCL 10meq daily trend electrolytes and serum Cr Code(s): I50.9 - HEART FAILURE, UNSPECIFIED Qualifiers: Heart failure type: systolic Heart failure chronicity: unspecified Qualified Code(s): I50.20 - Unspecified systolic (congestive) heart failure (4) Hyperlipidemia Assessment/Plan: continue with lipitor q hs Code(s): E78.5 - HYPERLIPIDEMIA, UNSPECIFIED Qualifiers: Hyperlipidemia type: unspecified Qualified Code(s): E78.5 - Hyperlipidemia , unspecified (5) Hypertension Assessment/Plan: better BP control continue with losartan 50mg maintain on tele Code(s): I10 - ESSENTIAL (PRIMARY) HYPERTENSION Qualifiers: Hypertension type: unspecified Qualified Code(s): I10 - Essential (primary ) hypertension (6) ANITA (acute kidney injury) Assessment/Plan: Cr increased to 1.6 most likely to over diureses. decrease lasix to 20mg starting tomorrow since received lasix 40mg IV at 6am appreciate nephrology consultation renal U/S pending U/A sent and negative losartan dc'd Code(s): N17.9 - ACUTE KIDNEY FAILURE, UNSPECIFIED (7) H/O mitral valve replacement Code(s): Z95.2 - PRESENCE OF PROSTHETIC HEART VALVE (8) H/O tricuspid valve annuloplasty Code(s): Z98.890 - OTHER SPECIFIED POSTPROCEDURAL STATES (9) Elevated brain natriuretic peptide (BNP) level Assessment/Plan: BNP 23K on admission, new 2520. Clinically improved No need to futher trend lasix decreased monitor electrolytes Code(s): R79.89 - OTHER SPECIFIED ABNORMAL FINDINGS OF BLOOD CHEMISTRY (10) Elevated troponin I level Assessment/Plan: no active ischemia elevated Troponins most likely to demand ischemia trended down to .13, no need to further trend Lexiscan done today pending results Code(s): R74.8 - ABNORMAL LEVELS OF OTHER SERUM ENZYMES (11) Hyponatremia Assessment/Plan: Na 122 on admission increased to 135. urine electrolytes sent, FeUrea 44% Free water restriction to 1000L can libralize to 1200 Salt tablets stopped Code(s): E87.1 - HYPO-OSMOLALITY AND HYPONATREMIA Visit type - Emergency Visit Emergency Visit: Yes ED Registration Date: 01/08/19 Care time: The patient presented to the Emergency Department on the above date and was hospitalized for further evaluation of their emergent condition. - New Patient This patient is new to me today: No - Critical Care Critical Care patient: No - Discharge Referral Referred to [facility] Med P.C.: No
[2019-01-14 07:53] LABS: INR 1.99 (0.83-1.09); PROTHROMBIN TIME (PATIENT) 23.6 SEC (9.7-13.0)
[2019-01-14 08:29] LABS: BASO % 0.5 % (0-2.0); EOS % 0.6 % (0-4.5); HEMATOCRIT 35.6 % (32.4-45.2); HEMOGLOBIN 11.8 GM/dL (10.7-15.3); LYMPH % 26.8 % (8-40); MCH 32.5 pg (25.7-33.7); MCHC 33.3 g/dl (32.0-36.0); MEAN CELL VOLUME 97.5 fl (80-96); MEAN PLT VOLUME 8.4 fl (7.5-11.1); MONO % 14.1 % (3.8-10.2); PLATELET COUNT 160 K/MM3 (134-434); RBC 3.65 M/mm3 (3.60-5.2); RDW 14.1 % (11.6-15.6); WHITE BLOOD COUNT 5.9 K/mm3 (4.0-10.0)
[2019-01-14] MEDS ORDERED: REGADENOSON 0.4 MG/5 ML PRE-FILLED SYRINGE IVPUSH ONE ×2 (08:30→10:47)
[2019-01-14 08:39] LABS: ALBUMIN 3.2 g/dl (3.4-5.0); BILIRUBIN,TOTAL 0.3 mg/dL (0.2-1); BLOOD UREA NITROGEN 56.3 mg/dL (7-18); CALCIUM 8.4 mg/dL (8.5-10.1); CREATININE 1.6 mg/dL (0.55-1.3); MAGNESIUM 2.4 mg/dL (1.8-2.4); N-TERMINAL BNP 2520.8 pg/ml (5-450); POTASSIUM 4.7 mmol/L (3.5-5.1); TOT PROT 6.6 g/dl (6.4-8.2)
--- NOTE | 2019-01-14 11:17 | CONS ---
DATE OF CONSULTATION: 01/09/2019 REQUESTING PHYSICIAN: Hospitalist Service CHIEF COMPLAINT: 1. Severe occipital headache. 2. History of lightheadedness. 3. Nausea. 4. History of feeling of passing out. HISTORY OF PRESENT ILLNESS: Patient is a 78-year-old female with longstanding history of hypertension, hypertensive cardiovascular disease, history of mitral valvular disease, status post bioprosthetic mitral valve replacements x2, history of paroxysmal atrial fibrillation, congestive heart failure, history of tricuspid valvuloplasty/Rasta ring, nonobstructive coronary artery disease. Patient states that she was suddenly afflicted by severe pressure-like discomfort on top of her head. This was accompanied by lightheadedness. She was slightly nauseous and felt that she may pass out. As the symptoms persisted, she recorded her blood pressure and noted that her systolic blood pressure was 195 mmHg. She decided to go to the [facility] and was hospitalized. She denies having chest pain or discomfort either at rest or with exertion and there is a history of mild exertional dyspnea. No paroxysmal nocturnal dyspnea or orthopnea reported. No history of palpitations. History of morning cough, accompanied by clear expectoration. On occasion, cough occurs while she is lying in bed. PAST HISTORY: As mentioned in the history of present illness. 1. History of fracture of the right forearm. 2. History of intracerebral hemorrhage related to falls. 3. History of gait disturbance and progressive tremors, especially involving the right hand. SURGICAL HISTORY: 1. Mitral valve replacement (bioprosthesis) x2. 2. Status post tricuspid valvuloplasty/Rasta ring. 3. Status post cholecystectomy. 4. Multiple sutures for laceration of the neck as a child. SOCIAL HISTORY: She is single, has no children. Smoked from the age of 16 to 30 and was smoking up to 3 packs of cigarettes per day. She has a social drink. She has 2 cups of coffee and several cups of decaffeinated tea. FAMILY HISTORY: Father had rheumatic heart disease and had sudden while waiting for surgery. Mother at the age of 70 of a hematologic disorder. Had 1 brother who at 72 years of age of interstitial lung disease. ALLERGIES: INTOLERANT TO CODEINE. MEDICATIONS: 1. Losartan 50 mg p.o. b.i.d. 2. Amiodarone 100 mg p.o. daily. 3. Warfarin 2 mg daily. 4. Tigan 300 mg p.o. t.i.d. p.r.n. 5. Metoprolol succinate 50 mg p.o. daily. 6. Caltrate 600 mg plus D 1 p.o. daily. 7. Senna 2 tablets p.o. daily. 8. Colace 100 mg p.o. b.i.d. 9. Zantac 150 mg p.o. daily. 10. Atorvastatin 10 mg p.o. daily. 11. Furosemide 40 mg IV b.i.d. 12. Potassium chloride 10 mEq p.o. daily. 13. Vitamin B12 2000 mcg p.o. daily. REVIEW OF SYSTEMS: Constitutional: No history of chills, fever, or night sweats. No history of unintentional weight loss. HEENT: History of headaches, as mentioned in the history of present illness. No history of diplopia or blurry vision. No history of epistaxis or hoarseness. History of postnasal drip. No history of tinnitus. History of high-frequency deafness involving the left ear. Cardiovascular: See history of present illness. Respiratory: See history of present illness. No history of hemoptysis or tuberculosis. Question history of chronic obstructive pulmonary disease. Gastrointestinal: Recent history of nausea. Intermittent epigastric burning sensation on an empty stomach. No history of recent vomiting, melena, or hematemesis. No history of change in bowel habits. Central Nervous System: See history of present illness. History of loss of balance and multiple falls. Patient also complains that she is unable to slow herself while going down a slope and she has had multiple falls when she is bending down to pickler helper something. She also has noted that her handwriting is becoming smaller and disorganized. There is no history of focal weakness. No history of seizures. Genitourinary: No history of urgency. History of frequency. No history of dysuria or hematuria. Musculoskeletal: History of mild arthritic discomfort involving the hands. History of left hip pain which occurred after a fall and radiates to the back. No history of myalgias. Endocrine: No history of polyuria or polydipsia. No history of intolerance to cold or warm weather. Hematologic/Lymphatics: No history of anemia, bleeding, or ecchymosis. No history of lymphadenopathy. PHYSICAL EXAMINATION: General: A 78-year-old female who is alert, in no distress, no pallor, cyanosis, clubbing, or jaundice. Vital Signs: January 09, 2019, blood pressure 133/68 mmHg, pulse 59 beats per minute and regular, respirations 18 per minute, oxygen saturation 94% on room air. Weight is 58.987 kg. Neck: Supple. No jugular venous distention. Mildly positive hepatojugular reflex. Carotids are 2+, upstrokes are normal. No bruits were heard. No thyromegaly was appreciated. Heart: PMI within the 5th intercostal space. No heaves or thrills. Heart sounds were distant. S1 was variable. S2 was normal. Grade 1/6 ejection systolic murmur was heard at the 2nd right intercostal space on held expiration, ending early systole. No diastolic murmur or gallops were heard. Lungs: Clear on auscultation. Abdomen: Soft, slightly protuberant and nontender. No hepatosplenomegaly or palpable masses were felt. Bowel sounds are present, no bruits were heard. Extremities: No calf tenderness or dependent edema. There were fine tremors of the right hand, which exaggerated while holding an object. Pulses were equal. LABORATORY DATA: CBC January 09, 2019: WBC 7000, hemoglobin 11.5 g/dL, platelet count . Sodium 122, potassium 4.6, chloride 93, CO2 23 mmol/L, BUN 21.0, creatinine 0.8 mg/dL. Random glucose 84 mg/dL. Calcium 8.0 mg/dL. Magnesium 1.9. AST was slightly elevated at 52, ALT 57, alkaline phosphatase 59. Troponin-I 0.19 and 0.16. BNP 23,839.3 pg/mL. Total protein 6.3 g/dL, albumin 3.2 g/dL. Total cholesterol was 162, triglycerides 61, HDL cholesterol 49, LDL cholesterol 91 mg/dL. TSH was 3.40. X-ray of the chest on January 08, 2019, impression: Interval increase interstitial lung markings suggestive of mild pulmonary venous congestion. Cannot rule out superimposed infiltrates. ECG January 08, 2019: Sinus bradycardia, intraatrial conduction abnormality, first-degree AV block, incomplete left bundle branch block. Diffuse ST and T-wave abnormalities involving the lateral leads. Prolonged QTc interval. Echocardiogram: Interpretation Summary: There is a bioprosthetic mitral valve. The prosthetic mitral valve is well seated. An annuloplasty ring is noted in the tricuspid position. There is mild aortic stenosis. There is mild to moderate aortic valve thickening. The aortic valve is normal in structure and function. There is mild tricuspid regurgitation. Right ventricular systolic pressure is elevated at 40-50 mmHg. The left ventricle is grossly normal size. The septal motion is consistent with postoperative state. There is moderate tricuspid valve thickening. There is mild mitral stenosis. Moderate to severe aortic regurgitation. There is trace mitral regurgitation. There is moderate to severe global hypokinesis of the left ventricle. The left ventricular systolic function is moderate to severely impaired. IMPRESSION: 1. Recent accelerated hypertension, history of hypertensive cardiovascular disease. 2. Congestive heart failure, etiology: A. Secondary to accelerated hypertension. B. Left ventricular systolic dysfunction. 3. Elevated troponins, etiology: A. Secondary to coronary artery disease. B. Congestive heart failure. 4. History of nonobstructive coronary artery disease. 5. Status post bioprosthetic mitral valve replacement (x2). 6. Tricuspid valvuloplasty. 7. Hyponatremia, possibly related to diuretics, syndrome of inappropriate ATH needs to be excluded. 8. Tremors associated with the recurrent falls, gait disturbance, and changing handwriting. 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 9. Aortic valvular disease with aortic regurgitation. RECOMMENDATIONS: 1. Continue therapy as outlined. 2. Correction of hyponatremia. 3. Renal evaluation. 4. Decrease the dose of furosemide to 40 mg daily and may need to be lowered further if hyponatremia was to persist. 5. T3, T4, TSH. 6. Patient should undergo a myocardial perfusion stress test with Lexiscan. 7. Neurological evaluation. 8. In view of left ventricular systolic dysfunction, patient may benefit with the addition of spironolactone starting at 12.5 mg p.o. daily and titrating up. 9. Amiodarone could be temporarily discontinued. 10. ESR and C-reactive protein. 11. Further suggestions will depend upon the results of the above-mentioned testing. PROGNOSIS: Guarded. Thank you for your referral. Roshan [id number]
--- NOTE | 2019-01-14 13:57 | CONSULT ---
Consult Consult Specialty:: Nephrology Reason for Consultation:: ANITA - History of Present Illness Chief Complaint: elevated blood pressure History of Present Illness: Pt is a 78 year old female with pmhx of htn, HLD, a-fib, and CHF who presented with elevated blood pressure at home. She says that she felt weak and fatigued at home. She checked her bp and found in to be in 180 systolic. Her bp has been normal to low since admission. She was found to have elevated creatinine today and I was called to evaluate her. She denies history of CKD. She denies dysuria or hematuria. She denies nsaid use. She does get lower ext edema and was on lasix 20 mg daily at home. 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: Other (H/O previous SAH and SDH 2007) Cardio/Vascular: Yes: AFIB (Noted post-op 12/20 procedure Resolved), HTN, Hyperlipdemia, Mitral Stenosis, Murmur, Other (MVP with MR post initial MVR 1999 Reoperative porcine MVR and TV Ring anuloplasty) Pulmonary: Yes: COPD (mild) Gastrointestinal: Yes: Gastritis Hepatobiliary: Yes: Other (Fatty liver) Renal/: Yes: UTI (Resolved), Other (Bladder prolapse) ...: No Infectious Disease: Yes: Herpes Zoster Rheumatology: Yes: Rheumatoid Arthritis (Mildly positive 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) Dermatology: Yes: Basal Cell (Post MOHS Right episcopalian) - Past Surgical History Past Surgical History: Yes: Valve Replacement (mitral valve: porcine) - Alcohol/Substance Use Hx Alcohol Use: No History of Substance Use: reports: None - Smoking History Smoking history: Never smoked Have you smoked in the past 12 months: No Aproximately how many cigarettes per day: 0 If you are a former smoker, when did you quit?: 40 YEARS AGO - Social History ADL: Independent 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 [employer] History of Recent Travel: No Home Medications - Allergies Allergies/Adverse Reactions: Allergies Allergy/AdvReac Type Severity Reaction Status Date / Time codeine Allergy Verified 01/08/19 13:50 - Home Medications Home Medications: Ambulatory Orders Ca/D3/Mag Ox/Zinc/Security Systems Engineer/Dio/Bor [Caltrate 600+D Plus Tab Chew] 1 each PO DAILY Pravastatin Sodium 20 mg PO MOFR 02/08/14 Furosemide [Lasix] 20 mg PO DAILY 10/12/17 Acetaminophen [Tylenol .Extra-Strength -] 500 mg PO Q6H PRN tablet 10/18/17 Amiodarone HCl [Cordarone -] 100 mg PO DAILY 02/05/18 Cyanocobalamin (Vitamin B-12) [Vitamin B-12] 3,000 mcg PO DAILY 02/05/18 Losartan Potassium [Cozaar -] 50 mg PO BID 02/05/18 Ubidecarenone [Co Q10] 200 mg PO DAILY 02/05/18 Warfarin Sodium [Coumadin] 2 mg PO DAILY 02/05/18 Phosphatidylserine-Epa/[place]-3 [Vayarin Plus 225 mg Capsule] 100 mg PO BID 04/26 Potassium Chloride 10 meq PO DAILY 10/25/18 Metoprolol Succinate [Toprol XL -] 50 mg PO DAILY 01/08/19 Family Disease History - Family Disease History Family Disease History: Other: Father (: 49: DC), Mother (: 75: Leukemia ), Brother (: Interstitial lung disease), Sister (None), Son (None), Daughter (None) Review of Systems - Review of Systems Constitutional: reports: Malaise Eyes: reports: No Symptoms HENT: reports: No Symptoms Neck: reports: No Symptoms Cardiovascular: reports: No Symptoms Respiratory: reports: No Symptoms Gastrointestinal: reports: No Symptoms Genitourinary: reports: No Symptoms Musculoskeletal: reports: No Symptoms Integumentary: reports: No Symptoms Neurological: reports: No Symptoms Endocrine: reports: No Symptoms Hematology/Lymphatic: reports: No Symptoms Psychiatric: reports: No Symptoms Physical Exam Vital Signs: Vital Signs Temperature 98 F 01/14/19 09:00 Pulse Rate 50 L 01/14/19 09:00 Respiratory Rate 18 01/14/19 09:00 Blood Pressure 128/38 L 01/14/19 09:00 O2 Sat by Pulse Oximetry (%) 98 01/13/19 22:00 Constitutional: Yes: Calm Eyes: Yes: Conjunctiva Clear HENT: Yes: Atraumatic Neck: Yes: Supple Cardiovascular: Yes: S1, S2 Respiratory: Yes: CTA Bilaterally Gastrointestinal: Yes: Soft Renal/: Yes: WNL Musculoskeletal: Yes: WNL Edema: No Neurological: Yes: Oriented Psychiatric: Yes: Oriented Labs: CBC, BMP 01/14/19 06:05 01/14/19 06:05 Imaging - Results Chest X-ray: Report Reviewed Problem List - Problems (1) Elevated brain natriuretic peptide (BNP) level Code(s): R79.89 - OTHER SPECIFIED ABNORMAL FINDINGS OF BLOOD CHEMISTRY (2) Elevated troponin I level Code(s): R74.8 - ABNORMAL LEVELS OF OTHER SERUM ENZYMES (3) Near syncope Code(s): R55 - SYNCOPE AND COLLAPSE Assessment/Plan Current Medications Generic Name Dose Route Start Last Admin Trade Name Freq PRN Reason Stop Dose Admin Acetaminophen 500 mg 01/08/19 16:48 01/12/19 12:07 Tylenol - PO 500 mg Q6H PRN Administration PAIN LEVEL 1 - 3 Atorvastatin Calcium 10 mg 01/11/19 22:00 01/11/19 21:02 Lipitor - PO 10 mg MoFr@2200 DEIDRE Administration Cyanocobalamin 3,000 mcg 01/09/19 10:00 01/13/19 09:35 Vitamin B12 - PO 3,000 mcg DAILY DEIDRE Administration Docusate Sodium 100 mg 01/08/19 22:00 01/13/19 21:39 Colace - PO 100 mg BID DEIDRE Administration Furosemide 20 mg 01/15/19 06:00 Lasix - PO BID@0600,1400 DEIDRE Losartan Potassium 50 mg 01/08/19 22:00 01/13/19 21:39 Cozaar - PO 50 mg BID DEIDRE Administration Metoprolol Succinate 50 mg 01/09/19 10:00 01/13/19 09:36 Toprol Xl - PO 50 mg DAILY DEIDRE Administration Potassium Chloride 10 meq 01/09/19 10:00 01/13/19 09:36 K-Dur - PO 10 meq DAILY DEIDRE Administration Ranitidine HCl 150 mg 01/09/19 10:00 01/13/19 09:36 Zantac - PO 150 mg DAILY DEIDRE Administration Senna 2 tab 01/08/19 22:00 01/13/19 21:39 Senna - PO 2 tab HS DEIDRE Administration Trimethobenzamide HCl 300 mg 01/09/19 13:17 Tigan - PO TID PRN NAUSEA AND/OR VOMITING Warfarin Sodium 2 mg 01/08/19 22:00 01/13/19 17:34 Coumadin - PO 2 mg DAILY@1800 DEIDRE Administration Impression 1. ANITA 2. HTN 3. CHF 4. a-fib 5. HLD 6. hyponatremia Plan - check ua - hold losartan - sodium improving - decrease lasix to 20 daily - restrict free water - check renal ultrasound - repeat labs in am Dr Raphael
[2019-01-14] MEDS: CYANOCOBALAMIN 1,000 MCG TABLET (FP) PO SCH (14:21)
[2019-01-14] MEDS: DOCUSATE SODIUM 100 MG CAPSULE (FP) PO SCH ×2 (14:21→21:04)
[2019-01-14] MEDS: RANITIDINE HCL 150 MG TABLET (FP) PO SCH (14:22)
[2019-01-14] MEDS: POTASSIUM CHLORIDE TABS 10 MEQ TABLET.ER (FP) PO SCH (14:22)
[2019-01-14 14:41] LABS: PH,URINE 6.5 (5.0-8.0); URINE APPEARANCE CLEAR; URINE BILIRUBIN NEGATIVE (NEGATIVE); URINE COLOR YELLOW; URINE GLUCOSE (UA) NEGATIVE (NEGATIVE); URINE KETONE NEGATIVE (NEGATIVE); URINE LEUK ESTERASE NEGATIVE (NEGATIVE); URINE NITRITE NEGATIVE (NEGATIVE); URINE PROTEIN NEGATIVE (NEGATIVE); URINE UROBILINOGEN 0.2 mg/dL (0.2-1.0)
[2019-01-14] MEDS: WARFARIN NA 1 MG TABLET (FP) PO SCH (17:45)
--- NOTE | 2019-01-14 18:01 | PN ---
Progress Note (short form) - Note Progress Note: 78 year old female admitted with headaches, lightheadedness, and hypertension. H /o MVR X2, paroxysmal atrial fib, CHF, h/o unstead gait tremors and multiple falls, No dizziness, chest pain, SOB. Had stress test results are pending. Active Medications Acetaminophen (Tylenol -) 500 mg PO Q6H PRN PRN Reason: PAIN LEVEL 1 - 3 Last Admin: 01/12/19 12:07 Dose: 500 mg Atorvastatin Calcium (Lipitor -) 10 mg PO MoFr@2200 [facility] Last Admin: 01/11/19 21:02 Dose: 10 mg Cyanocobalamin (Vitamin B12 -) 3,000 mcg PO DAILY [facility] Last Admin: 01/14/19 14:21 Dose: 3,000 mcg Docusate Sodium (Colace -) 100 mg PO BID [facility] Last Admin: 01/14/19 14:21 Dose: 100 mg Furosemide (Lasix -) 20 mg PO DAILY [facility] Metoprolol Succinate (Toprol Xl -) 50 mg PO DAILY [facility] Last Admin: 01/14/19 14:22 Dose: 50 mg Potassium Chloride (K-Dur -) 10 meq PO DAILY [facility] Last Admin: 01/14/19 14:22 Dose: 10 meq Ranitidine HCl (Zantac -) 150 mg PO DAILY [facility] Last Admin: 01/14/19 14:22 Dose: 150 mg Senna (Senna -) 2 tab PO HS [facility] Last Admin: 01/13/19 21:39 Dose: 2 tab Trimethobenzamide HCl (Tigan -) 300 mg PO TID PRN PRN Reason: NAUSEA AND/OR VOMITING Warfarin Sodium (Coumadin -) 2 mg PO DAILY@1800 [facility] Last Admin: 01/14/19 17:45 Dose: 2 mg Last Vital Signs Temp Pulse Resp BP Pulse Ox 98.2 F 68 20 127/53 L 98 01/14/19 14:00 01/14/19 14:00 01/14/19 14:00 01/14/19 14:00 01/14/19 09:00 NECK: Supple, no JVD, carotids are equal, no bruits or thyromegaly. HEART: PMI is in the 5th ics, no heaves or thrills grade II/ systolic murmur at the apex and LSB, no gallops. LUNGS: Clear on auscultation. ABDOMEN: Soft, nontender, no organomegaly, no palpable masses. EXTREMITIES: No calf tenderness or dependent edema. intentional tremors of both hands. CBC, BMP 01/14/19 06:05 01/14/19 06:05 Stress test results pending. IMPRESSION: 1. Accelerated hypertension, presently normotensive. 2. Tremors, gait disturbance and lightheadedness, etiology to be determined: a). Parkisonism needs exclusion. b). 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 3. CHF resolved. 4. S/p bioprosthetic mitral valve replacement(X2). 5. LV systolic dysfunction. 6. Postural drop in BP. 7. Hyponateremia RECOMMENDATIONS: 1. Check BP supine and standing. 2. Further suggesting after reviewing stress test results. 3. F/u BMP.
--- NOTE | 2019-01-14 19:02 | HOL ---
Hook-up date: 2019-01-13 12:53:00 Duration: 22:32:00 Test Indications: PER NEUROLOGY Medications: 17937 QRS complexes 46 Ventricular ectopics which represent <1 % of total QRS comp. 1 Supraventricular ectopics which represent <1 % of total QRS comp. * Paced QRS complexs which represent % of total QRS comp. * % of Time Classified as Noise VENTRICULAR ECTOPY 44 Isolated 0 Bigeminal Cycles 1 Couplets 0 Runs 0 Beats in Runs * Beats LONGEST at * BPM at :: -- * Beats FASTEST at * BPM at :: -- SUPRAVENTRICULAR ECTOPY 1 Isolated 0 Couplets 0 Runs 0 Beats in Runs * Beats LONGEST at * BPM at :: -- * Beats FASTEST at * BPM at :: -- HEART RATES 45 MIN at 03:30:02 2019-01-14 56 AVG 77 MAX at 10:57:50 2019-01-14 LONGEST RR 1.792 secs at 08:03:14 2019-01-14 SCANNED BY SUHAS GERARD ON 01/14/19 1. Normal Sinus rhythm, range 45-77 bpm, average 56 bpm 2. Rare premature atrial contractions and premature ventricular contractions, no paroxysmal afib seen, no significant pauses noted 3. [address] depressions in lead 1, correlate clinically for ischemia 4. Diary not submitted Confirmed by CATARINA KOVACS, OSMAN ([id number]) on 01/14/2019 7:02:01 PM Referred By: AMELIA DYKES DR Overread By: OSMAN ELMORE MD
[2019-01-14] MEDS: SENNOSIDES 8.6MG TABLET (FP) PO SCH (21:04)
[2019-01-14] MEDS: ATORVASTATIN CA 10 MG TABLET (FP) PO SCH (21:04)
[2019-01-15] MEDS ORDERED: FUROSEMIDE 20 MG TABLET (FP) PO SCH ×2 (06:00→10:00)
[2019-01-15 07:06] LABS: BASO % 0.5 % (0-2.0); EOS % 2.2 % (0-4.5); HEMATOCRIT 30.6 % (32.4-45.2); HEMOGLOBIN 10.4 GM/dL (10.7-15.3); MCH 32.6 pg (25.7-33.7); MCHC 34.1 g/dl (32.0-36.0); MEAN CELL VOLUME 95.8 fl (80-96); MEAN PLT VOLUME 7.4 fl (7.5-11.1); MONO % 12.6 % (3.8-10.2); NEUT % 61.7 % (42.8-82.8); PLATELET COUNT 143 K/MM3 (134-434); RBC 3.19 M/mm3 (3.60-5.2); RDW 13.8 % (11.6-15.6); WHITE BLOOD COUNT 5.5 K/mm3 (4.0-10.0)
[2019-01-15] MEDS: LOSARTAN POTASSIUM 50 MG TABLET (FP) PO SCH (07:08)
[2019-01-15 07:38] LABS: INR 1.86 (0.83-1.09); PROTHROMBIN TIME (PATIENT) 22.1 SEC (9.7-13.0)
[2019-01-15 07:51] LABS: BILIRUBIN,TOTAL 0.4 mg/dL (0.2-1); BLOOD UREA NITROGEN 45.8 mg/dL (7-18); CALCIUM 8.5 mg/dL (8.5-10.1); CREATININE 1.2 mg/dL (0.55-1.3); MAGNESIUM 2.6 mg/dL (1.8-2.4); POTASSIUM 4.7 mmol/L (3.5-5.1); TOT PROT 6.1 g/dl (6.4-8.2)
[2019-01-15] MEDS ORDERED: PT OWN MED DRAWER 7, Y5N ONE (08:28)
[2019-01-15] MEDS: POTASSIUM CHLORIDE TABS 10 MEQ TABLET.ER (FP) PO SCH (09:57)
[2019-01-15] MEDS: CYANOCOBALAMIN 1,000 MCG TABLET (FP) PO SCH (09:58)
[2019-01-15] MEDS: DOCUSATE SODIUM 100 MG CAPSULE (FP) PO SCH (09:58)
[2019-01-15] MEDS: RANITIDINE HCL 150 MG TABLET (FP) PO SCH (09:59)
--- NOTE | 2019-01-15 12:06 | PN ---
Progress Note (short form) - Note Progress Note: 78 year old female admitted with headaches, lightheadedness, and hypertension. History of MVR X2, paroxysmal atrial fib, CHF, h/o unstead gait tremors and multiple falls. No dizziness, chest pain, SOB. Stress test report reviewed. Active Medications Acetaminophen (Tylenol -) 500 mg PO Q6H PRN PRN Reason: PAIN LEVEL 1 - 3 Last Admin: 01/12/19 12:07 Dose: 500 mg Atorvastatin Calcium (Lipitor -) 10 mg PO MoFr@2200 [facility] Last Admin: 01/14/19 21:04 Dose: 10 mg Cyanocobalamin (Vitamin B12 -) 3,000 mcg PO DAILY [facility] Last Admin: 01/15/19 09:58 Dose: 3,000 mcg Docusate Sodium (Colace -) 100 mg PO BID [facility] Last Admin: 01/15/19 09:58 Dose: Not Given Furosemide (Lasix -) 20 mg PO DAILY [facility] Last Admin: 01/15/19 09:58 Dose: 20 mg Metoprolol Succinate (Toprol Xl -) 50 mg PO DAILY [facility] Last Admin: 01/15/19 09:58 Dose: 50 mg Potassium Chloride (K-Dur -) 10 meq PO DAILY [facility] Last Admin: 01/15/19 09:57 Dose: 10 meq Ranitidine HCl (Zantac -) 150 mg PO DAILY [facility] Last Admin: 01/15/19 09:59 Dose: 150 mg Senna (Senna -) 2 tab PO HS [facility] Last Admin: 01/14/19 21:04 Dose: Not Given Trimethobenzamide HCl (Tigan -) 300 mg PO TID PRN PRN Reason: NAUSEA AND/OR VOMITING Warfarin Sodium (Coumadin -) 2 mg PO DAILY@1800 [facility] Last Admin: 01/14/19 17:45 Dose: 2 mg Last Vital Signs Temp Pulse Resp BP Pulse Ox 98.6 F 54 L 18 143/50 L 99 01/15/19 10:00 01/15/19 10:00 01/15/19 10:00 01/15/19 10:00 01/14/19 21:00 NECK: Supple, no JVD, carotids are equal, no bruits or thyromegaly. HEART: PMI is in the 5th ics, no heaves or thrills grade II/ systolic murmur at the apex and LSB, no gallops. LUNGS: Clear on auscultation. ABDOMEN: Soft, nontender, no organomegaly, no palpable masses. EXTREMITIES: No calf tenderness or dependent edema. intentional tremors of both hands Myocardial perfusion lexiscan study reveales a small reversible basablateral wall defect consistent with mild ischemia. Normal wall motion and EF of 57% ( see detailed report). CBC, BMP 01/15/19 06:39 01/15/19 06:39 IMPRESSION: 1. Accelerated hypertension, presently normotensive. 2. Tremors, gait disturbance and lightheadedness, etiology to be determined: a). Parkisonism needs exclusion. b). 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 3. CHF resolved. 4. Status post bioprosthetic mitral valve replacement(X2). 5. CAD, mild basal lateral wall ischemia. 6. Postural drop in BP(resolved). 7. Hyponateremia, resolved RECOMMENDATIONS: 1. Check BP supine and standing. 2. Further suggesting after reviewing stress test results. 3. NTG 0.4mg. S/L PRN. 4. Neuro F/U. 5. Out pt. F/u. 6. Discharge if medically stable. Ross Ribeiro M.D.
--- NOTE | 2019-01-15 12:33 | DS ---
Physical Exam: SUBJECTIVE: Patient seen and examined at the bedside. feels well, in no acute distress. eager to go home. OBJECTIVE: seen and cleared by meatcutter for discharge home. Vital Signs Period Temp Pulse Resp BP Sys/Miranda Pulse Ox Last 24 Hr 97.5 F-98.6 F 50-68 18-20 124-143/37-73 99 PHYSICAL EXAM GENERAL: The patient is awake, alert, and fully oriented, in no acute distress. HEAD: Normal with no signs of trauma. EYES: PERRL, extraocular movements intact, sclera anicteric, conjunctiva clear. ENT: Ears normal, nares patent, oropharynx clear without exudates, moist mucous membranes. NECK: Trachea midline, full range of motion, supple. LUNGS: Breath sounds equal, clear to auscultation bilaterally, no wheezes, no crackles, no accessory muscle use. HEART: Regular rate and rhythm ABDOMEN: Soft, nontender, nondistended, normoactive bowel sounds, no guarding, no rebound, no hepatosplenomegaly, no masses. EXTREMITIES: 2+ pulses, warm, well-perfused, no edema. NEUROLOGICAL: Cranial nerves II through XII grossly intact. Normal speech, gait not observed. PSYCH: Normal mood, normal affect. SKIN: Warm, dry, normal turgor, no rashes or lesions noted. LABS Laboratory Results - last 24 hr 01/14/19 01/15/19 01/15/19 14:00 06:39 06:39 WBC RBC Hgb Hct MCV MCH MCHC RDW Plt Count MPV Absolute Neuts (auto) Neutrophils % Lymphocytes % Monocytes % Eosinophils % Basophils % Nucleated RBC % PT with INR 22.10 H INR 1.86 H Sodium 139 Potassium 4.7 Chloride 104 Carbon Dioxide 30 Anion Gap 5 L BUN 45.8 H Creatinine 1.2 Est GFR (CKD-EPI)AfAm 50.13 Est GFR (CKD-EPI)NonAf 43.25 Random Glucose 84 Calcium 8.5 Magnesium 2.6 H Total Bilirubin 0.4 AST 31 ALT 43 Alkaline Phosphatase 59 Total Protein 6.1 L Albumin 3.0 L Urine Color Yellow Urine Appearance Clear Urine pH 6.5 Ur Specific [place] 1.008 L Urine Protein Negative Urine Glucose (UA) Negative Urine Ketones Negative Urine Blood Negative Urine Nitrite Negative Urine Bilirubin Negative Urine Urobilinogen 0.2 Ur Leukocyte Esterase Negative 01/15/19 06:39 WBC 5.5 RBC 3.19 L Hgb 10.4 L Hct 30.6 L MCV 95.8 MCH 32.6 MCHC 34.1 RDW 13.8 Plt Count 143 MPV 7.4 L D Absolute Neuts (auto) 3.4 Neutrophils % 61.7 Lymphocytes % 23.0 Monocytes % 12.6 H Eosinophils % 2.2 D Basophils % 0.5 Nucleated RBC % 0 PT with INR INR Sodium Potassium Chloride Carbon Dioxide Anion Gap BUN Creatinine Est GFR (CKD-EPI)AfAm Est GFR (CKD-EPI)NonAf Random Glucose Calcium Magnesium Total Bilirubin AST ALT Alkaline Phosphatase Total Protein Albumin Urine Color Urine Appearance Urine pH Ur Specific [place] Urine Protein Urine Glucose (UA) Urine Ketones Urine Blood Urine Nitrite Urine Bilirubin Urine Urobilinogen Ur Leukocyte Esterase HOSPITAL COURSE: Date of Admission:01/08/19 Date of Discharge: 01/15/19 ADMISSION NOTE: 78 year old F with h/o L- Breast Ca s/p lumpectomy, chemotherapy, radiation therapy, Afib (on coumadin), CAD, MVR x2, Intracranial hemorrhage secondary to fall while on Coumadin, Fatty Liver disease, Herpes Zoster, and Basal Cell Ca presents to the ED with c/o headache and near syncope in the setting of elevated blood pressure. Pt reports while working in the kitchen this morning (), when she began to experience light headedness and "pressure" at the top of her head. She took her BP and noted systolic blood pressure in the 180s. Pt decided to call her [employer] patient assistance line for advice. She was informed to rest for a period of time and repeat BP, which was noted to be 190s a few minutes later. She recalled help line and was encouraged to seek assistance at her local ED. HOSPITAL COURSE BY PROBLEM LIST: Near syncope pt reports ongoing evaluation for "balance issues" and is followed by neuro ( Dr. Florinda Nataarjan - [phone]). Patient to follow up outpatient. Hyponatremia on admission, resolved. CHF (congestive heart failure) continue lasix 20mg daily along with KCL 10meq daily Hyperlipidemia continue with lipitor q hs Hypertension better BP control continue with losartan 50mg and toprol 50mg xl ANITA (acute kidney injury) resolved Elevated brain natriuretic peptide (BNP) level BNP 23K on admission, new 2520. Clinically improved No need to further trend Elevated troponin I level no active ischemia elevated Troponins most likely to demand ischemia trended down to .13, no need to further trend Lexiscan done today and reviewed, will need outpatient follow up Hyponatremia Na 122 on admission increased to 139. DISCHARGE PLAN: discharge home with cardiology follow up. Minutes to complete discharge: 60 Discharge Summary Reason For Visit: HTN Current Active Problems Elevated brain natriuretic peptide (BNP) level (Acute) Elevated troponin I level (Acute) Hyponatremia (Acute) Near syncope (Acute) Prophylactic measure (Acute) Prophylactic measure (Acute) CHF (congestive heart failure) (Chronic) Hyperlipidemia (Chronic) Hypertension (Chronic) Condition: Good - Instructions Diet, Activity, Other Instructions: Mrs Tejada You were admitted for elevated blood pressures and we will be sending you home with the following recommendations: Elevated blood pressure: Monitor your blood pressure at home. If it remains elevated, please call your meatcutter right away. If you experience chest pain, you can take Nitroglycerin 0.4mg (has been called into your pharmacy). NEW MEDICATION LIST: -Lipitor (Atorvastatin) 10mg take by mouth on Mondays and Fridays at bedtime - this medication helps control your cholesterol levels -Lasix 20mg (Furosemide) take by mouth once per day in the morning - this medication prevents you from retaining too much fluid -Potassium Chloride 10 meq by mouth once daily in the morning- this medication helps you from losing too much potassium while on Lasix -Vitamin b12 take once daily in the morning - this medication is a vitamin. Have your B12 levels checked with your primary care doctor -Coumadin 2mg - take this once daily at the same time (take at 6pm)- goal INR 2- 3. Please have your INR checked with your PCP or meatcutter -Toprol XL 50mg - take this once daily in the morning for blood pressure control. -Losartan 50mg twice per day - take this for BP control. -Tigan, take as needed for nausea -Nitroglycerin (this is an emergency medication to have in case you have chest pain, DO NOT use if you do not have chest pain) STOP taking the Amidorone. This medication has been discontinued by your meatcutter for possible side affects of ataxia. What is ataxia? Ataxia is impaired balance or coordination. Please follow up with Dr. Alexander ( neurologist) for neurological workup. Please follow up with your meatcutter on discharge as well as your primary care doctor. Please have your blood work repeated (CBC, CMP) to assure that your kidney function remains stable. Thank you for allowing us to care for you. Referrals: Ross Ribeiro MD [Staff Physician] - Eryn Alexander MD [Staff Physician] - (follow up with neurology, please call for an appointment) Disposition: HOME - Home Medications Comprehensive Discharge Medication List: Ambulatory Orders Ca/D3/Mag Ox/Zinc/Director Skills/Dio/Bor [Caltrate 600+D Plus Tab Chew] 1 each PO DAILY Pravastatin Sodium 20 mg PO MOFR 02/08/14 Furosemide [Lasix] 20 mg PO DAILY 10/12/17 Acetaminophen [Tylenol .Extra-Strength -] 500 mg PO Q6H PRN tablet 10/18/17 Cyanocobalamin (Vitamin B-12) [Vitamin B-12] 3,000 mcg PO DAILY 02/05/18 Losartan Potassium [Cozaar -] 50 mg PO BID 02/05/18 Ubidecarenone [Co Q10] 200 mg PO DAILY 02/05/18 Warfarin Sodium [Coumadin] 2 mg PO DAILY 02/05/18 Phosphatidylserine-Epa/[place]-3 [Vayarin Plus 225 mg Capsule] 100 mg PO BID 04/26 Potassium Chloride 10 meq PO DAILY 10/25/18 Metoprolol Succinate [Toprol XL -] 50 mg PO DAILY 01/08/19 Docusate Sodium [Colace -] 100 mg PO BID capsule 01/15/19 Furosemide [Lasix -] 20 mg PO DAILY #0 tablet 01/15/19 Nitroglycerin Sublingual [Nitrostat -] 0.3 mg SL ONCE #1 btl 01/15/19 Ranitidine [Zantac -] 150 mg PO DAILY tablet 01/15/19 Trimethobenzamide HCl [Tigan -] 300 mg PO TID PRN capsule 01/15/19 This patient is new to me today: Yes Date on this admission: 01/15/19 Emergency Visit: No Critical Care patient: No - Discharge Referral Referred to [facility] Med [facility] No
[2019-01-15 12:40] VITALS: BMI 22.4
[2019-01-15 13:01] VITALS: BP 140/59; PULSE 58; TEMP 98.7
--- NOTE | 2019-01-15 13:04 | PN ---
Progress Note, Physician History of Present Illness: Pt seen and examined at bedside. She is awake and alert. She denies shortness of breath. - Current Medication List Current Medications: Active Medications Acetaminophen (Tylenol -) 500 mg PO Q6H PRN PRN Reason: PAIN LEVEL 1 - 3 Last Admin: 01/12/19 12:07 Dose: 500 mg Atorvastatin Calcium (Lipitor -) 10 mg PO MoFr@2200 [facility] Last Admin: 01/14/19 21:04 Dose: 10 mg Cyanocobalamin (Vitamin B12 -) 3,000 mcg PO DAILY [facility] Last Admin: 01/15/19 09:58 Dose: 3,000 mcg Docusate Sodium (Colace -) 100 mg PO BID [facility] Last Admin: 01/15/19 09:58 Dose: Not Given Furosemide (Lasix -) 20 mg PO DAILY [facility] Last Admin: 01/15/19 09:58 Dose: 20 mg Metoprolol Succinate (Toprol Xl -) 50 mg PO DAILY [facility] Last Admin: 01/15/19 09:58 Dose: 50 mg Potassium Chloride (K-Dur -) 10 meq PO DAILY [facility] Last Admin: 01/15/19 09:57 Dose: 10 meq Ranitidine HCl (Zantac -) 150 mg PO DAILY [facility] Last Admin: 01/15/19 09:59 Dose: 150 mg Senna (Senna -) 2 tab PO HS [facility] Last Admin: 01/14/19 21:04 Dose: Not Given Trimethobenzamide HCl (Tigan -) 300 mg PO TID PRN PRN Reason: NAUSEA AND/OR VOMITING Warfarin Sodium (Coumadin -) 2 mg PO DAILY@1800 [facility] Last Admin: 01/14/19 17:45 Dose: 2 mg - Objective Vital Signs: Vital Signs Temperature 98.6 F 01/15/19 10:00 Pulse Rate 54 L 01/15/19 10:00 Respiratory Rate 18 01/15/19 10:00 Blood Pressure 143/50 L 01/15/19 10:00 O2 Sat by Pulse Oximetry (%) 99 01/14/19 21:00 Constitutional: Yes: Calm Eyes: Yes: Conjunctiva Clear HENT: Yes: Atraumatic Neck: Yes: Supple Cardiovascular: Yes: S1, S2 Respiratory: Yes: CTA Bilaterally Gastrointestinal: Yes: Soft Genitourinary: Yes: WNL Musculoskeletal: Yes: WNL Edema: No Neurological: Yes: Oriented Psychiatric: Yes: Oriented Labs: CBC, BMP 01/15/19 06:39 01/15/19 06:39 INR, PTT INR 1.86 (0.83-1.09) H 01/15/19 06:39 Problem List - Problems (1) Elevated brain natriuretic peptide (BNP) level Code(s): R79.89 - OTHER SPECIFIED ABNORMAL FINDINGS OF BLOOD CHEMISTRY (2) Elevated troponin I level Code(s): R74.8 - ABNORMAL LEVELS OF OTHER SERUM ENZYMES (3) Near syncope Code(s): R55 - SYNCOPE AND COLLAPSE Assessment/Plan Current Medications Generic Name Dose Route Start Last Admin Trade Name Freq PRN Reason Stop Dose Admin Acetaminophen 500 mg 01/08/19 16:48 01/12/19 12:07 Tylenol - PO 500 mg Q6H PRN Administration PAIN LEVEL 1 - 3 Atorvastatin Calcium 10 mg 01/11/19 22:00 01/14/19 21:04 Lipitor - PO 10 mg MoFr@2200 [facility] Administration Cyanocobalamin 3,000 mcg 01/09/19 10:00 01/15/19 09:58 Vitamin B12 - PO 3,000 mcg DAILY [facility] Administration Docusate Sodium 100 mg 01/08/19 22:00 01/15/19 09:58 Colace - PO Not Given BID [facility] Furosemide 20 mg 01/15/19 10:00 01/15/19 09:58 Lasix - PO 20 mg DAILY [facility] Administration Metoprolol Succinate 50 mg 01/09/19 10:00 01/15/19 09:58 Toprol Xl - PO 50 mg DAILY [facility] Administration Potassium Chloride 10 meq 01/09/19 10:00 01/15/19 09:57 K-Dur - PO 10 meq DAILY [facility] Administration Ranitidine HCl 150 mg 01/09/19 10:00 01/15/19 09:59 Zantac - PO 150 mg DAILY [facility] Administration Senna 2 tab 01/08/19 22:00 01/14/19 21:04 Senna - PO Not Given HS [facility] Trimethobenzamide HCl 300 mg 01/09/19 13:17 Tigan - PO TID PRN NAUSEA AND/OR VOMITING Warfarin Sodium 2 mg 01/08/19 22:00 01/14/19 17:45 Coumadin - PO 2 mg DAILY@1800 [facility] Administration Selected Entries 01/10/19 01/10/19 01/10/19 09:51 13:00 14:00 Blood Pressure 132/48 L 120/50 L 118/50 L 01/13/19 01/13/19 01/13/19 14:00 17:00 20:50 Blood Pressure 118/79 116/47 L 120/74 01/13/19 01/14/19 01/14/19 20:51 02:00 05:23 Blood Pressure 110/46 L 115/41 L 117/38 L 01/14/19 09:00 Blood Pressure 128/38 L Laboratory Tests 01/08/19 01/09/19 01/10/19 14:53 07:38 08:10 Creatinine 1.0 0.8 1.1 B-Natriuretic Peptide 31246.3 H Urine Protein Urine Blood 01/11/19 01/12/19 01/13/19 07:47 05:46 05:50 Creatinine 1.2 1.1 1.4 H B-Natriuretic Peptide 70990.2 H Urine Protein Urine Blood 01/14/19 01/14/19 06:05 14:00 Creatinine 1.6 H B-Natriuretic Peptide 2520.8 H Urine Protein Negative Urine Blood Negative Impression 1. ANITA 2. HTN 3. CHF 4. a-fib 5. HLD 6. hyponatremia Plan - creatinine is improved - cont po lasix - can restart losartan at 25 mg - neg hydro on ultrasound - outpt follow up - discussed with medical team Dr Raphael
[2019-01-16] MEDS ORDERED: LOSARTAN POTASSIUM 25 MG TABLET PO SCH (10:00)
== END 2019-01-15 13:40 | disposition home or self-care (01) | DRG 640 ==
LOC: FER 13:49 → FM/S 18:27 → J4W 01-09 16:50
PROVIDERS: ATTEND Nurse Practitioner Family
DX: E87.1 Hypo-osmolality and hyponatremia (principal); I50.23 Acute on chronic systolic (congestive) heart failure; N17.9 Acute kidney failure, unspecified; I24.8 Other forms of acute ischemic heart disease; I11.0 Hypertensive heart disease with heart failure; R55 Syncope and collapse; E78.5 Hyperlipidemia, unspecified; I48.0 Paroxysmal atrial fibrillation; I16.0 Hypertensive urgency; K29.70 Gastritis, unspecified, without bleeding; I25.10 Atherosclerotic heart disease of native coronary artery without angina pectoris
CPT/HCPCS: 36415; 70450-TC; 71045-TC-FY; 71046-TC-FY; 76775-TC; 76856-TC; 78452-TC; 80053; 80061; 81003; 82565; 83036; 83721; 83735; 83880; 83935; 84300; 84443; 84484; 84540; 85025; 85027; 85610; 85730; 93005; 93017; 93225; 93226; 93306-TC; 97116-GP; 97161-GP; 99282-25; A9502; J2785

== ENCOUNTER 2019-02-16 22:26 | Emergency (ER) | payer BC, OTHER ==
[2019-02-16 22:32] VITALS: BP 190/50; PULSE 66; TEMP 98.1; BMI 23.0
--- NOTE | 2019-02-16 22:58 | PDOC ---
Documentation entered by Yovanny Sorto SCRIBE, acting as scribe for Eri Gibson MD. Eri Gibson MD: This documentation has been prepared by the Macario greer Xhesika, SCRIBE, under my direction and personally reviewed by me in its entirety. I confirm that the documentation accurately reflects all work, treatment, procedures, and medical decision making performed by me. History of Present Illness - General Chief Complaint: Injury Stated Complaint: RT WRIST PAIN Time Seen by Provider: 02/16/19 22:32 History Source: Patient Exam Limitations: No Limitations - History of Present Illness Initial Comments: 02/16/19 22:40 The patient is a 78 year old female with a significant PMH of HTN, HLD, a-fib ( amio), CHF who presents to the emergency department with R wrist pain and swelling s/p fall. The patient states she was walking on the sidewalk, went to move out the way, stepped off the edge, fell and landed on her R hand while trying to catch her fall. Patient denies hitting her head or LOC. Patient notes her pain is worsened with hand or wrist movements. The patient denies chest pain, shortness of breath, headache and dizziness. Denies fever, chills, cough, nausea, vomiting, diarrhea and constipation. Denies dysuria, frequency, urgency and hematuria. Allergies: codeine Past History - Past Medical History Allergies/Adverse Reactions: Allergies Allergy/AdvReac Type Severity Reaction Status Date / Time codeine Allergy Verified 01/08/19 13:50 Home Medications: Ambulatory Orders Ca/D3/Mag Ox/Zinc/Engine[employer]/Dio/Bor [Caltrate 600+D Plus Tab Chew] 1 each PO DAILY Pravastatin Sodium 20 mg PO MOFR 02/08/14 Furosemide [Lasix] 20 mg PO DAILY 10/12/17 Acetaminophen [Tylenol .Extra-Strength -] 500 mg PO Q6H PRN tablet 10/18/17 Cyanocobalamin (Vitamin B-12) [Vitamin B-12] 3,000 mcg PO DAILY 02/05/18 Losartan Potassium [Cozaar -] 50 mg PO BID 02/05/18 Ubidecarenone [Co Q10] 200 mg PO DAILY 02/05/18 Warfarin Sodium [Coumadin] 2 mg PO DAILY 02/05/18 Phosphatidylserine-Epa/Dorado-3 [Vayarin Plus 225 mg Capsule] 100 mg PO BID 04/26 Potassium Chloride 10 meq PO DAILY 10/25/18 Metoprolol Succinate [Toprol XL -] 50 mg PO DAILY 01/08/19 Docusate Sodium [Colace -] 100 mg PO BID capsule 01/15/19 Furosemide [Lasix -] 20 mg PO DAILY #0 tablet 01/15/19 Nitroglycerin Sublingual [Nitrostat -] 0.3 mg SL ONCE #1 btl 01/15/19 Ranitidine [Zantac -] 150 mg PO DAILY tablet 01/15/19 Trimethobenzamide HCl [Tigan -] 300 mg PO TID PRN capsule 01/15/19 Anemia: Yes Asthma: No Cancer: Yes (BREAST-left) Cardiac Disorders: Yes (a fib, valve replacement) CVA: No COPD: No CHF: Yes Dementia: No Diabetes: No GI Disorders: Yes (pancreatitis) Disorders: No HTN: Yes Hypercholesterolemia: Yes Liver Disease: Yes (FATTY LIVER) Seizures: No Thyroid Disease: No - Surgical History Abdominal Surgery: Yes Appendectomy: No Cardiac Surgery: Yes (valve replacement) Cholecystectomy: Yes Lung Surgery: No Neurologic Surgery: No Orthopedic Surgery: No - Immunization History Immunization Up to Date: No - Suicide/Smoking/Psychosocial Hx Smoking History: Never smoked Have you smoked in the past 12 months: No Number of Cigarettes Smoked Daily: 0 If you are a former smoker, when did you quit?: 40 YEARS AGO Hx Alcohol Use: No Drug/Substance Use Hx: No Substance Use Type: None Review of Systems - Review of Systems Able to Perform ROS?: Yes Comments:: 02/16/19 22:40 GENERAL/CONSTITUTIONAL: No fever or chills. No weakness. HEAD, EYES, EARS, NOSE AND THROAT: No change in vision. No ear pain or discharge. No sore throat. CARDIOVASCULAR: No chest pain or shortness of breath. RESPIRATORY: No cough, wheezing, or hemoptysis. GASTROINTESTINAL: No nausea, vomiting, diarrhea or constipation. GENITOURINARY: No dysuria, frequency, or change in urination. MUSCULOSKELETAL:(+)R wrist pain. (+) R wrist swelling. No neck or back pain. SKIN: No rash NEUROLOGIC: No headache, vertigo, loss of consciousness, or change in strength/ sensation. ENDOCRINE: No increased thirst. No abnormal weight change. HEMATOLOGIC/LYMPHATIC: No anemia, easy bleeding, or history of blood clots. ALLERGIC/IMMUNOLOGIC: No hives or skin allergy. *Physical Exam - Vital Signs Last Vital Signs Temp Pulse Resp BP Pulse Ox 98.1 F 66 16 190/50 H 98 02/16/19 22:27 02/16/19 22:27 02/16/19 22:27 02/16/19 22:27 02/16/19 22:27 - Physical Exam Comments: 02/16/19 22:57 awake alert lungs clear bilat heart rrr no mrg abd soft nt nd right arm wrist ttp on pronaton supination. ttp over distal radius no pain with flex ext. no snuff box tenderness. elbow nt from. shoulder nt from. 2 + radial / ulnar pulses. sensation intact. distally nv intact. head atraumatic. no cervical or thoracic. lumbar spine tenderness. skin intact. no eccymosis. Procedures - Splinting Splint Location: Right: Wrist Pre-Proc Neuro Vasc Exam: normal Hand-Made Type: orthoglass Splint Type: Yes: Volar Post-Proc Neuro Vasc Exam: normal Benito Bandage: yes Sling: No Complications: No Post splint xray: No ED Treatment Course - RADIOLOGY Radiology Studies Ordered: Category Date Time Status WRIST- RIGHT [RAD] Stat Radiology 02/16/19 22:32 Ordered Medical Decision Making - Medical Decision Making 02/16/19 22:56 78 yo f s/p trip and fall on right wrist. co right wrsit pain, mild fullness volar side wrist on exam. neg snuff box. distally nv intact. 2 + radial ulnar pulses. elbow / shoulder NT FROM. no head trauma. no neck or back pain, nontender on exam. plan xray wrist. tylenol for pain. likely fu outpt with ortho. 02/16/19 23:26 wrist with hairline fx nondisplaced distal radius. placed in volar splint. will fu with dr rivera. wear splint until followup. *DC/Admit/Observation/Transfer Diagnosis at time of Disposition: Radius fracture - Discharge Dispostion Disposition: HOME Condition at time of disposition: Improved Decision to Admit order: No - Referrals Referrals: Gurvinder Cook MD [Staff Physician] - Ramon Barry MD [Staff Physician] - - Patient Instructions Additional Instructions: you should wear your splint until your followup with orthopedics. you should follow up with Dr Barry. call to schedule to be seen within one week. your xray show possible small nondisplaced radius fracture in your wrist. ice and elevate to reduce pain and swelling you can take tylenol 500 mg every 6 hrs as needed for pain. you may also follow up with your orthopedist. dr Gurvinder Zurita [phone] [place] [address] [address] [facility]. call to schedule appointment - Post Discharge Activity
[2019-02-16] MEDS ORDERED: ACETAMINOPHEN 325 MG TABLET (FP) PO ONE (23:00)
[2019-02-16] MEDS ORDERED: ACETAMINOPHEN 325 MG TABLET (FP) ONE (23:02)
== END 2019-02-16 23:45 | disposition home or self-care (01) ==
LOC: FER 22:26
PROC: 2W3CX1Z Immobilization of Right Lower Arm using Splint (ICD-10-PCS; principal; 2019-02-16)
DX: S52.91XA Unspecified fracture of right forearm, initial encounter for closed fracture (principal); W01.0XXA Fall on same level from slipping, tripping and stumbling without subsequent striking against object, initial encounter; Y93.89 Activity, other specified; Y92.410 Unspecified street and highway as the place of occurrence of the external cause; K76.0 Fatty (change of) liver, not elsewhere classified; I48.91 Unspecified atrial fibrillation; I10 Essential (primary) hypertension; E78.00 Pure hypercholesterolemia, unspecified; I25.10 Atherosclerotic heart disease of native coronary artery without angina pectoris; Z85.3 Personal history of malignant neoplasm of breast
CPT/HCPCS: 73110-TC-RT-FY; 99281-25

== ENCOUNTER 2020-01-01 19:10 | Observation (INO) | payer BC ==
[2020-01-01 20:21] LABS: BASO % 0.8 % (0-2.0); EOS % 0.8 % (0-4.5); HEMATOCRIT 34.8 % (32.4-45.2); HEMOGLOBIN 11.9 GM/dL (10.7-15.3); LYMPH % 15.8 % (8-40); MCH 32.2 pg (25.7-33.7); MEAN CELL VOLUME 94.7 fl (80-96); MEAN PLT VOLUME 7.7 fl (7.5-11.1); MONO % 10.3 % (3.8-10.2); NEUT % 72.3 % (42.8-82.8); PLATELET COUNT 153 K/MM3 (134-434); RBC 3.68 M/mm3 (3.60-5.2); RDW 13.1 % (11.6-15.6); WHITE BLOOD COUNT 6.8 K/mm3 (4.0-10.0)
[2020-01-01 20:29] LABS: INR 1.67 (0.83-1.09); PROTHROMBIN TIME (PATIENT) 19.8 SEC (9.7-13.0)
[2020-01-01 21:08] LABS: ALBUMIN 4.1 g/dl (3.4-5.0); ALK PHOS 73 U/L (45-117); ANION GAP 11 MMOL/L (8-16); BILIRUBIN,TOTAL 0.5 mg/dL (0.2-1); BLOOD UREA NITROGEN 29.8 mg/dL (7-18); CALCIUM 8.7 mg/dL (8.5-10.1); CHLORIDE 94 mmol/L (98-107); CO2 24 mmol/L (21-32); CREATININE 1.2 mg/dL (0.55-1.3); GLUCOSE,RANDOM 97 mg/dL (74-106); MAGNESIUM 2.2 mg/dL (1.8-2.4); PHOSPHOROUS 3.7 mg/dL (2.5-4.9); POTASSIUM 4.1 mmol/L (3.5-5.1); SGOT/AST 36 U/L (15-37); SGPT/ALT 34 U/L (13-61); SODIUM 129 mmol/L (136-145); TOT PROT 8.2 g/dl (6.4-8.2)
[2020-01-01] MEDS ORDERED: WARFARIN NA 2 MG TABLET PO ONE (21:49)
[2020-01-01] MEDS ORDERED: SODIUM CHLORIDE 0.9% 500 ML INFUS.BAG IV ONE (22:22)
[2020-01-01] MEDS ORDERED: WARFARIN NA 1 MG TABLET ONE (22:47)
[2020-01-02] MEDS ORDERED: WARFARIN SODIUM 2 MG PO SCH (00:45)
[2020-01-02 02:37] LABS: EPI CELLS 3 /uL (0-25.1); HYALINE CASTS 0 /uL (0-3.1); PH,URINE 7.5 (5.0-8.0); URINE APPEARANCE CLEAR; URINE BACTERIA 19 /uL (0-1359); URINE BILIRUBIN NEGATIVE (NEGATIVE); URINE COLOR YELLOW; URINE GLUCOSE (UA) NEGATIVE (NEGATIVE); URINE KETONE NEGATIVE (NEGATIVE); URINE LEUK ESTERASE TRACE (NEGATIVE); URINE NITRITE NEGATIVE (NEGATIVE); URINE PROTEIN NEGATIVE (NEGATIVE); URINE RBC 4 /uL (0-23.9); URINE UROBILINOGEN 0.2 mg/dL (0.2-1.0); URINE WBC 8 /uL (0-25.8)
[2020-01-02 03:21] LABS: INR 1.74 (0.83-1.09); PROTHROMBIN TIME (PATIENT) 20.7 SEC (9.7-13.0)
[2020-01-02 03:28] LABS: BLOOD UREA NITROGEN 22.4 mg/dL (7-18); CALCIUM 8.6 mg/dL (8.5-10.1); CREATININE 0.9 mg/dL (0.55-1.3); POTASSIUM 3.8 mmol/L (3.5-5.1)
[2020-01-02 08:18] LABS: BASO % 0.6 % (0-2.0); EOS % 1.2 % (0-4.5); HEMATOCRIT 30.1 % (32.4-45.2); HEMOGLOBIN 10.3 GM/dL (10.7-15.3); LYMPH % 19.5 % (8-40); MCH 31.9 pg (25.7-33.7); MCHC 34.1 g/dl (32.0-36.0); MEAN CELL VOLUME 93.5 fl (80-96); MEAN PLT VOLUME 8.1 fl (7.5-11.1); MONO % 11.2 % (3.8-10.2); NEUT % 67.5 % (42.8-82.8); PLATELET COUNT 133 K/MM3 (134-434); RBC 3.22 M/mm3 (3.60-5.2); RDW 13.1 % (11.6-15.6)
[2020-01-02 08:32] LABS: ANION GAP 8 MMOL/L (8-16); BLOOD UREA NITROGEN 19.9 mg/dL (7-18); CALCIUM 8.6 mg/dL (8.5-10.1); CHLORIDE 104 mmol/L (98-107); CHOLESTEROL 191 mg/dL (50-200); CO2 26 mmol/L (21-32); CREATININE 0.8 mg/dL (0.55-1.3); GLUCOSE,RANDOM 76 mg/dL (74-106); HDL CHOLESTEROL 63 mg/dL (40-60); LDL CHOLESTEROL (ONLY SJRH) 117 mg/dL (5-100); MAGNESIUM 2.4 mg/dL (1.8-2.4); PHOSPHOROUS 3.3 mg/dL (2.5-4.9); POTASSIUM 3.8 mmol/L (3.5-5.1); SODIUM 138 mmol/L (136-145); TRIGLYCERIDES 56 mg/dL (0-150)
[2020-01-02] MEDS ORDERED: SODIUM CHLORIDE 1,000 ML IV SCH (09:45)
[2020-01-02] MEDS ORDERED: SODIUM CHLORIDE 0.45% 1,000 ML IV SCH (13:30)
[2020-01-02] MEDS ORDERED: amLODIPine BESYLATE 2.5 MG TABLET (FP) PO ONE (13:43)
[2020-01-02] MEDS ORDERED: WARFARIN NA 2 MG TABLET PO SCH (18:00)
[2020-01-02] MEDS ORDERED: WARFARIN NA 1 MG TABLET ONE (18:33)
[2020-01-02 21:58] LABS: BLOOD UREA NITROGEN 18.6 mg/dL (7-18); CALCIUM 7.9 mg/dL (8.5-10.1); CREATININE 0.9 mg/dL (0.55-1.3); POTASSIUM 4.1 mmol/L (3.5-5.1)
[2020-01-02] MEDS ORDERED: LOSARTAN POTASSIUM 50 MG TABLET PO SCH (22:00)
[2020-01-02] MEDS ORDERED: LOSARTAN POTASSIUM 50 MG TABLET ONE (22:22)
[2020-01-03 07:07] LABS: HEMATOCRIT 30.1 % (32.4-45.2); HEMOGLOBIN 10.2 GM/dL (10.7-15.3); MCH 31.9 pg (25.7-33.7); MCHC 33.8 g/dl (32.0-36.0); MEAN CELL VOLUME 94.6 fl (80-96); MEAN PLT VOLUME 8.3 fl (7.5-11.1); PLATELET COUNT 125 K/MM3 (134-434); RBC 3.18 M/mm3 (3.60-5.2); RDW 13.2 % (11.6-15.6); WHITE BLOOD COUNT 5.2 K/mm3 (4.0-10.0)
[2020-01-03 07:40] LABS: BLOOD UREA NITROGEN 16.6 mg/dL (7-18); CALCIUM 8.4 mg/dL (8.5-10.1); CREATININE 0.8 mg/dL (0.55-1.3); POTASSIUM 4.1 mmol/L (3.5-5.1)
[2020-01-03] MEDS ORDERED: amLODIPine BESYLATE 5 MG TABLET (FP) PO SCH (10:00)
[2020-01-03] MEDS ORDERED: amLODIPine BESYLATE 2.5 MG TABLET (FP) PO SCH (10:00)
[2020-01-03 14:03] VITALS: BMI 23.2
[2020-01-03 14:35] LABS: INR 2.14 (0.83-1.09); PROTHROMBIN TIME (PATIENT) 25.4 SEC (9.7-13.0)
[2020-01-03 17:49] VITALS: BP 147/69; PULSE 72; TEMP 72
[2020-01-03] MEDS ORDERED: WARFARIN NA 2 MG TABLET PO SCH (18:00)
== END 2020-01-03 18:59 | disposition home or self-care (01) ==
LOC: JER 19:10 → JERBED 21:48 → J4W 01-03 00:42
PROVIDERS: ADMIT Internal Medicine; ATTEND Internal Medicine
PROC: 3E0337Z Introduction of Electrolytic and Water Balance Substance into Peripheral Vein, Percutaneous Approach (ICD-10-PCS; principal; 2020-01-01)
PROC: 3E023GC Introduction of Other Therapeutic Substance into Muscle, Percutaneous Approach (ICD-10-PCS; 2020-01-01)
DX: R00.2 Palpitations (principal); E78.5 Hyperlipidemia, unspecified; I11.0 Hypertensive heart disease with heart failure; I48.91 Unspecified atrial fibrillation; I25.10 Atherosclerotic heart disease of native coronary artery without angina pectoris; Z87.820 Personal history of traumatic brain injury; Z85.3 Personal history of malignant neoplasm of breast; D64.9 Anemia, unspecified; Z95.1 Presence of aortocoronary bypass graft; K76.0 Fatty (change of) liver, not elsewhere classified; Z87.891 Personal history of nicotine dependence; Z92.21 Personal history of antineoplastic chemotherapy; Z79.01 Long term (current) use of anticoagulants; D68.9 Coagulation defect, unspecified; R60.0 Localized edema; Z88.6 Allergy status to analgesic agent; Z29.9 Encounter for prophylactic measures, unspecified
CPT/HCPCS: 36415; 70450-TC; 71045-TC-FY; 80048; 80053; 80061; 81003; 82550; 82553; 83721; 83735; 84100; 84443; 84484; 85025; 85027; 85610; 85730; 93005; 93010; 93306-TC; 96360; 96372; 97116-GP; 97161-GP; 99285-25; G0378; U0003

== ENCOUNTER 2020-01-08 08:23 | Day surgery (SDC) | payer BC ==
[2020-01-02 11:10] VITALS: BMI 23.0
[2020-01-08] MEDS: TROPICAMIDE 1% OPHTH SOLN 15 ML BOTTLE ONE ×3 (08:50→09:00)
[2020-01-08] MEDS: CYCLOPENTOLATE 2% OPHTH SOLN 2 ML BOTTLE ONE ×3 (08:50→09:00)
[2020-01-08] MEDS: CIPROFLOXACIN 0.3% EYE DROPS 5 ML BOTTLE ONE ×3 (08:50→09:00)
[2020-01-08] MEDS: PHENYLEPHRINE 2.5% OPHTH SOLN 15 ML BOTTLE ONE ×3 (08:50→09:00)
[2020-01-08 09:00] VITALS: TEMP 98.1
[2020-01-08] MEDS ORDERED: TETRACAINE 0.5% OPHTH SOLN 2 ML BOTTLE ONE (09:12)
[2020-01-08] MEDS ORDERED: BSS (NA/CA/MG/K) BALANCED SALT SOLUTION OPHTH SOLN 15 ML BOTTLE ONE (09:12)
[2020-01-08] MEDS ORDERED: CARBACHOL 0.01% INTRA-OCULAR 1.5 ML VIAL ONE (09:13)
[2020-01-08] MEDS ORDERED: NEO/POLYMYX B SULF/DEXAMETH OPHTHALMIC 5ML BOTTLE ONE (09:13)
[2020-01-08] MEDS ORDERED: MIDAZOLAM HCL 2 MG/2 ML SINGLE DOSE VIAL ONE (09:26)
[2020-01-08 10:31] VITALS: BP 133/78; PULSE 69
--- NOTE | 2020-01-09 09:58 | OP ---
DATE OF OPERATION: 01/08/2020 OPERATIVE PROCEDURE: Lens Phacoemulsification with Posterior Chamber Intraocular Lens Placement, Right Eye PREOPERATIVE DIAGNOSIS: Visually Significant Cataract of Right Eye POSTOPERATIVE DIAGNOSIS: Visually Significant Cataract of Right Eye SURGEON: Angel Barrera M.D. ANESTHESIA: MAC ANESTHESIOLOGIST: PROCEDURE: The patient was brought to the operating room and placed under monitored anesthesia care by Anesthesia. A drop of Tetracaine was then placed over the right eye. The patient was then prepped and draped in the usual sterile manner. A speculum was then placed over the right eye. The eye was then well irrigated with copious amounts of BSS (balanced salt solution). The operating microscope was then moved into position. A paracentesis was performed using a 15 degree blade. At this point 0.5 mL of 1% preservative free-lidocaine was injected into the anterior chamber. Amvisc plus was then injected into the anterior chamber. A clear corneal incision was then formed using a 2.2 mm keratome. A capsulorrhexis was then performed in a continuous circular fashion beginning with a cystotome completed with an Utratas forceps. Hydrodissection was then performed using BSS on a cannula. The phaco probe was then introduced through the corneal wound and the cataract was removed using the phaco chop technique. Approximately 3 seconds of absolute phaco time was used. The remaining cortex was then removed using irrigation and aspiration with an I/A probe. The capsule was then filled with regular Amvisc and the capsule was noted to be intact. A previously selected foldable posterior chamber intraocular lens was then injected into the capsule through the corneal wound using a lens injector. It was then dialed into position using a Sinskey hook. The Amvisc was then removed using irrigation and aspiration. Miostat was then injected through the paracentesis to constrict the pupil. The paracentesis and corneal wound were then hydrated and noted to be water tight. A drop of Maxitrol was then placed over the eye. The speculum was removed and clear shield was taped over the eye. The patient tolerated the procedure well and there were no surgical complications. The patient was asked to follow up in my office the next day. ANGEL BARRERA M.D. JAD/[id number]
== END 2020-01-08 10:30 | disposition home or self-care (01) ==
LOC: FASU 08:23
PROVIDERS: ATTEND Ophthalmology
PROC: 08RJ3JZ Replacement of Right Lens with Synthetic Substitute, Percutaneous Approach (ICD-10-PCS; principal; 2020-01-08 09:38)
DX: H26.8 Other specified cataract (principal)

== ENCOUNTER 2020-06-19 07:57 | Emergency (ER) | payer BC ==
[2020-06-19 08:08] VITALS: BMI 23.9
[2020-06-19] MEDS ORDERED: ONDANSETRON 4 MG/2 ML VIAL IVPUSH ONE (08:49)
[2020-06-19] MEDS ORDERED: ACETAMINOPHEN 325 MG TABLET (FP) PO ONE (08:49)
[2020-06-19 09:55] LABS: INR 3.23 (0.83-1.09); PROTHROMBIN TIME (PATIENT) 38.4 SEC (9.7-13.0)
[2020-06-19 09:58] LABS: ACTIVATED PTT 43.9 SECONDS (25.2-36.5)
[2020-06-19 12:10] VITALS: BP 155/77; PULSE 53; TEMP 97.7
== END 2020-06-19 12:10 | disposition home or self-care (01) ==
LOC: JER 07:57
PROC: 3E033GC Introduction of Other Therapeutic Substance into Peripheral Vein, Percutaneous Approach (ICD-10-PCS; principal; 2020-06-19)
DX: S09.90XA Unspecified injury of head, initial encounter (principal); M54.2 Cervicalgia; R11.0 Nausea
CPT/HCPCS: 36415; 70450-TC; 72125-TC; 85610; 85730; 99285-25

== ENCOUNTER 2021-06-27 17:27 | Inpatient (IN) | payer BC ==
[2021-06-27 19:47] LABS: BASO % 0.3 % (0-2.0); EOS % 0.2 % (0-4.5); HEMATOCRIT 29.9 % (32.4-45.2); HEMOGLOBIN 10.7 GM/dL (10.7-15.3); LYMPH % 5.7 % (8-40); MCH 31.9 pg (25.7-33.7); MCHC 35.7 g/dl (32.0-36.0); MEAN CELL VOLUME 89.3 fl (80-96); MEAN PLT VOLUME 7.9 fl (7.5-11.1); MONO % 7.1 % (3.8-10.2); NEUT % 86.7 % (42.8-82.8); PLATELET COUNT 152 10^3/uL (134-434); RBC 3.35 M/mm3 (3.60-5.2); RDW 12.4 % (11.6-15.6); WHITE BLOOD COUNT 10.3 K/mm3 (4.0-10.0)
[2021-06-27 19:54] LABS: INR 1.41 (0.83-1.09); PROTHROMBIN TIME (PATIENT) 15.8 SEC (9.7-13.0)
[2021-06-27 19:56] LABS: ACTIVATED PTT 29.1 SECONDS (25.2-36.5)
[2021-06-27 19:57] LABS: CHLORIDE 78 mmol/L (98-107)
[2021-06-27 20:00] LABS: CALCIUM 7.9 mg/dL (8.5-10.1)
[2021-06-27 20:03] LABS: ALBUMIN 3.2 g/dl (3.4-5.0); BLOOD UREA NITROGEN 16.9 mg/dL (7-18); CO2 23 mmol/L (21-32); GLUCOSE,RANDOM 109 mg/dL (74-106); LIPASE 223 U/L (73-393)
[2021-06-27 20:04] LABS: CREATININE 0.7 mg/dL (0.55-1.3); SGOT/AST 44 U/L (15-37); SGPT/ALT 34 U/L (13-61)
[2021-06-27 20:05] LABS: BILIRUBIN,TOTAL 1.2 mg/dL (0.2-1); TOT PROT 6.8 g/dl (6.4-8.2)
[2021-06-27 20:06] LABS: ALK PHOS 75 U/L (45-117)
[2021-06-27] MEDS ORDERED: ACETAMINOPHEN 1000 MG/100 ML VIAL IVPB ONE (20:09)
[2021-06-27] MEDS ORDERED: ACETAMINOPHEN INJECTION 100 ML IVPB ONE (20:14)
[2021-06-27] MEDS ORDERED: SODIUM CHLORIDE 0.9% 500 ML INFUS.BAG IV ONE (20:21)
[2021-06-27] MEDS ORDERED: FAMOTIDINE 20 MG/50 ML IVPB 20 MG/50 ML MG IVPB ONE ×2 (20:22→20:56)
[2021-06-27 20:33] LABS: ANION GAP 12 MMOL/L (8-16); SODIUM 113 mmol/L (136-145)
[2021-06-27] MEDS ORDERED: ONDANSETRON 4 MG/2 ML VIAL IVPUSH ONE (20:59)
[2021-06-27] MEDS ORDERED: ONDANSETRON 4 MG/2 ML VIAL ONE (21:38)
[2021-06-27 21:41] LABS: EPI CELLS 8 /uL (0-25.1); HYALINE CASTS 2 /uL (0-3.1); URINE APPEARANCE CLEAR; URINE BACTERIA 3 /uL (0-1359); URINE BILIRUBIN NEGATIVE (NEGATIVE); URINE COLOR YELLOW; URINE GLUCOSE (UA) NEGATIVE (NEGATIVE); URINE KETONE 1+ (NEGATIVE); URINE LEUK ESTERASE NEGATIVE (NEGATIVE); URINE NITRITE NEGATIVE (NEGATIVE); URINE PROTEIN 4+ (NEGATIVE); URINE RBC 31 /uL (0-23.9); URINE WBC 5 /uL (0-25.8)
[2021-06-27] MEDS ORDERED: SODIUM CHLORIDE 3% 500 ML/100 ML INFUS.BAG IV ONE (22:30)
[2021-06-27] MEDS ORDERED: ACETAMINOPHEN 325 MG TABLET (FP) PO PRN (23:27)
[2021-06-27] MEDS ORDERED: SODIUM CHLORIDE 3% 500 ML IVPB ONE (23:30)
[2021-06-28 00:59] LABS: CHLORIDE 78 mmol/L (98-107)
[2021-06-28 01:00] LABS: CALCIUM 7.9 mg/dL (8.5-10.1)
[2021-06-28 01:01] LABS: BLOOD UREA NITROGEN 14.8 mg/dL (7-18); CO2 23 mmol/L (21-32); GLUCOSE,RANDOM 120 mg/dL (74-106)
[2021-06-28] MEDS ORDERED: POTASSIUM CHLORIDE TABS 20 MEQ TABLET.ER (FP) PO ONE (01:02)
[2021-06-28 01:04] LABS: CREATININE 0.7 mg/dL (0.55-1.3)
[2021-06-28 01:14] LABS: ANION GAP 12 MMOL/L (8-16); SODIUM 113 mmol/L (136-145)
[2021-06-28] MEDS ORDERED: SODIUM CHLORIDE 3% 500 ML/500 ML INFUS.BAG IV ONE (01:18)
[2021-06-28] MEDS ORDERED: ACETAMINOPHEN 1000 MG/100 ML VIAL IVPB ONE (01:19)
[2021-06-28] MEDS ORDERED: ATORVASTATIN CA 10 MG TABLET (FP) PO SCH (01:30)
[2021-06-28 03:41] LABS: CHLORIDE 86 mmol/L (98-107)
[2021-06-28 03:42] LABS: CALCIUM 7.2 mg/dL (8.5-10.1)
[2021-06-28 03:43] LABS: BLOOD UREA NITROGEN 13.2 mg/dL (7-18); CO2 22 mmol/L (21-32); GLUCOSE,RANDOM 113 mg/dL (74-106)
[2021-06-28] MEDS ORDERED: ONDANSETRON 4 MG TABLET PO ONE ×2 (03:57→04:00)
[2021-06-28 04:56] LABS: MAGNESIUM 1.5 mg/dL (1.8-2.4)
[2021-06-28 05:29] LABS: ANION GAP 10 MMOL/L (8-16); CREATININE 0.6 mg/dL (0.55-1.3); SODIUM 119 mmol/L (136-145)
[2021-06-28 07:36] LABS: BASO % 0.1 % (0-2.0); EOS % 0.1 % (0-4.5); HEMATOCRIT 27.6 % (32.4-45.2); LYMPH % 8.6 % (8-40); MCH 32.5 pg (25.7-33.7); MCHC 36.3 g/dl (32.0-36.0); MEAN CELL VOLUME 89.6 fl (80-96); MONO % 7.5 % (3.8-10.2); NEUT % 83.7 % (42.8-82.8); PLATELET COUNT 118 10^3/uL (134-434); RBC 3.08 M/mm3 (3.60-5.2); RDW 12.7 % (11.6-15.6); WHITE BLOOD COUNT 9.2 K/mm3 (4.0-10.0)
[2021-06-28 07:49] LABS: BLOOD UREA NITROGEN 11.5 mg/dL (7-18); CALCIUM 7.6 mg/dL (8.5-10.1); MAGNESIUM 1.8 mg/dL (1.8-2.4)
[2021-06-28 07:50] LABS: ALBUMIN 2.5 g/dl (3.4-5.0)
[2021-06-28 07:53] LABS: CREATININE 0.6 mg/dL (0.55-1.3); PHOSPHOROUS 3.2 mg/dL (2.5-4.9)
[2021-06-28 07:54] LABS: TOT PROT 5.7 g/dl (6.4-8.2)
[2021-06-28 08:08] LABS: BILIRUBIN,TOTAL 1.1 mg/dL (0.2-1)
[2021-06-28] MEDS ORDERED: PT OWN MED DRAWER 7, Y5N ONE (09:26)
[2021-06-28] MEDS ORDERED: MUPIROCIN 2% TOPICAL OINTMENT FOR DECOLONIZATION NS SCH (10:00)
[2021-06-28 11:13] LABS: CALCIUM 7.7 mg/dL (8.5-10.1)
[2021-06-28 11:16] LABS: CREATININE 0.7 mg/dL (0.55-1.3)
[2021-06-28 17:36] LABS: BLOOD UREA NITROGEN 11.2 mg/dL (7-18); CALCIUM 7.5 mg/dL (8.5-10.1)
[2021-06-28 17:38] LABS: INR 1.78 (0.83-1.09); PROTHROMBIN TIME (PATIENT) 20.9 SEC (9.7-13.0)
[2021-06-28 17:40] LABS: CREATININE 0.8 mg/dL (0.55-1.3)
[2021-06-28] MEDS ORDERED: WARFARIN NA 2 MG TABLET PO SCH (18:00)
[2021-06-28] MEDS: WARFARIN NA 2 MG TABLET PO SCH (18:08)
[2021-06-28] MEDS ORDERED: DESMOPRESSIN ACETATE 0.1 MG TABLET PO ONE (18:49)
[2021-06-28] MEDS ORDERED: DESMOPRESSIN ACETATE 4 MCG/ML AMP IVPB ONE (18:52)
[2021-06-28] MEDS ORDERED: DEXTROSE 5%-WATER - 1,000 ML IV SCH (19:00)
[2021-06-28] MEDS: ATORVASTATIN CA 10 MG TABLET (FP) PO SCH (21:14)
[2021-06-28] MEDS ORDERED: CHLORHEXIDINE GLUCONATE 4% CLEANSER FOR DECOLONIZATION TP SCH (22:00)
[2021-06-28 22:44] LABS: CALCIUM 7.1 mg/dL (8.5-10.1); CREATININE 0.8 mg/dL (0.55-1.3)
[2021-06-29 06:08] LABS: HEMATOCRIT 27.9 % (32.4-45.2); HEMOGLOBIN 9.9 GM/dL (10.7-15.3); MCH 32.4 pg (25.7-33.7); MCHC 35.5 g/dl (32.0-36.0); MEAN CELL VOLUME 91.4 fl (80-96); MEAN PLT VOLUME 7.8 fl (7.5-11.1); PLATELET COUNT 104 10^3/uL (134-434); RBC 3.05 M/mm3 (3.60-5.2); RDW 12.8 % (11.6-15.6); WHITE BLOOD COUNT 7.4 K/mm3 (4.0-10.0)
[2021-06-29 06:35] LABS: ALBUMIN 2.3 g/dl (3.4-5.0); BLOOD UREA NITROGEN 11.6 mg/dL (7-18); CALCIUM 7.5 mg/dL (8.5-10.1); MAGNESIUM 1.9 mg/dL (1.8-2.4)
[2021-06-29 06:38] LABS: CREATININE 0.7 mg/dL (0.55-1.3); PHOSPHOROUS 2.3 mg/dL (2.5-4.9)
[2021-06-29 06:40] LABS: BILIRUBIN,TOTAL 0.7 mg/dL (0.2-1); TOT PROT 5.4 g/dl (6.4-8.2)
[2021-06-29] MEDS ORDERED: PT OWN MED DRAWER 7, Y5N ONE (17:07)
[2021-06-29] MEDS: WARFARIN NA 2 MG TABLET PO SCH (17:08)
[2021-06-29 17:18] LABS: EPI CELLS 1 /uL (0-25.1); HYALINE CASTS 4 /uL (0-3.1); URINE APPEARANCE CLEAR; URINE BACTERIA 4047 /uL (0-1359); URINE BILIRUBIN NEGATIVE (NEGATIVE); URINE COLOR YELLOW; URINE GLUCOSE (UA) NEGATIVE (NEGATIVE); URINE KETONE NEGATIVE (NEGATIVE); URINE LEUK ESTERASE TRACE (NEGATIVE); URINE NITRITE NEGATIVE (NEGATIVE); URINE PROTEIN 3+ (NEGATIVE); URINE RBC 140 /uL (0-23.9); URINE WBC 134 /uL (0-25.8)
[2021-06-29] MEDS: ATORVASTATIN CA 10 MG TABLET (FP) PO SCH (21:22)
[2021-06-29] MEDS: ACETAMINOPHEN 325 MG TABLET (FP) PO PRN (23:10)
[2021-06-30] MEDS ORDERED: FUROSEMIDE 40 MG/4 ML INJECTABLE VIAL IVPUSH ONE (12:07)
[2021-06-30 13:01] LABS: BLOOD UREA NITROGEN 9.5 mg/dL (7-18); CALCIUM 7.6 mg/dL (8.5-10.1)
[2021-06-30 13:02] LABS: ALBUMIN 2.2 g/dl (3.4-5.0)
[2021-06-30 13:04] LABS: TOT PROT 5.7 g/dl (6.4-8.2)
[2021-06-30 13:05] LABS: CREATININE 0.5 mg/dL (0.55-1.3); PHOSPHOROUS 2.7 mg/dL (2.5-4.9)
[2021-06-30 13:07] LABS: BILIRUBIN,TOTAL 0.9 mg/dL (0.2-1)
[2021-06-30] MEDS: WARFARIN NA 2 MG TABLET PO SCH (18:23)
[2021-06-30 18:59] LABS: EPI CELLS 4 /uL (0-25.1); HYALINE CASTS 1 /uL (0-3.1); URINE APPEARANCE CLEAR; URINE BACTERIA 8 /uL (0-1359); URINE BILIRUBIN NEGATIVE (NEGATIVE); URINE COLOR YELLOW; URINE GLUCOSE (UA) NEGATIVE (NEGATIVE); URINE KETONE NEGATIVE (NEGATIVE); URINE LEUK ESTERASE NEGATIVE (NEGATIVE); URINE NITRITE NEGATIVE (NEGATIVE); URINE PROTEIN 2+ (NEGATIVE); URINE RBC 15 /uL (0-23.9); URINE WBC 13 /uL (0-25.8)
[2021-06-30] MEDS ORDERED: PT OWN MED DRAWER 7, Y5N ONE (20:19)
[2021-06-30] MEDS: MELATONIN 5 MG TABLETS PO PRN (22:00)
[2021-06-30] MEDS: SODIUM CHLORIDE 1 GM TABLET PO SCH (22:00)
[2021-06-30] MEDS: ATORVASTATIN CA 10 MG TABLET (FP) PO SCH (22:00)
[2021-07-01 09:35] LABS: HEMATOCRIT 28.6 % (32.4-45.2); HEMOGLOBIN 9.9 GM/dL (10.7-15.3); MCH 31.6 pg (25.7-33.7); MCHC 34.7 g/dl (32.0-36.0); MEAN CELL VOLUME 91.2 fl (80-96); MEAN PLT VOLUME 8.6 fl (7.5-11.1); PLATELET COUNT 137 10^3/uL (134-434); RBC 3.14 M/mm3 (3.60-5.2); RDW 12.7 % (11.6-15.6); WHITE BLOOD COUNT 9.1 K/mm3 (4.0-10.0)
[2021-07-01 10:00] LABS: CALCIUM 7.7 mg/dL (8.5-10.1)
[2021-07-01 10:01] LABS: BLOOD UREA NITROGEN 11.2 mg/dL (7-18)
[2021-07-01 10:04] LABS: CREATININE 0.6 mg/dL (0.55-1.3)
[2021-07-01 10:05] LABS: BILIRUBIN,TOTAL 1.1 mg/dL (0.2-1); TOT PROT 5.6 g/dl (6.4-8.2)
[2021-07-01] MEDS ORDERED: PT OWN MED DRAWER 7, Y5N ONE ×2 (10:59→22:10)
[2021-07-01] MEDS: SODIUM CHLORIDE 1 GM TABLET PO SCH ×2 (11:07→22:11)
[2021-07-01] MEDS ORDERED: FUROSEMIDE 40 MG TABLET (FP) PO ONE (11:15)
[2021-07-01] MEDS ORDERED: POTASSIUM CHLORIDE TABS 20 MEQ TABLET.ER (FP) PO ONE (11:15)
[2021-07-01 20:57] LABS: INR 1.92 (0.83-1.09); PROTHROMBIN TIME (PATIENT) 21.7 SEC (9.7-13.0)
[2021-07-01] MEDS: ATORVASTATIN CA 10 MG TABLET (FP) PO SCH (21:24)
[2021-07-01] MEDS: WARFARIN NA 2 MG TABLET PO SCH (21:24)
[2021-07-01] MEDS: MELATONIN 5 MG TABLETS PO PRN (21:25)
[2021-07-02] MEDS ORDERED: PT OWN MED DRAWER 7, Y5N ONE ×4 (09:04→21:41)
[2021-07-02] MEDS: ACETAMINOPHEN 325 MG TABLET (FP) PO PRN (09:21)
[2021-07-02] MEDS: SODIUM CHLORIDE 1 GM TABLET PO SCH ×2 (09:22→21:47)
[2021-07-02 10:36] LABS: HEMATOCRIT 28.9 % (32.4-45.2); HEMOGLOBIN 10.1 GM/dL (10.7-15.3); MCH 31.7 pg (25.7-33.7); MCHC 34.8 g/dl (32.0-36.0); PLATELET COUNT 158 10^3/uL (134-434); RBC 3.17 M/mm3 (3.60-5.2); RDW 12.9 % (11.6-15.6); WHITE BLOOD COUNT 7.1 K/mm3 (4.0-10.0)
[2021-07-02 10:37] LABS: INR 1.84 (0.83-1.09); PROTHROMBIN TIME (PATIENT) 21.7 SEC (9.7-13.0)
[2021-07-02 11:04] LABS: ALBUMIN 2.1 g/dl (3.4-5.0); BLOOD UREA NITROGEN 14.6 mg/dL (7-18)
[2021-07-02 11:07] LABS: CREATININE 0.8 mg/dL (0.55-1.3)
[2021-07-02 11:08] LABS: TOT PROT 5.9 g/dl (6.4-8.2)
[2021-07-02 11:09] LABS: BILIRUBIN,TOTAL 0.7 mg/dL (0.2-1)
[2021-07-02] MEDS ORDERED: FUROSEMIDE 40 MG TABLET (FP) PO ONE (11:55)
[2021-07-02] MEDS ORDERED: POTASSIUM CHLORIDE TABS 20 MEQ TABLET.ER (FP) PO ONE (11:55)
[2021-07-02] MEDS ORDERED: ENOXAPARIN NA (PORCINE) 60 MG/0.6 ML DISP.SYRIN SQ SCH (13:15)
[2021-07-02] MEDS ORDERED: ENOXAPARIN NA (PORCINE) 60 MG/0.6 ML DISP.SYRIN SQ ONE (13:15)
[2021-07-02 13:54] LABS: URIC ACID 3.5 mg/dL (2.6-7.2)
[2021-07-02] MEDS: WARFARIN NA 2 MG TABLET PO SCH (17:04)
[2021-07-02] MEDS: MELATONIN 5 MG TABLETS PO PRN (21:46)
[2021-07-02] MEDS: ATORVASTATIN CA 10 MG TABLET (FP) PO SCH (21:46)
[2021-07-02] MEDS: ENOXAPARIN NA (PORCINE) 60 MG/0.6 ML DISP.SYRIN SQ SCH (21:47)
[2021-07-03 08:35] LABS: HEMATOCRIT 28.2 % (32.4-45.2); HEMOGLOBIN 9.7 GM/dL (10.7-15.3); MCH 31.5 pg (25.7-33.7); MCHC 34.5 g/dl (32.0-36.0); MEAN CELL VOLUME 91.6 fl (80-96); MEAN PLT VOLUME 7.8 fl (7.5-11.1); PLATELET COUNT 172 10^3/uL (134-434); RBC 3.08 M/mm3 (3.60-5.2); RDW 13.1 % (11.6-15.6); WHITE BLOOD COUNT 8.3 K/mm3 (4.0-10.0)
[2021-07-03 08:58] LABS: CALCIUM 7.8 mg/dL (8.5-10.1)
[2021-07-03 09:01] LABS: CREATININE 0.7 mg/dL (0.55-1.3)
[2021-07-03] MEDS ORDERED: IRON SUCROSE INJECTION 200 MG in SODIUM CHLORIDE 90 ML IVPB ONE (09:30)
[2021-07-03] MEDS: ENOXAPARIN NA (PORCINE) 60 MG/0.6 ML DISP.SYRIN SQ SCH ×2 (09:52→22:39)
[2021-07-03] MEDS: SODIUM CHLORIDE 1 GM TABLET PO SCH ×2 (09:53→22:39)
[2021-07-03 10:29] LABS: INR 2.58 (0.83-1.09); PROTHROMBIN TIME (PATIENT) 29.2 SEC (9.7-13.0)
[2021-07-03] MEDS: ACETAMINOPHEN 325 MG TABLET (FP) PO PRN (14:20)
[2021-07-03] MEDS: WARFARIN NA 2 MG TABLET PO SCH (17:39)
[2021-07-03] MEDS ORDERED: PT OWN MED DRAWER 7, Y5N ONE (21:31)
[2021-07-03] MEDS: POLYETHYLENE GLYCOL (HEALTHYLAX) 3350 17 GM PACKET PO SCH (22:39)
[2021-07-03] MEDS: ATORVASTATIN CA 10 MG TABLET (FP) PO SCH (22:39)
[2021-07-03] MEDS: MELATONIN 5 MG TABLETS PO PRN (22:39)
[2021-07-04 08:42] LABS: BASO % 0.5 % (0-2.0); EOS % 4.2 % (0-4.5); HEMATOCRIT 27.4 % (32.4-45.2); HEMOGLOBIN 9.5 GM/dL (10.7-15.3); LYMPH % 13.6 % (8-40); MCH 31.6 pg (25.7-33.7); MCHC 34.5 g/dl (32.0-36.0); MEAN CELL VOLUME 91.7 fl (80-96); MEAN PLT VOLUME 7.5 fl (7.5-11.1); MONO % 10.6 % (3.8-10.2); NEUT % 71.1 % (42.8-82.8); PLATELET COUNT 181 10^3/uL (134-434); RBC 2.99 M/mm3 (3.60-5.2); RDW 13.1 % (11.6-15.6); WHITE BLOOD COUNT 6.5 K/mm3 (4.0-10.0)
[2021-07-04 08:50] LABS: INR 2.77 (0.83-1.09); PROTHROMBIN TIME (PATIENT) 32.8 SEC (9.7-13.0)
[2021-07-04 08:56] LABS: CALCIUM 7.8 mg/dL (8.5-10.1)
[2021-07-04 08:57] LABS: BLOOD UREA NITROGEN 18.5 mg/dL (7-18)
[2021-07-04 09:00] LABS: CREATININE 0.7 mg/dL (0.55-1.3)
[2021-07-04] MEDS: SODIUM CHLORIDE 1 GM TABLET PO SCH ×2 (10:05→22:10)
[2021-07-04] MEDS: POLYETHYLENE GLYCOL (HEALTHYLAX) 3350 17 GM PACKET PO SCH (10:06)
[2021-07-04] MEDS: ENOXAPARIN NA (PORCINE) 60 MG/0.6 ML DISP.SYRIN SQ SCH ×2 (10:06→22:11)
[2021-07-04 15:58] VITALS: BMI 23.4
[2021-07-04] MEDS: WARFARIN NA 2 MG TABLET PO SCH (16:59)
[2021-07-04] MEDS ORDERED: PT OWN MED DRAWER 7, Y5N ONE (22:08)
[2021-07-04] MEDS: MELATONIN 5 MG TABLETS PO PRN (22:10)
[2021-07-04] MEDS: ATORVASTATIN CA 10 MG TABLET (FP) PO SCH (22:10)
[2021-07-05] MEDS: SODIUM CHLORIDE 1 GM TABLET PO SCH (09:21)
[2021-07-05 09:23] LABS: INR 3.59 (0.83-1.09); PROTHROMBIN TIME (PATIENT) 40.7 SEC (9.7-13.0)
[2021-07-05] MEDS: ENOXAPARIN NA (PORCINE) 60 MG/0.6 ML DISP.SYRIN SQ SCH (09:24)
[2021-07-05] MEDS: POLYETHYLENE GLYCOL (HEALTHYLAX) 3350 17 GM PACKET PO SCH (09:24)
[2021-07-05] MEDS ORDERED: POTASSIUM CHLORIDE TABS 10 MEQ TABLET.ER (FP) PO SCH (13:15)
[2021-07-05] MEDS ORDERED: FUROSEMIDE 20 MG TABLET (FP) PO SCH (13:15)
[2021-07-05 14:53] VITALS: BP 151/76; PULSE 93; TEMP 97.6
[2021-07-06] MEDS ORDERED: SODIUM CHLORIDE 1 GM TABLET PO SCH (10:00)
== END 2021-07-05 15:24 | disposition home or self-care (01) | DRG 640 ==
LOC: JER 17:27 → JICU 22:25 → UNDOADMIN 22:26 → JICU 22:26 → J8W 06-30 05:16
PROVIDERS: ADMIT Internal Medicine Pulmonary Disease
DX: E87.1 Hypo-osmolality and hyponatremia (principal); I50.33 Acute on chronic diastolic (congestive) heart failure; R47.01 Aphasia; I11.0 Hypertensive heart disease with heart failure; R11.2 Nausea with vomiting, unspecified; E78.5 Hyperlipidemia, unspecified; K76.0 Fatty (change of) liver, not elsewhere classified; I48.91 Unspecified atrial fibrillation; D64.9 Anemia, unspecified; D69.6 Thrombocytopenia, unspecified; J44.9 Chronic obstructive pulmonary disease, unspecified; I05.0 Rheumatic mitral stenosis; K57.30 Diverticulosis of large intestine without perforation or abscess without bleeding; N81.10 Cystocele, unspecified; M06.9 Rheumatoid arthritis, unspecified; Z85.3 Personal history of malignant neoplasm of breast; Z95.2 Presence of prosthetic heart valve
CPT/HCPCS: 36415; 70450-TC; 71045-TC-FY; 74177-TC; 80048; 80053; 80061; 81003; 82550; 82553; 82570; 83036; 83540; 83550; 83690; 83735; 83930; 83935; 84100; 84300; 84443; 84484; 84550; 85025; 85027; 85610; 85730; 87086; 93005; 93010; 97116-GP; 97161-GP; 99285-25; C9803; J0131; J1756; J2597; Q9967; U0003; U0005

== ENCOUNTER 2022-09-18 19:01 | Observation (INO) | payer BC ==
[2022-09-18 19:44] VITALS: BMI 21.7
[2022-09-18 21:07] LABS: BASO % 0.4 % (0-2.0); EOS % 0.7 % (0-4.5); HEMATOCRIT 36.7 % (32.4-45.2); HEMOGLOBIN 12.4 GM/dL (10.7-15.3); LYMPH % 14.1 % (8-40); MCHC 33.8 g/dl (32.0-36.0); MEAN CELL VOLUME 91.8 fl (80-96); MEAN PLT VOLUME 8.7 fl (7.5-11.1); MONO % 9.2 % (3.8-10.2); NEUT % 75.6 % (42.8-82.8); PLATELET COUNT 130 10^3/uL (134-434); RDW 13.6 % (11.6-15.6); WHITE BLOOD COUNT 6.6 K/mm3 (4.0-10.0)
[2022-09-18 21:13] LABS: INR 2.08 (0.83-1.09); PROTHROMBIN TIME (PATIENT) 23.9 SEC (9.7-13.0)
[2022-09-18 21:16] LABS: ACTIVATED PTT 42.2 SECONDS (25.2-36.5)
[2022-09-18 21:56] LABS: ALBUMIN 3.7 g/dl (3.4-5.0); BLOOD UREA NITROGEN 38.2 mg/dL (7-18); MAGNESIUM 2.3 mg/dL (1.8-2.4)
[2022-09-18 21:59] LABS: PHOSPHOROUS 3.7 mg/dL (2.5-4.9)
[2022-09-18 22:00] LABS: CREATININE 1.1 mg/dL (0.55-1.3)
[2022-09-18 22:01] LABS: BILIRUBIN,TOTAL 0.4 mg/dL (0.2-1); TOT PROT 7.9 g/dl (6.4-8.2)
[2022-09-18 23:25] LABS: EPI CELLS 11 /uL (0-25.1); HYALINE CASTS 2 /uL (0-3.1); PH,URINE 6.5 (5.0-8.0); URINE APPEARANCE CLEAR; URINE BACTERIA 18 /uL (0-1359); URINE BILIRUBIN NEGATIVE (NEGATIVE); URINE COLOR YELLOW; URINE GLUCOSE (UA) NEGATIVE (NEGATIVE); URINE KETONE NEGATIVE (NEGATIVE); URINE LEUK ESTERASE NEGATIVE (NEGATIVE); URINE NITRITE NEGATIVE (NEGATIVE); URINE PROTEIN 3+ (NEGATIVE); URINE RBC 20 /uL (0-23.9); URINE UROBILINOGEN 0.2 mg/dL (0.2-1.0); URINE WBC 16 /uL (0-25.8)
[2022-09-19] MEDS ORDERED: ACETAMINOPHEN 500 MG TABLET (FP) ONE (00:42)
[2022-09-19] MEDS: ACETAMINOPHEN 500 MG TABLET (FP) PO PRN ×2 (00:45→22:19)
[2022-09-19] MEDS ORDERED: MECLIZINE HCL 12.5 MG TABLET PO PRN (01:25)
[2022-09-19] MEDS ORDERED: SODIUM CHLORIDE 0.45% 1,000 ML IV SCH (01:30)
[2022-09-19] MEDS ORDERED: LACTATED RINGERS SOLUTION 1,000 ML/1,000 ML INFUS.BAG IV SCH (01:30)
[2022-09-19] MEDS ORDERED: DIPHTH,PERTUSS(ACELL),TET 0.5 ML DISP.SYRIN IM ONE (01:30)
[2022-09-19] MEDS ORDERED: WARFARIN NA 2 MG TABLET PO ONE ×3 (01:31→02:30)
[2022-09-19] MEDS ORDERED: WARFARIN NA 1 MG TABLET ONE (02:17)
[2022-09-19] MEDS ORDERED: WARFARIN NA 1 MG TABLET PO ONE (02:30)
[2022-09-19] MEDS ORDERED: POLYETHYLENE GLYCOL (HEALTHYLAX) 3350 17 GM PACKET PO PRN (05:41)
[2022-09-19 07:07] LABS: BASO % 0.4 % (0-2.0); EOS % 1.1 % (0-4.5); HEMATOCRIT 34.1 % (32.4-45.2); HEMOGLOBIN 11.6 GM/dL (10.7-15.3); MCH 31.8 pg (25.7-33.7); MEAN CELL VOLUME 93.5 fl (80-96); MEAN PLT VOLUME 8.6 fl (7.5-11.1); MONO % 11.9 % (3.8-10.2); NEUT % 62.6 % (42.8-82.8); PLATELET COUNT 111 10^3/uL (134-434); RBC 3.65 M/mm3 (3.60-5.2); RDW 13.2 % (11.6-15.6); WHITE BLOOD COUNT 5.8 K/mm3 (4.0-10.0)
[2022-09-19 07:15] LABS: INR 2.25 (0.83-1.09); PROTHROMBIN TIME (PATIENT) 25.9 SEC (9.7-13.0)
[2022-09-19 07:32] LABS: CALCIUM 8.5 mg/dL (8.5-10.1)
[2022-09-19 07:33] LABS: ALBUMIN 3.1 g/dl (3.4-5.0); BLOOD UREA NITROGEN 27.8 mg/dL (7-18); MAGNESIUM 2.1 mg/dL (1.8-2.4)
[2022-09-19 07:38] LABS: BILIRUBIN,TOTAL 0.6 mg/dL (0.2-1); TOT PROT 6.6 g/dl (6.4-8.2)
[2022-09-19] MEDS ORDERED: CEFTRIAXONE 1 GM/50 ML BAG ONE (08:31)
[2022-09-19] MEDS: CEFTRIAXONE 1 GM in DEXTROSE 5%-WATER - 50 ML IVPB SCH (09:28)
[2022-09-19] MEDS ORDERED: ENOXAPARIN NA (PORCINE) 40 MG/0.4 ML DISP.SYRIN SQ SCH (10:00)
[2022-09-19] MEDS ORDERED: amLODIPine BESYLATE 5 MG TABLET (FP) PO SCH (10:00)
[2022-09-19] MEDS ORDERED: WARFARIN NA 2 MG TABLET PO SCH ×2 (18:00)
[2022-09-19] MEDS ORDERED: LOSARTAN POTASSIUM 25 MG TABLET PO SCH (22:00)
[2022-09-19] MEDS ORDERED: SENNOSIDES 8.6MG TABLET (FP) PO SCH (22:00)
[2022-09-20 08:40] LABS: CHOLESTEROL 161 mg/dL (50-200); TRIGLYCERIDES 95 mg/dL (0-150)
[2022-09-20 08:41] LABS: LDL CHOLESTEROL (ONLY SJRH) 87 mg/dL (5-100)
[2022-09-20 08:43] LABS: HDL CHOLESTEROL 64 mg/dL (40-60)
[2022-09-20] MEDS: CEFTRIAXONE 1 GM in DEXTROSE 5%-WATER - 50 ML IVPB SCH (10:16)
[2022-09-20] MEDS ORDERED: WARFARIN NA 2 MG TABLET PO SCH (18:00)
[2022-09-20 18:30] VITALS: BP 139/59; PULSE 84; RESP 18; TEMP 98.1
== END 2022-09-20 19:29 | disposition home health service (06) ==
LOC: JER 19:01 → JERBED 22:18 → J4W 09-19 09:41
PROVIDERS: ADMIT Internal Medicine; ATTEND Internal Medicine
PROC: 3E03329 Introduction of Other Anti-infective into Peripheral Vein, Percutaneous Approach (ICD-10-PCS; principal; 2022-09-18)
PROC: 3E0234Z Introduction of Serum, Toxoid and Vaccine into Muscle, Percutaneous Approach (ICD-10-PCS; 2022-09-18)
DX: N39.0 Urinary tract infection, site not specified (principal); I25.10 Atherosclerotic heart disease of native coronary artery without angina pectoris; W18.39XA Other fall on same level, initial encounter; Y93.89 Activity, other specified; Y92.009 Unspecified place in unspecified non-institutional (private) residence as the place of occurrence of the external cause; I48.91 Unspecified atrial fibrillation; H81.10 Benign paroxysmal vertigo, unspecified ear; E78.5 Hyperlipidemia, unspecified; Z29.8 Encounter for other specified prophylactic measures; Z88.6 Allergy status to analgesic agent; Z85.3 Personal history of malignant neoplasm of breast; Z95.2 Presence of prosthetic heart valve; Z79.01 Long term (current) use of anticoagulants; Z87.891 Personal history of nicotine dependence; Z23 Encounter for immunization
CPT/HCPCS: 0241U-QW; 36415; 70450-TC; 71045-TC-FY; 72125-TC; 80053; 80061; 81003; 83735; 84100; 84443; 84484; 85025; 85610; 85730; 87086; 90471; 90715; 93005; 93010; 93306-TC; 93880-TC; 96365; 97116-GP; 97162-GP; 99285-25; G0378